=== PATIENT | female | born 1970 | race Caucasian/White ===

== ENCOUNTER 2023-06-20 13:16 | Emergency (ER) | payer BC, SELFPAY ==
[2023-06-20 13:25] VITALS: BP 139/70; PULSE 79; RESP 20; TEMP 36.6; O2SAT 98
--- NOTE | 2023-06-20 13:35 | ED.URI ---
HPI - URI/Sore Throat General Chief Complaint: Upper Respiratory Infection Stated Complaint: Cough/Chest Congestion Time Seen by Provider: 06/20/23 13:36 Source: patient, RN notes reviewed and old records reviewed Mode of arrival: ambulatory Limitations: no limitations History of Present Illness HPI Narrative: 52-year-old female presents to [facility] complaints of 2 week history of cough, chest congestion, some noted wheezing. Patient reports she was seen at [facility] and received prednisone and Tessalon Perles for her cough with no improvement in her symptoms. Patient reports history of tobacco use for 35 years.Patient reports no fevers, chills or sweats or any body aches. MD elicited complaint: cough and other (Chest congestion) Pertinent past history: pneumonia and other (bronchitis) Onset (ago): week(s) (2) Able to tolerate fluids by mouth: Yes Treatments prior to arrival: other (Prednisone and Tessalon Perles) Related Data Home Medications Medication Instructions Recorded Confirmed aripiprazole 20 mg tablet 20 mg PO DAILY 06/20/23 06/20/23 atorvastatin 20 mg tablet 20 mg PO DAILY 06/20/23 06/20/23 benzonatate 200 mg capsule See Rx Instructions .Route .COMPLEX 06/20/23 06/20/23 buspirone 10 mg tablet 10 mg PO BID 06/20/23 06/20/23 clonidine HCl 0.2 mg tablet 0.2 mg PO DAILY 06/20/23 06/20/23 dexmethylphenidate 10 mg tablet 10 mg PO DAILY 06/20/23 06/20/23 lamotrigine 200 mg tablet See Rx Instructions .Route .COMPLEX 06/20/23 06/20/23 levothyroxine 150 mcg tablet 150 mcg PO DAILY 06/20/23 06/20/23 lisinopril 20 mg tablet 20 mg PO DAILY 06/20/23 06/20/23 trazodone 50 mg tablet 50 mg PO BID 06/20/23 06/20/23 zolpidem 12.5 mg tablet,extended 12.5 mg PO HS 06/20/23 06/20/23 release,multiphase Allergies Allergy/AdvReac Type Severity Reaction Status Date / Time Penicillins Allergy Anaphylaxis Verified 06/20/23 13:45 Review of Systems Review of Systems: CONSTITUTIONAL: Denies malaise, chills, sweats, or fever. EYES: Denies visual changes, redness, or discharge. ENT: Reports rhinorrhea, congestion, sinus pain,no otalgia and no sore throat. CARDIOVASCULAR: Denies chest pain, palpitations, or edema. RESPIRATORY: Reports cough.? some dyspnea with exertion. GASTROINTESTINAL: Denies abdominal pain, nausea, vomiting, diarrhea SKIN: Denies rash or itching. MUSCULOSKELETAL: Denies myalgia. NEUROLOGIC: Denies headache. All systems reviewed & are unremarkable except as noted in HPI and below PMFSH Past Medical History Medical History (Updated 06/21/23 @ 14:58 by Snow Owens NP) Anxiety Bipolar disorder COVID-19 2020 Hyperlipidemia Pneumonia PTSD (post-traumatic stress disorder) Surgical History Surgical History (Updated 06/21/23 @ 14:52 by Snow Owens NP) H/O thyroidectomy Hx of tubal ligation Social History Social History (Updated 06/21/23 @ 14:49 by Snow Owens NP) Smoking packs per day: 0.5 Smoking cigarettes per day: 10.0 Years smoked: 35 Smoking pack-years: 17.50 Smoking status: Current every day smoker Tobacco type: cigarettes Alcohol intake: unknown Substance use type: does not use Living arrangements: with family Gender identity (if verbalized by the patient): Female Comments At time of signature, agree with nursing past medical, surgical, social and family history. There is no relevant family history pertinent to the presenting complaint Exam Narrative: GENERAL: Well-appearing, well-nourished, and in no acute distress. HEAD: Normocephalic EYES: PERRLA, conjunctivae clear ENT: Nares clear, turbinates edematous and erythematous, clear discharge. Mucous membranes moist. TM pearly hooker with dull light reflex bilaterally; no tragal tenderness. Oropharynx erythematous without lesions. Tonsils not enlarged and without exudate, no drooling, no hoarseness, no trismus, uvula midline.post nasal drainage NECK: Supple. No lymphadeno
== END 2023-06-20 14:00 | disposition home or self-care (01) ==
PROVIDERS: Emergency Provider Registered Nurse; PCP Internal Medicine
DX: J20.9 Acute bronchitis, unspecified (principal); F17.210 Nicotine dependence, cigarettes, uncomplicated; E78.5 Hyperlipidemia, unspecified; F41.9 Anxiety disorder, unspecified; F31.9 Bipolar disorder, unspecified; Z86.16 Personal history of COVID-19
CPT/HCPCS: 99213; G0463

== ENCOUNTER 2025-03-17 15:38 | Outpatient (CLI) | payer BC, SELFPAY ==
--- OUTSIDE RECORDS SUMMARY | 2025-03-17 15:41 | XMS_ITS | Encounter Summary ---
Author Organization [facility] Address [address] [place] [address] Phone Care Team Providers Care Robot Operator Name Role Phone Garrison Laboy MD Primary Care Provider [phone] Nguyen Shepard APRN, CNP Unavailable [phone] Fei Stevens MD Unavailable [phone] Kellen Mena MD Unavailable [phone] Darian Caal MD Unavailable [phone] Jose Swanson MD Unavailable Reason for Visit * Reason Comments Medication Refill Encounter Details Date Type Department Care Team (Late st Contact Info) Description 06/21/2022 Refill [facility] - Family [facility] [address] [place] [phone] Saqib Shepard, PAC [address] [place] [address] Medication Refill Social History Tobacco Use Types Packs/Day Years Used Date Smoking Tobacco: Every Day Cigarettes 1 39.1 Started: 01/23/1986 Smokeless Tobacco: Never Alcohol Use Standard Drinks/Week Comments No 0 (1 standard drink = 0.6 oz pur e alcohol) Comments No Sex and Gender Information Value Date Recorded Sex Assigned at Not on file Legal Sex Female 11:10 PM CDT Gender Identity Not on file Sexual Orientation Not on file documented as of this encounter Miscellaneous Notes * Telephone Encounter - Saqib Shepard PAC - 06/21/2022 1:02 PM CST Rx request approved. CORE DEVELOPER * Telephone Encounter - Misty Weir RN - 06/21/2022 8:32 AM CST Medication failed the protocol, provider to review and approve the medication order if appropriate. Requested Prescriptions Pending Prescriptions Disp Refills traMADol (ULTRAM) 50 MG Tablet [Pharmacy Med Name: traMADol HCl 50 MG Oral Tablet] 60 Tablet 0 Sig: TAKE 1 TABLET BY MOUTH IN THE MORNING AND 1 AT BEDTIME Not Delegated - Opioid Agonists Protocol Failed - 06/21/2022 7:50 AM Failed - This refill cannot be delegated Passed - Visit with relevant provider in past 12 months or upcoming 90 days Recent Visits Date Type Provider Dept 03/01/22 Office Visit Garrison Laboy MD [facility] 09/06/21 Office Visit Garrison Laboy MD [facility] 07/11/21 Office Visit Garrison Laboy MD [facility] Showing recent visits within past 365 days and meeting all other requirements Future Appointments Date Type Provider Dept 07/06/22 Appointment Lab[facility] Showing future appointments within next 90 days and meeting all other requirements CORE DEVELOPER * Telephone Encounter - Misty Weir RN - 06/21/2022 8:31 AM CST Per [place] PDMP last fill date 05/20/22. CORE DEVELOPER documented in this encounter Plan of Treatment Upcoming Encounters Date Type Department Care Team (Late st Contact Info) Description 04/19/2025 2:45 PM CDT Office Visit [facility] - Neurology [facility] [address] [place] [address] Darian Caal MD [address] [place] [address] documented as of this encounter Visit Diagnoses Diagnosis Fibromyalgia Mylagia and myositis, unspecified documented in this encounter Care Teams Robot Operator Relationship Specialty Start Date End Date Garrison Laboy MD [address] [place] [address] PCP - General Internal Medicine 05/30/15 Nguyen Shepard APRN, PACKAGE DESIGNER [address] [place] [address] Consulting Physician Psychiatry 03/04/19 08/22/23 Fei Stevens MD [address] [place] [address] Consulting Physician Obstetrics & Gynecology 04/12/20 Kellen Mena MD [address] [place] [address] Consulting Physician Psychiatry 08/23/23 Darian Caal MD [address] [place] [address] Consulting Physician Neurology 11/15/23 Jose Swanson MD [address] [address] Consulting Physician Colon and Rectal Surgery 04/27/24 documented as of this encounter
--- OUTSIDE RECORDS SUMMARY | 2025-03-17 15:41 | XMS_ITS | Encounter Summary ---
Author Organization [facility] Address [address] [place] [address] Phone Care Team Providers Care Act Tutor Name Role Phone Garrison Laboy MD Primary Care Provider [phone] Nguyen Shepard APRN, CNP Unavailable [phone] Fei Stevens MD Unavailable [phone] Kellen Mena MD Unavailable [phone] Darian Caal MD Unavailable [phone] Jose Swanson MD Unavailable Reason for Visit * Reason Comments Medication Refill Encounter Details Date Type Department Care Team (Late st Contact Info) Description 05/22/[address] [facility] Group - Primary Care - [place] [address] [place] [phone] Garrison Laboy MD [address] [place], [place] [phone] Medication Refill Social History Tobacco Use Types [...] on file Sexual Orientation Not on file COVID-19 Exposure Response Date Recorded In the last 10 days, have yo u been in contact with someone who was confirmed or suspected to have Coronavirus/COVID-19? No / Unsure 05/03/2022 2:22 PM CDT documented as of this encounter Miscellaneous Notes * Telephone Encounter - Amelia Gerber, RN - 05/22/2022 1:18 PM CDT Medication refills declined. Meloxicam by discontinued by PCP on 03/01/22 and Levothyroxine strengthby changed by PCP. documented in this encounter Plan of Treatment Upcoming Encounters Date Type Department Care Team (Late st Contact Info) Description 04/19/2025 2:45 PM CDT Office Visit [facility] [address] [place] [address] Darian Caal MD [address] [place] [address] documented as of this encounter Visit Diagnoses Diagnosis Thumb pain, right Hypothyroidism due to acquired atrophy of thyroid documented in this encounter Care Teams Act Tutor Relationship Specialty Start Date End Date Garrison Laboy MD [address] [place] [address] PCP - General Internal Medicine 05/30/15 Nguyen Shepard, LINING INSERTER, SUPERVISOR OFFSET PLATE PREPARATION [address] [place] [address] Consulting Physician Psychiatry 03/04/19 08/22/23 Fei Stevens MD [address] [place] [address] Consulting Physician Obstetrics & Gynecology 04/12/20 Kellen Mena MD [address] [place] [address] Consulting Physician Psychiatry 08/23/23 Darian Caal MD [address] [place] [address] Consulting Physician Neurology 11/15/23 Jose Swanson MD [address] [address] Consulting Physician Colon and Rectal Surgery 04/27/24 documented as of this encounter
--- OUTSIDE RECORDS SUMMARY | 2025-03-17 15:41 | XMS_ITS | Encounter Summary ---
Author Organization [facility] Address [address] [place] [address] Phone Care Team Providers Care Stadium Attendant Name Role Phone Garrison Laboy MD Primary Care Provider [phone] Nguyen Shepard APRN, CNP Unavailable [phone] Fei Stevens MD Unavailable [phone] Kellen Mena MD Unavailable [phone] Darian Caal MD Unavailable [phone] Jose Swanson MD Unavailable Reason for Visit * Reason Comments Medication Refill Encounter Details Date Type Department Care Team (Late st Contact Info) Description 09/25/2022 Refill [facility] Medical Group - Family [facility] [address] [place] [address] Debbie Marino MD [address] [place] [address] Medication Refill Social History Tobacco Use Types Packs/Day Years Used Date Smoking Tobacco: Every Day Cigarettes 0.5 39.1 Started: 01/23/1986 Smokeless Tobacco: Never Alcohol Use Standard Drinks/Week Comments No 0 (1 standard drink = 0.6 oz pur e alcohol) Sexually Active Control Partners Comments Not Currently Comments No Sex and Gender Information Value Date Recorded Sex Assigned at Not on file Legal Sex Female 11:10 PM CDT Gender Identity Not on file Sexual Orientation Not on file documented as of this encounter Miscellaneous Notes * Telephone Encounter - Garrison Laboy MD - 09/25/2022 9:21 AM ASSOCIATE MERCHANDISE PLANNER Refill request approved. CIATE MERCHANDISE PLANNER * Telephone Encounter - Snow Calvillo RN - 09/25/2022 9:03 AM CST Per PDMP last refill was 08/24/22 #60. Medication failed the protocol, provider to review and approve the medication order if appropriate. Requested Prescriptions Pending Prescriptions Disp Refills traMADol (ULTRAM) 50 MG Tablet [Pharmacy Med Name: traMADol HCl 50 MG Oral Tablet] 60 Tablet 0 Sig: TAKE 1 TABLET BY MOUTH TWICE DAILY NEEDED FOR MODERATE OR MORE SEVERE PAIN Not Delegated - Opioid Agonists Protocol Failed - 09/25/2022 8:43 AM Failed - This refill cannot be delegated Passed - Visit with relevant provider in past 12 months or upcoming 90 days Recent Visits Date Type Provider Dept 03/01/22 Office Visit Garrison Laboy MD [facility] Showing recent visits within past 365 days and meeting all other requirements Future Appointments No visits were found meeting these conditions. Showing future appointments within next 90 days and meeting all other requirements CIATE MERCHANDISE PLANNER documented in this encounter Plan of Treatment Upcoming Encounters Date Type Department Care Team (Late st Contact Info) Description 04/19/2025 2:45 PM CDT Office Visit [facility] - Neurology [facility] [address] [place] [address] Darian Caal MD [address] [place] [address] documented as of this encounter Visit Diagnoses Diagnosis Fibromyalgia Mylagia and myositis, unspecified documented in this encounter Care Teams Stadium Attendant Relationship Specialty Start Date End Date Garrison Laboy MD [address] [place] [address] PCP - General Internal Medicine 05/30/15 Nguyen Shepard APRN, LIME HIDE INSPECTOR [address] [place] [address] Consulting Physician Psychiatry 03/04/19 08/22/23 Fei Stevens MD [address] [place] [address] Consulting Physician Obstetrics & Gynecology 04/12/20 Kellen Mena MD [address] [place] [address] Consulting Physician Psychiatry 08/23/23 Darian Caal MD [address] [place] [address] Consulting Physician Neurology 11/15/23 Jose Swanson MD [address] [address] Consulting Physician Colon and Rectal Surgery 04/27/24 documented as of this encounter
--- OUTSIDE RECORDS SUMMARY | 2025-03-17 15:41 | XMS_ITS | Encounter Summary ---
Author Organization [facility] Address [address] [place] [address] Phone Care Team Providers Care Snow Plow Tractor Operator Name Role Phone Garrison Laboy MD Primary Care Provider [phone] Nguyen Shepard APRN, CNP Unavailable [phone] Fei Stevens MD Unavailable [phone] Kellen Mena MD Unavailable [phone] Darian Caal MD Unavailable [phone] Jose Swanson MD Unavailable Reason for Visit * Reason Comments Medication Refill Encounter Details Date Type Department Care Team (Late st Contact Info) Description 01/26/2023 Refill [facility] Group - Primary Care - [place] [address] [place] [address] Garrison Laboy MD [address] [place], [place] [phone] Medication Refill Social History Tobacco Use Types [...] Telephone Encounter - Garrison Laboy MD - 01/28/2023 9:56 AM CDT Refill request approved. * Telephone Encounter - Misty Weir RN - 01/28/2023 8:47 AM CDT Medication failed the protocol, provider to review and approve the medication order if appropriate. Requested Prescriptions Pending Prescriptions Disp Refills levothyroxine (SYNTHROID) 125 MCG Tablet [Pharmacy Med Name: Levothyroxine Sodium 125 MCG Oral Tablet] 90 Tablet 0 Sig: Take 1 tablet by mouth once daily Thyroid Hormones Protocol Failed - 01/26/2023 6:54 PM Failed - Normal TSH in past 12 months TSH Date Value Ref Range Status 07/06/2022 8.360 (H) 0.270 - 4.200 mIU/L Final Passed - No test in the past 12 months or most recent test was negative Passed - Visit with relevant provider in past 12 months or upcoming 90 days Recent Visits Date Type Provider Dept 03/01/22 Office Visit Garrison Laboy MD [facility] Showing recent visits within past 365 days and meeting all other requirements Future Appointments Date Type Provider Dept 03/08/23 Appointment Garrison Laboy MD [facility] Showing future appointments within next 90 days and meeting all other requirements Passed - No active on record documented in this encounter Plan of Treatment Upcoming Encounters Date Type Department Care Team (Late st Contact Info) Description 04/19/2025 2:45 PM CDT Office Visit [facility] - Neurology - [place] [address] [place] [address] Darian Caal MD [address] [place] [address] documented as of this encounter Visit Diagnoses Diagnosis Hypothyroidism due to acquired atrophy of thyroid documented in this encounter Care Teams Snow Plow Tractor Operator Relationship Specialty Start Date End Date Garrison Laboy MD [address] [place] [address] PCP - General Internal Medicine 05/30/15 Nguyen Shepard APRN, OIL WELL FISHING TOOL TECHNICIAN [address] [address] Consulting Physician Psychiatry 03/04/19 08/22/23 Fei Stevens MD [address] [place] [address] Consulting Physician Obstetrics & Gynecology 04/12/20 Kellen Mena MD [address] [place] [address] Consulting Physician Psychiatry 08/23/23 Darian Caal MD [address] [place] [address] Consulting Physician Neurology 11/15/23 Jose Swanson MD [address] [address] Consulting Physician Colon and Rectal Surgery 04/27/24 documented as of this encounter
--- OUTSIDE RECORDS SUMMARY | 2025-03-17 15:41 | XMS_ITS | Encounter Summary ---
Author Organization [facility] Address [address] [place] [address] Phone Care Team Providers Care Clinical Unit Educator Name Role Phone Garrison Laboy MD Primary Care Provider [phone] Fei Stevens MD Unavailable [phone] Kellen Mena MD Unavailable [phone] Darian Caal MD Unavailable [phone] Jose Swanson MD Unavailable Encounter Details Date Type Department Care Team (Late st Contact Info) Description 05/04/2024 Transcribe Orders [facility] [address] [facility] [address] [place], [place] [phone] Jose Swanson MD [address] [place] [address] Social History Tobacco Use Types Packs/Day Years Used Date Smoking Tobacco: Every Day Cigarettes 1 39.1 Started: 01/23/1986 Smokeless Tobacco: Never Alcohol Use Standard Drinks/Week Comments No 0 (1 standard drink = 0.6 oz pur e alcohol) [facility] Utilities Answer Date Recorded In the past 12 months has e electric, gas, oil, or water company threatened to shut off services in your home? No 03/12/2024 Social Connection and Isolation Panel Answer Date Recorded In a typical week, how many times do you talk on the phone with family, friends, or neighbors? Twice a week 03/12/2024 How often do you get together with friends or re latives? Once a week 03/12/2024 How often do you attend mandaeism or uatsdin serv ices? Never 03/12/2024 Do you belong to any clubs o r organizations such as mandaeism groups, unions, fraternal or athletic groups, or school groups? No 03/12/2024 How often do you attend meet ings of the clubs or organizations you belong to? Never 03/12/2024 Are you , , di vorced, , never , or living with a partner? 03/12/2024 AUDIT-C Answer Date Recorded Q1: How often do you have a drink containing alcohol? Never 03/12/2024 Q2: How many drinks containi ng alcohol do you have on a typical day when you are drinking? Patient does not drink Q3: How often do you have si x or more drinks on one occasion? Never 03/12/2024 Overall Financial Resource Strain (CARDIA) Answe r Date Recorded How hard is it for you to pa y for the very basics like food, housing, medical care, and heating? Not hard at all 03/12/2024 [facility] - Occupational Stress Questionnaire Answer Date Recorded Do you feel stress - tense, restless, nervous, or anxious, or unable to sleep at night because your mind is troubled all the time - these days? To some extent 03/12/2024 Exercise Vital Sign Answer Date Recorde d On average, how many days pe r week do you engage in moderate to strenuous exercise (like a brisk walk)? 5 days 03/12/2024 On average, how many minutes do you engage in exercise at this level? 30 min 03/12/2024 Hunger Vital Sign Answer Date Recorded Within the past 12 months, y ou worried that your food would run out before you got the money to buy more. Never true 03/12/20 24 Within the past 12 months, t he food you bought just didn't last and you didn't have money to get more. Never true 03/12/2024 PRAPARE - Transportation Answer Date Re corded In the past 12 months, has l ack of transportation kept you from medical appointments or from getting medications? No 02/20 In the past 12 months, has l ack of transportation kept you from meetings, work, or from getting things needed for daily living? No 03/12/2024 Housing Stability Vital Sign Answer Merrick e Recorded In the last 12 months, was t here a time when you were not able to pay the mortgage or rent on time? No 08/22/2023 In the last 12 months, how many places have you lived? 1 08/22/2023 In the last 12 months, was t here a time when you did not have a steady place to sleep or slept in a fdc (including now)? No 08/22/2023 Housing Stability Vital Sign Answer Merrick e Recorded In the last 12 months, was t here a time when you were not able to pay the mortgage or rent on time? No 03/12/2024 In the past 12 months, how m any times have you moved where you were living? 0 03/12/2024 At any time in the past 12 m [facility], were you homeless or living in a fdc (including now)? No 03/12/2024 Education Answer Date Recorded What is the highest level of school you have completed or the highest degree you have received? GED or equivalent 06/2023 Sexually Active Control Partners Comments Yes Male Comments No Sex and Gender Information Value Date Recorded Sex Assigned at Not on file Legal Sex Female 11:10 PM CDT Gender Identity Not on file Sexual Orientation Not on file documented as of this encounter Plan of Treatment Upcoming Encounters Date Type Department Care Team (Late st Contact Info) Description 04/19/2025 2:45 PM CDT Office Visit [facility] - Neurology [facility] [address] [place] [address] Darian Caal MD [address] [place] [address] documented as of this encounter Visit Diagnoses Not on filedocumented in this encounter Additional Health Concerns Assessment Noted Time PHQ-9 Depression Total Score: 0 08/23/19 24 1:44 PM HELP DESK SPECIALIST documented as of this encounter Care Teams Clinical Unit Educator Relationship Specialty Start Date End Date Garrison Laboy MD [address] [place] [address] PCP - General Internal Medicine 05/30/15 Fei Stevens MD [address] [place] [address] Consulting Physician Obstetrics & Gynecology 04/12/20 Kellen Mena MD [address] [place] [address] Consulting Physician Psychiatry 08/23/23 Darian Caal MD [address] [place] [address] Consulting Physician Neurology 11/15/23 Jose Swanson MD #[address] [address] Consulting Physician Colon and Rectal Surgery 04/27/24 documented as of this encounter
--- OUTSIDE RECORDS SUMMARY | 2025-03-17 15:41 | XMS_ITS | Encounter Summary ---
Author Organization [facility] Address [address] [place] [address] Phone Care Team Providers Care Wire Tinner Name Role Phone Garrison Laboy MD Primary Care Provider [phone] Nguyen Shepard APRN, CNP Unavailable [phone] Fei Stevens MD Unavailable [phone] Kellen Mena MD Unavailable [phone] Darian Caal MD Unavailable [phone] Jose Swanson MD Unavailable Reason for Visit * Reason Comments Medication Refill Encounter Details Date Type Department Care Team (Late st Contact Info) Description 05/17/2022 Refill [facility] - Family [facility] [address]2 [place] [phone] Garrison Laboy MD [address] [place] [address] Medication Refill Social History Tobacco Use Types [...] Telephone Encounter - Saqib Shepard PAC - 05/17/2022 3:52 PM CDT Refill request approved for fill date on 05/19/22, per LEARNING PROGRAM MANAGER. * Telephone Encounter - Misty Weir RN - 05/17/2022 3:43 PM CDT Per [place] PDMP last fill date 04/19/22. documented in this encounter Plan of Treatment Upcoming Encounters Date Type Department Care Team (Late st Contact Info) Description 04/19/2025 2:45 PM CDT Office Visit [facility] - Neurology - [place] [address] [place] [address] Darian Caal MD [address]2 [place] [address] documented as of this encounter Visit Diagnoses Diagnosis Fibromyalgia Mylagia and myositis, unspecified documented in this encounter Care Teams Wire Tinner Relationship Specialty Start Date End Date Garrison Laboy MD [address] [place] [address] PCP - General Internal Medicine 05/30/15 Nguyen Shepard APRN, LEAK PATCHER [address] [place] [address] Consulting Physician Psychiatry 03/04/19 08/22/23 Fei Stevens MD [address]2 [place] [address] Consulting Physician Obstetrics & Gynecology 04/12/20 Kellen Mena MD [address] [place] [address] Consulting Physician Psychiatry 08/23/23 Darian Caal MD [address]2 [place] [address] Consulting Physician Neurology 11/15/23 Jose Swanson MD #[address] [address] Consulting Physician Colon and Rectal Surgery 04/27/24 documented as of this encounter
--- OUTSIDE RECORDS SUMMARY | 2025-03-17 15:41 | XMS_ITS | Encounter Summary ---
Author Organization [facility] Address [address] [place] [address] Care Team Providers Care International Editorial Producer Name Role Phone Garrison Laboy MD Primary Care Provider [phone] Encounter Details Date Type Department Care Team (Latest Contact Info) Description 01/11/2004 Outpatient Historical HIS PATIENT IN A BED Tino Smith Jr., MD NO ADDRESS ON FILE OTHER CURR COND-ANTEPARTUM (Primary Dx) Social History Tobacco Use Types Packs/Day Years Used Date Smoking Tobacco: Never Assessed Comments Unknown Sex and Gender Information Value Date Recorded Sex Assigned at Not on file Legal Sex Female 4:14 AM EXERCISE PHYSIOLOGY PROFESSOR Gender Identity Not on file Sexual Orientation Not on file documented as of this encounter Plan of Treatment Not on file documented as of this encounter Visit Diagnoses Diagnosis Other current maternal conditions classifiable elsewhere, antepartum- Primary documented in this encounter Care Teams International Editorial Producer Relationship Specialty Start Date End Date Garrison Laboy MD [address] [place] [address] PCP - General Internal Medicine 10/12/15 documented as of this encounter
--- OUTSIDE RECORDS SUMMARY | 2025-03-17 15:41 | XMS_ITS | Encounter Summary ---
Author Organization [facility] Address [address] [place] [address] Phone Care Team Providers Care Textile Clothing And Footwear Mechanic Name Role Phone Garrison Laboy MD Primary Care Provider [phone] Nguyen Shepard APRN, CNP Unavailable [phone] Fei Stevens MD Unavailable [phone] Kellen Mena MD Unavailable [phone] Darian Caal MD Unavailable [phone] Jose Swanson MD Unavailable Reason for Visit * Reason Comments Medication Refill Encounter Details Date Type Department Care Team (Late st Contact Info) Description 04/22/2022 Refill [facility] - Primary Care - [place] [address] [place] [address] Garrison Laboy MD [address] [place], [place] [id number] Medication Refill Social History Tobacco Use Types [...] encounter Miscellaneous Notes * Telephone Encounter - Ese Ashley RN - 04/23/2022 9:48 AM CDT Medication discontinued 03/01/2022. documented in this encounter Plan of Treatment Upcoming Encounters Date Type Department Care Team (Late st Contact Info) Description 04/19/2025 2:45 PM CDT Office Visit [facility] - Neurology [facility] #2 [place] [address] Darian Caal MD [address] [place] [address] documented as of this encounter Visit Diagnoses Diagnosis Thumb pain, right documented in this encounter Care Teams Textile Clothing And Footwear Mechanic Relationship Specialty Start Date End Date Garrison Laboy MD [address] [place] [address] PCP - General Internal Medicine 05/30/15 Nguyen Shepard APRN, LICENSED FINAL EXPENSE AGENTS [address] [place] [address] Consulting Physician Psychiatry 03/04/19 08/22/23 Fei Stevens MD [address] [place] [address] Consulting Physician Obstetrics & Gynecology 04/12/20 Kellen Mena MD [address] [place] [address] Consulting Physician Psychiatry 08/23/23 Darian Caal MD [address] [place] [address] Consulting Physician Neurology 11/15/23 Jose Swanson MD #[address] [address] Consulting Physician Colon and Rectal Surgery 04/27/24 documented as of this encounter
--- OUTSIDE RECORDS SUMMARY | 2025-03-17 15:41 | XMS_ITS | Encounter Summary ---
Author Organization [facility] Address [address] [place] [address] Phone Care Team Providers Care Circuit Court Judge Name Role Phone Garrison Laboy MD Primary Care Provider [phone] Nguyen Shepard APRN, CNP Unavailable [phone] Fei Stevens MD Unavailable [phone] Kellen Mena MD Unavailable [phone] Darian Caal MD Unavailable [phone] Jose Swanson MD Unavailable Reason for Visit * Reason Comments Medication Refill Encounter Details Date Type Department Care Team (Late st Contact Info) Description 03/21/2022 Refill [facility] - Primary Care - [place] [address] [place] [address] Garrison Laboy MD [address] [place], [place] [phone] Medication Refill Social History Tobacco Use Types [...] suspected to have Coronavirus/COVID-19? No / Unsure 03/16/2022 8:55 AM CDT documented as of this encounter Miscellaneous Notes * Telephone Encounter - Misty Weir RN - 03/21/2022 9:26 AM CDT levothyroxine (SYNTHROID) 125 MCG Tablet 90 Tablet 0 03/02/2022 documented in this encounter Plan of Treatment Upcoming Encounters Date Type Department Care Team (Late st Contact Info) Description 04/19/2025 2:45 PM CDT Office Visit [facility] - Neurology [facility] #2 [place] [address] Darian Caal MD [address] [place] [address] documented as of this encounter Visit Diagnoses Not on filedocumented in this encounter Care Teams Circuit Court Judge Relationship Specialty Start Date End Date Garrison Laboy MD [address] [place] [address] PCP - General Internal Medicine 05/30/15 Nguyen Shepard, JIE, ORTHOTIST OR PROSTHETIST [address] [place] [address] Consulting Physician Psychiatry 03/04/19 08/22/23 Fei Stevens MD [address] [place] [address] Consulting Physician Obstetrics & Gynecology 04/12/20 Kellen Mena MD [address] [place] [address] Consulting Physician Psychiatry 08/23/23 Darian Caal MD [address] [place] [address] Consulting Physician Neurology 11/15/23 Jose Swanson MD #[address] [address] Consulting Physician Colon and Rectal Surgery 04/27/24 documented as of this encounter
--- OUTSIDE RECORDS SUMMARY | 2025-03-17 15:41 | XMS_ITS | Encounter Summary ---
Author Organization [facility] Address [address] [place] [address] Phone Care Team Providers Care Bedspread Seamer Name Role Phone Garrison Laboy MD Primary Care Provider [phone] Fei Stevens MD Unavailable [phone] Kellen Mena MD Unavailable [phone] Darian Caal MD Unavailable [phone] Jose Swanson MD Unavailable Reason for Visit * Reason Comments Medication Refill Encounter Details Date Type Department Care Team (Late st Contact Info) Description 01/27/2024 Refill [facility] - Primary Care - [place] [address] [place] [address] Garrison Laboy MD [address] [place] [address] Medication Refill Social History Tobacco Use Types Packs/Day Years Used Date Smoking Tobacco: Every Day Cigarettes 1 39.1 Started: 01/23/1986 Smokeless Tobacco: Never Alcohol Use Standard Drinks/Week Comments No 0 (1 standard drink = 0.6 oz pur e alcohol) [facility] Utilities Answer Date Recorded In the past 12 months has [employer] electric, gas, oil, or water company threatened to shut off services in your home? No 08/22/2023 Social Connection and Isolation Panel Answer Date Recorded In a typical week, how many times do you talk on the phone with family, friends, or neighbors? Twice a week 08/22/2023 How often do you get together with friends or re latives? Once a week 08/22/2023 How often do you attend judaism or jewish serv ices? Never 08/22/2023 Do you belong to any clubs o r organizations such as judaism groups, unions, fraternal or athletic groups, or school groups? No 08/22/2023 How often do you attend meet ings of the clubs or organizations you belong to? Never 08/22/2023 Are you , , di vorced, , never , or living with a partner? 08/22/2023 AUDIT-C Answer Date Recorded Q1: How often do you have a drink containing alcohol? Never 08/22/2023 Q2: How many drinks containi ng alcohol do you have on a typical day when you are drinking? Patient does not drink Q3: How often do you have si x or more drinks on one occasion? Never 08/22/2023 Overall Financial Resource Strain (CARDIA) Answe r Date Recorded How hard is it for you to pa y for the very basics like food, housing, medical care, and heating? Not hard at all 08/22/2023 [facility] - Occupational Stress Questionnaire Answer Date Recorded Do you feel stress - tense, restless, nervous, or anxious, or unable to sleep at night because your mind is troubled all the time - these days? To some extent 08/22/2023 Exercise Vital Sign Answer Date Recorde d On average, how many days pe r week do you engage in moderate to strenuous exercise (like a brisk walk)? Patient declined On average, how many minutes do you engage in exercise at this level? Patient declined 08/22/2023 Hunger Vital Sign Answer Date Recorded Within the past 12 months, y ou worried that your food would run out before you got the money to buy more. Never true 08/22/19 24 Within the past 12 months, t he food you bought just didn't last and you didn't have money to get more. Never true 08/22/2023 PRAPARE - Transportation Answer Date Re corded In the past 12 months, has l ack of transportation kept you from medical appointments or from getting medications? No 08/22/2023 Lack of Transportation (Non-Medical) Not on file 08/22/2023 Housing Stability Vital Sign Answer Merrick [...] place to sleep or slept in a care home (including now)? No 08/22/2023 Education Answer Date Recorded What is the highest level of school you have completed or the highest degree you have received? GED or equivalent 06/2023 Sexually Active Control Partners Comments Not Currently Comments No Sex and Gender Information Value Date Recorded Sex Assigned at Not on file Legal Sex Female 11:10 PM CDT Gender Identity Not on file Sexual Orientation Not on file documented as of this encounter Miscellaneous Notes * Telephone Encounter - Socrates Damon RN - 01/27/2024 11:43 AM CDT Refill requested too soon. documented in this encounter Plan of Treatment Upcoming Encounters Date Type Department Care Team (Late st Contact Info) Description 04/19/2025 2:45 PM CDT Office Visit [facility] - Neurology [facility] #2 [place] [address] Darian Caal MD [address] [place] [address] documented as of this encounter Visit Diagnoses Diagnosis Hypertension, essential Unspecified essential hypertension documented in this encounter Additional Health Concerns Assessment Noted Time PHQ-9 Depression Total Score: 0 08/23/19 24 1:44 PM HVAC INSTALLATION TECHNICIAN documented as of this encounter Care Teams Bedspread Seamer Relationship Specialty Start Date End Date Garrison Laboy MD [address] [place] [address] PCP - General Internal Medicine 05/30/15 Fei Stevens MD [address] [place] [address] Consulting Physician Obstetrics & Gynecology 04/12/20 Kellen Mena MD [address] [place] [address] Consulting Physician Psychiatry 08/23/23 Darian Caal MD [address] [place] [address] Consulting Physician Neurology 11/15/23 Jose Swanson MD #[address] [address] Consulting Physician Colon and Rectal Surgery 04/27/24 documented as of this encounter
--- OUTSIDE RECORDS SUMMARY | 2025-03-17 15:41 | XMS_ITS | Encounter Summary ---
Author Organization [facility] Address [address] [place] [address] Phone Care Team Providers Care Astrophysics Professor Name Role Phone Garrison Laboy MD Primary Care Provider [phone] Nguyen Shepard APRN, CNP Unavailable [phone] Fei Stevens MD Unavailable [phone] Kellen Mena MD Unavailable [phone] Darian Caal MD Unavailable [phone] Jose Swanson MD Unavailable Reason for Visit * Reason Comments Medication Refill Encounter Details Date Type Department Care Team (Late st Contact Info) Description 02/06/2023 Refill [facility] - Family [facility] #2 [place] [address] Garrison Laboy MD [address] [place] [address] Medication Refill Social History Tobacco Use Types [...] Telephone Encounter - Garrison Laboy MD - 02/07/2023 8:44 AM CDT Refill request approved. * Telephone Encounter - Misty Weir RN - 02/07/2023 8:43 AM CDT Medication failed the protocol, provider to review and approve the medication order if appropriate. Requested Prescriptions Pending Prescriptions Disp Refills traMADol (ULTRAM) 50 MG Tablet [Pharmacy Med Name: traMADol HCl 50 MG Oral Tablet] 60 Tablet 0 Sig: TAKE 1 TABLET BY MOUTH TWICE DAILY NEEDED FOR MODERATE OR SEVERE PAIN Not Delegated - Opioid Agonists Protocol Failed - 02/06/2023 6:16 PM Failed - This refill cannot be delegated Passed - Visit with relevant provider in past 12 months or upcoming 90 days Recent Visits Date Type Provider Dept 03/01/22 Office Visit Garrison Laboy MD [facility] Showing recent visits within past 365 days and meeting all other requirements Future Appointments Date Type Provider Dept 03/08/23 Appointment Garrison Laboy MD [facility] Showing future appointments within next 90 days and meeting all other requirements * Telephone Encounter - Misty Weir RN - 02/07/2023 8:42 AM CDT Per [place] last fill date 01/06/23. documented in this encounter Plan of Treatment Upcoming Encounters Date Type Department Care Team (Late st Contact Info) Description 04/19/2025 2:45 PM CDT Office Visit [facility] - Neurology - [place] [address]2 [place] [address] Darian Caal MD [address] [place] [address] documented as of this encounter Visit Diagnoses Diagnosis Fibromyalgia Mylagia and myositis, unspecified documented in this encounter Care Teams Astrophysics Professor Relationship Specialty Start Date End Date Garrison Laboy MD [address] [place] [address] PCP - General Internal Medicine 05/30/15 Nguyen Shepard APRN, ACCOUNTS COLLECTOR [address] [place] [address] Consulting Physician Psychiatry 03/04/19 08/22/23 Fei Stevens MD #[address] [place] [address] Consulting Physician Obstetrics & Gynecology 04/12/20 Kellen Mena MD [address] [place] [address] Consulting Physician Psychiatry 08/23/23 Darian Caal MD #[address] [place] [address] Consulting Physician Neurology 11/15/23 Jose Swanson MD #[address] [address] Consulting Physician Colon and Rectal Surgery 04/27/24 documented as of this encounter
--- OUTSIDE RECORDS SUMMARY | 2025-03-17 15:41 | XMS_ITS | Encounter Summary ---
Author Organization [facility] Address [address] [place] [address] Phone Care Team Providers Care Window Decorator Name Role Phone Garrison Laboy MD Primary Care Provider [phone] Nguyen Shepard APRN, CNP Unavailable [phone] Fei Stevens MD Unavailable [phone] Kellen Mena MD Unavailable [phone] Darian Caal MD Unavailable [phone] Jose Swanson MD Unavailable Reason for Visit * Reason Comments Medication Refill Encounter Details Date Type Department Care Team (Late st Contact Info) Description 04/04/2022 Refill [facility] - Primary Care - [place] [address] [place] [address] Garrison Laboy MD [address] [place], [place] [phone] Medication Refill Social History Tobacco Use Types [...] Telephone Encounter - Garrison Laboy MD - 04/04/2022 2:26 PM CDT Refill request approved. * Telephone Encounter - Misty Weir RN - 04/04/2022 1:54 PM CDT Medication failed the protocol, provider to review and approve the medication order if appropriate. Requested Prescriptions Pending Prescriptions Disp Refills zolpidem (AMBIEN) 5 MG Tablet [Pharmacy Med Name: Zolpidem Tartrate 5 MG Oral Tablet] 90 Tablet 0 Sig: TAKE 1 TABLET BY MOUTH NIGHTLY NEEDED FOR SLEEP Not Delegated - Off Protocol Failed - 04/04/2022 1:20 PM Failed - This refill cannot be delegated Passed - Visit with relevant provider in past 12 months or upcoming 90 days Recent Visits Date Type Provider Dept 03/01/22 Office Visit Garrison Laboy MD [facility] 09/06/21 Office Visit Garrison Laboy MD [facility] 07/11/21 Office Visit Garrison Laboy MD [facility] Showing recent visits within past 365 days and meeting all other requirements Future Appointments Date Type Provider Dept 05/03[facility] Showing future appointments within next 90 days and meeting all other requirements * Telephone Encounter - Misty Weir RN - 04/04/2022 1:53 PM CDT [place] last fill date 03/07/22. documented in this encounter Plan of Treatment Upcoming Encounters Date Type Department Care Team (Late st Contact Info) Description 04/19/2025 2:45 PM CDT Office Visit [facility] - Neurology [facility] #2 [place] [address] Darian Caal MD [address] [place] [address] documented as of this encounter Visit Diagnoses Diagnosis Insomnia due to medical condition Insomnia due to medical condition classified elsewhere documented in this encounter Care Teams Window Decorator Relationship Specialty Start Date End Date Garrison Laboy MD [address] [place] [address] PCP - General Internal Medicine 05/30/15 Nguyen Shepard APRN, WET WHEELER [address] [place] [address] Consulting Physician Psychiatry 03/04/19 08/22/23 Fei Stevens MD #[address] [place] [address] Consulting Physician Obstetrics & Gynecology 04/12/20 Kellen Mena MD [address] [place] [address] Consulting Physician Psychiatry 08/23/23 Darian Caal MD [address] [place] [address] Consulting Physician Neurology 11/15/23 Jose Swanson MD #[address] [address] Consulting Physician Colon and Rectal Surgery 04/27/24 documented as of this encounter
--- OUTSIDE RECORDS SUMMARY | 2025-03-17 15:41 | XMS_ITS | Encounter Summary ---
Author Organization [facility] Address [address] [place] [address] Phone Care Team Providers Care Service Desk Associate Name Role Phone Garrison Laboy MD Primary Care Provider [phone] Nguyen Shepard APRN, CNP Unavailable [phone] Fei Stevens MD Unavailable [phone] Kellen Mena MD Unavailable [phone] Darian Caal MD Unavailable [phone] Jose Swanson MD Unavailable Reason for Visit * Reason Comments Medication Refill Encounter Details Date Type Department Care Team (Late st Contact Info) Description 10/06/2021 Refill [facility] - Primary Care - [place] [address] [place] [address] Garrison Laboy MD [address] [place], [place] [phone] Medication Refill Social History Tobacco Use Types [...] Exposure Response Date Recorded In the last month, have you been in contact with someone who was confirmed or suspected to have Coronavirus / COVID-19? No / Unsure 09/06/2021 3:31 PM FROZEN MEAT CUTTER documented as of this encounter Miscellaneous Notes * Telephone Encounter - Garrison Laboy MD - 10/06/2021 10:47 AM CDT Refill request approved. * Telephone Encounter - Misty Weir RN - 10/06/2021 10:37 AM CDT Medication failed the protocol, provider to review and approve the medication order if appropriate. Requested Prescriptions Pending Prescriptions Disp Refills zolpidem (AMBIEN) 5 MG Tablet [Pharmacy Med Name: Zolpidem Tartrate 5 MG Oral Tablet] 90 Tablet 0 Sig: TAKE 1 TABLET BY MOUTH NIGHTLY NEEDED FOR SLEEP Not Delegated - Off Protocol Failed - 10/06/2021 5:30 AM Failed - This refill cannot be delegated Passed - Visit with relevant provider in past 12 months or upcoming 90 days Recent Visits Date Type Provider Dept 09/06/21 Office Visit Garrison Laboy MD [facility] 07/11/21 Office Visit Garrison Laboy MD [facility] 02/23/21 Office Visit Garrison Laboy MD [facility] Showing recent visits within past 365 days and meeting all other requirements Future Appointments No visits were found meeting these conditions. Showing future appointments within next 90 days and meeting all other requirements documented in this encounter Plan of Treatment Upcoming Encounters Date Type Department Care Team (Late st Contact Info) Description 04/19/2025 2:45 PM CDT Office Visit [facility] - Neurology [facility] #2 [place] [address] Darian Caal MD [address] [place] [address] documented as of this encounter Visit Diagnoses Diagnosis Insomnia due to medical condition Insomnia due to medical condition classified elsewhere documented in this encounter Care Teams Service Desk Associate Relationship Specialty Start Date End Date Garrison Laboy MD [address] [place] [address] PCP - General Internal Medicine 05/30/15 Nguyen Shepard APRN, EKG MONITOR TECH [address] [place] [address] Consulting Physician Psychiatry 03/04/19 08/22/23 Fei Stevens MD [address] [place] [address] Consulting Physician Obstetrics & Gynecology 04/12/20 Kellen Mena MD [address] [place] [address] Consulting Physician Psychiatry 08/23/23 Darian Caal MD [address] [place] [address] Consulting Physician Neurology 11/15/23 Jose Swanson MD #[address] [address] Consulting Physician Colon and Rectal Surgery 04/27/24 documented as of this encounter
--- OUTSIDE RECORDS SUMMARY | 2025-03-17 15:41 | XMS_ITS | Encounter Summary ---
Author Organization [facility] Address [address] [place] [address] Phone Care Team Providers Care Whipper Name Role Phone Garrison Laboy MD Primary Care Provider [phone] Nguyen Shepard APRN, CNP Unavailable [phone] Fei Stevens MD Unavailable [phone] Kellen Mena MD Unavailable [phone] Darian Caal MD Unavailable [phone] Jose Swanson MD Unavailable Reason for Visit * Reason Comments Medication Refill Encounter Details Date Type Department Care Team (Late st Contact Info) Description 08/11/2020 Refill [facility] - Primary Care - [place] [address] [place] [id number] Garrison Laboy MD [address] [place], [place] [id number] Medication Refill Social History Tobacco Use Types [...] encounter Miscellaneous Notes * Telephone Encounter - Delmy Meeks RN - 08/11/2020 2:09 PM MICROFICHE CAMERA OPERATOR Medication approved and signed per standing order protocol. OFICHE CAMERA OPERATOR * Telephone Encounter - Amelia Gerber CMA - 08/11/2020 1:04 PM CST Rerouting OFICHE CAMERA OPERATOR documented in this encounter Plan of Treatment Upcoming Encounters Date Type Department Care Team (Late st Contact Info) Description 04/19/2025 2:45 PM CDT Office Visit [facility] [address] [place] [address] Darian Caal MD [address] [place] [address] documented as of this encounter Visit Diagnoses Diagnosis Mixed hyperlipidemia documented in this encounter Additional Health Concerns Infection Onset Date Last Indicated Resolved Time COVID - 19 06/21/2021 06/21/2021 07/11/2021 12:1 6 AM MICROFICHE CAMERA OPERATOR COVID - 19 Confirmed 06/21/2021 06/21/2021 021 12:16 AM MICROFICHE CAMERA OPERATOR documented as of this encounter Care Teams Whipper Relationship Specialty Start Date End Date Garrison Laboy MD [address] [place] [address] PCP - General Internal Medicine 05/30/15 Nguyen Shepard APRN, [employer] CO[employer] [address] [place] [address] Consulting Physician Psychiatry 03/04/19 08/22/23 Fei Stevens MD [address] [place] [address] Consulting Physician Obstetrics & Gynecology 04/12/20 Kellen Mena MD [address] [place] [address] Consulting Physician Psychiatry 08/23/23 Darian Caal MD [address] [place] [address] Consulting Physician Neurology 11/15/23 Jose Swanson MD [address] [address] Consulting Physician Colon and Rectal Surgery 04/27/24 documented as of this encounter
--- OUTSIDE RECORDS SUMMARY | 2025-03-17 15:41 | XMS_ITS | Encounter Summary ---
Author Organization [facility] Address [address] [place] [address] Care Team Providers Care Apprenticeship Training Representative Name Role Phone Garrison Laboy MD Primary Care Provider [phone] Encounter Details Date Type Department Care Team (Latest Contact Info) Description 03/30/2004 Inpatient Historical HIS PATIENT IN A BED Tino Smith Jr., MD NO ADDRESS ON FILE PREV DELIVERY NOS-DELIVER (Primary Dx) Social History Tobacco Use Types Packs/Day Years Used Date Smoking Tobacco: Never Assessed Comments Unknown Sex and Gender Information Value Date Recorded Sex Assigned at Not on file Legal Sex Female 4:14 AM CHILD CARE LEADER Gender Identity Not on file Sexual Orientation Not on file documented as of this encounter Plan of Treatment Not on file documented as of this encounter Visit Diagnoses Diagnosis Previous delivery, delivered, with or without mention of antepartum condition- Primary documented in this encounter Care Teams Apprenticeship Training Representative Relationship Specialty Start Date End Date Garrison Laboy MD [address] [place] [address] PCP - General Internal Medicine 10/12/15 documented as of this encounter
--- OUTSIDE RECORDS SUMMARY | 2025-03-17 15:41 | XMS_ITS | Encounter Summary ---
Author Organization [facility] Address [address] [place] [address] Phone Care Team Providers Care Maintenance Mechanic Engine Name Role Phone Garrison Laboy MD Primary Care Provider [phone] Nguyen Shepard APRN, CNP Unavailable [phone] Fei Stevens MD Unavailable [phone] Kellen Mena MD Unavailable [phone] Darian Caal MD Unavailable [phone] Jose Swanson MD Unavailable Reason for Visit * Reason Comments Medication Refill Encounter Details Date Type Department Care Team (Late st Contact Info) Description 01/25/2022 Refill [facility] - Primary Care - [place] [address] [place] [phone] Garrison Laboy MD [address] [place], [place] [phone] Medication Refill Social History Tobacco Use Types [...] Telephone Encounter - Ese Ashley RN - 01/25/2022 11:24 AM CDT Refill request too soon. documented in this encounter Plan of Treatment Upcoming Encounters Date Type Department Care Team (Late st Contact Info) Description 04/19/2025 2:45 PM CDT Office Visit [facility] - Neurology [facility] [address] [place] [address] Darian Caal MD [address] [place] [address] documented as of this encounter Visit Diagnoses Diagnosis Essential hypertension Unspecified essential hypertension documented in this encounter Care Teams Maintenance Mechanic Engine Relationship Specialty Start Date End Date Garrison Laboy MD [address] [place] [address] PCP - General Internal Medicine 05/30/15 Nguyen Shepard APRN, SADDLE LINING STITCHER [address] [place] [address] Consulting Physician Psychiatry 03/04/19 08/22/23 Fei Stevens MD [address] [place] [address] Consulting Physician Obstetrics & Gynecology 04/12/20 Kellen Mena MD [address] [place] [address] Consulting Physician Psychiatry 08/23/23 Darian Caal MD [address] [place] [address] Consulting Physician Neurology 11/15/23 [facility] [address] [address] Consulting Physician Colon and Rectal Surgery 04/27/24 documented as of this encounter
--- OUTSIDE RECORDS SUMMARY | 2025-03-17 15:41 | XMS_ITS | Clinical Summary ---
Author Organization [facility] Address [address] [place] [address] Phone Care Team Providers Care Testing Director Name Role Phone Garrison Laboy MD Primary Care Provider [phone] Allergies Active Allergy Reactions Criticality Noted Date Comments Penicillins Anaphylaxis High 10/19/2015 Medications ARIPiprazole (ABILIFY) 10 mg tablet 06/28/2015 Active levothyroxine 175 mcg tablet Take by mouth. 10/11/2015 Active traMADol (ULTRAM) 50 mg tablet TAKE ONE TABLET BY MOUTH TWO TIMES A DAY NEEDED. 08/28/2015 Active oxyCODONE-aceta minophen (PERCOCET) 5-325 mg tablet Take 1 Tablet by mouth every 4 hours as needed for Pain, Moderate (For Pain Scale 4-6). Max Daily Amount: 6 Tablet 5 Tablet 0 11/10/2015 Active norgestrel-ethi nyl estradiol (LO-OVRAL) 0.3-30 mg-mcg Tablet Take 1 Tablet by mouth daily. 1 Package 6 05/16/2016 Active Active Problems Problem Noted Date Diagnosed Date Tobacco use 10/19/2015 Family History Medical History Relation Name Comments Cervical Cancer Maternal Aunt no hysterec toan Colon Cancer Maternal Grandfather Heart Disease Maternal Grandfather Breast Cancer Maternal Grandmother Relation Name Status Comments Maternal Aunt Maternal Grandfather Maternal Grandmother Social History Tobacco Use Types Packs/Day Years Used Date Smoking Tobacco: Every Day Cigarettes 1 30 Alcohol Use Standard Drinks/Week Comments No 0 (1 standard drink = 0.6 oz pur e alcohol) Comments Unknown Sex and Gender Information Value Date Recorded Sex Assigned at Not on file Legal 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 Gender Identity Not on file Sexual Orientation Not on file Last Filed Vital Signs Vital Sign Reading Time Taken Comments Blood Pressure 129/57 11/10/2015 1:15 PM CDT Pulse 83 11/10/2015 7:44 AM CDT Temperature 37.5 C (99.5 F) 11/10/2015 12:25 PM CDT Respiratory Rate 17 11/10/2015 1:15 PM CDT Oxygen Saturation 97% 11/10/2015 12:55 PM CDT Inhaled Oxygen Concentration - - Weight 108 kg (238 lb) 11/10/2015 7:44 AM CDT Height 175.3 cm (5' 9) 11/10/2015 7:44 AM CDT Body Mass Index 35.15 11/10/2015 7:44 AM CDT Plan of Treatment Health Maintenance Due Date Last Done Comments DTAP/TDAP/TD VACCINES (1 - Tdap) 1991 HEPATITIS B VACCINES (1 of 3 - 19+ 3-dose series) 1991 HPV/Cotest (21-29) 1993 HPV/Cotest (30-65) 2002 CERVICAL CANCER SCREENING 07/22/2006 PAP SMEAR 07/22/2006 07/22/2003 (Prev iously completed) BREAST CANCER SCREENING 2012 COLORECTAL SCREENING 2017 Colorectal Cancer Screening 2017 FIT-DNA Q 3 years 2017 FIT/FOBT Q 1 year 2017 Flex Sig/CT Colonography Q 5 years 2017 ZOSTER VACCINE (1 of 2) 2022 INFLUENZA VACCINE (#1) 2025 Advance Directives For more information, please contact: [phone] * Full Code (Latest Code Status on File) Date Activated Date Inactivated Comments 11/10/2015 7:38 AM 11/10/2015 4:48 PM Care Teams Testing Director Relationship Specialty Start Date End Date Garrison Laboy MD [address] [place] [address] PCP - General Internal Medicine 10/12/15
--- OUTSIDE RECORDS SUMMARY | 2025-03-17 15:41 | XMS_ITS | Clinical Summary ---
Author Organization [facility] Address [address] [facility], [address] [address] Phone Care Team Providers Care Property And Equipment Clerk Name Role Phone Garrison Laboy MD Primary Care Provider [phone] Fei Stevens MD Unavailable [phone] Kellen Mena MD Unavailable [phone] Darian Caal MD Unavailable [phone] Jose Swanson MD Unavailable Allergies Active Allergy Reactions Criticality Noted Date Comments Penicillins Anaphylaxis 08/05/2015 Medications cetirizine (ZyrTEC) 10 MG Tablet Take 10 mg by mouth daily as needed. Active Ascorbic Acid (VITAMIN C PO) Take by mouth daily. Active Cholecalciferol (VITAMIN D-3 PO) Take by mouth daily. Active Zinc Sulfate (ZINC 15 PO) Take by mouth daily. Active lamoTRIgine (LaMICtal) 200 MG Tablet Take 200 mg by mouth 2 times daily. 01/11/20 23 Active traZODone (DESYREL) 50 MG Tablet TAKE 1 TO 2 TABLETS BY MOUTH DIRECTED AT BEDTIME FOR SLEEP 08/21/19 24 Active zolpidem (AMBIEN CR) 12.5 MG Tablet Controlled Release TAKE 1 TABLET BY MOUTH DIRECTED AT BEDTIME NEEDED FOR SLEEP 07/27/19 24 Active OLANZapine-Samidor chowdhury (Lybalvi) 5-10 MG Tablet Take 1 Tablet by mouth nightly. Active atorvastatin (LIPITOR) 20 MG TabletIndications: Mixed hyperlipidemia Take 1 tablet by mouth once daily 90 Tablet 3 03/20/20 24 Active traMADol (ULTRAM) 50 MG TabletIndications: Fibromyalgia TAKE 1 TABLET BY MOUTH EVERY 8 HOURS NEEDED FOR MODERATE TO SEVERE PAIN OR SEVERE PAIN 60 Tablet 1 09/07/19 25 Active levothyroxine (SYNTHROID) 200 MCG TabletIndications: Hypothyroidism due to acquired atrophy of thyroid Take 1 Tablet by mouth daily. 90 Tablet 11/24/19 25 Active meloxicam (MOBIC) 7.5 MG Tablet Take 1 Tablet by mouth daily. 30 Tablet 01/12/20 25 Active Ingrezza 80 MG Capsule TAKE 1 CAPSULE BY MOUTH 1 TIME A DAY 30 Capsule 3 02/17/20 25 Active lisinopril (PRINIVIL, ZESTRIL) 40 MG TabletIndications: Hypertension, essential Take 1 tablet by mouth once daily 90 Tablet 03/11/20 25 Active lisinopril (PRINIVIL, ZESTRIL) 40 MG TabletIndications: Hypertension, essential Take 1 tablet by mouth once daily 90 Tablet 3 04/20/20 24 025 Discontinued Ingrezza 80 MG Capsule TAKE 1 CAPSULE BY MOUTH 1 TIME A DAY 30 Capsule 3 10/10/19 25 025 Discontinued Active Problems Problem Noted Date Diagnosed Date Biliary dyskinesia 06/08/2024 Gastroesophageal reflux disease without esophagi tis 03/13/2024 Prediabetes 04/05/2023 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 RTO 2 weeks for results. bx and ecc negative Last Assessment & Plan: Results reviewed. Options discussed To rto 12m for wwe and repeat pap HPV and possible spread to mouth and rectum discussed. Elevated LFTs 06/28/2021 Overview (07/11/2021): Last Assessment & Plan: AST and ALT slightly elevated. No recent baseline. Could be secondary to viral infection. Will monitor. 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 Continue Decadron and remdesivir. Procalcitonin is in process. Supportive care. Transfusion related acute lung injury (TRALI) 11/13/19 16 01/23/2018 Encounters Date Type Department Care Team Description 03/11/2025 Refill [facility] - Primary Care - [place] [address] [place] [address] Garrison Laboy MD Medication Refill 03/05/2025 8:28 AM CDT - 03/05/2025 11:59 PM CDT [facility] [address] [place] [address] Garrison Laboy MD Discharge Disposition: Discharged to home or Selfcare 03/05/2025 7:37 AM CDT - 03/05/2025 8:27 AM CDT [facility] [address] [place] [address] Garrison Laboy MD Discharge Disposition: Discharged to home or Selfcare 03/03/2025 Travel 02/15/2025 Refill [facility] - Neurology - [place] [address] [place] [address] Ofe Alvarenga, FOOTBALL PAD REPAIRER, DOPE EDGER Medication Refill 02/13/2025 Travel 02/04/2025 Telephone [facility] [place] [address] [place] [address] Garrison Laboy MD Medication Refill 02/03/2025 MyChart RX Renewal [facility] [place] [address] [place] [address] Garrison Laboy MD Medication Renewal Declined 02/03/2025 Refill [facility] [place] [address] [place] [address] Garrison Laboy MD Medication Refill 01/18/2025 Telephone [facility] [place] [address] [place] [address] Garrison Laboy MD 01/16/2025 Refill [facility] [place] [address] [address] Garrison Laboy MD Medication Refill 01/15/2025 2:01 PM CDT - 01/15/2025 11:59 PM CDT Hospital Encounter [facility] Mammography [address] [place] [id number] Garrison Laboy MD Discharge Disposition: Discharged to home or Selfcare 01/15/2025 Travel 01/11/2025 Refill [facility] [place] [address] [place] [address] Garrison Laboy MD 01/04/2025 Results Follow-Up [facility] [place] [address] [address] Garrison Laboy MD THYROID STIMULATING HORMONE (TSH) 01/01/2025 Travel from Last 3 Months Immunizations Immunization Administration Dates Next Due PUR TDAP 7+ YRS IM 01/24/2016 Pneumococcal Vaccine Adult - 23 Valent 9 Pneumococcal conjugate PCV20 , polysaccharide [id number] conjugate, adjuvant, PF 03/01/2022 Zoster Vaccine Recombinant 01/06/2024 Family History Medical History Relation Name Comments No Known Problems Father KNOW NO HI STORY OF HIS HEALTH Asthma Half-Brother Cancer Maternal Aunt Breast Heart Attack Maternal Grandfather Hypertension Maternal Grandfather Cancer Maternal Grandmother Breast Hypertension Mother Stroke Mother No Known Problems Son 1 Migraines Son 2 Relation Name Status Comments Father Alive Half-Brother Alive Maternal Aunt Maternal Grandfather Maternal Grandmother Mother Alive Son 1 Alive Son 2 Alive Social History Tobacco Use Types Packs/Day Years Used Date Smoking Tobacco: Every Day Cigarettes 1 39.1 Started: 01/23/1986 Smokeless Tobacco: Never Tobacco Cessation:Ready to Q uit: Not Asked; Counseling Given: Not Answered Alcohol Use Standard Drinks/Week Comments No 0 (1 standard drink = 0.6 oz pur e alcohol) [facility] Utilities Answer Date Recorded In the past 12 months has [employer], gas, oil, or water [employer] threatened to shut off services in your home? No 03/12/2024 Social Connection and Isolation Panel Answer Date Recorded In a typical week, how many times do you talk on the phone with family, friends, or neighbors? Twice a week 03/12/2024 How often do you get together with friends or re latives? Once a week 03/12/2024 How often do you attend taoism or church serv ices? Never 03/12/2024 Do you belong to any clubs o r organizations such as taoism groups, unions, fraternal or athletic groups, or [...] and heating? Not hard at all 03/12/2024 [facility] - Occupational Stress [...] place to sleep or slept in a retirement (including now)? No 08/22/2023 Housing Stability Vital Sign Answer Merrick e Recorded In the last 12 months, was t here a time when you were not able to pay the mortgage or rent on time? No 03/12/2024 In the past 12 months, how m any times have you moved where you were living? 0 03/12/2024 At any time in the past 12 m [place], were you homeless or living in a retirement (including now)? No 03/12/2024 Education Answer Date Recorded What is the highest level of school you have completed or the highest degree you have received? GED or equivalent 06/2023 Sexually Active Control Partners Comments Yes Surgical Male Comments No Sex and Gender Information Value Date Recorded Sex Assigned at Not on file Legal Sex Female 11:10 PM CDT Gender Identity Not on file Sexual Orientation Not on file Last Filed Vital Signs Vital Sign Reading Time Taken Comments Blood Pressure 126/70 12/08/2024 1:09 PM CDT Pulse 74 12/08/2024 1:09 PM CDT Temperature 36.4 C (97.6 F) 12/08/2024 1:09 PM CDT Respiratory Rate 20 12/08/2024 1:09 PM CDT Oxygen Saturation 96% 12/08/2024 1:09 PM CDT Inhaled Oxygen Concentration - - Weight 102.4 kg (225 lb 12.8 oz) 08/17/2024 9:24 AM BRIEF WRITER Height 175.3 cm (5' 9) 08/17/2024 9:24 AM BRIEF WRITER Body Mass Index 33.34 08/17/2024 9:24 AM BRIEF WRITER Plan of Treatment Upcoming Encounters Date Type Department Care Team (Late st Contact Info) Description 04/19/2025 2:45 PM CDT Office Visit [facility] [address] [place] [address] Darian Caal MD [address] [place] [address] Health Maintenance Due Date Last Done Comments Hepatitis B Immunization (1 of 3 - 19+ 3-dose series) 1991 Pap Smear 1993 Cervical Cancer Screening (CCS) 2002 HPV/Cotest 2002 Cologuard 2017 Immunochemical Fecal Occult Blood 2017 Lung Cancer Screening 2022 06/27/2021 , 11/11/2015 SARS-COV-2 Immunization ( season) 2024 Influenza Immunization (#1) 2025 Colonoscopy 06/04/2025 06/04/2024, 06/04/2024 Colorectal Cancer Screening 06/04/2025 Td Immunization Every 10 Yea rs (Adults With 1 Tdap) 01/23/2026 01/24/2016 Mammogram 03/05/2026 03/05/2025, 01/15/2025 Respiratory Syncytial Virus (RSV) Immunization (Adult) (1 - 1-dose 75+ series) 2047 Hepatitis C Virus (HCV) Screening Completed 03/06/2024 Zoster Immunization Completed 04/20/2024, 01/06/2024 Pneumococcal Immunization (5 0+ years) Completed 10/24/2024, 03/01/2022, 03/04/2019 Pneumococcal Immunization Combined Discontinued 10/24/2024, 03/01/2022, 03/04/2019 Discussion re Starting/Frequency of Mammograms Discontinued 03/05/2025, 01/15/2025 Human Papillomavirus (HPV) Immunization Aged Out No longer eligible based on patient's age to complete this topic Meningococcal Immunization (ACWY) Aged Out No longer eligible based on patient's age to complete this topic Rotavirus Immunization Aged Out No lo nger eligible based on patient's age to complete this topic Procedures Procedure Name Priority Date/Time Associated Diagnosis Comments [facility] US BREAST LIMITED KATIE Routine 03/05/2025 9:15 AM CDT Abnormal mammogram SONIA DIAG BILATERAL DIGITAL W CAD W CEE Routine 03/05/2025 8:38 AM CDT Abnormal mammogram MAGNESIUM (MG) Routine 02/13/2025 10:26 AM CDT Routine general medical examination at a health care facility Vitamin D deficiency, unspecified VITAMIN D, 25 HYDROXY TOTAL Routine 02/13/2025 10:26 AM CDT Routine general medical examination at a health care facility Vitamin D deficiency, unspecified THYROID STIMULATING HORMONE (TSH) Routine 02/13/2025 10:26 AM CDT Routine general medical examination at a health care facility Vitamin D deficiency, unspecified COMPLETE BLOOD COUNT (CBC) WITHOUT DIFF Routine 02/13/2025 10:26 AM CDT Routine general medical examination at a health care facility Vitamin D deficiency, unspecified CMP (COMPREHENSIVE METABOLIC PANEL) Routine 02/13/2025 10:26 AM CDT Routine general medical examination at a health care facility Vitamin D deficiency, unspecified VITAMIN B12 Routine 02/13/2025 10:26 AM CDT Routine general medical examination at a health care facility Vitamin D deficiency, unspecified LIPID PANEL Routine 02/13/2025 10:26 AM CDT Routine general medical examination at a health care facility Vitamin D deficiency, unspecified SONIA SCREENING BILATERAL DIGITAL W CAD W CEE Routine 01/15/2025 2:33 PM CDT Encounter for screening mammogram for breast cancer THYROID STIMULATING HORMONE (TSH) Today 01/01/2025 8:32 AM CDT Hypothyroidism due to acquired atrophy of thyroid HEPATITIS C ANTIBODY Routine 03/06/2024 7:59 AM CDT Encounter for hepatitis C screening test for low risk patient CT CHEST W CONTRAST STAT 11/11/2015 9 :34 AM CDT from Last 3 Months or Most Recently Relevant to Health Maintenance Results * SONIA US BREAST LIMITED KATIE (03/05/2025 9:15 AM CDT) Anatomical Region Laterality Modality breast Bilateral Ultrasound 03/05/2025 7:40 AM CDT Narrative 03/05/2025 9:41 AM CDT - SONIA DIAG BILATERAL DIGITAL W CAD W CEE - [facility] US BREAST LIMITED KATIE BILATERAL DIGITAL DIAGNOSTIC MAMMOGRAM 3D/2D WITH CAD WITH MEDIOLATERAL MEDIOLATERAL OBLIQUE CRANIOCAUDAL SPOT COMPRESSION AND BILATERAL ULTRASOUND: 03/05/2025 The study was acquired using digital technology and interpreted from soft copy. Current study was also evaluated with ICAD version 7.2. 2D digital mammographic views, as well as 3D digital tomosynthesis were performed in the CC and MLO projections. CLINICAL: Diagnostic study. Patient returns to evaluate focal asymmetries in both breasts. No personal history of cancer. Maternal grandmother had breast cancer. COMPARISONS: Comparison is made to exam dated: 01/15/2025 [facility]. BREAST TISSUE:There are scattered areas of fibroglandular density. FINDINGS: BILATERAL DIAGNOSTIC MAMMOGRAM: Additional views of both breasts were obtained. The focal asymmetry at the 10-11 o'clock position of the right breast anteriorly, the focal asymmetry in the subareolar right breast and the focal asymmetry at the 7 to 8 o'clock position of the left breast anteriorly all persist on the additional views. Further evaluation was obtained with sonography. TARGETED BILATERAL BREAST ULTRASOUND: At the 10 o'clock position of the right breast, 3 cm from the nipple, there is a 1.3 cm cyst corresponding to the mammographic finding. An adjacent smaller cyst measures 5 mm. In the subareolar right breast, a 1.4 cm fluid-filled structure may be a cyst or dilated duct. The findings in the right breast are considered benign. Within the left breast, at the 8 o'clock position, 3 cm from the nipple, there is an elongated hypoechoic lesion measuring 1.1 x 0.7 x 0.3 cm. This may be a complex cyst or dilated duct. It is unclear if this corresponds to the mammographic finding. The findings in the left breast are probably benign. IMPRESSION: OVERALL STUDY BIRADS: CATEGORY 3: PROBABLY BENIGN Cysts in the right breast are benign. Mammographic and sonographic lesions in the left are probably benign. A follow-up left diagnostic mammogram and an ultrasound in 6 months are recommended to demonstrate stability. The results and recommendations were discussed with the patient. Electronically signed by: Lynette Hodgson M.D. ll/:03/05/2025 09:29:21 Telephone Instrument Supervisor(s): RT Kristopher(R)(M), [facility]; SILVIANO Zelaya, [facility] letter sent: Birad 3 Followup Reading location: [facility] OVERALL STUDY BIRADS: Category 3: Probably Benign Procedure Note Lynette Hodgson MD - 03/05/2025 - SONIA DIAG BILATERAL DIGITAL W CAD W CEE - [facility] US BREAST LIMITED KATIE BILATERAL DIGITAL DIAGNOSTIC MAMMOGRAM 3D/2D WITH CAD WITH MEDIOLATERAL MEDIOLATERAL OBLIQUE CRANIOCAUDAL SPOT COMPRESSION AND BILATERAL ULTRASOUND: 03/05/2025 The study was acquired using digital technology and interpreted from soft copy. Current study was also evaluated with ICAD version 7.2. 2D digital mammographic views, as well as 3D digital tomosynthesis were performed in the CC and MLO projections. CLINICAL: Diagnostic study. Patient returns to evaluate focal asymmetries in both breasts. No personal history of cancer. Maternal grandmother had breast cancer. COMPARISONS: Comparison is made to exam dated: 01/15/2025 [facility]. BREAST TISSUE:There are scattered areas of fibroglandular density. FINDINGS: BILATERAL DIAGNOSTIC MAMMOGRAM: Additional views of both breasts were obtained. The focal asymmetry at the 10-11 o'clock position of the right breast anteriorly, the focal asymmetry in the subareolar right breast and the focal asymmetry at the 7 to 8 o'clock position of the left breast anteriorly all persist on the additional views. Further evaluation was obtained with sonography. TARGETED BILATERAL BREAST ULTRASOUND: At the 10 o'clock position of the right breast, 3 cm from the nipple, there is a 1.3 cm cyst corresponding to the mammographic finding. An adjacent smaller cyst measures 5 mm. In the subareolar right breast, a 1.4 cm fluid-filled structure may be a cyst or dilated duct. The findings in the right breast are considered benign. Within the left breast, at the 8 o'clock position, 3 cm from the nipple, there is an elongated hypoechoic lesion measuring 1.1 x 0.7 x 0.3 cm. This may be a complex cyst or dilated duct. It is unclear if this corresponds to the mammographic finding. The findings in the left breast are probably benign. IMPRESSION: OVERALL STUDY BIRADS: CATEGORY 3: PROBABLY BENIGN Cysts in the right breast are benign. Mammographic and sonographic lesions in the left are probably benign. A follow-up left diagnostic mammogram and an ultrasound in 6 months are recommended to demonstrate stability. The results and recommendations were discussed with the patient. Electronically signed by: Lynette Hodgson M.D. ll/:03/05/2025 09:29:21 Telephone Instrument Supervisor(s): Brooke Presley, RT(R)(M), [facility]; SILVIANO Zelaya, [facility] letter sent: Birad 3 Followup Reading location: [facility] OVERALL STUDY BIRADS: Category 3: Probably Benign us Garrison Laboy MD IMG MAMMO ORDERABLES Evon l Result * SONIA DIAG BILATERAL DIGITAL W CAD W CEE (03/05/2025 8:38 AM CDT) Anatomical Region Laterality Modality breast Bilateral Mammography 03/05/2025 7:40 AM CDT Narrative 03/05/2025 9:41 AM CDT - SONIA DIAG BILATERAL DIGITAL W CAD W CEE - [facility] US BREAST LIMITED KATIE BILATERAL DIGITAL DIAGNOSTIC MAMMOGRAM 3D/2D WITH CAD WITH MEDIOLATERAL MEDIOLATERAL OBLIQUE CRANIOCAUDAL SPOT COMPRESSION AND BILATERAL ULTRASOUND: 03/05/2025 The study was acquired using digital technology and interpreted from soft copy. Current study was also evaluated with ICAD version 7.2. 2D digital mammographic views, as well as 3D digital tomosynthesis were performed in the CC and MLO projections. CLINICAL: Diagnostic study. Patient returns to evaluate focal asymmetries in both breasts. No personal history of cancer. Maternal grandmother had breast cancer. COMPARISONS: Comparison is made to exam dated: 01/15/2025 [facility]. BREAST TISSUE:There are scattered areas of fibroglandular density. FINDINGS: BILATERAL DIAGNOSTIC MAMMOGRAM: Additional views of both breasts were obtained. The focal asymmetry at the 10-11 o'clock position of the right breast anteriorly, the focal asymmetry in the subareolar right breast and the focal asymmetry at the 7 to 8 o'clock position of the left breast anteriorly all persist on the additional views. Further evaluation was obtained with sonography. TARGETED BILATERAL BREAST ULTRASOUND: At the 10 o'clock position of the right breast, 3 cm from the nipple, there is a 1.3 cm cyst corresponding to the mammographic finding. An adjacent smaller cyst measures 5 mm. In the subareolar right breast, a 1.4 cm fluid-filled structure may be a cyst or dilated duct. The findings in the right breast are considered benign. Within the left breast, at the 8 o'clock position, 3 cm from the nipple, there is an elongated hypoechoic lesion measuring 1.1 x 0.7 x 0.3 cm. This may be a complex cyst or dilated duct. It is unclear if this corresponds to the mammographic finding. The findings in the left breast are probably benign. IMPRESSION: OVERALL STUDY BIRADS: CATEGORY 3: PROBABLY BENIGN Cysts in the right breast are benign. Mammographic and sonographic lesions in the left are probably benign. A follow-up left diagnostic mammogram and an ultrasound in 6 months are recommended to demonstrate stability. The results and recommendations were discussed with the patient. Electronically signed by: Lynette Hodgson M.D. ll/:03/05/2025 09:29:21 Telephone Instrument Supervisor(s): RT Kristopher(R)(M), [facility]; SILVIANO Zelaya, [facility] letter sent: Birad 3 Followup Reading location: [facility] OVERALL STUDY BIRADS: Category 3: Probably Benign Procedure Note Lynette Hodgson MD - 03/05/2025 - SONIA DIAG BILATERAL DIGITAL W CAD W CEE - [facility] US BREAST LIMITED KATIE BILATERAL DIGITAL DIAGNOSTIC MAMMOGRAM 3D/2D WITH CAD WITH MEDIOLATERAL MEDIOLATERAL OBLIQUE CRANIOCAUDAL SPOT COMPRESSION AND BILATERAL ULTRASOUND: 03/05/2025 The study was acquired using digital technology and interpreted from soft copy. Current study was also evaluated with ICAD version 7.2. 2D digital mammographic views, as well as 3D digital tomosynthesis were performed in the CC and MLO projections. CLINICAL: Diagnostic study. Patient returns to evaluate focal asymmetries in both breasts. No personal history of cancer. Maternal grandmother had breast cancer. COMPARISONS: Comparison is made to exam dated: 01/15/2025 [facility]. BREAST TISSUE:There are scattered areas of fibroglandular density. FINDINGS: BILATERAL DIAGNOSTIC MAMMOGRAM: Additional views of both breasts were obtained. The focal asymmetry at the 10-11 o'clock position of the right breast anteriorly, the focal asymmetry in the subareolar right breast and the focal asymmetry at the 7 to 8 o'clock position of the left breast anteriorly all persist on the additional views. Further evaluation was obtained with sonography. TARGETED BILATERAL BREAST ULTRASOUND: At the 10 o'clock position of the right breast, 3 cm from the nipple, there is a 1.3 cm cyst corresponding to the mammographic finding. An adjacent smaller cyst measures 5 mm. In the subareolar right breast, a 1.4 cm fluid-filled structure may be a cyst or dilated duct. The findings in the right breast are considered benign. Within the left breast, at the 8 o'clock position, 3 cm from the nipple, there is an elongated hypoechoic lesion measuring 1.1 x 0.7 x 0.3 cm. This may be a complex cyst or dilated duct. It is unclear if this corresponds to the mammographic finding. The findings in the left breast are probably benign. IMPRESSION: OVERALL STUDY BIRADS: CATEGORY 3: PROBABLY BENIGN Cysts in the right breast are benign. Mammographic and sonographic lesions in the left are probably benign. A follow-up left diagnostic mammogram and an ultrasound in 6 months are recommended to demonstrate stability. The results and recommendations were discussed with the patient. Electronically signed by: Lynette Hodgson M.D. ll/:03/05/2025 09:29:21 Telephone Instrument Supervisor(s): Brooke Presley RT(R)(M), [facility]; SILVIANO Zelaya, [facility] letter sent: Birad 3 Followup Reading location: [facility] OVERALL STUDY BIRADS: Category 3: Probably Benign us Garrison Laboy MD IMG MAMMO ORDERABLES Evon l Result * VITAMIN D, 25 HYDROXY TOTAL (02/13/2025 10:26 AM CDT) VITAMIN D, 25 HYDROX 49.7 ng/mL 02/13/2025 12:05 PM CDT [facility] Blood Venipuncture / Unknown 02/13/2025 10:26 AM CDT 02/13/2025 11:25 AM CDT Narrative [facility] - 02/13/2025 12:05 PM CDT Published reference ranges for Vitamin D vary depending on time and place and method of testing, and on patient's age, sex, ethnicity and levels of other measured analytes such as parathormone, calcium and phosphorus. The result should be evaluated in conjunction with clinical findings and suspicions. [facility] Clinical Practice Guidelines: Status Vitamin D levels (ng/mL) Deficient <=20 At risk of inadequacy 21-29 Sufficient 30-100 Centers of Disease Control and Prevention Guidelines: Status Vitamin D levels (ng/mL) Deficient <13 At risk of inadequacy 13-19 Sufficient 20-50 Possibly harmful >50 References: [employer], 2010 Dietary reference intakes for calcium and vitamin D. [place]: The National Academies Press. Chandrika M, Sohail N, Sujatha GALLO, et al., Evaluation, treatment, and prevention of Vitamin D deficiency: an Endocrinology Clinical Practice Guideline. JCEM 2011 96: 7 1260-5286. Juan A, Sheng C, Sumanth D, et al., Vitamin D Status: [place], 6957-5590, [facility] data brief, no. 59, MD [place]: National Center for Health Statistics. 2011. Crystalviolet Rodgers FOOTBALL PAD REPAIRER CHEMISTRY ORDERABLES Final Result [facility] [address] [place] [address] * VITAMIN B12 (02/13/2025 10:26 AM CDT) VITAMIN B12 669 213 - 816 pg/mL 02/13/2025 12:05 PM CDT [facility] Blood Venipuncture / Unknown 02/13/2025 10:26 AM CDT 02/13/2025 11:25 AM CDT Crystalviolet Rodgers FOOTBALL PAD REPAIRER CHEMISTRY ORDERABLES Final Result [facility] [address] [place] [address] * THYROID STIMULATING HORMONE (TSH) (02/13/2025 10:26 AM CDT) Only the most recent of2 resultswithin the time period is included. TSH 2.262 0.300 - 5.000 mIU/L 02/13/2025 12:44 PM CDT [facility] Blood Venipuncture / Unknown 02/13/2025 10:26 AM CDT 02/13/2025 11:26 AM CDT Crystal L Vincent FOOTBALL PAD REPAIRER CHEMISTRY ORDERABLES Final Result [facility] [address] [place] [address] * MAGNESIUM (MG) (02/13/2025 10:26 AM CDT) Pathologist [facility] MAGNESIUM 1.9 1.6 - 2.6 mg/dL 02/13/2025 11:43 AM CDT [facility] Blood Venipuncture / Unknown 02/13/2025 10:26 AM CDT 02/13/2025 11:26 AM CDT Crystalviolet Rodgers FOOTBALL PAD REPAIRER CHEMISTRY ORDERABLES Final Result Performing Organization Address City/[facility]/ZIP Co de Phone Number [facility] [address] [place] [address] * (ABNORMAL) LIPID PANEL (02/13/2025 10:26 AM CDT) Pathologist [facility] CHOLESTEROL 151 <200 mg/dL 02/13/2025 11:43 AM CDT [facility] TRIGLYCERIDES 149 <150 mg/dL 02/13/2025 11:43 AM CDT [facility] HDL CHOLESTEROL 27(L) >40 mg/dL 11:43 AM CDT [facility] LDL 94 <130 mg/dL 02/13/2025 11:43 AM CDT [facility] VLDL 30 10 - 50 mg/dL 02/13/2025 11:43 AM CDT [facility] CHOL/HDL RATIO 5.6(H) 0.0 - 4.4 02/13/2025 11:43 AM CDT [facility] NON-HDL CHOLESTEROL 124 <130 mg/dL 02/13/2025 11:43 AM CDT [facility] IS THE PATIENT REQUIRED TO BE FASTING? Yes 02/13/2025 11:43 AM CDT [facility] HAS THE PATIENT BEEN FASTING? Yes 02/13/2025 11:43 AM CDT [facility] Blood Venipuncture / Unknown 02/13/2025 10:26 AM CDT 02/13/2025 11:26 AM CDT us Crystal Rodgers APRN CHEMISTRY ORDERABLES Final Result [facility] [address] [place] [address] * (ABNORMAL) COMPLETE BLOOD COUNT (CBC) WITHOUT DIFF (02/13/2025 10:26 AM CDT) WBC 5.49 4.00 - 12.00 10(3)/mcL 02/13/2025 11:29 AM CDT [facility] RBC 4.99 3.80 - 5.30 10(6)/[facility] 02/13/2025 11:29 AM CDT [facility] HEMOGLOBIN (HGB) 14.5 12.0 - 15.8 g/dL 02/13/2025 11:29 AM CDT [facility] HEMATOCRIT (HCT) 42.4 36.0 - 47.0 % 02/13/2025 11:29 AM CDT [facility] MCV 85.0 82.0 - 96.0 fL 02/13/2025 11:29 AM CDT [facility] MCH 29.1 26.0 - 34.0 pg 02/13/2025 11:29 AM CDT [facility] MCHC 34.2 31.0 - 36.0 g/dL 02/13/2025 11:29 AM CDT [facility] PLATELET COUNT 109(L) 140 - 440 10(3)/mcL 02/13/2025 11:29 AM CDT [facility] RDW 13.3 11.8 - 15.5 % 02/13/2025 11:29 AM CDT [facility] MPV 12.5(H) 9.7 - 12.4 fL 02/13/2025 11:29 AM CDT [facility] Blood Venipuncture / Unknown 02/13/2025 10:26 AM CDT 02/13/2025 11:25 AM CDT us Crystal Rodgers FOOTBALL PAD REPAIRER HEMATOLOGY ORDERABLES Evon pritchard Result [facility] [address] [place] [address] * (ABNORMAL) CMP (COMPREHENSIVE METABOLIC PANEL) (02/13/2025 10:26 AM CDT) SODIUM 140 136 - 145 mmol/L 02/13/2025 11:43 AM CDT [facility] POTASSIUM 4.2 3.5 - 5.1 mmol/L 02/13/2025 11:43 AM CDT [facility] CHLORIDE 106 98 - 107 mmol/L 02/13/2025 11:43 AM CDT [facility] CO2, VENOUS 27 22 - 30 mmol/L 02/13/2025 11:43 AM CDT [facility] ANION GAP 11.2 <18.0 mmol/L 02/13/2025 11:43 AM CDT [facility] GLUCOSE 105(H) 70 - 99 mg/dL 02/13/2025 11:43 AM CDT [facility] BUN 5(L) 10 - 20 mg/dL 02/13/2025 11:43 AM CDT [facility] CREATININE, BLOOD 0.60 0.60 - 1.00 mg/dL 02/13/2025 11:43 AM [facility] BUN/CREATININE RATIO 8(L) 12 - 20 ratio 02/13/2025 11:43 AM [facility] TOTAL PROTEIN 7.7 6.0 - 8.0 g/dL 02/13/2025 11:43 AM [facility] ALBUMIN 4.5 3.5 - 5.0 g/dL 02/13/2025 11:43 AM [facility] A/G RATIO 1.4 1.0 - 2.2 02/13/2025 11:43 AM [facility] CALCIUM 9.3 8.7 - 10.5 mg/dL 02/13/2025 11:43 AM [facility] T BILI 2.7(H) 0.2 - 1.2 mg/dL 02/13/2025 11:43 AM [facility] SGOT (AST) 60(H) <43 U/L 02/13/2025 11:43 AM [facility] SGPT (ALT) 54 <56 U/L 02/13/2025 11:43 AM [facility] ALKALINE PHOSPHATASE 180(H) 40 - 150 U/L 02/13/2025 11:43 AM [facility] IS THE PATIENT REQUIRED TO BE FASTING? No 02/13/2025 11:43 AM [facility] GFR, ESTIMATED >60 >=60 02/13/2025 11:43 AM [facility] Comment: Creatinine Clearance is the preferred criteria for selecting drug dose adjustments in renally impaired patients. The GFR is provided as additional pertinent clinical information. GFR is reported in mL/min/1.73 sq m. Calculation based on the Chronic Kidney Disease Epidemiology Collaboration (CKD- EPI) equation refit without adjustment for race. GFR, EST. >60 >=60 025 11:43 AM [facility] GFR, EST. NONAFRICAN >60 >=60 02/13/2025 11:43 AM CDT [facility] Blood Venipuncture / Unknown 02/13/2025 10:26 AM CDT 02/13/2025 11:26 AM CDT us Crystal Rodgers APRN CHEMISTRY ORDERABLES Final Result [facility] [address] [place] [address] * SONIA SCREENING BILATERAL DIGITAL W CAD W CEE (01/15/2025 2:33 PM CDT) Anatomical Region Laterality Modality breast Bilateral Mammography 01/15/2025 2:47 PM CDT Narrative 01/18/2025 10:13 AM CDT - SONIA SCREENING BILATERAL DIGITAL W CAD W CEE BILATERAL DIGITAL SCREENING MAMMOGRAM 3D/2D WITH CAD WITH MEDIOLATERAL OBLIQUE CRANIOCAUDAL: 01/15/2025 The study was acquired using digital technology and interpreted from soft copy. Current study was also evaluated with ICAD version 7.2. 2D digital mammographic views, as well as 3D digital tomosynthesis were performed in the CC and MLO projections. CLINICAL: Baseline screening. Patient has no complaints. No personal history of breast cancer. Maternal grandmother had breast cancer. COMPARISONS: No prior exams were available for comparison. BREAST TISSUE:There are scattered areas of fibroglandular density. FINDINGS: There is a focal asymmetry with a circumscribed margin in the right breast at 11 o'clock anterior depth. There also is a focal asymmetry with a circumscribed margin in the right breast central to the nipple in the retroareolar region. There is a focal asymmetry with a circumscribed margin in the left breast at 7 o'clock anterior depth. No other significant masses or calcifications are seen in either breast. IMPRESSION: INCOMPLETE: NEED ADDITIONAL IMAGING EVALUATION The focal asymmetry in the right breast at 11 o'clock anterior depth is indeterminate. Additional views with possible ultrasound are recommended. The focal asymmetry in the right breast central to the nipple in the retroareolar region is indeterminate. Additional views with possible ultrasound are recommended. The focal asymmetry in the left breast at 7 o'clock anterior depth is indeterminate. Additional views with possible ultrasound are recommended. An immediate follow-up is recommended. A letter will be sent to the patient with these results. Electronically signed by: Savi marsh/vicki:01/15/2025 19:09:57 Telephone Instrument Supervisor(s): RT Kristopher(R)(M), [facility] letter sent: Additional Imaging Reading location: [facility] Mammogram BI-RADS: Category 0: Incomplete: Need Additional Imaging Evaluation Procedure Note Savi Nguyen MD - 01/18/2025 - SONIA SCREENING BILATERAL DIGITAL W CAD W CEE BILATERAL DIGITAL SCREENING MAMMOGRAM 3D/2D WITH CAD WITH MEDIOLATERAL OBLIQUE CRANIOCAUDAL: 01/15/2025 The study was acquired using digital technology and interpreted from soft copy. Current study was also evaluated with PinchdD version 7.2. 2D digital mammographic views, as well as 3D digital tomosynthesis were performed in the CC and MLO projections. CLINICAL: Baseline screening. Patient has no complaints. No personal history of breast cancer. Maternal grandmother had breast cancer. COMPARISONS: No prior exams were available for comparison. BREAST TISSUE:There are scattered areas of fibroglandular density. FINDINGS: There is a focal asymmetry with a circumscribed margin in the right breast at 11 o'clock anterior depth. There also is a focal asymmetry with a circumscribed margin in the right breast central to the nipple in the retroareolar region. There is a focal asymmetry with a circumscribed margin in the left breast at 7 o'clock anterior depth. No other significant masses or calcifications are seen in either breast. IMPRESSION: INCOMPLETE: NEED ADDITIONAL IMAGING EVALUATION The focal asymmetry in the right breast at 11 o'clock anterior depth is indeterminate. Additional views with possible ultrasound are recommended. The focal asymmetry in the right breast central to the nipple in the retroareolar region is indeterminate. Additional views with possible ultrasound are recommended. The focal asymmetry in the left breast at 7 o'clock anterior depth is indeterminate. Additional views with possible ultrasound are recommended. An immediate follow-up is recommended. A letter will be sent to the patient with these results. Electronically signed by: Savi marsh/vicki:01/15/2025 19:09:57 Telephone Instrument Supervisor(s): Brooke Presley RT(R)(M), [facility] sent: Additional Imaging Reading location: [place] Mammogram BI-RADS: Category 0: Incomplete: Need Additional Imaging Evaluation Garrison Laboy MD IMG MAMMO ORDERABLES Evon l Result * HEPATITIS C ANTIBODY (03/06/2024 7:59 AM CDT) hepatitis C antibody 0.19 <1 S/CO 03/06/2024 10:31 PM CDT [facility] Comment: Signal/Cutoff ratio < 0.79 is Nondetected Signal/Cutoff ratio 0.80-0.99 is Grayzone Signal/Cutoff ratio > 0.99 is Detected Supplemental assays are recommended if signal/cutoff ratio is >/=1.00. Signal/cutoff ratio result >/= 5.00 is 97% predictive of positivity for recombinant immunoblot assay (RIBA) and will be reported to the [place] Department of Public Health as required. Blood Venipuncture / Unknown 03/06/2024 7:59 AM CDT 03/06/2024 7:59 AM CDT Garrison Laboy MD CHEMISTRY ORDERABLES Evon l Result Performing Organization Address City/State/[facility] Co de Phone Number [facility] [address] [place] [address], [place] * CT CHEST W CONTRAST (11/11/2015 9:34 AM CDT) Anatomical Region Laterality Modality Chest N/A Computed Tomogra phy 11/11/2015 9:53 AM CDT Impressions 11/11/2015 9:56 AM CDT IMPRESSION: 1. No pulmonary embolism. 2. Patchy airspace opacities in both lower lobes, which may represent atelectasis versus developing pneumonia. Recommend correlation with white blood cell count and physical examination for further evaluation. 3. Small bilateral pleural effusions. 4. Mild to moderate pulmonary edema. 5. Mild hepatic steatosis. Automated exposure control was used as a dose optimization technique for this examination. Narrative 11/11/2015 9:56 AM CDT EXAMINATION: CT chest with intravenous contrast HISTORY: Dilatation and curettage procedure yesterday, presenting with shortness of breath and mid anterior chest pain, onset 3:30 a.m. this morning, now with elevated D-dimer level. COMPARISON: None available TECHNIQUE: Computed tomographic images of the chest were obtained after the administration of 100 mL of Isovue 370 intravenous contrast via left antecubital fossa IV FINDINGS: There is no pulmonary embolism. There are small bilateral pleural effusions. There is patchy airspace opacity in both lower lobes, which may represent atelectasis versus developing pneumonia. There is mild to moderate pulmonary edema. There is no pneumothorax. The heart is normal in size and no pericardial effusion. There is no significant atherosclerotic calcification coronaries or thoracic aorta. The thoracic aorta is normal in caliber. There are calcified left hilar lymph nodes, consistent with prior granulomatous disease. There are no pathologically enlarged mediastinal, hilar, axillary, or supraclavicular lymph nodes. There is mild hepatic steatosis. The remainder of the visualized upper abdomen does not demonstrate any significant abnormality. Bone windows do not demonstrate any abnormal osseous lytic or blastic lesions. 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 THIS IS AN ELECTRONICALLY VERIFIED REPORT 11/11/2015 9:53 AM: Cris Cazares M.D. Radiologist CN:alla [facility] Procedure Note Evaristo Cleveland MD - 11/11/2015 EXAMINATION: CT chest with intravenous contrast HISTORY: Dilatation and curettage procedure yesterday, presenting with shortness of breath and mid anterior chest pain, onset 3:30 a.m. this morning, now with elevated D-dimer level. COMPARISON: None available TECHNIQUE: Computed tomographic images of the chest were obtained after the administration of 100 mL of Isovue 370 intravenous contrast via left antecubital fossa IV FINDINGS: There is no pulmonary embolism. There are small bilateral pleural effusions. There is patchy airspace opacity in both lower lobes, which may represent atelectasis versus developing pneumonia. There is mild to moderate pulmonary edema. There is no pneumothorax. The heart is normal in size and no pericardial effusion. There is no significant atherosclerotic calcification coronaries or thoracic aorta. The thoracic aorta is normal in caliber. There are calcified left hilar lymph nodes, consistent with prior granulomatous disease. There are no pathologically enlarged mediastinal, hilar, axillary, or supraclavicular lymph nodes. There is mild hepatic steatosis. The remainder of the visualized upper abdomen does not demonstrate any significant abnormality. Bone windows do not demonstrate any abnormal osseous lytic or blastic lesions. 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 THIS IS AN ELECTRONICALLY VERIFIED REPORT 11/11/2015 9:53 AM: Evaristo Cleveland M.D. Evaristo Cleveland M.D. Radiologist CN:alla [facility] IMPRESSION: 1. No pulmonary embolism. 2. Patchy airspace opacities in both lower lobes, which may represent atelectasis versus developing pneumonia. Recommend correlation with white blood cell count and physical examination for further evaluation. 3. Small bilateral pleural effusions. 4. Mild to moderate pulmonary edema. 5. Mild hepatic steatosis. Automated exposure control was used as a dose optimization technique for this examination. Kenny Reyes MD IMG CT ORDERABLES Final Result from Last 3 Months or Most Recently Relevant to Health Maintenance Insurance [facility] Advance Directives * Full Code (Latest Code Status on File) Date Activated Date Inactivated Comments 11/11/2015 1:36 PM 11/13/2015 2:10 PM CPR-Full [place] atment: FULL ARREST: Attempt Resuscitation/CPR wit intubation and mechanical ventilation. PRE-ARREST: Use entire range of life support measures to stabilize the patient. Care Teams Property And Equipment Clerk Relationship Specialty Start Date End Date Garrison Laboy MD [address] [place] [address] PCP - General Internal Medicine 05/30/15 Fei Stevens MD [address] [place] [address] Consulting Physician Obstetrics & Gynecology 04/12/20 Kellen Mena MD [address] [place] [address] Consulting Physician Psychiatry 08/23/23 Darian Caal MD [address] [place] [address] Consulting Physician Neurology 11/15/23 Jose Swanson MD [address] [address] Consulting Physician Colon and Rectal Surgery 04/27/24
[2025-03-17 19:21] LABS: Hematocrit 44.6 % (37.0-47.0); Hemoglobin 14.5 g/dL (12.0-15.0); Immature Granulocyte Percent A 0.1 % (0-0.5); Lymphocytes Absolute Auto 2.14 K/mm3 (0.9-3.2); Mean Corpuscular HGB Conc 32.5 g/dl (32-36); Mean Corpuscular Hemoglobin 28.3 pg (26-34); Mean Corpuscular Volume 87.1 fl (80-100); Nucleated Red Blood Cells Absolute Auto 0.000 K/mm3 (0.0-0.012); Nucleated Red Blood Cells Perc 0.0 % (0.0-0.2); Platelet Count Result 119 k/mm3 (150-375); Red Blood Count 5.12 M/mm3 (4.2-5.4); White Blood Count 6.8 K/mm3 (4.5-10.0)
== END 2025-03-17 15:39 | disposition home or self-care (01) ==
PROVIDERS: PCP Nurse Practitioner Adult Health; Visit Provider Nurse Practitioner Adult Health
DX: D69.6 Thrombocytopenia, unspecified (principal)
CPT/HCPCS: 36415; 85025

== ENCOUNTER 2025-04-29 14:55 | Outpatient (CLI) | payer BC, SELFPAY ==
[2025-04-29 19:44] LABS: Add Urine Microscopic? YES; Appearance Urine Cloudy (Clear); Glucose Urine UA Negative (Negative); Leukocyte Esterase Ur 2+ LEU/UL (Negative); Need Manual Microscopic Reviewed; Nitrate Urine Positive (Negative); Non Pathogenic Casts 0-2; Specific Grav Ur 1.023 (1.001-1.035)
== END 2025-04-29 14:56 | disposition home or self-care (01) ==
LOC: ANHBWCLAB 14:56
PROVIDERS: PCP Nurse Practitioner Adult Health; Visit Provider Nurse Practitioner Adult Health
DX: R39.9 Unspecified symptoms and signs involving the genitourinary system (principal)
CPT/HCPCS: 81001; 87086

== ENCOUNTER 2025-05-04 08:44 | Emergency (ER) | payer BC, SELFPAY ==
[2025-05-04 08:48] VITALS: BP 133/67; PULSE 72; RESP 20; TEMP 36.4; O2SAT 94
--- OUTSIDE RECORDS SUMMARY | 2025-05-04 09:18 | XMS_ITS | Encounter Summary ---
Author Organization [facility] Address [address] [place] [address] Phone Care Team Providers Care Tuck Pointer Helper Name Role Phone Garrison Laboy MD Primary Care Provider [phone] Nguyen Shepard APRN, INDUSTRIAL CONTROLLER Unavailable [phone] Fei Stevens MD Unavailable [phone] Kellen Mena MD Unavailable [phone] Darian Caal MD Unavailable [phone] Jose Swanson MD Unavailable Crystal Rodgers APRN Primary Care Provider + [phone] Reason for Visit * Reason Comments Medication Refill Encounter Details Date Type Department Care Team (Late st Contact Info) Description 05/22/2022 Refill [facility] - Primary Care - [place] [address] [place] [address] Garrison Laboy MD [address] [place] [address] Medication Refill Social History Tobacco Use Types Packs/Day Years Used Date Smoking Tobacco: Every Day Cigarettes 1 39.3 Started: 01/23/1986 Smokeless Tobacco: Never Alcohol Use [...] Care Team (Late st Contact Info) Description 10/11/2025 2:20 PM CDT [facility] [address] [place] [phone] Lissa Zazueta December, PAC [address] [place] [address] Discharge Disposition: Discharged to home or Selfcare 10/12/2025 2:30 PM CDT [facility] [address] [place] [address] Darian Caal MD [address] [place] [address] 10/18/2025 2:20 PM CDT Office Visit [facility] [facility] [address] [place] [id number] Lissa Zazueta December, PAC [address] [place] [address] Discharge Disposition: Discharged to home or Selfcare documented as of this encounter Visit Diagnoses Diagnosis Thumb pain, right Hypothyroidism due to acquired atrophy of thyroid documented in this encounter Care Teams Tuck Pointer Helper Relationship Specialty Start Date End Date Garrison Laboy MD [address] [place] [address] PCP - General Internal Medicine 05/30/15 03/24/25 Crystal Rodgers APRN [address] [place] [address] PCP - General Advanced Practice Nurse 03/25/25 Nguyen Shepard APRN, INDUSTRIAL CONTROLLER [address] [place] [address] Consulting Physician Psychiatry 03/04/19 08/22/23 Fei Stevens MD [address] [place] [address] Consulting Physician Obstetrics & Gynecology 04/12/20 Kellen Mena MD [address] [place] [address] Consulting Physician Psychiatry 08/23/23 Darian Caal MD [address] [place] [address] Consulting Physician Neurology 11/15/23 Jose Swanson MD [address] [address] Consulting Physician Colon and Rectal Surgery 04/27/24 documented as of this encounter
--- OUTSIDE RECORDS SUMMARY | 2025-05-04 09:18 | XMS_ITS | Clinical Summary ---
Author Organization [address] Address [address] [place] [phone] Care Team Providers Care Mechanical Design Engineer Facilities Name Role Phone Garrison Laboy MD Primary Care Provider + Allergies Active Allergy Reactions Criticality Noted Date Comments Penicillins Anaphylaxis High Reaction: Anaphylaxis, Medications atorvastatin (LIPITOR) 20 mg tablet Take 1 tablet (20 mg total) by mouth daily 7 Active lamoTRIgine (LaMICtal) 25 mg tablet Take 1 tablet (25 mg total) by mouth daily Active lisinopril (PRINIVIL,ZEST RIL) 20 mg tablet 1 tablet (20 mg total) daily 7 Active traZODone (DESYREL) 100 mg tablet Take 1 tablet (100 mg total) by mouth nightly Active levothyroxine (SYNTHROID) 137 mcg tablet Take 1 tablet (137 mcg total) by mouth lens edger before breakfast 0 Active traMADoL (ULTRAM) 50 mg tablet Take 1 tablet (50 mg total) by mouth 2 (two) times a day as needed 0 Active meloxicam (MOBIC) 15 mg tablet Take 1 tablet (15 mg total) by mouth daily P.r.n. pain and swelling. Take with food. Collaborating physician Casa Green MD 20 tablet 2 Active ibuprofen (ADVIL,MOTRIN) 600 mg tabletIndicati ons:Pain Take 1 tablet (600 mg total) by mouth every 6 (six) hours as needed for pain 20 tablet 3 Active olanzapine-mauri idorphan (Lybalvi) 5-10 mg tablet tablet Take by mouth daily Active valbenazine (Ingrezza) capsule capsule 1 capsule (80 mg total) daily Active ascorbic acid (VITAMIN C ORAL) Take by mouth Active ZINC ORAL Take by mouth Active cholecalcifero l, vitamin D3, (VITAMIN D3 ORAL) Take by mouth Active Active Problems Problem Noted Date Diagnosed Date Cirrhosis of liver with ascites 12/20/2024 Metabolic dysfunction-associated steatohepatitis (MASH) 12/20/2024 Hand sprain, right, initial encounter 07/17/2022 Right wrist sprain, initial encounter 07/17/2022 Dysuria 01/09/2022 Overview (01/09/2022): ua with blood, le and nitrates To C&S Will tx with macrobid for now HPV in female 07/26/2021 Overview (08/09/2021): 08/06/2020- normal pap with HR HPV 07/26/21- colpo with bx and ECC done. RTO 2 weeks for results. bx and ecc negative Assessment & Plan (11/14/2022 3:06 PM CDT): Pap repeated today Assessment & Plan (08/09/2021 11:21 AM PANEL MACHINE SETTER): Results reviewed. Options discussed To rto 12m for wwe and repeat pap HPV and possible spread to mouth and rectum discussed. Assessment & Plan (07/26/2021 11:12 AM PANEL MACHINE SETTER): colpo with bx and ECC done. RTO 2 weeks for results. Elevated LFTs 06/28/2021 Assessment & Plan (06/28/2021 2:29 AM PANEL MACHINE SETTER): AST and ALT slightly elevated. No recent baseline. Could be secondary to viral infection. Will monitor. Bicytopenia 06/28/2021 Assessment & Plan (06/28/2021 2:34 AM PANEL MACHINE SETTER): Leukopenia and thrombocytopenia. Suspect it is secondary to infection. Will monitor. Hold anticoagulation due to platelets less than 100 K Hypokalemia 06/28/2021 Mild malnutrition 06/28/2021 Acute hypoxemic respiratory failure 06/28/2021 Pneumonia due to COVID-19 virus 06/27/2021 Assessment & Plan (06/28/2021 2:27 AM PANEL MACHINE SETTER): Currently on 4 L of oxygen. Continue Decadron and remdesivir. Procalcitonin is in process. Supportive care. Well woman exam with routine gynecological exam 06/06/2021 Overview (12/10/2022): Lab: Pap:all normal, pap done today 06/06/21- wnl. HR HPV not Labs with psych and pcp Praveen: due Colonoscopy: cologuard positive 12/10/22 Assessment & Plan (11/14/2022 3:18 PM CDT): Pap done. RTO 12m. I will send the results to the portal. If she has not heard in a week, to call the office. Assessment & Plan (06/06/2021 10:32 AM PANEL MACHINE SETTER): Lab: Pap:all normal, pap done today Labs with psych and pcp Praveen: due Pap done. RTO 12m. I will send the results to the portal. If she has not heard in a week, to call the office. Menopausal symptoms 06/06/2021 Assessment & Plan (11/14/2022 3:05 PM CDT): She will see if she can have the thyroid tested earlier with Dr. Laboy In the mean time, will increase catapress to .2 Assessment & Plan (06/06/2021 10:34 AM PANEL MACHINE SETTER): She will try taking the catapress nightly to see if that helps with the NS. Can increase to bid. rto 6 weeks We discussed that oral estrogen can increase the triglycerides. If her sx are not controlled with catapress, will discuss transdermal estrogen. Hypertension, essential 05/15/2020 Assessment & Plan (06/28/2021 2:28 AM PANEL MACHINE SETTER): Continue lisinopril with hold parameters Hyperlipidemia 01/24/2016 Assessment & Plan (06/28/2021 2:28 AM PANEL MACHINE SETTER): Continue statin Assessment & Plan (06/06/2021 10:34 AM PANEL MACHINE SETTER): Diet and exercise encouraged. Tobacco use 10/19/2015 Assessment & Plan (11/14/2022 3:17 PM CDT): The patient was encouraged to stop smoking. Techniques for smoking cessation were discussed to the patient's level of interest. Assessment & Plan (06/28/2021 2:27 AM PANEL MACHINE SETTER): Patient states she quit 1 week ago. She is not interested in a nicotine patch. Patient advised to let us know if she would like 1. Assessment & Plan (06/06/2021 10:32 AM PANEL MACHINE SETTER): The patient was encouraged to stop smoking. Techniques for smoking cessation were discussed to the patient's level of interest. Osteoarthritis of knee 05/18/2011 Fibromyalgia 05/18/2011 Arthralgia 01/26/2011 Asthma 01/26/2011 Arthritis 01/26/2011 Bipolar disorder with depression ([facility]) 01/26 Assessment & Plan (06/28/2021 2:28 AM PANEL MACHINE SETTER): Continue home medications Hypothyroidism 01/26/2011 Assessment & Plan (11/14/2022 3:17 PM CDT): She will d/w Dr. Laboy Assessment & Plan (06/28/2021 2:28 AM PANEL MACHINE SETTER): Continue levothyroxine and Cytomel Resolved Problems Problem Noted Date Diagnosed Date Resolved Date Pelvic and perineal pain 12/12/2021 Overview (01/09/2022): 12/20/21- usg normal ovaries, 2cm fibroid, endo 7mm Assessment & Plan (11/14/2022 3:05 PM CDT): Resolved. Assessment & Plan (01/09/2022 2:24 PM CDT): Options discussed She declines antibiotics today Will follow She is due for screening colonoscopy, will arrange Assessment & Plan (12/12/2021 2:33 PM CDT): To usg To corporate vp advertising & online/gc/ct This may have been diverticulitis that has resolved. If she gets the pain again, will treat with antibiotics. 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 rto 4 weeks or sooner if the pain returns. Upper respiratory infection 05/15/2020 06/06/2021 Iron deficiency anemia due t o sideropenic dysphagia 11/13/2015 06/06/2021 Current smoker 05/18/2011 12/12/2021 Immunizations Immunization Administration Dates Next Due Pfizer SARS-CoV-2 Monovalent Vaccination (12+ Yrs) PURPLE 06/28/2021(Deferred: Contraindication) Surgical History Surgery Date Site/Laterality Comments SECTION 07/22/1995 - 07/21/1996 section THYROIDECTOMY 07/22/2007 - 07/21/2008 Thyroidectomy ABLATION 07/22/2009 - 07/21/2010 Medical History Medical History Date Comments Hx Other Medical 1997 Laproscopic [place] on Uterus Hx Other Medical Bipolar Asthma Asthma Hyperlipidemia Hypertension Sleep difficulties Thyroid disease Hypothyroidism Iron deficiency anemia due t o sideropenic dysphagia 11/13/2015 Family History Medical History Relation Name Comments Heart disease Maternal Grandfather Hypertension Maternal Grandfather Breast cancer Maternal Grandmother Asthma Mother Hypertension Mother Breast cancer Other 1 Family history of Cancer, breast; Heart disease Other 2 Family history of Heart disease; Other Other 3 Family history of Lupus erythematosus; Other Other 4 Family history of Myastenia Gravis; Cervical cancer Other 5 maternal aun t Osteoarthritis Other 5 Family histor y of Osteoarthritis; Colon cancer Neg Hx no change cmt Relation Name Status Comments Maternal Grandfather Maternal Grandmother Mother Other 1 Other 2 Other 3 Other 4 Other 5 Social History Tobacco Use Types Packs/Day Years Used Date Smoking Tobacco: Every Day Cigarettes Smokeless Tobacco: Never Tobacco Cessation:Ready to Q uit: Not Asked; Counseling Given: Not Answered Alcohol Use Standard Drinks/Week Comments Not Currently 0 (1 standard drink = 0.6 oz pur e alcohol) Humiliation, Afraid, Rape, and Kick questionnair e Answer Date Recorded Within the last year, have y ou been afraid of your partner or ex-partner? No 11/14/2022 Within the last year, have y ou been humiliated or emotionally abused in other ways by your partner or ex-partner? No Within the last year, have y ou been kicked, hit, slapped, or otherwise physically hurt by your partner or ex-partner? No 11/14/2022 Within the last year, have y ou been raped or forced to have any kind of sexual activity by your partner or ex-partner? No 11/14/2022 AUDIT-C Answer Date Recorded Q1: How often do you have a drink containing alc ohol? Never 06/06/2021 Average Number of Drinks Not on file 021 Frequency of Binge Drinking Not on file 05/22 PHQ-2 Answer Date Recorded PHQ-2 Total Score (If total score is 3 or more points, staff should administer the PHQ-9) 1 11/14/2022 Personal Safety Answer Date Recorded Have you ever been in or are you currently in a harmful physical or emotional relationship or is someone making you feel afraid or unsafe? Denies 03/31/2023 Comments No Sex and Gender Information Value Date Recorded Sex Assigned at Not on file Legal Sex Female 1:41 AM PANEL MACHINE SETTER Gender Identity Not on file Sexual Orientation Not on file Obstetrics History Para Term AB IAB SAB Ectopic Multiple Livin g Live Births 5 3 3 2 Date Outcome GA Total Labor Labor/2nd/3rd Weight Sex Type Anes PTL Yamile A1 A5 Name Clin SAB SAB SAB Last Filed Vital Signs Vital Sign Reading Time Taken Comments Blood Pressure 118/75 12/15/2024 9:51 AM CDT Pulse 76 12/15/2024 9:51 AM CDT Temperature 36.9 C (98.4 F) 12/15/2024 9:51 AM CDT Respiratory Rate 18 03/31/2023 3:46 PM CDT Oxygen Saturation 97% 03/31/2023 3:46 PM CDT Inhaled Oxygen Concentration - - Weight 104.1 kg (229 lb 9.6 oz) 12/15/2024 9:51 AM CDT Height 175.3 cm (5' 9) 12/15/2024 9:51 AM CDT Body Mass Index 33.91 12/15/2024 9:51 AM CDT Plan of Treatment Health Maintenance Due Date Last Done Comments Breast Cancer Screening-Mammogram 1972 Colon Cancer Screening-Colonoscopy 1972 Hepatitis B Screening 1990 Pneumococcal vaccine <65 (2 of 2 - PCV) 03/04/2020 03/04/2019 Cervical Cancer Screening 11/15/2023 11/14/2022, Depression Screening 11/15/2023 11/14/2022, 06/27/2021, 06/06/2021 Regular Well Visit/Exam 18-64 11/15/2023 11/14/2022, 06/06/2021 Zoster Vaccine (2 of 2) 03/02/2024 01/06/2024 Influenza Vaccine (#1) 2025 DTaP/Tdap/Td Vaccine (2 - Td or Tdap) 01/23/202611/2015 Hepatitis C Screening Completed 12/15/2024 Procedures Procedure Name Priority Date/Time Associated Diagnosis Comments HEPATITIS PANEL, ACUTE Routine 12/15/2024 11:17 AM CDT Cirrhosis of liver with ascites, unspecified hepatic cirrhosis type (HCC) Metabolic dysfunction-associated steatohepatitis (MASH) PAP AND HIGH RISK HPV, REFLEX TO GENOTYPING Routine 11/14/2022 3:36 PM CDT Well woman exam with routine gynecological exam from Last 3 Months or Most Recently Relevant to Health Maintenance Results * Hepatitis panel, acute Blood (12/15/2024 11:17 AM CDT) Hep A IgM Nonreactive Nonreactive Hep B core IgM Nonreactive Nonreactive [facility] Hep C Ab Nonreactive Nonreactive [facility] Comment:Antibodies to HCV no t detected. Does NOT exclude the possibility of recent exposure to HCV. Current interpretive data was last revised on 22 HepBsAg Nonreactive Nonreactive [facility] Blood 12/15/2024 11:1 7 AM CDT 12/15/2024 12:10 PM CDT Danial Perales MD LAB MICROBIOLOGY - GENERAL ORD ERABLES Final Result [facility] Department [place] [address] * Pap and High Risk HPV, reflex to Genotyping (11/14/2022 3:36 PM CDT) CLINICAL INFORMATION: [facility] [employer] [facility] Comment:Routine exam LMP [facility] Comment:POST MANISHA Previous Pap [facility] Comment:NONE GIVEN Prev. Bx [facility] Comment:NONE GIVEN SOURCE: [facility] Comment:Cervix, Endocervix Pap, specimen adequacy [facility] Comment: Satisfactory for evaluation. Endocervical/transformation zone component present. HPV interp [facility] Comment:Negative for intraep ithelial lesion or malignancy. Infection: [facility] Comment: Fungal organisms morphologically consistent with Dali spp. [employer]ular [facility] [employer] [facility] Comment: YQ, CT(ASCP) CT screening location: [place] [address] [place] [address] Review boiler technician [facility] Comment: MVB, CT(ASCP) CT Screening Location: [place] [address] [place] [address] Comment [facility] Comment: EXPLANATORY NOTE: The Pap is a screening test for cervical cancer. It is not a diagnostic test and is subject to false negative and false positive results. It is most reliable when a satisfactory sample, regularly obtained, is submitted with relevant clinical findings and history, and when the Pap result is evaluated along with historic and current clinical information. Human papillomavirus DNA, High Risk E6/E7 Not Detected NOT DETECTED [employer] [facility]ann[facility] Comment: Not Detected High Risk HPV types (16,18,31,33,35,39,45,51,52, 56,58,59,66,68) were not detected. Other HPV types which cause anogenital lesions may be present. The significance of the other types of HPV in malignant processes has not been established. Methodology: Real Time PCR Thin prep 11/14/2022 3:36 PM CDT 11/15/2022 2:27 AM CDT Marj Banuelos MD LAB CYTOLOGY ORDERA BLES Final Result [facility] [address] [place] [address] [employer] [address] [facility] [place] [address] from Last 3 Months or Most Recently Relevant to Health Maintenance Insurance [id number] [employer] CHOICE [facility] ACCESS CHOICE Advance Directives For more information, please contact: [phone] * Full Code (Latest Code Status on File) Date Activated Date Inactivated Comments 06/27/2021 9:48 PM 07/01/2021 6:27 PM Care Teams Mechanical Design Engineer Facilities Relationship Specialty Start Date End Date Garrison Laboy MD PCP - General 05/27/17
--- OUTSIDE RECORDS SUMMARY | 2025-05-04 09:18 | XMS_ITS | Encounter Summary ---
Author Organization [facility] Address [address] [place] [address] Phone Care Team Providers Care Physical Therapy Professor Name Role Phone Garrison Laboy MD Primary Care Provider [phone] Nguyen Shepard APRN, CNP Unavailable [phone] Fei Stevens MD Unavailable [phone] Kellen Mena MD Unavailable [phone] Darian Caal MD Unavailable [phone] Jose Swanosn MD Unavailable Crystal Rodgers APRN Primary Care Provider + [phone] Reason for Visit * Reason Comments Medication Refill Encounter Details Date Type Department Care Team (Late st Contact Info) Description 05/17/2022 Refill [facility] Medical Group - Family [facility] [address] [place] [address] Garrison Laboy MD [address] [place] [address] Medication Refill Social History Tobacco Use Types [...] approved for fill date on 05/19/22, per LIBRARIAN SPECIALIST. * Telephone Encounter - Misty Weir RN - 05/17/2022 3:43 PM CDT Per [place] PDMP last fill date 04/19/22. documented in this encounter Plan of Treatment Upcoming Encounters Date Type Department Care Team (Late st Contact Info) Description 10/11/2025 2:20 PM CDT [address] [facility] [address] [place] [phone] Lissa Zazueta, PAC [address] [place] [address] Discharge Disposition: Discharged to home or Selfcare 10/12/2025 2:30 PM CDT Office Visit [facility] - Neurology [facility] [place] [address] [place] [phone] Darian Caal MD [address] [place] [phone] 10/18/2025 2:20 PM CDT Office Visit [facility] Oncology Services [address] [place] [phone] Lissa Zazueta Yue, PAC [address] [place] [address] Discharge Disposition: Discharged to home or Selfcare documented as of this encounter Visit Diagnoses Diagnosis Fibromyalgia Mylagia and myositis, unspecified documented in this encounter Care Teams Physical Therapy Professor Relationship Specialty Start Date End Date Garrison Laboy MD [address] [place] [address] PCP - General Internal Medicine 05/30/15 03/24/25 Crystal Rodgers APRN [address] [place] [address] PCP - General Advanced Practice Nurse 03/25/25 Nguyen hSepard APRN, CUSTOMER OPERATIONS REPRESENTATIVE [address] [place] [address] Consulting Physician Psychiatry 03/04/19 08/22/23 Fei Stevens MD [address] [place] [phone] Consulting Physician Obstetrics & Gynecology 04/12/20 Kellen Mena MD [address] [place] [address] Consulting Physician Psychiatry 08/23/23 Darian Caal MD [address] [place] [phone] Consulting Physician Neurology 11/15/23 Jose Swanson MD [address] [address] Consulting Physician Colon and Rectal Surgery 04/27/24 documented as of this encounter
--- OUTSIDE RECORDS SUMMARY | 2025-05-04 09:18 | XMS_ITS | Encounter Summary ---
Author Organization [facility] Address [address] [place] [address] Phone Care Team Providers Care Tensioning Machine Operator Name Role Phone Garrison Laboy MD Primary Care Provider [phone] Nguyen Shepard APRN, PRISON TEACHER Unavailable [phone] Fei Stevens MD Unavailable [phone] Kellen Mena MD Unavailable [phone] Darian Caal MD Unavailable [phone] Jose Swanson MD Unavailable Crystal Rodgers APRN Primary Care Provider [phone] Reason for Visit * Reason Comments Medication Refill Encounter Details Date Type Department Care Team (Late st Contact Info) Description 06/21/2022 Refill [facility] Medical Group - Family [facility] [address] [place] [phone] Saqib Shepard, PAC [address] [place] [address] Medication Refill Social History Tobacco [...] 06/21/2022 1:02 PM CST Rx request approved. N CHAIN PULLER * Telephone Encounter - Misty Weir RN [...] Dept 03/01/22 Office Visit Garrison Laboy MD [facility] 09/06/21 Office Visit Garrison Laboy MD [facility] 07/11/21 Office Visit Garrison Laboy MD [facility] Showing recent visits within past 365 days and meeting all other requirements Future Appointments Date Type Provider Dept 07/06/22 Appointment Lab, [facility] Showing future appointments within next 90 days and meeting all other requirements N CHAIN PULLER * Telephone Encounter - Misty Weir RN - 06/21/2022 8:31 AM CST Per [place] PD[place] last fill date 05/20/22. N CHAIN PULLER documented in this encounter Plan of Treatment Upcoming Encounters Date Type Department Care Team (Late st Contact Info) Description 10/11/2025 2:20 PM CDT [facility] [address] [place] [phone] ZazuetaAvniLissa December, PAC [address] [place] [address] Discharge Disposition: Discharged to home or Selfcare 10/12/2025 2:30 PM CDT Office Visit [facility] Medical [facility] - Neurology [facility] [address] [place] [address] Darian Caal MD [address] [place] [address] 10/18/2025 2:20 PM CDT Office Visit [facility] Oncology Services [address] [place] [phone] ZazuetaLissa holloway December, PAC [address] [place] [address] Discharge Disposition: Discharged to home or Selfcare documented as of this encounter Visit Diagnoses Diagnosis Fibromyalgia Mylagia and myositis, unspecified documented in this encounter Care Teams Tensioning Machine Operator Relationship Specialty Start Date End Date Garrison Laboy MD [address] [place] [address] PCP - General Internal Medicine 05/30/15 03/24/25 Crystal Rodgers APRN [address] [place] [address] PCP - General Advanced Practice Nurse 03/25/25 Nguyen Shepard APRN, PRISON TEACHER [address] [place] [address] Consulting Physician Psychiatry 03/04/19 08/22/23 Fei Stevens MD [address] [place] [address] Consulting Physician Obstetrics & Gynecology 04/12/20 Kellen Mena MD [address] [place] [address] Consulting Physician Psychiatry 08/23/23 Darian Caal MD [address] [place] [address] Consulting Physician Neurology 11/15/23 Jose Swanson MD [address] [address] Consulting Physician Colon and Rectal Surgery 04/27/24 documented as of this encounter
--- OUTSIDE RECORDS SUMMARY | 2025-05-04 09:18 | XMS_ITS | Encounter Summary ---
Author Organization [email or web address] Address [address] [place] [address] Care Team Providers Care Optometric Technologist Name Role Phone Garrison Laboy MD Primary Care Provider [phone] Encounter Details Date Type Department Care Team [...] on file Legal Sex Female 4:14 AM ENT SURGEON Gender Identity Not on file Sexual Orientation Not on file documented as of this encounter Plan of Treatment Not on file documented as of this encounter Visit Diagnoses Diagnosis Previous delivery, delivered, with or without mention of antepartum condition- Primary documented in this encounter Care Teams Optometric Technologist Relationship Specialty Start Date End Date Garrison Laboy MD [address] [place] [address] PCP - General Internal Medicine 10/12/15 documented as of this encounter
--- OUTSIDE RECORDS SUMMARY | 2025-05-04 09:18 | XMS_ITS | Data Portability ---
[facility] Address [address] [place] [address] Assessment No assessment recorded. Plan of Treatment Reminders Order Date Submit Date Provider Last Modified By Organization Details Last Modified Time Details Appointments None recorded. Lab None recorded. Referral None recorded. Procedures None recorded. Surgeries None recorded. Imaging None recorded. Medication Orders prednisone 10 mg tablet 2013 014 [email or web address] Not available 4 11:46:18 Patient TargetsNo targets recorded. Patient Instructions Encounter Date Encounter Id Patient Instructions Last Modified By Organization Details Last Modified Time 06/30/2014 [id number] Muccinex OTC, Nasacort OTC, take medications prescribed, If fever or worsening return, increase fluid intake and use humidifier , need to continue to work on quitting smoking, set well exam when possible for lab work etc. Not available 06/30/2014 11:46:18 discussed URI an d differentials, treatment discussed and Prednisone discussed, smoking cessation discussed Not available 06/30/2014 11:46:18 Reason for Referral None Reported. Results Created Date Observation Date Name Description Value Unit Range Abnormal Flag Note LastModifiedBy Organization Detail LastModifiedTime 01/21/20 15 01/21/2015 thyro id panel , serum TSH 3.230 uIU/m L 0.450- 4.500 Not Available [facility] ([facility]) [address], [place], [address], 01/21/2015 08:35:09 Result Notes None recorded. Problems Name Problem SNOMED Code Status Onset Date Resolution Date Notes Provider Name and Address Organization Details Recorded Time Hypothyroidism 44566449 Active CONCHITA Gallo Attn: Yvette g,[address] [facility], [place], [address], [facility] 09:47:49 Upper respiratory infection 58893878 Active CONCHITA Gallo Attn: Yvette solano,[address] [facility], [place], [address], [facility] 4 11:46:18 Problem Notes None recorded. Medical Equipment None Reported. Allergies Allergen ID Allergen Name Allergen Category Reaction Reaction Severity Criticality Documentation Date Start Date Code Code System Note Provider Name and Address Organization Details Recorded Time 73 Product containin g penicilli n (product) medicatio n Not available Not available Not available 06/30/2014 09521 8001 SNOMED BECKA Chandra, [facility] 4 10:22:27 Medications Name Sig Start Date Stop Date Status Note LastModified by Organization Details LastModified Time levothyroxin e 175 mcg tablet TAKE ONE TABLET BY MOUTH EVERY DAY active Not Available Not Available No t Available prednisone 10 mg tablet Take 2 tablets every day by oral route in the morning for 5 days. 07/05 completed Not Available Not Available Not Available tramadol 50 mg tablet TAKE ONE TABLET BY MOUTH TWO TIMES A DAY active Not Available Not Available No t Available aripiprazole 10 mg tablet active Not Available Not Available Not Available Abilify 5 mg tablet Take 1 tablet twice a day by oral route. active Not Available Not Available No t Available Vitals Date Recorded Respiratory rate Body weight Heart rate Body mass index (BMI) Body height Body temperature Systolic And Diastolic Provider Name and Address Organization Details Last Updated DateTime 4 16 /min 267975. 38771 g 92 /min 32.6 kg/m2 175.26 cm 97.5 [degF] 122/88 mm[Hg] Yvette Carrizales MA [facility] 4 10:22:27 Social History Question Answer Notes LastModified by Organizat ion Details LastModified Time Tobacco Smoking Status Current Every Day Smoker BECKA Chandra [facility] 06/30/2014 10:22:27 Do You Have An Advance Directive? No Information not available 06/30/2014 What Is Your Level Of Caffeine Consumption? Heavy Information not available 06/30/2014 Hard Of Hearing Or Deaf In One Or Both Ears? No Information not available 06/30/2014 Legally Blind In One Or Both Eyes? No Information not available 06/30/2014 Marital Status Informatio n not available 06/30/2014 Performs Monthly Self-breast Exam? No Information not available 06/30/2014 Seat Belts Used Routinely Yes Information not available 06/30/2014 Smoke Alarm In Home Yes Information not available 06/30/2014 How Much Tobacco Do You Smoke? 0.5 PPD Information not available 06/30/2014 Do You Use Sunscreen Routinely? No Information not available 06/30/2014 Sex: Unknown Functional Status Question Answer Note LastModified by Organization D etails LastModified Time What is your level of alcohol consumption? None Information not available 06/30/2014 Mental Status None recorded. Family History Nothing Reported. Medical History No medical history recorded. Gynecological HistoryNo gynecological history recorded. Obstetrics History GPAL:G 0 P 0 0 0 0 Past Encounters Encounter ID Performer Location Encounter Start Date Encounter Closed Date Diagnosis/Indication Diagnosis SNOMED-CT Code Diagnosis ICD10 Code Diagnosis IMO Codes Diagnosis Note [id number] MD Felipe Espana [facility] ([facility] 205) 2 [facility] [address] [address] 06/30/2014 10:01:28 07/01/2014 17:38:58 Upper respiratory infection [id number] Health Concerns Section Related Observation LastModified by Organization Detai ls LastModified Time None Recorded Concern Status LastModified by Organization Details LastModified Time None Recorded Advance Directives Directive N: Payers Insurance Date Sequence Insurance Name Policy Number Policy Marie Covered Member ID Marie Member ID Guarantor Name 06/30/2014 SLIDING FEE SCHEDULE - DISCOUNT Ofe Edmund Notes Date Note Type Note Provider Name and Address Organization Details Recorded Time 06/30/2014 text/html Upper Respirator y SymptomsReported by PatientUpper Respiratory SymptomsFor quality, patient reportscongested,bark- like cough, andwheezy cough. For context, patient reportssick contact,smoker, andallergiesbut reportsno foreign travel. For associated symptoms, patient reportsshortness of breath,wheezing,change in number of pillows needed to sleep at night (orthopnea),sweats,fev er,morning cough, andnauseabut reportsno sputum production,no significant weight gain,no significant weight loss,no sore throat,no vomiting,no diarrhea, andno rash. For location, patient reportsheadandchest. For severity, patient reportsmoderate. For onset/timing, patient reportscannot identify (1 week). For modifying factors, patient reportsotc medication (dylsum).ROS as noted in the HPI CONCHITA Gallo Attn: Accounting,[address] [place], [address], [facility] 06/30/2014 11:46:39 OBGyn Episode No OBEpisode recorded.
--- OUTSIDE RECORDS SUMMARY | 2025-05-04 09:18 | XMS_ITS | Encounter Summary ---
Author Organization [facility] Address [address] [place] [address] Phone Care Team Providers Care Subway Train Operator Name Role Phone Garrison Laboy MD Primary Care Provider [phone] Nguyen Shepard APRN, PATHOLOGY ASSISTANT Unavailable [phone] Fei Stevens MD Unavailable [phone] Kellen Mena MD Unavailable [phone] Darian Caal MD Unavailable [phone] Jose Swanson MD Unavailable Crystal Rodgers APRN Primary Care Provider + [phone] Reason for Visit * Reason Comments Medication Refill Encounter Details Date Type Department Care Team (Late st Contact Info) Description 04/22/2022 Refill [facility] - Primary Care - [place] [address] [place] [address] Garrison Laboy MD [address] [place] [address] Medication Refill Social History Tobacco [...] Info) Description 10/11/2025 2:20 PM CDT Lab [facility] Services [address] [place] [address] [place]issa December, PAC [address] [place] [address] Discharge Disposition: Discharged to home or Selfcare 10/12/2025 2:30 PM CDT Office Visit [facility] - Neurology [facility] [address] [place] [address] Darian Caal MD [address] [place] [address] 10/18/2025 2:20 PM CDT Office Visit [facility] Services [address] [place] [address] [facility] December, PAC [address] [place] [address] Discharge Disposition: Discharged to home or Selfcare documented as of this encounter Visit Diagnoses Diagnosis Thumb pain, right documented in this encounter Care Teams Subway Train Operator Relationship Specialty Start Date End Date Garrison Laboy MD [address] [place] [address] PCP - General Internal Medicine 05/30/15 03/24/25 Crystal Rodgers APRN [address] [place] [address] PCP - General Advanced Practice Nurse 03/25/25 Nguyen Shepard APRN, PATHOLOGY ASSISTANT [address] [place] [address] Consulting Physician Psychiatry 03/04/19 08/22/23 Fei Stevens MD [address] [place] [address] Consulting Physician Obstetrics & Gynecology 04/12/20 Kellen Mena MD [address] [place] [address] Consulting Physician Psychiatry 08/23/23 Darian Caal MD [address] [place] [address] Consulting Physician Neurology 11/15/23 Jose Swanson MD [address] [address] Consulting Physician Colon and Rectal Surgery 04/27/24 documented as of this encounter
--- OUTSIDE RECORDS SUMMARY | 2025-05-04 09:18 | XMS_ITS | Clinical Summary ---
Author Organization [facility] Address [address] [place] [address] Phone Care Team Providers Care Mail Sorter Name Role Phone Garrison Laboy MD Primary Care Provider Allergies Active Allergy Reactions Criticality Noted Date [...] on file Legal Sex Female 4:14 AM NEGATIVE TURNER APPRENTICE Gender Identity Not on file Sexual Orientation [...] Advance Directives For more information, please contact: [phone] * Full Code (Latest Code Status on File) Date Activated Date Inactivated Comments 11/10/2015 7:38 AM 11/10/2015 4:48 PM Care Teams Mail Sorter Relationship Specialty Start Date End Date Garrison Laboy MD [address] [place] [address] PCP - General Internal Medicine 10/12/15
--- OUTSIDE RECORDS SUMMARY | 2025-05-04 09:18 | XMS_ITS | Encounter Summary ---
Author Organization [facility] Address [address] [place] [address] Phone Care Team Providers Care Seismic Interpreter Name Role Phone Garrison Laboy MD Primary Care Provider [phone] Nguyen Shepard APRN, EXECUTIVE SALES ASSISTANT Unavailable [phone] Fei Stevens MD Unavailable [phone] Kellen Mena MD Unavailable [phone] Darian Caal MD Unavailable [phone] Jose Swanson MD Unavailable Crystal Rodgers APRN Primary Care Provider + [phone] Reason for Visit * Reason Comments Medication Refill Encounter Details Date Type Department Care Team (Late st Contact Info) Description 03/21/2022 Refill [facility] - Primary Care - [place] [address] [place] [address] Garrison Laboy MD [address] [place] [address] Medication Refill Social History Tobacco [...] Info) Description 10/11/2025 2:20 PM CD[facility] [address] [place] [address] Lissa Zazueta December, [facility] [address] [place] [address] Discharge Disposition: Discharged to home or Selfcare 10/12/2025 2:30 PM CDT Office Visit [facility] - Neurology [facility] [address] [place] [address] Darian Caal MD [address] [place] [address] 10/18/2025 2:20 PM CDT Office Visit [facility] Oncology Services [address] [place] [address] Lissa Zazueta Yue, [facility] [address] [place] [address] Discharge Disposition: Discharged to home or Selfcare documented as of this encounter Visit Diagnoses Not on filedocumented in this encounter Care Teams Seismic Interpreter Relationship Specialty Start Date End Date Garrison Laboy MD [address] [place] [address] PCP - General Internal Medicine 05/30/15 03/24/25 Crystal Rodgers APRN [address] [place] [address] PCP - General Advanced Practice Nurse 03/25/25 Nguyen Shepard APRN, EXECUTIVE SALES ASSISTANT [address] [place] [address] Consulting Physician Psychiatry 03/04/19 08/22/23 Fei Stevens MD [address] [place] [address] Consulting Physician Obstetrics & Gynecology 04/12/20 Kellen Mena MD [address] [place] [address] Consulting Physician Psychiatry 08/23/23 Darian Caal MD [address] [place] [address] Consulting Physician Neurology 11/15/23 Jose Swanson MD #[address] [address] Consulting Physician Colon and Rectal Surgery 04/27/24 documented as of this encounter
--- OUTSIDE RECORDS SUMMARY | 2025-05-04 09:18 | XMS_ITS | Encounter Summary ---
Author Organization [facility] Address [address] [place] [address] Phone Care Team Providers Care Slate Roofer Name Role Phone Garrison Laboy MD Primary Care Provider [phone] Nguyen Shepard APRN, BIOFUELS PLANT SUPERINTENDENT Unavailable [phone] Fei Stevens MD Unavailable [phone] Kellen Mena MD Unavailable [phone] Darian Caal MD Unavailable [phone] Jose Swanson MD Unavailable Crystal Rodgers APRN Primary Care Provider + [phone] Reason for Visit * Reason Comments Medication Refill Encounter Details Date Type Department Care Team (Late st Contact Info) Description 01/25/2022 Refill [facility] - Primary Care - [place] [address] [place] [address] Garrison Laboy MD [address] [place] [address] Medication Refill Social History Tobacco [...] Info) Description 10/11/2025 2:20 PM CDT Lab [facility] Oncology Services [address] [place] [address] LeonAvniLissa December, PAC [address] [place] [address] Discharge Disposition: Discharged to home or Selfcare 10/12/2025 2:30 PM CDT Office Visit [facility] - Neurology [facility] [address] [place] [address] Darian Caal MD [address] [place] [address] 10/18/2025 2:20 PM CDT Office Visit [facility] Services [address] [place] [address] [facility] [address] [place] [address] Discharge Disposition: Discharged to home or Selfcare documented as of this encounter Visit Diagnoses Diagnosis Essential hypertension Unspecified essential hypertension documented in this encounter Care Teams Slate Roofer Relationship Specialty Start Date End Date Garrison Laboy MD [address] [place] [address] PCP - General Internal Medicine 05/30/15 03/24/25 Crystal Rodgers APRN [address] [place] [address] PCP - General Advanced Practice Nurse 03/25/25 Nguyen Shepard APRN, BIOFUELS PLANT SUPERINTENDENT [address] [place] [address] Consulting Physician Psychiatry 03/04/19 08/22/23 Fei Stevens MD [address] [place] [address] Consulting Physician Obstetrics & Gynecology 04/12/20 Kellen Mena MD [address] [place] [address] Consulting Physician Psychiatry 08/23/23 Darian Caal MD [address] [place] [address] Consulting Physician Neurology 11/15/23 Jose Swanson MD #[address] [address] Consulting Physician Colon and Rectal Surgery 04/27/24 documented as of this encounter
--- OUTSIDE RECORDS SUMMARY | 2025-05-04 09:18 | XMS_ITS | Encounter Summary ---
Author Organization [facility] Address [address] [place] [address] Phone Care Team Providers Care Senior Bi Architect Name Role Phone Garrison Laboy MD Primary Care Provider [phone] Nguyen Shepard APRN, OUTSIDE SALES INSPECTOR Unavailable [phone] Fei Stevens MD Unavailable [phone] Kellen Mena MD Unavailable [phone] Darian Caal MD Unavailable [phone] Jose Swanson MD Unavailable Crystal Rodgers APRN Primary Care Provider + [phone] Reason for Visit * Reason Comments Medication Refill Encounter Details Date Type Department Care Team (Late st Contact Info) Description 08/11/2020 Refill [facility] - Primary Care - [place] [address] [place] [address] Garrison Laboy MD [address] [place] [address] Medication Refill Social History Tobacco [...] Delmy Meeks RN - 08/11/2020 2:09 PM COMMERCIAL STRIPPER Medication approved and signed per standing order protocol. ERCIAL STRIPPER * Telephone Encounter - Amelia Gerber CMA - 08/11/2020 1:04 PM CST Rerouting ERCIAL STRIPPER documented in this encounter Plan of Treatment Upcoming Encounters Date Type Department Care Team (Late st Contact Info) Description 10/11/2025 2:20 PM [facility] [address] [place] [address] Lissa Zazueta Yue, [facility] [address] [place] [address] Discharge Disposition: Discharged to home or Selfcare 10/12/2025 2:30 PM CDT Office Visit [facility] [address] [place] [address] Darian Caal MD [address] [place] [address] 10/18/2025 2:20 PM CDT Office Visit [facility] Oncology Services [address] [place] [address] Lissa Zazueta Yue, [facility] [address] [place] [address] Discharge Disposition: Discharged to home or Selfcare documented as of this encounter Visit Diagnoses Diagnosis Mixed hyperlipidemia documented in this encounter Additional Health Concerns Infection Onset Date Last Indicated Resolved Time COVID - 19 06/21/2021 06/21/2021 07/11/2021 12:1 6 AM COMMERCIAL STRIPPER COVID - 19 Confirmed 06/21/2021 06/21/2021 021 12:16 AM COMMERCIAL STRIPPER documented as of this encounter Care Teams Senior Bi Architect Relationship Specialty Start Date End Date Garrison Laboy MD [address] [place] [address] PCP - General Internal Medicine 05/30/15 03/24/25 Crystal Rodgers APRN [address] [place] [address] PCP - General Advanced Practice Nurse 03/25/25 Nguyen Shepard APRN, OUTSIDE SALES INSPECTOR [address] [place] [address] Consulting Physician Psychiatry 03/04/19 08/22/23 Fei Stevens MD [address] [place] [address] Consulting Physician Obstetrics & Gynecology 04/12/20 Kellen Mena MD [address] [place] [address] Consulting Physician Psychiatry 08/23/23 Darian Caal MD [address] [place] [address] Consulting Physician Neurology 11/15/23 Jose Swanson MD #[address] [address] Consulting Physician Colon and Rectal Surgery 04/27/24 documented as of this encounter
--- OUTSIDE RECORDS SUMMARY | 2025-05-04 09:18 | XMS_ITS | Clinical Summary ---
Author Organization [facility] Address [address] [facility], [address] [address] Phone Care Team Providers Care Iron Launder Operator Name Role Phone Fei Stevens MD Unavailable [phone] Kellen Mena MD Unavailable [phone] Darian Caal MD Unavailable [phone] Jose Swanson MD Unavailable Crystal Rodgers APRN Primary Care Provider [phone] Allergies Active Allergy Reactions Criticality Noted Date Comments Penicillins Anaphylaxis 08/05/2015 Medications cetirizine (ZyrTEC) 10 MG Tablet Take 10 mg by mouth daily as needed. Active lamoTRIgine (LaMICtal) 200 MG Tablet Take 200 mg by mouth 2 times daily. 3 Active traZODone (DESYREL) 50 MG Tablet TAKE 1 TO 2 TABLETS BY MOUTH DIRECTED AT BEDTIME FOR SLEEP 4 Active zolpidem (AMBIEN CR) 12.5 MG Tablet Controlled Release TAKE 1 TABLET BY MOUTH DIRECTED AT BEDTIME NEEDED FOR SLEEP 4 Active OLANZapine-Samidor chowdhury (Lybalvi) 5-10 MG Tablet Take 1 Tablet by mouth nightly. Active atorvastatin (LIPITOR) 20 MG TabletIndications: Mixed hyperlipidemia Take 1 tablet by mouth once daily 90 Tablet 3 4 Active levothyroxine (SYNTHROID) 200 MCG TabletIndications: Hypothyroidism due to acquired atrophy of thyroid Take 1 Tablet by mouth daily. 90 Tablet 5 Active Ingrezza 80 MG Capsule TAKE 1 CAPSULE BY MOUTH 1 TIME A DAY 30 Capsule 3 5 Active lisinopril (PRINIVIL, ZESTRIL) 40 MG TabletIndications: Hypertension, essential Take 1 tablet by mouth once daily 90 Tablet 5 Active Multiple Vitamins-Minerals (CENTRUM SILVER PO) Take by mouth. Active omeprazole (PriLOSEC) 10 MG CAPSULE DELAYED RELEASE Take 10 mg by mouth daily. Active Ascorbic Acid (VITAMIN C PO) Take by mouth daily. 025 Discontin ued(Thera py completed ) Cholecalciferol (VITAMIN D-3 PO) Take by mouth daily. 025 Discontin ued(Thera py completed ) Zinc Sulfate (ZINC 15 PO) Take by mouth daily. 025 Discontin ued(Thera py completed ) traMADol (ULTRAM) 50 MG TabletIndications: Fibromyalgia TAKE 1 TABLET BY MOUTH EVERY 8 HOURS NEEDED FOR MODERATE TO SEVERE PAIN OR SEVERE PAIN 60 Tablet 1 5 025 Discontin ued(Med List Clean Up) meloxicam (MOBIC) 7.5 MG Tablet Take 1 Tablet by mouth daily. 30 Tablet 5 025 Discontin ued(Med List Clean Up) Active Problems Problem Noted Date Diagnosed Date Thrombocytopenia 04/06/2025 Cirrhosis of liver without ascites 04/06/2025 Metabolic dysfunction-associated steatohepatitis (MASH) 04/06/2025 Hepatosplenomegaly 04/06/2025 Biliary dyskinesia 06/08/2024 Gastroesophageal reflux disease without [...] Encounters Date Type Department Care Team Description 04/20/2025 2:20 PM CDT Office Visit [facility] On[facility] Services [address] [place] [address] Lissa Zazueta December, PAC Thrombocytopenia (HCC) (Primary Dx); Hepatosplenomegaly; Metabolic dysfunction-associated steatohepatitis (MASH); Cirrhosis of liver without ascites, unspecified hepatic cirrhosis type (HCC) Discharge Disposition: Discharged to home or Selfcare 04/20/2025 Travel 04/19/2025 2:45 PM CDT Office Visit [facility] [address] [place] [address] Darian Caal MD Tardive dyskinesia (Primary Dx); Dizziness Discharge Disposition: Discharged to home or Selfcare 04/19/2025 Travel 04/06/2025 3:00 PM CDT [facility] [address] [place] [address] Lissa Zazueta December, PAC Thrombocytopenia (HCC); Cirrhosis of liver without ascites, unspecified hepatic cirrhosis type (HCC); Hepatosplenomegaly Discharge Disposition: Discharged to home or Selfcare 04/06/2025 2:20 PM CDT Initial Consult [facility] Oncology Services [address] [place] [address] Zazueta, Lissa June, PAC Thrombocytopenia (HCC) (Primary Dx); Cirrhosis of liver without ascites, unspecified hepatic cirrhosis type (HCC); Metabolic dysfunction-associated steatohepatitis (MASH); Hepatosplenomegaly Discharge Disposition: Discharged to home or Selfcare 04/06/2025 Travel 04/04/2025 Travel 03/11/2025 Refill [facility] Medical [facility] - Primary Care - [place] [address] [place] [address] Garrison Laboy MD Medication Refill 03/05/2025 8:28 AM CDT - 03/05/2025 11:59 PM CDT Hospital Encounter [facility] Ultrasound [address] [place] [address] Garrison Laboy MD Discharge Disposition: Discharged to home or Selfcare 03/05/2025 7:37 AM CDT - 03/05/2025 8:27 AM CDT Hospital Encounter [facility] Mammography [address] [place] [address] Garrison Laboy MD Discharge Disposition: Discharged to home or Selfcare 03/03/2025 Travel 02/15/[address] [facility] - Neurology - [place] [address] [place] [address] Ofe Alvarenga, TABLE FILLER, HOME INSURANCE AGENT Medication Refill 02/13/2025 Travel 02/04/2025 Telephone [facility] [place] [address] [place] [address] Garrison Laboy MD Medication Refill 02/03/2025 MyChart RX Renewal [facility] [place] [address] [place] [place] [address] Garrison Laboy MD Medication Renewal Declined 02/03/2025 Refill [facility] [place] [id number] [place] [address] Garrison Laboy MD Medication Refill from Last 3 Months Immunizations Immunization Administration Dates Next Due PUR TDAP 7+ YRS IM 01/24/2016 Pneumococcal Vaccine Adult - 23 Valent 9 Pneumococcal conjugate PCV20 , polysaccharide [id number] conjugate, adjuvant, PF 03/01/2022 Zoster Vaccine Recombinant [...] 1 39.3 Started: 01/23/1986 Smokeless Tobacco: Never Tobacco Cessation:Ready to Q uit: Not Asked; Counseling Given: Not Answered Alcohol Use Standard Drinks/Week Comments No 0 (1 standard drink = 0.6 oz pur e alcohol) [facility] Utilities Answer Date Recorded In the past 12 months has AIM, gas, oil, or water company threatened to [...] week 03/12/2024 How often do you attend nondenominational or restorationist serv ices? Never 03/12/2024 Do you belong to any clubs o r organizations such as nondenominational groups, unions, fraternal or athletic groups, or [...] and heating? Not hard at all 03/12/2024 [facility] - Occupational [...] place to sleep or slept in a custodial (including now)? No 08/22/2023 Housing Stability Vital Sign Answer Merrick e Recorded In the last 12 months, was t here a time when you were not able to pay the mortgage or rent on time? No 03/12/2024 In the past 12 months, how m any times have you moved where you were living? 0 03/12/2024 At any time in the past 12 m [facility], were you homeless or living in a custodial (including now)? No 03/12/2024 Education Answer Date [...] Sign Reading Time Taken Comments Blood Pressure 129/78 04/20/2025 2:00 PM CDT Pulse 81 04/20/2025 2:00 PM CDT Temperature 37.1 C (98.8 F) 04/20/2025 2:00 PM CDT Respiratory Rate 18 04/20/2025 2:00 PM CDT Oxygen Saturation 97% 04/20/2025 2:00 PM CDT Inhaled Oxygen Concentration - - Weight 105.3 kg (232 lb 1.6 oz) 04/20/2025 2:00 PM CDT Height 175.3 cm (5' 9) 04/20/2025 2:00 PM CDT Body Mass Index 34.28 04/20/2025 2:00 PM CDT Plan of Treatment Upcoming Encounters Date Type Department Care Team (Late st Contact Info) Description 10/11/2025 2:20 PM CDT Lab [facility] Oncology Services [address] [place] [address] Lissa Zazueta December, PAC [address] [place] [address] Discharge Disposition: Discharged to home or Selfcare 10/12/2025 2:30 PM CDT Office Visit [facility] [address] [place] [address] Darian Caal MD [address] [place] [address] 10/18/2025 2:20 PM CDT Office Visit [facility] Oncology Services [address] [place] [address] Lissa Zazueta December, PAC [address] [place] [address] Discharge Disposition: Discharged to home or Selfcare Health Maintenance Due Date Last Done Comments Hepatitis B Immunization (1 of 3 - 19+ 3-dose series) 1991 Pap Smear 1993 Cologuard 2017 Immunochemical Fecal Occult Blood 2017 Lung Cancer Screening 2022 06/27/2021 , 11/11/2015 Influenza Immunization (#1) 2025 SARS-COV-2 Immunization (2023- season) 2025 Colonoscopy 06/04/2025 06/04/2024, 06/04/2024 Colorectal Cancer Screening 06/04/2025 Td Immunization Every 10 Yea rs (Adults With 1 Tdap) 01/23/2026 01/24/2016 Mammogram 03/05/2026 03/05/2025, 01/15/2025 Cervical Cancer Screening (CCS) 11/15/2027 HPV/Cotest 11/15/2027 11/14/2022 Respiratory Syncytial Virus (RSV) Immunization (Adult) (1 [...] Procedure Name Priority Date/Time Associated Diagnosis Comments CBC WITH AUTO DIFFERENTIAL Routine 04/06/2025 3:09 PM CDT Thrombocytopenia (HCC) Cirrhosis of liver without ascites, unspecified hepatic cirrhosis type (HCC) Hepatosplenomegaly PERIPHERAL BLOOD, FLOW CYTOMETRY Routine 04/06/2025 3:09 PM CDT Thrombocytopenia (HCC) Cirrhosis of liver without ascites, unspecified hepatic cirrhosis type (HCC) Hepatosplenomegaly IRON,TRANSFERN,CALC.TIB C,%SAT Routine 04/06/2025 3:09 PM CDT Thrombocytopenia (HCC) Cirrhosis of liver without ascites, unspecified hepatic cirrhosis type (HCC) Hepatosplenomegaly IMMUNOFIXATION W/ ELECTROPHORESIS SERUM Routine 04/06/2025 3:09 PM CDT Thrombocytopenia (HCC) Cirrhosis of liver without ascites, unspecified hepatic cirrhosis type (HCC) Hepatosplenomegaly FREE KAPPA & LAMBDA LIGHT CHAINS SERUM Routine 04/06/2025 3:09 PM CDT Thrombocytopenia (HCC) Cirrhosis of liver without ascites, unspecified hepatic cirrhosis type (HCC) Hepatosplenomegaly LACTATE DEHYDROGENASE (LD) Routine 04/06/2025 3:09 PM CDT Thrombocytopenia (HCC) Cirrhosis of liver without ascites, unspecified hepatic cirrhosis type (HCC) Hepatosplenomegaly RETICULOCYTE COUNT (RETIC) Routine 04/06/2025 3:09 PM CDT Thrombocytopenia (HCC) Cirrhosis of liver without ascites, unspecified hepatic cirrhosis type (HCC) Hepatosplenomegaly VITAMIN B12 Routine 04/06/2025 3:09 PM CDT Thrombocytopenia (HCC) Cirrhosis of liver without ascites, unspecified hepatic cirrhosis type (HCC) Hepatosplenomegaly COMPLETE BLOOD COUNT (CBC) WITH DIFF Routine 04/06/2025 3:09 PM CDT Thrombocytopenia (HCC) Cirrhosis of liver without ascites, unspecified hepatic cirrhosis type (HCC) Hepatosplenomegaly CMP (COMPREHENSIVE METABOLIC PANEL) Routine 04/06/2025 3:09 PM CDT Thrombocytopenia (HCC) Cirrhosis of liver without ascites, unspecified hepatic cirrhosis type (HCC) Hepatosplenomegaly FERRITIN Routine 04/06/2025 3:09 PM CDT Thrombocytopenia (HCC) Cirrhosis of liver without ascites, unspecified hepatic cirrhosis type (HCC) Hepatosplenomegaly FOLIC ACID (FOLATE) Routine 04/06/2025 3 :09 PM CDT Thrombocytopenia (HCC) Cirrhosis of liver without ascites, unspecified hepatic cirrhosis type (HCC) Hepatosplenomegaly ERYTHROCYTE SEDIMENTATION RATE (ESR) Routine 04/06/2025 3:09 PM CDT Thrombocytopenia (HCC) Cirrhosis of liver without ascites, unspecified hepatic cirrhosis type (HCC) Hepatosplenomegaly [facility] US BREAST LIMITED KATIE Routine 03/05/2025 9:15 AM CDT Abnormal mammogram [facility] DIAG BILATERAL DIGITAL W CAD W CEE Routine 03/05/2025 8:38 AM CDT Abnormal mammogram MAGNESIUM (MG) Routine 02/13/2025 10:26 AM CDT Routine general medical examination at a [facility] care facility Vitamin D deficiency, unspecified VITAMIN [...] CDT Routine general medical examination at a [facility] care facility Vitamin D deficiency, unspecified LIPID PANEL Routine 02/13/2025 10:26 AM CDT Routine general medical examination at a health care facility Vitamin D deficiency, unspecified HEPATITIS C ANTIBODY Routine 03/06/2024 7:59 AM CDT Encounter for hepatitis C screening test for low risk patient CT CHEST W CONTRAST STAT 11/11/2015 9 :34 AM CDT from Last 3 Months or Most Recently Relevant to Health Maintenance Results * IRON,TRANSFERN,CALC.TIBC,%SAT (04/06/2025 3:09 PM CDT) IRON 87 25 - 156 mcg/dL 04/06/2025 4:07 PM CDT [facility] TRANSFERRIN 314 180 - 382 mg/dL 04/06/2025 4:07 PM CDT [facility] TIBC, CALCULATED 393 265 - 497 mcg/dL 04/06/2025 4:07 PM CDT [facility] % SATURATION * 22 15 - 62 % 04/06/2025 4:07 PM CDT [facility] Blood Venipuncture / Unknown 04/06/2025 3:09 PM CDT 04/06/2025 3:09 PM CDT Lissa Zazueta PAC CHEMISTRY ORDERABLES Evon macho Result [facility] [address] [place] [address] * (ABNORMAL) CBC WITH AUTO DIFFERENTIAL (04/06/2025 3:09 PM CDT) WBC 6.46 4.00 - 12.00 10(3)/[facility] 04/06/2025 3:49 PM CDT [facility] RBC 5.10 3.80 - 5.30 10(6)/[facility] 04/06/2025 3:49 PM CDT [facility] HEMOGLOBIN (HGB) 14.8 12.0 - 15.8 g/dL 04/06/2025 3:49 PM CDT [facility] HEMATOCRIT (HCT) 43.2 36.0 - 47.0 % 04/06/2025 3:49 PM CDT [facility] MCV 84.7 82.0 - 96.0 fL 04/06/2025 3:49 PM CDT [facility] MCH 29.0 26.0 - 34.0 pg 04/06/2025 3:49 PM CDT [facility] MCHC 34.3 31.0 - 36.0 g/dL 04/06/2025 3:49 PM CDT [facility] PLATELET COUNT 125(L) 140 - 440 10(3)/mcL 04/06/2025 3:49 PM CDT [facility] RDW 13.3 11.8 - 15.5 % 04/06/2025 3:49 PM CDT [facility] MPV 12.7(H) 9.7 - 12.4 fL 04/06/2025 3:49 PM CDT [facility] NEUTROPHILS 59.8 47.0 - 73.0 % 04/06/2025 3:49 PM CDT [facility] LYMPHOCYTES 30.8 18.0 - 42.0 % 04/06/2025 3:49 PM CDT [facility] MONOCYTES 6.5 4.0 - 12.0 % 04/06/2025 3:49 PM CDT [facility] EOSINOPHILS 1.5 0.0 - 5.0 % 04/06/2025 3:49 PM CDT [facility] BASOPHILS 1.1(H) 0.0 - 1.0 % 04/06/2025 3:49 PM CDT [facility] ABSOLUTE NEUTROPHILS 3.86 1.60 - 7.70 10(3)/[facility] 04/06/2025 3:49 PM CDT [facility] ABSOLUTE LYMPHOCYTES 1.99 1.30 - 3.20 10(3)/[facility] 04/06/2025 3:49 PM CDT [facility] ABSOLUTE MONOCYTES 0.42 0.20 - 1.00 10(3)/[facility] 04/06/2025 3:49 PM CDT [facility] ABSOLUTE EOSINOPHIL 0.10 0.00 - 0.40 10(3)/[facility] 04/06/2025 3:49 PM CDT [facility] ABSOLUTE BASOPHILS 0.07 0.00 - 0.10 10(3)/[facility] 04/06/2025 3:49 PM CDT [facility] NRBC PER 100 WBC 0 04/06/20 25 3:49 PM CDT [facility] Blood Venipuncture / Unknown 04/06/2025 3:09 PM CDT 04/06/2025 3:09 PM CDT us Lissa Zazueta PAC HEMATOLOGY ORDERABLES Fin al Result [facility] [address] [place] [address] * PERIPHERAL BLOOD, FLOW CYTOMETRY (04/06/2025 3:09 PM CDT) FINAL DIAGNOSIS Peripheral blood, flow cytometric analysis: - No abnormal lymphoid or progenitor cell population is detected. 5 5:30 PM CDT [facility] at 1729 CDT Clinical Information Thrombocytopenia 5 5:30 PM CDT [facility] Specimen Source Received in an EDTA anticoagulated tube is 3 mL peripheral blood. 5 5:30 PM CDT [facility] Microscopic Description Peripheral blood smear review shows a heterogeneous WBC population. Specimen processed and evaluated at [facility], [place], [place]. This document was completed utilizing speech recognition software. Grammatical errors, random word insertions, pronoun errors, and incomplete sentences are an occasional consequence of this system due to software limitations, ambient noise, and hardware issues. Any formal questions or concerns about the content, text or information contained within the body of this dictation should be directly addressed to the provider for clarification. 5 5:30 PM CDT [facility] Immunophenotypic Findings Flow cytometric analysis shows a heterogeneous cellular population. Blasts are not increased. Immunophenotypically unremarkable T-cells (CD4:CD8 = 1.2) and polyclonal B-cells are present. CELL POPULATIONS: 44% granulocytes, 6% monocytes, 17% T-cells, 9% B-cells, <1% blasts. 5 5:30 PM CDT [facility] Phenotyping Markers Utilized Flow markers performed (23): CD2, CD3, CD4, CD5, CD7, CD8, CD10, CD13, CD15, CD19, CD20, CD33, CD34, CD38, CD45, CD56, CD117, CD123, CD200, kappa, lambda, HLA-DR, TCR gamma/delta This test was developed and its performance characteristics determined by [facility]. It has not been cleared or approved by the U.S. Food and Drug Administration. 5 5:30 PM CDT [facility] Case Report Flow Cytometry Repor t Case: [id number] Authorizing Provider: Lissa Zazueta PAC Collected: 04/06/2025 03:09 PM Ordering Location: [facility] Received: 04/06/2025 03:[address] [facility] Pathologist: Donovan Balbuena MD Specimen: Blood, blood 5:30 PM CDT [facility] Blood BLOOD SPECIMEN / Unknown Venipuncture / Unknown 04/06/2025 3:09 PM CDT 04/06/2025 3:09 PM CDT [facility] PATHOLOGY/CYTOLOGY ORDERA BLES Final Result [facility] [address] [place] [address], [place] * (ABNORMAL) FREE KAPPA & LAMBDA LIGHT CHAINS SERUM (04/06/2025 3:09 PM CDT) Free [place] Lt Chn 24.31(H) 3.30 - 19.40 mg/L 04/07/2025 8:38 AM CDT [facility] Free Lambda Lt Chn 20.05 5.71 - 26.30 mg/L 04/07/2025 8:38 AM CDT [facility] free librado bernard ratio 1.21 0.26 - 1.65 04/07/2025 8:38 AM CDT [facility] Blood Venipuncture / Unknown 04/06/2025 3:09 PM CDT 04/06/2025 3:09 PM CDT [facility] CHEMISTRY ORDERABLES Evon l Result [facility] [address] [place] [address], [place] * (ABNORMAL) VITAMIN B12 (04/06/2025 3:09 PM CDT) Only the most recent of2 resultswithin the time period is included. VITAMIN B12 1,172(H) 213 - 816 pg/mL 04/06/2025 4:39 PM CDT [facility] Blood Venipuncture / Unknown 04/06/2025 3:09 PM CDT 04/06/2025 3:09 PM CDT [facility] CHEMISTRY ORDERABLES Evon l Result Performing Organization Address City/[facility]/ZIP Co de Phone Number [facility] [address] [place] [address] * (ABNORMAL) ERYTHROCYTE SEDIMENTATION RATE (ESR) (04/06/2025 3:09 PM CDT) ESR (SED RATE, ERYTHROCYTE SEDIMENTATION RATE) 30(H) <30 mm/h 04/06/2025 4:14 PM CDT [facility] Comment: Patients presenting with increased level of fibrinogen, gamma globulins, or abnormally shaped RBCs could affect the results for the erythrocyte sedimentation rate (ESR). Results should be clinically correlated. Blood Venipuncture / Unknown 04/06/2025 3:09 PM CDT 04/06/2025 3:09 PM CDT [facility] HEMATOLOGY ORDERABLES Fin al Result Performing Organization Address [facility]/ZIP Co de Phone Number [facility] [address] [place] [address] * RETICULOCYTE COUNT (RETIC) (04/06/2025 3:09 PM CDT) RETICULOCYTES 1.8 0.5 - 2.0 % 04/06/2025 3:49 PM CDT [facility] Blood Venipuncture / Unknown 04/06/2025 3:09 PM CDT 04/06/2025 3:09 PM CDT [facility] HEMATOLOGY ORDERABLES Fin al Result [facility] [address] [place] [address] * LACTATE DEHYDROGENASE (LD) (04/06/2025 3:09 PM CDT) LDH 184 125 - 220 U/L 04/06/2025 4:07 PM CDT [facility] Blood Venipuncture / Unknown 04/06/2025 3:09 PM CDT 04/06/2025 3:09 PM CDT Lissamary Casasris PAC CHEMISTRY ORDERABLES Evon l Result [facility] [address] [place] [address] * (ABNORMAL) IMMUNOFIXATION W/ ELECTROPHORESIS SERUM (04/06/2025 3:09 PM CDT) Pathologist [facility] TOTAL PROTEIN 7.1 6.0 - 8.0 g/dL 04/09/2025 2:33 PM CDT [facility] % ALBUMIN 53.7(L) 55.8 - 66.7 % 04/09/2025 2:33 PM CDT [facility] ALBUMIN SERUM 3.8 2.5 - 5.4 g/dL 04/09/2025 2:33 PM CDT [facility] % ALPHA 1 GLOBULIN 4.1 2.9 - 4.9 % 04/09/2025 2:33 PM CDT [facility] ALPHA 1 0.3 0.2 - 0.4 g/dL 04/09/2025 2:33 PM CDT [facility] % ALPHA 2 GLOBULIN 9.9 7.1 - 11.8 % 04/09/2025 2:33 PM CDT [facility] ALPHA 2 0.7 0.5 - 1.0 g/dL 04/09/2025 2:33 PM CDT [facility] % BETA 15.6(H) 8.4 - 13.1 % 04/09/2025 2:33 PM CDT [facility] BETA-GLOBULIN 1.1 0.5 - 1.1 g/dL 04/09/2025 2:33 PM CDT [facility] % GAMMA GLOBULIN 16.7 11.1 - 18.8 % 04/09/2025 2:33 PM CDT [facility] GAMMA 1.2 0.7 - 1.5 g/dL 04/09/2025 2:33 PM CDT [facility] IMMUNOGLOBULIN G 981 552 - 1,631 mg/dL 04/09/2025 2:33 PM CDT [facility] IMMUNOGLOBULIN A 257 65 - 421 mg/dL 04/09/2025 2:33 PM CDT [facility] IMMUNOGLOBULIN M 236 33 - 293 mg/dL 04/09/2025 2:33 PM CDT [facility] INTERPRETATION SERUM No abnormal protein band is detected by serum protein electrophoresis. Serum immunofixation electrophoresis is negative for monoclonal immunoglobulins. Reviewed by Soco Norman M.D. 04/09/2025 2:33 PM CDT [facility] A/G RATIO, SERUM 1.2 04/09/20 2:33 PM CDT [facility] Blood Venipuncture / Unknown 04/06/2025 3:09 PM CDT 04/06/2025 3:09 PM CDT [facility] PAC CHEMISTRY ORDERABLES Evon l Result [facility] [address] [place] [address], * FOLIC ACID (FOLATE) (04/06/2025 3:09 PM CDT) FOLATE 12.2 7.0 - 31.4 ng/mL 04/06/2025 4:39 PM CDT [facility] IS THE PATIENT REQUIRED TO BE FASTING? No 04/06/2025 4:39 PM CDT [facility] Blood Venipuncture / Unknown 04/06/2025 3:09 PM CDT 04/06/2025 3:09 PM CDT [facility] PAC CHEMISTRY ORDERABLES Evon l Result [facility] [address] [place] [address] * FERRITIN (04/06/2025 3:09 PM CDT) [facility] FERRITIN 116 5 - 204 ng/mL 04/06/2025 4:25 PM CDT [facility] Blood Venipuncture / Unknown 04/06/2025 3:09 PM CDT 04/06/2025 3:09 PM CDT Lissa Zazueta PAC CHEMISTRY ORDERABLES Evon l Result [facility] [address] [place] [address] * (ABNORMAL) CMP (COMPREHENSIVE METABOLIC PANEL) (04/06/2025 3:09 PM CDT) Only the most recent of2 resultswithin the time period is included. [facility] SODIUM 137 136 - 145 mmol/L 04/06/2025 4:07 PM CDT [facility] POTASSIUM 3.4(L) 3.5 - 5.1 mmol/L 04/06/2025 4:07 PM CDT [facility] CHLORIDE 101 98 - 107 mmol/L 04/06/2025 4:07 PM CDT [facility] CO2, VENOUS 26 22 - 30 mmol/L 04/06/2025 4:07 PM CDT [facility] ANION GAP 13.4 <18.0 mmol/L 04/06/2025 4:07 PM CDT [facility] GLUCOSE 165(H) 70 - 99 mg/dL 04/06/2025 4:07 PM CDT [facility] BUN 6(L) 10 - 20 mg/dL 04/06/2025 4:07 PM CDT [facility] CREATININE, BLOOD 0.58(L) 0.60 - 1.00 mg/dL 04/06/2025 4:07 PM [facility] BUN/CREATININE RATIO 10(L) 12 - 20 ratio 04/06/2025 4:07 PM [facility] TOTAL PROTEIN 7.4 6.0 - 8.0 g/dL 04/06/2025 4:07 PM [facility] ALBUMIN 4.5 3.5 - 5.0 g/dL 04/06/2025 4:07 PM [facility] A/G RATIO 1.6 1.0 - 2.2 04/06/2025 4:07 PM [facility] CALCIUM 9.3 8.7 - 10.5 mg/dL 04/06/2025 4:07 PM [facility] T BILI 2.8(H) 0.2 - 1.2 mg/dL 04/06/2025 4:07 PM [facility] SGOT (AST) 68(H) <43 U/L 04/06/2025 4:07 PM [facility] SGPT (ALT) 65(H) <56 U/L 04/06/2025 4:07 PM [facility] ALKALINE PHOSPHATASE 185(H) 40 - 150 U/L 04/06/2025 4:07 PM [facility] IS THE PATIENT REQUIRED TO BE FASTING? No 04/06/2025 4:07 PM [facility] GFR, ESTIMATED >60 >=60 04/06/2025 4:07 PM [facility] Comment: Creatinine Clearance is the preferred criteria for selecting drug dose adjustments in renally impaired patients. The GFR is provided as additional pertinent clinical information. GFR is reported in mL/min/1.73 sq m. Calculation based on the 2020 Chronic Kidney Disease Epidemiology Collaboration (CKD-EPI) equation refit without adjustment for race. GFR, EST. >60 >=60 025 4:07 PM [facility] Comment: Creatinine Clearance is the preferred criteria for selecting drug dose adjustments in renally impaired patients. The GFR is provided as additional pertinent clinical information. GFR is reported in mL/min/1.73 sq m. Calculation based on the 2009 Chronic Kidney Disease Epidemiology Collaboration (CKD-EPI). GFR, EST. NONAFRICAN >60 >=60 04/06/2025 4:07 PM CDT [facility] Comment: Creatinine Clearance is the preferred criteria for selecting drug dose adjustments in renally impaired patients. The GFR is provided as additional pertinent clinical information. GFR is reported in mL/min/1.73 sq m. Calculation based on the 2009 Chronic Kidney Disease Epidemiology Collaboration (CKD-EPI). Blood Venipuncture / Unknown 04/06/2025 3:09 PM CDT 04/06/2025 3:09 PM CDT Lissa Zazueta PAC CHEMISTRY ORDERABLES Evon l Result [facility] [address] [place] [address] * SONIA US BREAST LIMITED KATIE (03/05/2025 [...] Comparison is made to exam dated: 01/15/2025 [facility]. BREAST TISSUE:There are scattered areas of fibroglandular [...] signed by: Lynette Hodgson M.D. ll/:03/05/2025 09:29:21 Wall Crane Operator(s): RT Kristopher(R)(M), [facility]; SILVIANO Zelaya, [facility] letter sent: Birad 3 Followup Reading location: [facility] OVERALL STUDY BIRADS: Category 3: Probably Benign [...] Comparison is made to exam dated: 01/15/2025 [facility]. BREAST TISSUE:There are scattered areas of fibroglandular [...] signed by: Lynette Hodgson M.D. ll/:03/05/2025 09:29:21 Wall Crane Operator(s): RT Kristopher(R)(M), [facility]; SILVIANO Zelaya, [facility] letter sent: Birad 3 Followup Reading location: [facility] OVERALL STUDY BIRADS: Category 3: Probably Benign us Garrison Laboy MD IMG MAMMO ORDERABLES Evon l Result * SONIA DIAG BILATERAL DIGITAL W CAD W CEE (03/05/2025 8:38 AM CDT) Anatomical Region Laterality Modality breast Bilateral Mammography 03/05/2025 7:40 AM CDT Narrative 03/05/2025 9:41 AM CDT - SONIA DIAG BILATERAL DIGITAL W CAD W CEE - [facility] US BREAST LIMITED KATIE BILATERAL DIGITAL DIAGNOSTIC MAMMOGRAM 3D/2D WITH CAD WITH MEDIOLATERAL MEDIOLATERAL OBLIQUE CRANIOCAUDAL SPOT COMPRESSION AND BILATERAL ULTRASOUND: 03/05/2025 The study was acquired using digital technology and interpreted from soft copy. Current study was also evaluated with Fidbacks version 7.2. 2D digital mammographic views, as well as 3D digital tomosynthesis were performed in the CC and MLO projections. CLINICAL: Diagnostic study. Patient returns to evaluate focal asymmetries in both breasts. No personal history of cancer. Maternal grandmother had breast cancer. COMPARISONS: Comparison is made to exam dated: 01/15/2025 [facility]. BREAST TISSUE:There are scattered areas of fibroglandular [...] signed by: Lynette Hodgson M.D. ll/:03/05/2025 09:29:21 Wall Crane Operator(s): Brooke Presley, RT(R)(M), [facility]; Emily Vega RDMS OBDORIE, [facility] letter sent: Birad 3 Followup Reading location: [facility] OVERALL STUDY BIRADS: Category 3: Probably Benign [...] Comparison is made to exam dated: 01/15/2025 [facility]. BREAST TISSUE:There are scattered areas of fibroglandular [...] signed by: Lynette Hodgson M.D. ll/:03/05/2025 09:29:21 Wall Crane Operator(s): RT Kristopher(R)(M), [facility]; SILVIANO Zelaya, [facility] letter sent: Birad 3 Followup Reading location: [facility] OVERALL STUDY BIRADS: Category 3: Probably Benign us Garrison Laboy MD IMG MAMMO ORDERABLES Evon l Result * VITAMIN D, 25 HYDROXY TOTAL (02/13/2025 10:26 AM CDT) VITAMIN D, 25 HYDROX 49.7 ng/mL 02/13/2025 12:05 PM CDT [facility] Blood Venipuncture / Unknown 02/13/2025 10:26 AM CDT 02/13/2025 11:25 AM CDT Narrative [facility] - 02/13/2025 12:05 PM CDT Published reference ranges for Vitamin D vary depending on time and place and method of testing, and on patient's age, sex, ethnicity and levels of other measured analytes such as parathormone, calcium and phosphorus. The result should be evaluated in conjunction with clinical findings and suspicions. [place] [employer] and [employer]ocrine Clinical Practice Guidelines: Status Vitamin D levels (ng/mL) Deficient <=20 At risk of inadequacy 21-29 Sufficient 30-100 Centers of Disease Control and Prevention Guidelines: Status Vitamin D levels (ng/mL) Deficient <13 At risk of inadequacy 13-19 Sufficient 20-50 Possibly harmful >50 References: [place] [employer], 2010 Dietary reference intakes for calcium and vitamin D. [place]: The National Academies Press. Chandrika M, Sohail N, Sujatha GALLO, et al., Evaluation, treatment, and prevention of Vitamin D deficiency: an Endocrinology Clinical Practice Guideline. JCEM 2011 96: 7 2005-1223. Juan A, Sheng C, Sumanth D, et al., Vitamin D Status: [place], , [facility] data brief, no. 59, MD Maile: [facility] for [facility] Statistics. 2011. Crystal L Vincent TABLE FILLER CHEMISTRY ORDERABLES Final Result Performing Organization Address City/[facility]/ZIP Co de Phone Number [facility] [place] [address] * THYROID STIMULATING HORMONE (TSH) (02/13/2025 10:26 AM CDT) TSH 2.262 0.300 - 5.000 mIU/L 02/13/2025 12:44 PM CDT [facility] Blood Venipuncture / Unknown 02/13/2025 10:26 AM CDT 02/13/2025 11:26 AM CDT Crystal L Vidableent TABLE FILLER CHEMISTRY ORDERABLES Final Result Performing Organization Address City/[facility]/ZIP Co de Phone Number [facility] [address] [place] [address] * MAGNESIUM (MG) (02/13/2025 10:26 AM CDT) MAGNESIUM 1.9 1.6 - 2.6 mg/dL 02/13/2025 11:43 AM CDT [facility] Blood Venipuncture / Unknown 02/13/2025 10:26 AM CDT 02/13/2025 11:26 AM CDT Crystal L Vincent TABLE FILLER CHEMISTRY ORDERABLES Final Result [facility] [address] [place] [address] * (ABNORMAL) LIPID PANEL (02/13/2025 10:26 AM CDT) CHOLESTEROL 151 <200 mg/dL 02/13/2025 11:43 AM CDT [facility] TRIGLYCERIDES 149 <150 mg/dL 02/13/2025 11:43 AM CDT [facility] HDL CHOLESTEROL 27(L) >40 mg/dL 11:43 AM CDT [facility] LDL 94 <130 mg/dL 02/13/2025 11:43 AM CDT [facility] VLDL 30 10 - 50 mg/dL 02/13/2025 11:43 AM CDT [facility] CHOL/HDL RATIO 5.6(H) 0.0 - 4.4 02/13/2025 11:43 AM CDT [facility] NON-HDL CHOLESTEROL 124 <130 mg/dL 02/13/2025 11:43 AM CDT [facility] IS THE PATIENT REQUIRED TO BE FASTING? Yes 02/13/2025 11:43 AM CDT [facility] HAS THE PATIENT BEEN FASTING? Yes 02/13/2025 11:43 AM CDT [facility] Blood Venipuncture / Unknown 02/13/2025 10:26 AM CDT 02/13/2025 11:26 AM CDT Crystal Rodgers APRN CHEMISTRY ORDERABLES Final Result [facility] [address] [place] [address] * (ABNORMAL) COMPLETE BLOOD COUNT (CBC) WITHOUT DIFF (02/13/2025 10:26 AM CDT) WBC 5.49 4.00 - 12.00 10(3)/[facility] 02/13/2025 11:29 AM CDT [facility] RBC 4.99 3.80 - 5.30 10(6)/[facility] 02/13/2025 11:29 AM CDT [facility] HEMOGLOBIN (HGB) 14.5 12.0 - 15.8 g/dL 02/13/2025 11:29 AM CDT [facility] HEMATOCRIT (HCT) 42.4 36.0 - 47.0 % 02/13/2025 11:29 AM CDT [facility] MCV 85.0 82.0 - 96.0 fL 02/13/2025 11:29 AM CDT [facility] MCH 29.1 26.0 - 34.0 pg 02/13/2025 11:29 AM CDT [facility] MCHC 34.2 31.0 - 36.0 g/dL 02/13/2025 11:29 AM CDT [facility] PLATELET COUNT 109(L) 140 - 440 10(3)/[facility] 02/13/2025 11:29 AM CDT [facility] RDW 13.3 11.8 - 15.5 % 02/13/2025 11:29 AM CDT [facility] MPV 12.5(H) 9.7 - 12.4 fL 02/13/2025 11:29 AM CDT [facility] Blood Venipuncture / Unknown 02/13/2025 10:26 AM CDT 02/13/2025 11:25 AM CDT us Cyrstal Rodgers APRN HEMATOLOGY ORDERABLES Evon l Result [facility] [address] [place] [address] * HEPATITIS C ANTIBODY (03/06/2024 7:59 AM CDT) hepatitis C antibody 0.19 <1 S/CO 03/06/2024 10:31 PM CDT [facility] Comment: Signal/Cutoff ratio < 0.79 is Nondetected Signal/Cutoff ratio 0.80-0.99 is Grayzone Signal/Cutoff ratio > 0.99 is Detected Supplemental assays are recommended if signal/cutoff ratio is >/=1.00. Signal/cutoff ratio result >/= 5.00 is 97% predictive of positivity for recombinant immunoblot assay (RIBA) and will be reported to the [place] Department of Public Health as required. Blood Venipuncture / Unknown 03/06/2024 7:59 AM CDT 03/06/2024 7:59 AM CDT us Garrison Laboy MD CHEMISTRY ORDERABLES Evon pritchard Result Performing Organization Address City/State/[facility] Co de Phone Number [facility] [address] [place] [address], [place] * CT CHEST W CONTRAST (11/11/2015 [...] 9:53 AM: Cris Cazares M.D. Radiologist CN:[facility] Procedure Note Evaristo Cleveland MD - 11/11/2015 [...] ELECTRONICALLY VERIFIED REPORT 11/11/2015 9:53 AM: Cris Cazaresbet, M.D. Radiologist CN:[facility] IMPRESSION: 1. No pulmonary embolism. 2. Patchy [...] Most Recently Relevant to Health Maintenance Insurance [facility] Advance Directives * Full Code (Latest Code Status on File) Date Activated Date Inactivated Comments 11/11/2015 1:36 PM 11/13/2015 2:10 PM CPR-Full Chicho atment: FULL ARREST: Attempt Resuscitation/CPR wit intubation and mechanical ventilation. PRE-ARREST: Use entire range of life support measures to stabilize the patient. Care Teams Iron Launder Operator Relationship Specialty Start Date End Date Crystal Rodgers APRN [address] [place] [address] PCP - General Advanced Practice Nurse 03/25/25 Fei Stevens MD [address] [place] [address] Consulting Physician Obstetrics & Gynecology 04/12/20 Kellen Mena MD [address] [place] [address] Consulting Physician Psychiatry 08/23/23 Darian Caal MD [address] [place] [address] Consulting Physician Neurology 11/15/23 Joes Swanson MD #[address] [address] Consulting Physician Colon and Rectal Surgery 04/27/24
--- OUTSIDE RECORDS SUMMARY | 2025-05-04 09:18 | XMS_ITS | Encounter Summary ---
Author Organization [facility] Address 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
--- OUTSIDE RECORDS SUMMARY | 2025-05-04 09:18 | XMS_ITS | Encounter Summary ---
Author Organization [facility] Address [address] [place] [address] Phone Care Team Providers Care Pattern Molder Name Role Phone Garrison Laboy MD Primary Care Provider [phone] Nguyen Shepard APRN, GEAR KEEPER Unavailable [phone] Fei Stevens MD Unavailable [phone] Kellen Mena MD Unavailable [phone] Darian Caal MD Unavailable [phone] Jose Swanson MD Unavailable Crystal Rodgers APRN Primary Care Provider + [phone] Reason for Visit * Reason Comments Medication Refill Encounter Details Date Type Department Care Team (Late st Contact Info) Description 04/04/2022 Refill [facility] - Primary Care - [place] [address] [place] [address] Garrison Laboy MD [address] [place] [address] Medication Refill Social History Tobacco [...] Dept 03/01/22 Office Visit Garrison Laboy MD [facility] [employer] [facility] 09/06/21 Office Visit Garrison Lbaoy MD [facility] [employer] [facility] 07/11/21 Office Visit Garrison Laboy MD [facility] [employer] [facility] Showing recent visits within past 365 days and meeting all other requirements Future Appointments Date Type Provider Dept 05/03/22 Appointment Lab, [place] [facility] [employer] [facility] Showing future appointments within next 90 days and meeting all other requirements * Telephone Encounter - Misty Weir RN - 04/04/2022 1:53 PM CDT Per [place] PDMP last fill date 03/07/22. documented in this encounter Plan of Treatment Upcoming Encounters Date Type Department Care Team (Late st Contact Info) Description 10/11/2025 2:20 PM CDT [facility] [address] [place] [address] [facility] Lissa December, PAC [address] [place] [address] Discharge Disposition: Discharged to home or Selfcare 10/12/2025 2:30 PM CDT [facility] - [facility] [address] [place] [address] Darian Caal MD [address] [place] [address] 10/18/2025 2:20 PM CDT [facility] [address] [place] [address] [facility] December, [facility] [address] [place] [address] Discharge Disposition: Discharged to home or Selfcare documented as of this encounter Visit Diagnoses Diagnosis Insomnia due to medical condition Insomnia due to medical condition classified elsewhere documented in this encounter Care Teams Pattern Molder Relationship Specialty Start Date End Date Garrison Laboy MD [address] [place] [address] PCP - General Internal Medicine 05/30/15 03/24/25 Crystal Rodgers APRN [address] [place] [address] PCP - General Advanced Practice Nurse 03/25/25 Nguyen Shepard APRN, GEAR KEEPER [address] [place] [address] Consulting Physician Psychiatry 03/04/19 08/22/23 Fei Stevens MD [address] [place] [address] Consulting Physician Obstetrics & Gynecology 04/12/20 Kellen Mena MD [address] [place] [address] Consulting Physician Psychiatry 08/23/23 Darian Caal MD [address] [place] [address] Consulting Physician Neurology 11/15/23 Jose Swanson MD #[address] [address] Consulting Physician Colon and Rectal Surgery 04/27/24 documented as of this encounter
--- OUTSIDE RECORDS SUMMARY | 2025-05-04 09:18 | XMS_ITS | Encounter Summary ---
Author Organization [facility] Address [address] [place] [address] Phone Care Team Providers Care Superintendent Nonselling Name Role Phone Garrison Laboy MD Primary Care Provider [phone] Nguyen Shepard APRN, ELECTRONIC TEST TECHNICIAN Unavailable [phone] Fei Stevens MD Unavailable [phone] Kellen Mena MD Unavailable [phone] Darian Caal MD Unavailable [phone] Jose Swanson MD Unavailable Crystal Rodgers APRN Primary Care Provider + [phone] Reason for Visit * Reason Comments Medication Refill Encounter Details Date Type Department Care Team (Late st Contact Info) Description 09/25/2022 [facility]ill [facility] [address] [place] [address] Debbie Marino MD [address] [place] [address] Medication Refill Social History Tobacco Use Types Packs/Day Years Used Date Smoking Tobacco: Every Day Cigarettes 0.5 39.3 Started: 01/23/1986 Smokeless Tobacco: Never Alcohol [...] Garrison Laboy MD - 09/25/2022 9:21 AM MAINSPRING WINDER Refill request approved. SPRING WINDER * Telephone Encounter - Snow Calvillo RN [...] Dept 03/01/22 Office Visit Garrison Laboy MD [facility] Showing recent visits within past 365 days and meeting all other requirements Future Appointments No visits were found meeting these conditions. Showing future appointments within next 90 days and meeting all other requirements SPR[place] WINDER documented in this encounter Plan of Treatment Upcoming Encounters Date Type Department Care Team (Late st Contact Info) Description 10/11/2025 2:20 PM CDT Lab [facility] On[facility] Services [address] [place] [address] Lissa Zazueta Yue, PAC [address] [place] [address] Discharge Disposition: Discharged to home or Selfcare 10/12/2025 2:30 PM CDT Office Visit [facility] Neurology [facility] [address] [place] [address] Darian Caal MD [address] [place] [address] 10/18/2025 2:20 PM CDT [facility] [address] [place] [address] Zazueta, Lissa Yue, PAC [address] [place] [address] Discharge Disposition: Discharged to home or Selfcare documented as of this encounter Visit Diagnoses Diagnosis Fibromyalgia Mylagia and myositis, unspecified documented in this encounter Care Teams Superintendent Nonselling Relationship Specialty Start Date End Date Garrison Laboy MD [address] [place] [address] PCP - General Internal Medicine 05/30/15 03/24/25 Crystal Rodgers APRN [address] [place] [address] PCP - General Advanced Practice Nurse 03/25/25 Nguyen Shepard APRN, ELECTRONIC TEST TECHNICIAN [address] [place] [address] Consulting Physician Psychiatry 03/04/19 08/22/23 Fei Stevens MD [address] [place] [address] Consulting Physician Obstetrics & Gynecology 04/12/20 Kellen Mena MD [address] [place] [address] Consulting Physician Psychiatry 08/23/23 Darian Caal MD [address] [place] [address] Consulting Physician Neurology 11/15/23 Jose Swanson MD #[address] [address] Consulting Physician Colon and Rectal Surgery 04/27/24 documented as of this encounter
--- OUTSIDE RECORDS SUMMARY | 2025-05-04 09:18 | XMS_ITS | Encounter Summary ---
Author Organization [facility] Address [address] [place] [address] Phone Care Team Providers Care Floor Runner Name Role Phone Garrison Laboy MD Primary Care Provider [phone] Fei Stevens MD Unavailable [phone] Kellen Mena MD Unavailable [phone] Darian Caal MD Unavailable [phone] Jose Swanson MD Unavailable Crystal Rodgers APRN Primary Care Provider [phone] Encounter Details Date Type Department Care Team (Late st Contact Info) Description 05/04/2024 Transcribe Orders [facility] Call Center [facility] [facility] [address] [place] [id number] Jose Swanson MD [address] [place] [address] Social History Tobacco Use Types Packs/Day Years Used Date Smoking Tobacco: Every Day Cigarettes 1 39.3 Started: 01/23/1986 Smokeless Tobacco: Never Alcohol Use Standard Drinks/Week Comments No 0 (1 standard drink = 0.6 oz pur e alcohol) [facility] Utilities Answer Date Recorded In the past 12 months has [employer] electric, gas, oil, or water company threatened [...] week 03/12/2024 How often do you attend jehovah's witness or sabianism serv ices? Never 03/12/2024 Do you belong to any clubs o r organizations such as jehovah's witness groups, unions, fraternal or athletic groups, or [...] and heating? Not hard at all 03/12/2024 [facility] [place] of Occupat ional Health - Occupational Stress [...] place to sleep or slept in a long term (including now)? No 08/22/2023 Housing Stability Vital Sign Answer Merrick e Recorded In the last 12 months, was t here a time when you were not able to pay the mortgage or rent on time? No 03/12/2024 In the past 12 months, how m any times have you moved where you were living? 0 03/12/2024 At any time in the past 12 m [facility], were you homeless or living in a long term (including now)? No 03/12/2024 Education Answer Date [...] Info) Description 10/11/2025 2:20 PM CDT [facility] [address] [place] [address] Lissa Zazueta, PAC [address] [place] [address] Discharge Disposition: Discharged to home or Selfcare 10/12/2025 2:30 PM CDT Office Visit [facility] - Neurology [facility] [address] [place] [address] Darian Caal MD [address] [place] [address] 10/18/2025 2:20 PM CDT [facility] [address] [place] [address] Lissa Zazeuta Yue, [facility] [address] [place] [address] Discharge Disposition: Discharged to home or Selfcare documented as of this encounter Visit Diagnoses Not on filedocumented in this encounter Additional Health Concerns Assessment Noted Time PHQ-9 Depression Total Score: 0 08/23/19 24 1:44 PM LACQUER SHADER documented as of this encounter Care Teams Floor Runner Relationship Specialty Start Date End Date Garrison Laboy MD [address] [place] [address] PCP - General Internal Medicine 05/30/15 03/24/25 Crystal Rodgers, JIE [address] [place] [address] PCP - General Advanced Practice Nurse 03/25/25 Fei Stevens MD [address] [place] [address] Consulting Physician Obstetrics & Gynecology 04/12/20 Kellen Mena MD [address] [place] [address] Consulting Physician Psychiatry 08/23/23 Darian Caal MD [address] [place] [address] Consulting Physician Neurology 11/15/23 Jose Swanson MD [address] [place] [address] Consulting Physician Colon and Rectal Surgery 04/27/24 documented as of this encounter
--- OUTSIDE RECORDS SUMMARY | 2025-05-04 09:18 | XMS_ITS | Encounter Summary ---
Author Organization [facility] Address [address] [place] [address] Phone Care Team Providers Care Steeler Name Role Phone Garrison Laboy MD Primary Care Provider [phone] Nguyen Shepard APRN, COAL PULVERIZER OPERATOR Unavailable [phone] Fei Stevens MD Unavailable [phone] Kellen Mena MD Unavailable [phone] Darian Caal MD Unavailable [phone] Jose Swanson MD Unavailable Crystal Rodgers APRN Primary Care Provider + [phone] Reason for Visit * Reason Comments Medication Refill Encounter Details Date Type Department Care Team (Late st Contact Info) Description 10/06/2021 Refill [facility] - Primary Care - [place] [address] [place] [address] Garrison Laboy MD [address] [place] [address] Medication Refill Social History Tobacco [...] COVID-19? No / Unsure 09/06/2021 3:31 PM SHOE PACKER documented as of this encounter Miscellaneous Notes [...] Office Visit Garrison Laboy MD [facility] 07/11/21 Office Visit Garrison Laboy MD [facility] 02/23/21 Office Visit Garrison Laboy MD [facility] Showing recent visits within past 365 days and meeting all other requirements Future Appointments No visits were found meeting these conditions. Showing future appointments within next 90 days and meeting all other requirements documented in this encounter Plan of Treatment Upcoming Encounters Date Type Department Care Team (Late st Contact Info) Description 10/11/2025 2:[address] [facility] On[facility] Services [address] [place] [phone] Lissa Zazueta December, PAC [address] [place] [address] Discharge Disposition: Discharged to home or Selfcare 10/12/2025 2:30 PM CDT [facility] [address] [place] [address] Darian Caal MD [address] [place] [address] 10/18/2025 2:20 PM CDT Office Visit [facility] Oncology Services [address] [place] [address] Lissa Zazueta December, PAC [address] [place] [address] Discharge Disposition: Discharged to home or Selfcare documented as of this encounter Visit Diagnoses Diagnosis Insomnia due to medical condition Insomnia due to medical condition classified elsewhere documented in this encounter Care Teams Steeler Relationship Specialty Start Date End Date Garrison Laboy MD [address] [place] [address] PCP - General Internal Medicine 05/30/15 03/24/25 Crystal Rodgers APRN [address] [place] [address] PCP - General Advanced Practice Nurse 03/25/25 Nguyen Shepard APRN, COAL PULVERIZER OPERATOR [address] [place] [address] Consulting Physician Psychiatry 03/04/19 08/22/23 Fei Stevens MD [address] [place] [address] Consulting Physician Obstetrics & Gynecology 04/12/20 Kellen Mena MD [address] [place] [address] Consulting Physician Psychiatry 08/23/23 Darian Caal MD [address] [place] [address] Consulting Physician Neurology 11/15/23 Jose Swanson MD #[address] [address] Consulting Physician Colon and Rectal Surgery 04/27/24 documented as of this encounter
--- OUTSIDE RECORDS SUMMARY | 2025-05-04 09:18 | XMS_ITS | Encounter Summary ---
Author Organization [facility] Address [address] [place] [address] Phone Care Team Providers Care Pct Name Role Phone Garrison Laboy MD Primary Care Provider + [phone] Fei Stevens MD Unavailable [phone] Kellen Mena MD Unavailable [phone] Darian Caal MD Unavailable [phone] Jose Swanson MD Unavailable Crystal Rodgers APRN Primary Care Provider [phone] Reason for Visit * Reason Comments Medication Refill Encounter Details Date Type Department Care Team (Late st Contact Info) Description 01/27/2024 Refill [facility] - Primary Care - [place] [address] [place] [address] Garrison Laboy MD [address] [place] [address] Medication Refill Social History Tobacco Use Types Packs/Day Years Used Date Smoking Tobacco: Every Day Cigarettes 1 39.3 Started: 01/23/1986 Smokeless Tobacco: Never Alcohol Use Standard Drinks/Week Comments No 0 (1 standard drink = 0.6 oz pur e alcohol) [facility] Utilities Answer Date Recorded In the past 12 months has [employer], gas, oil, or water [employer] threatened to shut off services in your home? No 08/22/2023 Social Connection and Isolation Panel Answer Date Recorded In a typical week, how many times do you talk on the phone with family, friends, or neighbors? Twice a week 08/22/2023 How often do you get together with friends or re latives? Once a week 08/22/2023 How often do you attend anabaptism or evangelical serv ices? Never 08/22/2023 Do you belong to any clubs o r organizations such as anabaptism groups, unions, fraternal or athletic groups, or [...] and heating? Not hard at all 08/22/2023 [facility] - Occupational [...] in a retirement (including now)? No 08/22/2023 Education Answer Date [...] PM CDT [facility] [address] [place] [address] Lissa Zazueta Yue, PAC [address] [place] [address] Discharge Disposition: Discharged to home or Selfcare 10/12/2025 2:30 PM CDT Office Visit [facility] [address] [place] [address] Darian Caal MD [address] [place] [address] 10/18/2025 2:20 PM CDT Office Visit [facility] On[facility] Services [address] [place] [address] Marbin Lissa Yue, PAC [address] [place] [address] Discharge Disposition: Discharged to home or Selfcare documented as of this encounter Visit Diagnoses Diagnosis Hypertension, essential Unspecified essential hypertension documented in this encounter Additional Health Concerns Assessment Noted Time PHQ-9 Depression Total Score: 0 08/23/19 1:44 PM TRIM STENCIL MAKER documented as of this encounter Care Teams Pct Relationship Specialty Start Date End Date Garrison Laboy MD [address] [place] [address] PCP - General Internal Medicine 05/30/15 03/24/25 Crystal Rodgers APRN [address] [place] [address] PCP - General Advanced Practice Nurse 03/25/25 Fei Stevens MD [address] [place] [address] Consulting Physician Obstetrics & Gynecology 04/12/20 Kellen Mena MD [address] [place] [address] Consulting Physician Psychiatry 08/23/23 Darian Caal MD [address] [place] [address] Consulting Physician Neurology 11/15/23 Jose Swanson MD [address] [place] [address] Consulting Physician Colon and Rectal Surgery 04/27/24 documented as of this encounter
--- OUTSIDE RECORDS SUMMARY | 2025-05-04 09:18 | XMS_ITS | Encounter Summary ---
Author Organization [facility] Address [address] [place] [address] Phone Care Team Providers Care Bee Producer Name Role Phone Garrison Laboy MD Primary Care Provider [phone] Nguyen Shepard APRN, CNP Unavailable [phone] Fei Stevens MD Unavailable [phone] Kellen Mena MD Unavailable [phone] Darian Caal MD Unavailable [phone] Jose Swanson MD Unavailable Crystal Rodgers APRN Primary Care Provider + [phone] Reason for Visit * Reason Comments Medication Refill Encounter Details Date Type Department Care Team (Late st Contact Info) Description 02/06/2023 Refill [facility] [address] [place] [address] Garrison Laboy MD [address] [place] [address] Medication Refill Social History Tobacco Use Types [...] Dept 03/01/22 Office Visit Garrison Laboy MD [facility] Showing recent visits within past 365 days and meeting all other requirements Future Appointments Date Type Provider Dept 03/08/23 Appointment Garrison Laboy MD [facility] Showing future appointments within next 90 days and meeting all other requirements * Telephone Encounter - Misty Weir RN - 02/07/2023 8:42 AM CDT Per [place] last fill date 01/06/23. documented in this encounter Plan of Treatment Upcoming Encounters Date Type Department Care Team (Late st Contact Info) Description 10/11/2025 2:20 PM CDT [facility] On[facility] Services [address] [place] [address] Lissa Zazueta December, PAC [address] [place] [address] Discharge Disposition: Discharged to home or Selfcare 10/12/2025 2:30 PM CDT Office Visit [facility] [address] [place] [address] Darian Caal MD [address] [place] [address] 10/18/2025 2:20 PM CDT Office Visit [facility] Oncology Services [address] [place] [address] Lissa Zazueta December, PAC [address] [place] [address] Discharge Disposition: Discharged to home or Selfcare documented as of this encounter Visit Diagnoses Diagnosis Fibromyalgia Mylagia and myositis, unspecified documented in this encounter Care Teams Bee Producer Relationship Specialty Start Date End Date Garrison Laboy MD [address] [place] [address] PCP - General Internal Medicine 05/30/15 03/24/25 Crystal Rodgers APRN [address] [place] [address] PCP - General Advanced Practice Nurse 03/25/25 Nguyen Shepard APRN, LENS EDGER [address] [place] [address] Consulting Physician Psychiatry 03/04/19 08/22/23 Fei Stevens MD [address] [place] [address] Consulting Physician Obstetrics & Gynecology 04/12/20 Kellen Mena MD [address] [place] [address] Consulting Physician Psychiatry 08/23/23 Darian Caal MD [address] [place] [address] Consulting Physician Neurology 11/15/23 Jose Swanson MD [address] [address] Consulting Physician Colon and Rectal Surgery 04/27/24 documented as of this encounter
--- OUTSIDE RECORDS SUMMARY | 2025-05-04 09:18 | XMS_ITS | Encounter Summary ---
Author Organization [facility] Address [address] [place] [address] Phone Care Team Providers Care Practice Professional Name Role Phone Garrison Laboy MD Primary Care Provider [phone] Nguyen Shepard APRN, CREDIT DIRECTOR Unavailable [phone] Fei Stevens MD Unavailable [phone] Kellen Mena MD Unavailable [phone] Darian Caal MD Unavailable [phone] Jose Swanson MD Unavailable Crystal Rodgers APRN Primary Care Provider + [phone] Reason for Visit * Reason Comments Medication Refill Encounter Details Date Type Department Care Team (Late st Contact Info) Description 01/26/2023 Refill [facility] - Primary Care - [place] [address] [place] [address] Garrison Laboy MD [address] [place] [address] Medication Refill Social History Tobacco [...] Dept 03/01/22 Office Visit Garrison Laboy MD [facility] Showing recent visits within past 365 days and meeting all other requirements Future Appointments Date Type Provider Dept 03/08/23 Appointment Garrison Laboy MD [facility] Showing future appointments within next 90 days and meeting all other requirements Passed - No active on record documented in this encounter Plan of Treatment Upcoming Encounters Date Type Department Care Team (Late st Contact Info) Description 10/11/2025 2:20 PM CDT [facility] Oncology Services [address] [place] [phone] Lissa Zazueta Yue, PAC [address] [place] [address] Discharge Disposition: Discharged to home or Selfcare 10/12/2025 2:30 PM CDT [facility] #[address] [place] [address] Darian Caal MD [address] [place] [address] 10/18/2025 2:20 PM CDT Office Visit [facility] Oncology Services [address] [place] [phone] Lissa Zazueta Yue, PAC [address] [place] [address] Discharge Disposition: Discharged to home or Selfcare documented as of this encounter Visit Diagnoses Diagnosis Hypothyroidism due to acquired atrophy of thyroid documented in this encounter Care Teams Practice Professional Relationship Specialty Start Date End Date Garrison Laboy MD [address] [place] [address] PCP - General Internal Medicine 05/30/15 03/24/25 Crystal Rodgers APRN [address] [place] [address] PCP - General Advanced Practice Nurse 03/25/25 Nguyen Shepard APRN, CREDIT DIRECTOR [address] [place] [address] Consulting Physician Psychiatry 03/04/19 08/22/23 Fei Stevens MD [address] [place] [address] Consulting Physician Obstetrics & Gynecology 04/12/20 Kellen Mena MD [address] [place] [address] Consulting Physician Psychiatry 08/23/23 Darian Caal MD [address] [place] [address] Consulting Physician Neurology 11/15/23 Jose Swanson MD [address] [address] Consulting Physician Colon and Rectal Surgery 04/27/24 documented as of this encounter
--- NOTE | 2025-05-04 09:34 | ED_ITS ---
HPI - Extremity Injury (Upper) General Chief Complaint: Extremity Injury, Upper Stated Complaint: right arm injury Time Seen by Provider: 05/04/25 09:15 Source: patient and RN notes reviewed Mode of arrival: ambulatory Limitations: no limitations History of Present Illness HPI narrative: 54-year-old female presents Express Care complaining right forearm injury. Patient said yesterday she was lifting something heavy with her hand as she was lifting upward with her right elbow she felt a pull in her proximal forearm causing pain. Patient denies any falls or any other injuries. Patient denies any numbness or tingling. Patient reports pain with pronation and supination along with squeezing her right hand. Patient has not tried anything to help with symptoms. Related Data Home Medications ?Medication ?Instructions ?Recorded ?Confirmed ?Last Taken ?Type trazodone 50 mg tablet 50 mg PO BID 06/20/23 Unknown History buspirone 15 mg tablet 15 mg PO TID 02/11/25 Unknown History lamotrigine 200 mg tablet 200 mg PO BID 02/11/2503/17 Unknown History valbenazine 80 mg capsule 80 mg PO DAILY 02/11/2502/20 Unknown History (Ingrezza) Allergies Allergy/AdvReac Type Severity Reaction Status Date / Time Penicillins Allergy Anaphylaxis Verified 05/04/25 08:59 Review of Systems Review of Systems: CONSTITUTIONAL: Denies fever, chills, or sweats. EYES: Denies visual changes, redness, or discharge. ENT: Denies rhinorrhea, congestion, sore throat, or otalgia. CARDIOVASCULAR: Denies chest pain, palpitations, or edema. RESPIRATORY: Denies cough or dyspnea. GASTROINTESTINAL: Denies abdominal pain, nausea, vomiting, or diarrhea. GENITOURINARY: Denies dysuria or hematuria. SKIN: Denies rash, wound, or itching. MUSCULOSKELETAL: Denies back pain, joint pain, or myalgia. Positive for right forearm injury. NEUROLOGIC: Denies headache, numbness, or weakness. PSYCHIATRIC: Denies anxiety or depression. All other systems reviewed are negative, except as documented in HPI. [facility] Past Medical History Medical History History of stomach ulcers Disorder of thyroid Allergies PTSD (post-traumatic stress disorder) COVID-19 2020 Pneumonia Anxiety Hyperlipidemia Bipolar disorder Surgical History Surgical History Hx of tubal ligation H/O thyroidectomy Family History Family History Mother Heart disease Hypertension Cerebrovascular accident Grandparent Breast cancer in female Heart disease Grandparent Depression Anxiety Hypertension Social History Social History Smoking packs per day: 0.5 Smoking cigarettes per day: 10.0 Years smoked: 35 Smoking pack-years: 17.50 Smoking status: Current every day smoker Tobacco type: cigarettes Alcohol use details: does not drink Substance use type: does not use Do You Feel Safe in your Home?: Yes Lack of Transportation: No Lack of Food: Never True Current Housing: I Have Housing Concerned About Future Housing: No Difficulty Paying Gas/Electric Bills: No Difficulty Paying for Meds: No Currently Unemployed: No Education: High School Diploma/GED Difficulty w/ Childcare or Family Care: No Living arrangements: with family Additional occupation/education comments: 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 Gender identity (if verbalized by the patient): Female Agree to blood products: Yes Comments At the time of my signature, I reviewed and agree with the nursing past medical, surgical, social, and family history. There is no relevant family history pertinent to the patient complaint. Exam Narrative: GENERAL: This is a well-nourished, well-developed adult, in no apparent distress. They are non ill-appearing, nontoxic appearing. HEAD: normocephalic, atraumatic. EYES: Sclera clear/white. Vision is grossly intact. Conjunctiva normal. Extraocular movement intact. EARS: External ears normal Hearing grossly intact. NOSE: External nose normal THROAT: Mucous membranes moist NECK: Neck supple CARDIOVASCULAR: Regular rate and rhythm RESPIRATORY: Respiratory rate normal, respiratory effort nonlabored, no respiratory distress NEURO: awake, alert, and oriented to person, place and time. There were no obvious focal neurologic abnormalities. EXTREMITIES: Right forearm: No obvious deformity, injury, swelling, bruising, redness. There is pain through full range of motion. Music Writer strength 3/5, limited due to pain. No bony tenderness. Capillary refill less than 3 seconds. Right radial Pulse 2 +palpable. Normal sensation. Neurovascular status intact distal injury. Patient able to wiggle her fingers. Patient make a fist, stop sign, thumbs-up sign, and okay sign. Radial, ulnar, median nerve distribution intact. BACK: Nontender without deformity. Course Course Emergency Course: Portions of this record may have been created with voice recognition software Level of Care: Express Care Visit Vital Signs Vital signs: Vital Signs Temperature 97.6 F 05/04/25 08:48 Pulse Rate 72 05/04/25 08:48 Respiratory Rate 20 05/04/25 08:48 Blood Pressure 133/67 05/04/25 08:48 Pulse Oximetry 94 05/04/25 08:48 Oxygen Delivery Room Air 05/04/25 08:48 Temperature 97.6 F 05/04/25 08:48 Pulse Rate 72 05/04/25 08:48 Respiratory Rate 20 05/04/25 08:48 Blood Pressure 133/67 05/04/25 08:48 Pulse Oximetry 94 05/04/25 08:48 Oxygen Delivery Room Air 05/04/25 08:48 Reviewed MDM - Extremity Injury (Upper) MDM Narrative Medical decision making narrative: No bony tenderness, no fall or injury. No x-ray indicated. Patient likely has a muscle strain. Neurovascular status intact. Patient is still able to use right hand however there is pain in her forearm with movement. Patient given Brennan wrap for compression along with sling for comfort. Advised patient to follow-up with ortho pain persists after 2 days. Discussed rice therapy. Discussed physical exam findings. Advised supportive measures and signs/symptoms to go to the ER. Pt is appropriate for outpt treatment and f/u. Differential Diagnosis Differential diagnosis: Likely other (Forearm fracture, forearm sprain, muscle strain, ligament injury, tendon injury) Critical Care Time Critical Care Time Critical Care Time: No Discharge Plan Discharge Clinical Impression: Injury of forearm, right Qualifiers: Encounter type: initial encounter Qualified Code(s): S59.911A - Unspecified injury of right forearm, initial encounter Patient Disposition: Home Condition: Stable Instructions: Musculoskeletal Pain (ED) Additional Instructions: Rest and elevate the right arm; uses as tolerated Wear sling as needed for comfort. Apply ice 15-20 minute intervals several times a day Keep it wrapped with BRENNNA were notable sleeve. You may take ibuprofen 600 mg to 800 mg every 6-8 hours. Do not exceed more than 800 mg of ibuprofen per dose. Do not exceed more than 3200 mg ibuprofen in a day. You may take up to 1000 mg Tylenol every 6-8 hours. Do not exceed 1000 mg per dose, do exceed more than 4000 mg of Tylenol in a day. Follow up with your primary care provider orthopedist as needed in 1-2 weeks especially if pain persist after 10 days. Patient Language: Bhutanese Prescriptions: No Action trazodone 50 mg tablet 50 mg PO BID buspirone 15 mg tablet 15 mg PO TID lamotrigine 200 mg tablet 200 mg PO BID Ingrezza 80 mg capsule 80 mg PO DAILY omeprazole 40 mg capsule,delayed release(DR/EC) 40 mg PO DAILY Qty: 90 3RF levothyroxine [Levo-T] 200 mcg tablet 200 mcg PO DAILY Qty: 90 0RF Lybalvi 5-10 mg tablet 1 tablet PO DAILY Qty: 90 0RF zolpidem 12.5 mg tablet,ext release multiphase 12.5 mg PO HS Qty: 30 1RF lisinopril 40 mg tablet 40 mg PO DAILY Qty: 90 3RF atorvastatin 20 mg tablet See Rx Instructions .ROUTE .COMPLEX Qty: 90 3RF Dose Instruction: Take 1 tablet by mouth once daily Rx Instructions: Take 1 tablet by mouth once daily nitrofurantoin monohyd/m-cryst [Macrobid] 100 mg capsule 100 mg PO Q12H 7 Days Qty: 14 0RF Rx Instructions: must administer with a meal/food Follow-up/Referrals: Corey Fuentes MD [Physician, Orthopedics] Crystal Rodgers APRN [Primary Care Provider, [facility]] Time of Disposition: 09:33
== END 2025-05-04 09:45 | disposition home or self-care (01) ==
PROVIDERS: PCP Nurse Practitioner Adult Health
DX: S59.911A Unspecified injury of right forearm, initial encounter (principal); X50.0XXA Overexertion from strenuous movement or load, initial encounter; E78.5 Hyperlipidemia, unspecified; E07.9 Disorder of thyroid, unspecified; F41.9 Anxiety disorder, unspecified; F31.9 Bipolar disorder, unspecified; Z86.16 Personal history of COVID-19; F17.210 Nicotine dependence, cigarettes, uncomplicated
CPT/HCPCS: 99212; A4565; G0463

== ENCOUNTER 2025-06-21 14:24 | Outpatient (CLI) | payer BC, SELFPAY ==
--- OUTSIDE RECORDS SUMMARY | 2025-06-21 15:24 | XMS_ITS | Encounter Summary ---
Author Organization [facility] Address 

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
--- OUTSIDE RECORDS SUMMARY | 2025-06-21 15:24 | XMS_ITS | Clinical Summary ---
Author Organization [facility] Address [address] [place] [address] Phone Care Team Providers Care Mimeographer Name Role Phone PRICILA MACHADO, SAEID STOKES Unavailable [phone] Reason for Visit and Chief Complaint The Chief Complaint is: follow up for depression, anxiety, insomnia, bipolar Problems Includes: Problems addressed during this encounter and other active Problems Current Visit Onset Date Resolved Date Provider Conditio n Status Attention-deficit Hyperactivity Disorder 06/17/2023 SAEID ARELLANO MD Active Last Documented On 3 6:56PM ; [facility] Bipolar I Disorder, Most Rec ent Episode, Depressed 06/17/2023 SAEID MENA MD Active Last Documented On 3 6:48PM ; [facility] Generalized Anxiety Disorder 06/17/2023 SAEID MENA MD Active Last Documented On 3 5:06PM ; [facility] Psychophysiological Insomnia 06/17/2023 SAEID MENA MD Active Last Documented On 3 5:06PM ; [facility] Panic Disorder 06/17/2023 SAEID Torres Active Last Documented On 3 6:47PM ; [facility] Past Visits Onset Date Resolved Date Provider Condition Status Tardive Dyskinesia Drug-induced 10/21/2023 SAEID MENA MD Active Last Documented On 4 2:57AM ; [facility] Bipolar I Disorder 06/17/2023 SAEID ARELLANO MD Active Last Documented On 3 5:06PM ; [facility] Plan of Treatment Bipolar disorder - Lybalvi 5 - 10 mg 1 tab at bedtime (samples given) -- since Caplyta was discontinued due to jaw stiffness/jitteriness just like with Abilifjhoan when she also had muscle twitching Bipolar eran -- Seroquel 25 mg 1 tab 3 x a day Bipolar depression - Lamictal 200 mg 1 tab 2 a day - pt denied having any SJS rash so far Generalized Anxiety Disorder - Buspar 15 mg 1 tab 3 x a day (increased 07/25/23) Attention Deficit Hyperactivity Disorder - Focalin 10 mg 1 tab in am, 1 tab at noon (increased 07/25/23) - will hold off for now Psychophysiological Insomnia - Ambien CR 12.5 mg at hs, Trazodone 50 mg 1 - 2 tabs at hs, continue good sleep hygiene habits Panic Disorder - Klonopin 0.5 mg 1 tab a day as needed for severe panic # 10 (07/25/23), continue breathing exercises, guided meditation and other relaxation techniques - Last Documented On 09/16/2023 4:37PM ; [facility] Pending Tests Order Diagnosis Results Due Ordering P roarletder Lab Comp Metabolic Panel 11/11/23 DILAN MENA MD Last Documented On 4 3:25AM ; [facility] Lab Lipid Panel 11/11/23 SAEID BAXTER MD Last Documented On 4 3:25AM ; [facility] Lab Vitamin B12/Folic Acid 11/11/23 ME HAKEEM MENA MD Last Documented On 4 3:25AM ; [facility] Lab Vitamin D 11/11/23 SAEID AMAYA MD Last Documented On 4 3:25AM ; [facility] Lab T S H 11/11/23 SAEID AMAYA MD Last Documented On 4 3:25AM ; [facility] Education and Decision Aids were provided during visit for: Patient counseling I discuss ed risk, benefits, and side effects of sleep aid - Zolpidem ER - including the possibility of sleep related behaviors i.e. sleepwalking, sleeptalking, sleepdriving, etc... Pt verbalized understanding Last Documented On 4 10:21AM ; [facility] Calming techniques such as b reathing exercises/meditation and other relaxation techniques Last Documented On 4:35PM ; [facility] Assessments Includes: Assessments from this encounter Findings - Attention-deficit hyperactivity disorder - Last Documented On 09/16/2023 4:37PM ; [facility] - Bipolar I disorder, most recent episode, depressed - Last Documented On 09/16/2023 4:37PM ; [facility] - Psychophysiological insomnia - Last Documented On 09/16/2023 4:37PM ; [facility] - Generalized anxiety disorder - Last Documented On 09/16/2023 4:37PM ; [facility] - Panic disorder - Last Documented On 09/16/2023 4:37PM ; [facility] Instructions Includes: Instructions from this encounter Education and Decision Aids were provided during visit for: Patient counseling I discuss ed risk, benefits, and side effects of sleep aid - Zolpidem ER - including the possibility of sleep related behaviors i.e. sleepwalking, sleeptalking, sleepdriving, etc... Pt verbalized understanding Last Documented On 10:21AM ; [facility] Calming techniques such as b reathing exercises/meditation and other relaxation techniques Last Documented On 4:35PM ; [facility] Medical Equipment - Implanted Devices Includes: Current Devices No Medical Equipment Recorded Medications Includes: Medications discussed during this encounter and other current Medications Discontinued / Stopped on this date on 03/05/2017 Lisinopril 20MG Oral Tablet Provider: Diagnosis: Last Documented On 09/13/2023 10:14AM By EDY SIDDIQUI ; [facility] New / Renewed during this visit SAEID MENA MD on 09/13/2023 traZODone HCl 50 MG Oral Tablet Provider: SAEID MENA MD 30 day supply: 60 tablet, 3 refills Diagnosis: Psychophysiologic insomnia TAKE 1 TO 2 TABLETS BY MOUTH DIRECTED AT BEDTIME FOR SLEEP Pharmacy: [facility] - [address] , [place], [id number] - Last Documented On 12/23/2023 3:48PM By Juana Mena MD ; [facility] Current Medications (continue as prescribed) traZODone HCl 50 MG Oral Tablet 12/24/2023 Provider: SAEID EMNA MD Diagnosis: Psychophysiologi c insomnia as directed - 2 tabs at bedt dia as needed for sleep Last Documented On 12/24/2023 3:35PM By Juana Mena MD ; [facility] Ingrezza 40 MG Oral Capsule 12/10/2023 Provider: ROMAN SHELBY MD Diagnosis: 1 daily Last Documented On 12/24/2023 3:03PM By EDY SIDDIQUI ; [facility] lamoTRIgine 200 MG Oral Tablet 10/31/2023 Provider: SAEID MENA MD Diagnosis: Bipolar disorder , current episode depressed, moderate Take 1 tablet by mouth twice daily Last Documented On 10/31/2023 10:09AM By Juana Mena MD ; [facility] Varenicline Tartrate (Starter) 0.5 MG X 11 & 1 MG X 42 Oral Tablet Therapy Pack 10/17/2023 Provider: SAEID MENA MD Diagnosis: Nicotine depende nce, cigarettes, uncomplicated One tablet daily Last Documented On 10/17/2023 4:06PM By Juana Mena MD ; [facility] Lybalvi 5-10 MG Oral Tablet 10/17/2023 Provider: SAEID MENA MD Diagnosis: Bipolar disorder , current episode depressed, moderate One tablet at bed time Last Documented On 10/17/2023 4:22PM By Juana Mena MD ; [facility] busPIRone HCl 15 MG Oral Tablet 10/17/2023 Provider: SAEID MENA MD Diagnosis: Generalized anxi ety disorder One tablet three times a day Last Documented On 10/17/2023 4:06PM By Juana Mena MD ; [facility] Lisinopril 40 MG Oral Tablet 08/23/2023 Provider: JANNETTE CATALAN MD Diagnosis: 1 tab daily Last Documented On 09/13/2023 10:14AM By EDY SIDDIQUI ; [facility] Lybalvi 5-10 MG Oral Tablet 07/25/2023 Provider: SAEID MENA MD Diagnosis: Bipolar disorder , current episode depressed, moderate One tablet at bed time Last Documented On 07/25/2023 6:17PM By Juana Mena MD ; [facility] KlonoPIN 0.5 MG Oral Tablet 07/25/2023 Provider: SAEID MENA MD Diagnosis: Panic disorder [ episodic paroxysmal anxiety] as directed - 1 tab a day as needed for panic attacks Last Documented On 07/25/2023 5:23PM By Juana Mena MD ; [facility] Focalin 10 MG Oral Tablet 07/25/2023 Provider: SAEID MENA MD Diagnosis: Attn-defct hyper activity disorder, predom inattentive type as directed - 1 tab in am an d 1 tab at noon Last Documented On 07/25/2023 6:25PM By Juana Mena MD ; [facility] Buffered Vitamin C 1000 MG Oral Capsule 06/17/2023 P roarletder: Diagnosis: 1 daily Last Documented On 06/17/2023 5:10PM By EDY SIDDIQUI ; [facility] Chelated Zinc 50 MG Oral Tablet 06/17/2023 Provider: Diagnosis: 1 tab daily Last Documented On 06/17/2023 5:11PM By DEY SIDDIQUI ; [facility] ZyrTEC Allergy 10 MG Oral Tablet 06/17/2023 Provider : Diagnosis: 1 tab daily Last Documented On 06/17/2023 5:13PM By EDY SIDDIQUI ; [facility] Vitamin D3 25 MCG (1000 UT) Oral Tablet Chewable 1 08/17/2022 Provider: Diagnosis: 2 tabs daily Last Documented On 06/17/2023 5:12PM By EDY SIDDIQUI ; [facility] B Complex (Folic Acid) Oral Tablet 06/17/2023 Provid er: Diagnosis: 1 tab daily Last Documented On 06/17/2023 5:12PM By EDY SIDDIQUI ; [facility] Levothyroxine Sodium 150 MCG Oral Tablet 06/11/2023 Provider: JANNETTE CATALAN MD Diagnosis: 1 tab daily Last Documented On 06/17/2023 5:07PM By EDY SIDDIQUI ; [facility] Lipitor 20MG Oral Tablet 03/05/2017 Provider: Diagnosis: Last Documented On 7 2:05PM By MODESTA SIDDIQUI ; [facility] TraMADol HCl 50MG Oral Tablet 03/05/2017 Provider: Diagnosis: Last Documented On 7 2:05PM By MODESTA SIDDIQUI ; [facility] Suspended Medications Zolpidem Tartrate ER 12.5 MG Oral Tablet Extended Release 09/20/2023 Provider: SAEID MENA MD Diagnosis: Psychophysiologi c insomnia TAKE 1 TABLET BY MOUTH DI RECTED AT BEDTIME NEEDED FOR SLEEP Last Documented On 09/20/2023 8:09AM By Juana Mena MD ; [facility] Medications Administered Includes: Administered Medications from this encounter No Administered Medications Recorded Vital Signs Includes: Vital Signs from this encounter Vital Name 09/13/2023 10:18A Blood Pressure Sitting L 132/75 BP Cuff Size Regular Pulse Rate-Sitting (bpm) 83 Pulse Rhythm Regular Height (in) 69 Weight (lb) 229 Body Mass Index 33.8 Body Surface Area 2.2 Note: self reported vitals Last Documented: On 09/13/2023 10:17A M ; [facility] Results Includes: Results discussed during this encounter No Results Recorded For Specified Dates History of Present Illness Includes: History of Present Illness from this encounter MICHELL BALBUENA is a 53 year old female. - Allergy list reviewed - Past medical history reviewed - Medication list reviewed Pt reported feeling better as far as her mood. The Lybalvi along with Lamictal seemed to help with her mood. She only takes a low dose of Quetiapine and also is on Buspar to help calm her down and both seemed to help with her anxiety. So far she has not had any panic attacks and has not even used the Klonopin given last 07/26/23. She denied martha from Lamictal. has not been feeling depressed. Pt has not been as anxious. Pt denied having any mood swings. Pt has not been as irritable. Pt has been motivated in general in doing daily tasks. Sleep has been good with Trazodone and Zolpidem ER, she denied having any sleep related behaviors. Pt has not been napping/sleeping too much during the daytime. Pt has not been feeling as tired. Appetite is somewhat down. Pt has not been feeling as bad about self. Pt is able to focus and concentrate for the most part with Focalin. Pt occ gets fidgety/restless. Pt denied suicidal thoughts. Pt denied having any delusions/hallucinations. She denied motor side effects from from Lybalvi but pt reported having jaw tightness and felt that her tongue is raw and she thought she had this since she started the Focalin so she was asked to hold off on the Focalin to see if these sx mendoza. MENTAL STATUS EXAM: Sensorium - alert, oriented to name, place, and time Attitude - cooperative Gait - ambulatory Sleep - good - no sleep related behaviors with Zolpidem ER Interest/Energy/Motivation - good Guilt/Worthlessness - absent Concentration/Attention Span - able to focus and concentrate Memory Recall - fairly good Appetite - somewhat down- on 07/25/23 pt weighed 228 lbs and on 09/13/23 she weighed 229 lbs so she gained 1 lb Suicidal Thoughts - absent Homicidal Thoughts - absent Delusions - absent Hallucinations - absent Appearance - casually groomed Motor Behavior - occ fidgety Eye Contact - intermittent Speech - fluent Mood - not depressed Affect - not as anxious Thought Process - coherent Insight and Judgment - intact Social History Description Last Updated Caffeine use: 64 oz of soda a day, an occasional glass of tea daily and does not drink coffeeAlcohol use: noneIllicit drug use: noneWork history: currently works at [employer] in [employer] since 2018; she works from 7:30 am to 1:30 pm but just works part-time, 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 Both parents are living. She has [...] no past or pending legal history. Her alevism background is [employer]. 09/13/2023 Last Documented On 4 10:02AM ; [facility] Current smoker - 1/2 - 1 pack of cigaret pj a day 09/13/2023 Last Documented On 4 4:37PM ; [facility] Smoking Status Unknown Procedures and Surgical History Includes: Procedures from this encounter Procedures Code Diagnosis Performing Provider Service L ocation Service Date patient counseling I discussed risk, benefits, and side effects of sleep aid - Zolpidem ER - including the possibility of sleep related behaviors i.e. sleepwalking, sleeptalking, sleepdriving, etc... Pt verbalized understanding Last Documented On 4 10:21AM ; [facility] education and instructions Last Documented On 4 10:02AM ; [facility] supportive care and encourag ement--given positive reinforcement to keep patient motivated and active Last Documented On 4 10:21AM ; [facility] I discussed the risks, benef its and side effects of Lybalvi and Quetiapine to the patient including the possibility of metabolic and motor side effects such as tardive dyskinesia Last Documented On 4 10:16AM ; [facility] ~* Call [phone] and /or go t o the nearest emergency room or call me if suicidal/homicidal ideation or other serious concerns arise. ~ ~* I gave instructions to call me should there be any questions or concerns. ~ ~* Patient voiced understanding and agreed to treatment plan Last Documented On 4 10:16AM ; [facility] dangerousness assessment: no suicide risk 3085F Last Documented On 4 10:02AM ; [facility] use of tobacco assessment performed 1000F Last Documented On 4 10:16AM ; [facility] patient screened for future fall risk: documentation of any fall with injury in past year - no recent falls 1100F Last Documented On 4 10:16AM ; [facility] review of medications documented 1160F Last Documented On 4 10:16AM ; [facility] assessment of suicide risk performed - n ot suicidal Last Documented On 4 10:16AM ; [facility] screening for adult depressi on: impression and score - please see above for treatment and PHQ score Last Documented On 4 10:16AM ; [facility] standardized depression screening: posit pedro pablo for symptoms Last Documented On 4 10:16AM ; [facility] encouragement to exercise - balanced carin l plan, low fat low carb diet Last Documented On 4 10:16AM ; [facility] Counseling for smoking cessation provided [id number] Last Documented On 4 10:21AM ; [facility] Clinical summary provided to patient Last Documented On 4 10:02AM ; [facility] PHQ-9: total score 2 Last Documented On 4 4:35PM ; [facility] Medical History Includes: Medical History addressed during this encounter Description Last Updated Primary Care Physician: Dr. CatalanDiagnosis:Bronchitis -- given Albuterol inhaler 90 mcg, Azithromycin 250 mg and Prednisone 10 mg 06/20/23Hypothyroidism -- 2008PTSD -- 1999Fibromyalgia -- 2008Osteoarthritis -- left knee -- 2008Hot FlashesHyperlipidemiaHypertensionNicotine dependencePatient refused to get vaccinated against Covid 19 despite educating patient on the adverse consequences of Covid 19 if she ever gets it. 09/13/2023 Last Documented On 4 10:02AM ; [facility] Family History Includes: Family History addressed during this encounter Description Last Updated Maternal grandfather -- bipo lar and alcohol abuseMaternal aunt -- alcohol abuse 09/13/2023 Last Documented On 4 10:02AM ; [facility] Review of Systems Includes: Review of Systems from this encounter Systemic: Not feeling poorly (malaise). No fever and no chills. Night sweats. Head: No headache. Facial pain. No sinus pain. Neck: No neck pain and no neck stiffness. Eyes: No vision problems, no itching of the eyes, and no eye pain. Otolaryngeal: No hearing loss, no earache, no nasal discharge, no hoarseness, and no sore throat. Cardiovascular: No chest pain or discomfort, no palpitations, and the heart rate was not fast. Pulmonary: No dyspnea, no cough, and no wheezing. Gastrointestinal: Appetite. No heartburn. No nausea, no vomiting, no diarrhea, and no constipation. Genitourinary: No increase in urinary frequency. No dysuria. Endocrine: Polydipsia. No excessive sweating. Musculoskeletal: No muscle aches. Pain localized to one or more joints. No localized joint stiffness. Neurological: Dizziness. No vertigo, no fainting, and no motor disturbances. [...] Active Last Documented On 4 2:46PM ; [facility] Encounters Encounter Provider Location Date Check-In Time Check-Out Time Diagnosis TELEHEALTH ADULT PSYCH ESTABLISHED SAEID MENA MD [facility]PSY 024 10:02AM 11:59PM Attention-defici t Hyperactivity Disorder,Bipolar I Disorder, Most Recent Episode, Depressed,Genera lized Anxiety Disorder,Psychop hysiological Insomnia,Panic Disorder Insurance Includes: Active Insurance Policies Plan Name Member ID Group # Subscriber Relationship Effect pedro pablo Dates 1 - [facility] [id number] VERONIQUE BALBUENA Clinical Notes Includes: Clinical Notes from this encounter * Progress note Date Encounter Last Documented by 09/13/2023 TELEHEALTH ADULT PSYCH ESTABLISH ED Last documented on 09/16/2023; 4:37 PM, SAEID MENA MD; [facility] Top of Document Medication psychotherapy 30 minutes Patient gave verbal consent for Telehealth 09/13/23. Location of patient: patient's home Location of provider: provider's office Patient was alone for the session. This visit was conducted with use of interactive audio and video telecommunication system with real time communication between the patient and the provider. Patient consent for virtual visit obtained today. Total time spent with patient via audio and video telecommunication 30 minutes. Active Problems & Conditions - Attention-deficit Hyperactivity Disorder - Bipolar I Disorder - Bipolar I Disorder, Most Recent Episode, Depressed - Generalized Anxiety Disorder - Panic Disorder - Psychophysiological Insomnia Chief Complaint The Chief Complaint is: Follow up for depression, anxiety, insomnia, bipolar. History of Present Illness CORBY BALBUENA is a 53 year old female. - Allergy list reviewed - Past medical history reviewed - Medication list reviewed Pt reported feeling better as far as her mood. The Lybalvi along with Lamictal seemed to help with her mood. She only takes a low dose of Quetiapine and also is on Buspar to help calm her down and both seemed to help with her anxiety. So far she has not had any panic attacks and has not even used the Klonopin given last 07/26/23. She denied martha from Lamictal. has not been feeling depressed. Pt has not been as anxious. Pt denied having any mood swings. Pt has not been as irritable. Pt has been motivated in general in doing daily tasks. Sleep has been good with Trazodone and Zolpidem ER, she denied having any sleep related behaviors. Pt has not been napping/sleeping too much during the daytime. Pt has not been feeling as tired. Appetite is somewhat down. Pt has not been feeling as bad about self. Pt is able to focus and concentrate for the most part with Focalin. Pt occ gets fidgety/restless. Pt denied suicidal thoughts. Pt denied having any delusions/hallucinations. She denied motor side effects from from Lybalvi but pt reported having jaw tightness and felt that her tongue is raw and she thought she had this since she started the Focalin so she was asked to hold off on the Focalin to see if these sx mendoza. MENTAL STATUS EXAM: Sensorium - alert, oriented to name, place, and time Attitude - cooperative Gait - ambulatory Sleep - good - no sleep related behaviors with Zolpidem ER Interest/Energy/Motivation - good Guilt/Worthlessness - absent Concentration/Attention Span - able to focus and concentrate Memory Recall - fairly good Appetite - somewhat down- on 07/25/23 pt weighed 228 lbs and on 09/13/23 she weighed 229 lbs so she gained 1 lb Suicidal Thoughts - absent Homicidal Thoughts - absent Delusions - absent Hallucinations - absent Appearance - casually groomed Motor Behavior - occ fidgety Eye Contact - intermittent Speech - fluent [...] tablet three times a day, 30 days, 1 refills - Chelated Zinc 50 MG Oral Tablet as directed 1 tab daily, 0 days, 0 refills - cloNIDine HCl 0.2 MG Oral Tablet as directed 1 tab bid, 28 days, 0 refills - [facility] Vitamin D3 25 MCG (1000 UT) Oral Tablet Chewable as directed 2 tabs daily, 0 days, 0 refills - Focalin 10 MG Oral Tablet as directed - 1 tab in am and 1 tab at noon, 30 days, 0 refills - KlonoPIN 0.5 MG Oral Tablet as directed - 1 tab a day as needed for panic attacks, 30 days, 0 refills - lamoTRIgine 200 MG Oral Tablet One tablet twice a day, 30 days, 1 refills - Levothyroxine Sodium 150 MCG Oral Tablet 1 tab daily, 30 days, 0 refills - Lipitor 20MG Oral Tablet 20 MG 0 days, 0 refills - Lisinopril 40 MG Oral Tablet as directed 1 tab daily, 30 days, 0 refills - Lybalvi 5-10 MG Oral Tablet One tablet at bed time, 30 days, 1 refills - QUEtiapine Fumarate 25 MG Oral Tablet One tablet three times a day, 30 days, 1 refills - TraMADol HCl 50MG Oral Tablet 50 MG 0 days, 0 refills - traZODone HCl 50 MG Oral Tablet TAKE 1 TO 2 TABLETS BY MOUTH DIRECTED AT BEDTIME FOR SLEEP, 30 days, 0 refills - Zolpidem Tartrate ER 12.5 MG Oral Tablet Extended Release TAKE 1 TABLET BY MOUTH DIRECTED AT BEDTIME NEEDED FOR SLEEP, 30 days, 0 refills - ZyrTEC Allergy 10 MG Oral Tablet as directed 1 tab daily, 0 days, 0 refills - - No side effects reported- No motor side effects reported i.e., no extrapyramidal side effects and no tardive dyskinesia. AIMS - 0 Past Medical/Surgical History Primary Care Physician: Dr. Catalan Diagnosis: Bronchitis -- given Albuterol inhaler 90 [...] 10/2022 Seroquel 400 mg at hs - 2019 - given by previous provider - stopped [...] caused some jaw stiffness, twitching, jitteriness, shakiness Social History Tobacco use: Current smoker - 1/2 - 1 pack of cigarettes a day. 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 Both parents are living. She has [...] no past or pending legal history. Her alevism background is [employer]. Allergies - Penicillins Family History Maternal grandfather -- bipolar and alcohol abuse Maternal aunt -- alcohol abuse Review Of Systems Systemic: Not feeling poorly (malaise). No fever and no chills. Night sweats. Head: No headache. Facial pain. No sinus pain. Neck: No neck pain and no neck stiffness. Eyes: No vision problems, no itching of the eyes, and no eye pain. Otolaryngeal: No hearing loss, no earache, no nasal discharge, no hoarseness, and no sore throat. Cardiovascular: No chest pain or discomfort, no palpitations, and the heart rate was not fast. Pulmonary: No dyspnea, no cough, and no wheezing. Gastrointestinal: Appetite. No heartburn. No nausea, no vomiting, no diarrhea, and no constipation. Genitourinary: No increase in urinary frequency. No dysuria. Endocrine: Polydipsia. No excessive sweating. Musculoskeletal: No muscle aches. Pain localized to one or more joints. No localized joint stiffness. Neurological: Dizziness. No vertigo, no fainting, and no motor disturbances. Skin: No pruritus. No skin lesions and no rash. Physical Findings - Vitals taken 09/13/2023 10:18 am self reported vitals BP-Sitting L 132/75 mmHg BP Cuff Size Regular Pulse Rate-Sitting 83 bpm Pulse Rhythm Regular Height 69 in Weight 229 lbs Body Mass Index 33.8 kg/m2 Body Surface Area 2.2 m2 Tests Educational Testing: Questionnaires PHQ-9: Value PHQ-9: total score 2 Assessment - Attention-deficit hyperactivity disorder - Bipolar I disorder, most recent episode, depressed - Psychophysiological insomnia - Generalized anxiety disorder - Panic disorder Therapy - Dangerousness assessment: no suicide risk. - Counseling for smoking cessation provided. - Supportive care and encouragement--given positive reinforcement to keep patient motivated and active. - Encouragement to exercise - balanced meal plan, low fat low carb diet. - Education and instructions. - Patient counseling I discussed risk, benefits, and side effects of sleep aid - Zolpidem ER - including the possibility of sleep related behaviors i.e. sleepwalking, sleeptalking, sleepdriving, etc... Pt verbalized understanding. - Assessment of suicide risk performed - not suicidal - Clinical summary provided to patient. I discussed the risks, benefits and side effects of Lybalvi and Quetiapine to the patient including the possibility of metabolic and motor side effects such as tardive dyskinesia. * Call [phone] and /or go to the nearest emergency room or call me if suicidal/homicidal ideation or other serious concerns arise. * I gave instructions to call me should there be any questions or concerns. * Patient voiced understanding and agreed to treatment plan. Counseling/Education - Counseling for smoking cessation provided - Calming techniques such as breathing exercises/meditation and other relaxation techniques Plan StartCited - Other Follow-up 10/17/23 EndCited StartCited - Psychophysiologic insomnia traZODone HCl 50 MG tablet TAKE 1 TO 2 TABLETS BY MOUTH DIRECTED AT BEDTIME FOR SLEEP, 30 days, 3 refills EndCited Bipolar disorder - Lybalvi 5 - 10 mg 1 tab at bedtime (samples given) -- since Caplyta was discontinued due to jaw stiffness/jitteriness just like with Abilitina when she also had muscle twitching Bipolar eran -- Seroquel 25 mg 1 tab 3 x a day Bipolar depression - Lamictal 200 mg 1 tab 2 a day - pt denied having any SJS rash so far Generalized Anxiety Disorder - Buspar 15 mg 1 tab 3 x a day (increased 07/25/23) Attention Deficit Hyperactivity Disorder - Focalin 10 mg 1 tab in am, 1 tab at noon (increased 07/25/23) - will hold off for now Psychophysiological Insomnia - Ambien CR 12.5 mg [...]
--- OUTSIDE RECORDS SUMMARY | 2025-06-21 15:24 | XMS_ITS ---
Author Organization [facility] Address [address] [place] [address] Phone Care Team Providers Care Education Rep Name Role Phone PRICILA MACHADO, SAEID STOKES Unavailable [phone] Problems Includes: Active, inactive, and resolved Problems All Visits Onset Date Resolved Date Provider Condition S tatus Tardive Dyskinesia Drug-induced 10/21/2023 SAEID MENA MD Active Last Documented On 4 2:57AM ; [facility] Attention-deficit Hyperactivity Disorder 06/17/2023 SAEID MENA MD Active Last Documented On 3 6:56PM ; [facility] Bipolar I Disorder 06/17/2023 SAEID ARELLANO MD Active Last Documented On 3 5:06PM ; [facility] Bipolar I Disorder, Most Rec ent Episode, Depressed 06/17/2023 SAEID MENA MD Active Last Documented On 3 6:48PM ; [facility] Generalized Anxiety Disorder 06/17/2023 SAEID MENA MD Active Last Documented On 3 5:06PM ; [facility] Psychophysiological Insomnia 06/17/2023 SAEID MENA MD Active Last Documented On 3 5:06PM ; [facility] Panic Disorder 06/17/2023 SAEID Torres Active Last Documented On 3 6:47PM ; [facility] [place] Plan of Treatment Pending Tests Order Diagnosis Results Due Ordering P rovider Lab Comp Metabolic Panel 11/11/23 DILAN MENA MD Last Documented On 4 3:25AM ; [facility] Lab Lipid Panel 11/11/23 SAEID BAXTER MD Last Documented On 4 3:25AM ; [facility] Lab Vitamin B12/Folic Acid 11/11/23 ME HAKEEM MENA MD Last Documented On 4 3:25AM ; [facility] Lab Vitamin D 11/11/23 SAEID AMAYA MD Last Documented On 4 3:25AM ; [facility] Lab T S H 11/11/23 SAEID AMAYA MD Last Documented On 4 3:25AM ; [facility] Instructions to patient Instructions for patient : B reast Self Exam discussed Last Documented On 7 2:38PM ; [facility] [place] Education and Decision Aids were provided during visit for: Patient counseling I discuss ed risk, benefits, and side effects of sleep aid - Zolpidem ER - including the possibility of sleep related behaviors i.e. sleepwalking, sleeptalking, sleepdriving, etc... Pt verbalized understanding Last Documented On 4 3:03PM ; [facility] Calming techniques such as b reathing exercises/meditation and other relaxation techniques Last Documented On 4 2:57AM ; [facility] Patient counseling I discuss ed risk, benefits, and side effects of sleep aid - Zolpidem ER - including the possibility of sleep related behaviors i.e. sleepwalking, sleeptalking, sleepdriving, etc... Pt verbalized understanding Last Documented On 4 3:42PM ; [facility] Discussed good sleep hygiene habits Last Documented On 4 2:50AM ; [facility] Calming techniques such as b reathing exercises/meditation and other relaxation techniques Last Documented On 4 2:50AM ; [facility] Patient counseling I discuss ed risk, benefits, and side effects of sleep aid - Zolpidem ER - including the possibility of sleep related behaviors i.e. sleepwalking, sleeptalking, sleepdriving, etc... Pt verbalized understanding Last Documented On 4 10:21AM ; [facility] Calming techniques such as b reathing exercises/meditation and other relaxation techniques Last Documented On 4 4:35PM ; [facility] Patient counseling I discuss ed risk, benefits, and side effects of sleep aid Zolpidem ER - including the possibility of sleep related behaviors i.e. sleepwalking, sleeptalking, sleepdriving, etc... Pt verbalized understanding. Pt and her said that she has baseline sleeptalking even before the Zolpidem Last Documented On 4 1:01PM ; [facility] Calming techniques such as b reathing exercises/meditation and other relaxation techniques Last Documented On 4 10:32AM ; [facility] Patient counseling I discuss ed risk, benefits, and side effects of sleep aid Ambien CR - including the possibility of sleep related behaviors i.e. sleepwalking, sleeptalking, sleepdriving, etc... Pt verbalized understanding Last Documented On 3 2:52PM ; [facility] Discussed good sleep hygiene habits Last Documented On 3 2:52PM ; [facility] Patient education : Last Documented On 7 2:38PM ; [facility] STD screening offered and de clined Last Documented On 7 2:38PM ; [facility] Assessments Includes: Assessments for all patient encounters Findings Encounter Date Attention-deficit hyperactiv ity disorder PSYCH ADULT FOLLOW UP with SAEID MENA MD 12/24/2023 Last Documented On 4 3:00AM ; [facility] Bipolar I disorder, most rec ent episode, depressed PSYCH ADULT FOLLOW UP with SAEID MENA MD 12/24/2023 Last Documented On 4 3:00AM ; [facility] Drug-induced tardive dyskinesia PSYCH AD ULT FOLLOW UP with SAEID MENA MD 12/24/2023 Last Documented On 4 3:00AM ; [facility] Generalized anxiety disorder PSYCH ADULT FOLLOW UP with SAEID MENA MD 12/24/2023 Last Documented On 4 3:00AM ; [facility] Panic disorder PSYCH ADULT FOLLOW UP with EMMANUEL MENA MD 12/24/2023 Last Documented On 4 3:00AM ; [facility] Psychophysiological insomnia PSYCH ADULT FOLLOW UP with SAEDI MENA MD 12/24/2023 Last Documented On 4 3:00AM ; [facility] Attention-deficit hyperactivity disorder PSYCH ADULT FOLLOW UP with SAEID MENA MD 10/17/2023 Last Documented On 4 3:26AM ; [facility] Bipolar I disorder, most rec ent episode, depressed PSYCH ADULT FOLLOW UP with SAEID MENA MD 10/17/2023 Last Documented On 4 3:26AM ; [facility] Generalized anxiety disorder PSYCH ADULT FOLLOW UP with SAEID MENA MD 10/17/2023 Last Documented On 4 3:26AM ; [facility] Panic disorder PSYCH ADULT FOLLOW UP with EMMANUEL MENA MD 10/17/2023 Last Documented On 4 3:26AM ; [facility] Psychophysiological insomnia PSYCH ADULT FOLLOW UP with SAEID MENA MD 10/17/2023 Last Documented On 4 3:26AM ; [facility] Attention-deficit hyperactivity disorder TELEHEALTH ADULT PSYCH ESTABLISHED with SAEID MENA MD 09/13/2023 Last Documented On 4 4:37PM ; [facility] Bipolar I disorder, most rec ent episode, depressed TELEHEALTH ADULT PSYCH ESTABLISHED with SAEID MENA MD 09/13/2023 Last Documented On 4 4:37PM ; [facility] Generalized anxiety disorder TELEHEALTH ADULT PSYCH ESTABLISHED with SAEID MENA MD 09/13/2023 Last Documented On 4 4:37PM ; [facility] Panic disorder TELEHEALTH ADULT PSY CH ESTABLISHED with SAEID MENA MD 09/13/2023 Last Documented On 4 4:37PM ; [facility] Psychophysiological insomnia TELEHEALTH ADULT PSYCH ESTABLISHED with SAEID EMNA MD 09/13/2023 Last Documented On 4 4:37PM ; [facility] Attention-deficit hyperactivity disorder PSYCH ADULT FOLLOW UP with SAEID MENA MD 07/25/2023 Last Documented On 4 1:02PM ; [facility] Bipolar I disorder, most rec ent episode, depressed PSYCH ADULT FOLLOW UP with SAEID MENA MD 07/25/2023 Last Documented On 4 1:02PM ; [facility] Generalized anxiety disorder PSYCH ADULT FOLLOW UP with SAEID MENA MD 07/25/2023 Last Documented On 4 1:02PM ; [facility] Panic disorder PSYCH ADULT FOLLOW UP with EMMANUEL MENA MD 07/25/2023 Last Documented On 4 1:02PM ; [facility] Psychophysiological insomnia PSYCH ADULT FOLLOW UP with SAEID MENA MD 07/25/2023 Last Documented On 4 1:02PM ; [facility] Bipolar I disorder, most rec ent episode, depressed * PHONE CALL with SAEID MENA MD 07/23/2023 Last Documented On 4 6:17PM ; [facility] Attention-deficit hyperactivity disorder PSYCH NEW PATIENT EXAM- ADULT with SAEID MENA MD 06/17/2023 Last Documented On 3 11:53PM ; [facility] Bipolar I disorder, most rec ent episode, depressed PSYCH NEW PATIENT EXAM- ADULT with SAEID MENA MD 06/17/2023 Last Documented On 3 11:53PM ; [facility] Generalized anxiety disorder PSYCH NEW P ATIENT EXAM- ADULT with SAEID MENA MD 06/17/2023 Last Documented On 3 11:53PM ; [facility] Panic disorder PSYCH NEW PATIENT EXAM- ADULT wi th SAEID MENA MD 06/17/2023 Last Documented On 3 11:53PM ; [facility] Psychophysiological insomnia PSYCH NEW P ATIENT EXAM- ADULT with SAEID MENA MD 06/17/2023 Last Documented On 3 11:53PM ; [facility] POST OP VISIT POST OP VISIT with DREW CLOUD MD 06/10/2017 Last Documented On 7 1:44PM ; [facility] Contraceptive management CONSULTATION with DREW CLOUD MD 05/07/2017 Last Documented On 7 2:06PM ; [facility] Routine pelvic exam [employer] FORMER EXAM with DREW STEPHEN MD 03/05/2017 Last Documented On 7 2:51PM ; [facility] [place] Instructions Includes: Instructions for all patient encounters Instructions to patient Instructions for patient : B reast Self Exam discussed Last Documented On 7 2:38PM ; [facility] [place] Education and Decision Aids were provided during visit for: Patient counseling I discuss ed risk, benefits, and side effects of sleep aid - Zolpidem ER - including the possibility of sleep related behaviors i.e. sleepwalking, sleeptalking, sleepdriving, etc... Pt verbalized understanding Last Documented On 4 3:03PM ; [facility] Calming techniques such as b reathing exercises/meditation and other relaxation techniques Last Documented On 4 2:57AM ; [facility] Patient counseling I discuss ed risk, benefits, and side effects of sleep aid - Zolpidem ER - including the possibility of sleep related behaviors i.e. sleepwalking, sleeptalking, sleepdriving, etc... Pt verbalized understanding Last Documented On 4 3:42PM ; [facility] Discussed good sleep hygiene habits Last Documented On 4 2:50AM ; [facility] Calming techniques such as b reathing exercises/meditation and other relaxation techniques Last Documented On 4 2:50AM ; [facility] Patient counseling I discuss ed risk, benefits, and side effects of sleep aid - Zolpidem ER - including the possibility of sleep related behaviors i.e. sleepwalking, sleeptalking, sleepdriving, etc... Pt verbalized understanding Last Documented On 4 10:21AM ; [facility] Calming techniques such as b reathing exercises/meditation and other relaxation techniques Last Documented On 4 4:35PM ; [facility] [place] Patient counseling I discuss ed risk, benefits, and side effects of sleep aid Zolpidem ER - including the possibility of sleep related behaviors i.e. sleepwalking, sleeptalking, sleepdriving, etc... Pt verbalized understanding. Pt and her said that she has baseline sleeptalking even before the Zolpidem Last Documented On 4 1:01PM ; [facility] Calming techniques such as b reathing exercises/meditation and other relaxation techniques Last Documented On 4 10:32AM ; [facility] Patient counseling I discuss ed risk, benefits, and side effects of sleep aid Ambien CR - including the possibility of sleep related behaviors i.e. sleepwalking, sleeptalking, sleepdriving, etc... Pt verbalized understanding Last Documented On 3 2:52PM ; [facility] Discussed good sleep hygiene habits Last Documented On 3 2:52PM ; [facility] Patient education : Last Documented On 7 2:38PM ; [facility] STD screening offered and de clined Last Documented On 7 2:38PM ; [facility] Medical Equipment - Implanted Devices Includes: Current and historical Devices No Medical Equipment Recorded Medications Includes: Current and historical Medications Current Medications (continue as prescribed) traZODone HCl 50 MG Oral Tablet 12/24/2023 Provider: SAEID MENA MD Diagnosis: Psychophysiologi c insomnia as directed - 2 tabs at bedt dia as needed for sleep Last Documented On 12/24/2023 3:35PM By Juana Mena MD ; [facility] Ingrezza 40 MG Oral Capsule 12/10/2023 Provider: ROMAN SHELBY MD Diagnosis: 1 daily Last Documented On 12/24/2023 3:03PM By EDY SIDDIQUI ; [facility] lamoTRIgine 200 MG Oral Tablet 10/31/2023 Provider: SAEID MENA MD Diagnosis: Bipolar disorder , current episode depressed, moderate Take 1 tablet by mouth twice daily Last Documented On 10/31/2023 10:09AM By Juana Mena MD ; [facility] Varenicline Tartrate (Starter) 0.5 MG X 11 & 1 MG X 42 Oral Tablet Therapy Pack 10/17/2023 Provider: SAEID MENA MD Diagnosis: Nicotine depende nce, cigarettes, uncomplicated One tablet daily Last Documented On 10/17/2023 4:06PM By Juana Mena MD ; [facility] Lybalvi 5-10 MG Oral Tablet 10/17/2023 Provider: SAEID MENA MD Diagnosis: Bipolar disorder , current episode depressed, moderate One tablet at bed time Last Documented On 10/17/2023 4:22PM By Juana Mena MD ; [facility] busPIRone HCl 15 MG Oral Tablet 10/17/2023 Provider: SAEID MENA MD Diagnosis: Generalized anxi ety disorder One tablet three times a day Last Documented On 10/17/2023 4:06PM By Juana Mena MD ; [facility] Lisinopril 40 MG Oral Tablet 08/23/2023 Provider: JANNETTE CATALAN MD Diagnosis: 1 tab daily Last Documented On 09/13/2023 10:14AM By EDY SIDDIQUI ; [facility] Lybalvi 5-10 MG Oral Tablet 07/25/2023 Provider: SAEID MENA MD Diagnosis: Bipolar disorder , current episode depressed, moderate One tablet at bed time Last Documented On 07/25/2023 6:17PM By Juana Mena MD ; [facility] KlonoPIN 0.5 MG Oral Tablet 07/25/2023 Provider: SAEID MENA MD Diagnosis: Panic disorder [ episodic paroxysmal anxiety] as directed - 1 tab a day as needed for panic attacks Last Documented On 07/25/2023 5:23PM By Juana Mena MD ; [facility] Focalin 10 MG Oral Tablet 07/25/2023 Provider: SAEID MENA MD Diagnosis: Attn-defct hyper activity disorder, predom inattentive type as directed - 1 tab in am an d 1 tab at noon Last Documented On 07/25/2023 6:25PM By Juana Mena MD ; [facility] Buffered Vitamin C 1000 MG Oral Capsule 06/17/2023 Anisha yeboahder: Diagnosis: 1 daily Last Documented On 06/17/2023 5:10PM By EDY SIDDIQUI ; [facility] Chelated Zinc 50 MG Oral Tablet 06/17/2023 Provider: Diagnosis: 1 tab daily Last Documented On 06/17/2023 5:11PM By EDY SIDDIQUI ; [facility] ZyrTEC Allergy 10 MG Oral Tablet 06/17/2023 Provider : Diagnosis: 1 tab daily Last Documented On 06/17/2023 5:13PM By EDY SIDDIQUI ; [facility] Vitamin D3 25 MCG (1000 UT) Oral Tablet Chewable 1 08/17/2022 Provider: Diagnosis: 2 tabs daily Last Documented On 06/17/2023 5:12PM By EDY SIDDIQUI ; [facility] B Complex (Folic Acid) Oral Tablet 06/17/2023 Provid er: Diagnosis: 1 tab daily Last Documented On 06/17/2023 5:12PM By EDY SIDDIQUI ; [facility] Levothyroxine Sodium 150 MCG Oral Tablet 06/11/2023 Provider: JANNETTE CATALAN MD Diagnosis: 1 tab daily Last Documented On 06/17/2023 5:07PM By EDY SIDDIQUI ; [facility] Lipitor 20MG Oral Tablet 03/05/2017 Provider: Diagnosis: Last Documented On 7 2:05PM By MODESTA SIDDIQUI ; [facility] TraMADol HCl 50MG Oral Tablet 03/05/2017 Provider: Diagnosis: Last Documented On 7 2:05PM By MODESTA SIDDIQUI ; [facility] Suspended Medications Zolpidem Tartrate ER 12.5 MG Oral Tablet Extended Release 09/20/2023 Provider: SAEID MENA MD Diagnosis: Psychophysiologi c insomnia TAKE 1 TABLET BY MOUTH DI RECTED AT BEDTIME NEEDED FOR SLEEP Last Documented On 09/20/2023 8:09AM By Juana Mena MD ; [facility] Past Medications on file traZODone HCl 50 MG Oral Tablet 12/23/2023 - 12/24/2023 Provider: SAEID MENA MD Diagnosis: Psychophysiologi c insomnia TAKE 1 TO 2 TABLETS BY MOUTH DIRECTED AT BEDTIME FOR SLEEP Last Documented On 12/24/2023 3:21PM By Juana Mena MD ; [facility] traZODone HCl 50 MG Oral Tablet 09/13/2023 - 12/23/2023 Provider: SAEID MENA MD Diagnosis: Psychophysiologi c insomnia TAKE 1 TO 2 TABLETS BY MOUTH DIRECTED AT BEDTIME FOR SLEEP Last Documented On 12/23/2023 3:48PM By Juana Mena MD ; [facility] Zolpidem Tartrate ER 12.5 MG Oral Tablet Extended Release 08/26/2023 - 09/20/2023 Provider: SAEID MENA MD Diagnosis: Psychophysiologi c insomnia TAKE 1 TABLET BY MOUTH DI RECTED AT BEDTIME NEEDED FOR SLEEP Last Documented On 09/20/2023 8:04AM By Juana Mena MD ; [facility] traZODone HCl 50 MG Oral Tablet 08/21/2023 - 09/13/2023 Provider: SAEID MENA MD Diagnosis: Psychophysiologi c insomnia TAKE 1 TO 2 TABLETS BY MOUTH DIRECTED AT BEDTIME FOR SLEEP Last Documented On 09/13/2023 10:21AM By Juana Mean MD ; [facility] QUEtiapine Fumarate 25 MG Oral Tablet 07/25/2023 - 12/24/2023 Provider: SAEID MENA MD Diagnosis: Bipolar disord, crnt episode manic w/o psych features, mod One tablet three times a day Last Documented On 12/24/2023 3:12PM By Juana Mena MD ; [facility] busPIRone HCl 15 MG Oral Tablet 07/25/2023 - 10/17/2023 Provider: SAEID MENA MD Diagnosis: Generalized anxi ety disorder One tablet three times a day Last Documented On 10/17/2023 4:00PM By Juana Mena MD ; [facility] QUEtiapine Fumarate 25 MG Oral Tablet 07/24/2023 - 07/25/2023 Provider: SAEID MENA MD Diagnosis: Bipolar disorder , current episode depressed, moderate One tablet at bed time Last Documented On 07/25/2023 6:19PM By Juana Mena MD ; [facility] Focalin 10 MG Oral Tablet 06/17/2023 - 07/25/2023 Provider: SAEID MENA MD Diagnosis: Attn-defct hyper activity disorder, predom inattentive type 1 tablet every morning Last Documented On 07/25/2023 6:22PM By Juana Mena MD ; [facility] Zolpidem Tartrate ER 12.5 MG Oral Tablet Extended Release 06/17/2023 - 08/26/2023 Provider: SAEID MENA MD Diagnosis: Psychophysiologi c insomnia as directed - 1 tab at bedti me as needed for sleep Last Documented On 08/26/2023 1:01AM By Juana Mena MD ; [facility] Caplyta 42 MG Oral Capsule 06/17/2023 - 07/26/2023 Provider: SAEID MERAZ MD Diagnosis: Bipolar disorder , current episode depressed, moderate 1 capsule daily Last Documented On 07/26/2023 12:51PM By Juana Mena MD ; [facility] busPIRone HCl 10 MG Oral Tablet 06/17/2023 - 07/25/2023 Provider: SAEID MENA MD Diagnosis: Generalized anxi ety disorder One tablet twice a day for anxiety Last Documented On 07/25/2023 6:19PM By Juana Mena MD ; [facility] lamoTRIgine 200 MG Oral Tablet 06/17/2023 - 10/31/2023 Provider: SAEID MENA MD Diagnosis: Bipolar disorder , current episode depressed, moderate One tablet twice a day Last Documented On 10/31/2023 10:01AM By Juana Mena MD ; [facility] traZODone HCl 50 MG Oral Tablet 06/17/2023 - 08/21/2023 Provider: SAEID MENA MD Diagnosis: Psychophysiologi c insomnia as directed - 1 or 2 tabs at bedtime for sleep Last Documented On 08/21/2023 10:25AM By Juana Mena MD ; [facility] ARIPiprazole 20 MG Oral Tablet 05/30/2023 - 07/25/2023 Provider: Diagnosis: 1 tab daily Last Documented On 07/25/2023 4:24PM By EDY SIDDIQUI ; [facility] cloNIDine HCl 0.2 MG Oral Tablet 04/04/2023 - 10/17/19 24 Provider: Diagnosis: 1 tab bid Last Documented On 10/17/2023 3:23PM By EDY SIDDIQUI ; [facility] Levothyroxine Sodium 200MCG Oral Tablet 03/05/2017 - 1 08/17/2022 Provider: Diagnosis: Last Documented On 06/17/2023 5:08PM By EDY SIDDIQUI ; [facility] LaMICtal 25MG Oral Tablet 03/05/2017 - 06/17/2023 Prov ider: Diagnosis: Last Documented On 06/17/2023 5:08PM By EDY SIDDIQUI ; [facility] Lisinopril 20MG Oral Tablet 03/05/2017 - 09/13/2023 Pr ovider: Diagnosis: Last Documented On 09/13/2023 10:14AM By EDY SIDDIQUI ; [facility] TraZODone HCl 100MG Oral Tablet 03/05/2017 - Provider: Diagnosis: Last Documented On 06/17/2023 5:08PM By EDY SIDDIQUI ; [facility] Abilify 10MG Oral Tablet 03/05/2017 - 06/17/2023 Provi selvin: Diagnosis: Last Documented On 06/17/2023 5:06PM By EDY SIDDIQUI ; [facility] Ambien 5MG Oral Tablet 03/05/2017 - 07/25/2023 Provide r: Diagnosis: Last Documented On 07/25/2023 4:24PM By EDY SIDDIQUI ; [facility] Medications Administered Includes: Administered Medications in patient's chart No Administered Medications Recorded Results Includes: Results from 06/21/2024 through 06/21/2025 No Results Recorded For Specified Dates History of Present Illness History of Present Illness not supported for this document type No History of Present Illness Recorded Social History Description Last Updated Current smoker - 1/2 - 1 pac k of cigarettes a day for 36 years and as of 12/24/23 smokes 1/2 ppd 12/24/2023 Last Documented On 4 3:00AM ; [facility] Cigarette smoking pack a day 06/10/2017 Last Documented On 7 1:44PM ; [facility] Sexually active 06/10/2017 Last Documented On 7 1:44PM ; [facility] In monogamous relationship 03/05/2017 Last Documented On 7 2:51PM ; [facility] Not using alcohol 03/05/2017 Last Documented On 7 2:51PM ; [facility] Not using drugs 03/05/2017 Last Documented On 7 2:51PM ; [facility] Sexually active with 1 partners in the l ast year 03/05/2017 Last Documented On 7 2:51PM ; [facility] Smoking status : Current everyday smoker 03/05/2017 Last Documented On 7 2:51PM ; [facility] Procedures and Surgical History Surgical History Last Updated Surgical / procedural history BTL on 01/0506/10/2017 Last Documented On 7 1:44PM ; [facility] Medical History Includes: Medical History in patient's chart Description Last Updated LMP: 05/28/2017 06/10/2017 Last Documented On 7 1:44PM ; [facility] Not using contraception none 06/10/2017 Last Documented On 7 1:44PM ; [facility] Result: normal 06/10/2017 Last Documented On 7 1:44PM ; [facility] 3 06/10/2017 Last Documented On 7 1:44PM ; [facility] Last pap smear date 03/05/2017 06/10/2017 Last Documented On 7 1:44PM ; [facility] Para 3 06/10/2017 Last Documented On 7 1:44PM ; [facility] section 05/07/2017 Last Documented On 7 2:06PM ; [facility] History of benign essential hypertension 05/07/2017 Last Documented On 7 2:06PM ; [facility] History of hyperlipidemia 05/07/2017 Last Documented On 7 2:06PM ; [facility] History of Pap smear done 2003 7 Last Documented On 7 2:06PM ; [facility] History of screening mammogram was perfo rmed pt has never had a mammogram 05/07/2017 Last Documented On 7 2:06PM ; [facility] History of thyroid disorder thyroid has been removed 05/07/2017 Last Documented On 7 2:06PM ; [facility] Recent change in medical his tory pt had been bleeding really bad for [address] Casa Graves and her took her to surg and sampled a polyp. He gave her an ocp and has since stopped bleeding. She had also had 3 cysts on her left ovary. During the 6 mos of bleeding she had to get a blood transfusion 05/07/2017 Last Documented On 7 2:06PM ; [facility] Sexually active 05/07/2017 Last Documented On 7 2:06PM ; [facility] Vaginal delivery 05/07/2017 Last Documented On 7 2:06PM ; [facility] Family History Includes: Family History in patient's chart Description Last Updated Spouse name: Toy 03/05/2017 Last Documented On 7 2:51PM ; [facility] maternal aunt had cervical ca 03/05/2017 Last Documented On 7 2:51PM ; [facility] Maternal grandmother's history of malign ant female breast neoplasm mgm 03/05/2017 Last Documented On 7 2:51PM ; [facility] Maternal history of family history of he art disease maternal grandfather 03/05/2017 Last Documented On 7 2:51PM ; [facility] Maternal history of hypertension mother, grandfather 03/05/2017 Last Documented On 7 2:51PM ; [facility] Review of Systems Review of Systems not supported for this document type No Review of Systems Recorded Mental Status No Mental Status Recorded Functional Status No Functional Status Recorded Physical Exam Physical Exam not supported for this document type No Physical Exam Recorded Allergies Includes: Active, inactive, and resolved Allergies Substance Type Reaction Onset Date Resolved Date Statu s Penicillins Allergy 03/05/2017 Active Last Documented On 4 2:46PM ; [facility] Insurance Includes: Active Insurance Policies Plan Name Member ID Group # Subscriber Relationship Effect pedro pablo Dates 1 - [facility] [id number] TOY BALBUENA Clinical Notes Includes: Signed Clinical Notes starting from 08/10/2022 No Clinical Notes Recorded
--- OUTSIDE RECORDS SUMMARY | 2025-06-21 15:24 | XMS_ITS | Clinical Summary ---
Author Organization [facility] Address [address] [place] [address] Phone Care Team Providers Care Forestry Fire Aide Name Role Phone PRICILA MACHADO, SAEID STOKES Unavailable [phone] Reason for Visit and Chief Complaint * PHONE CALL Problems Includes: Problems addressed during this encounter and other active Problems All Visits Onset Date Resolved Date Provider Condition S tatus Tardive Dyskinesia Drug-induced 10/21/2023 SAEID MENA MD Active Last Documented On 4 2:57AM ; [facility] Attention-deficit Hyperactivity Disorder 06/17/2023 SAEID MENA MD Active Last Documented On 3 6:56PM ; [facility] Bipolar I Disorder 06/17/2023 SAEID ARELLANO MD Active Last Documented On 3 5:06PM ; [facility] Bipolar I Disorder, Most Rec ent Episode, Depressed 06/17/2023 SAEID MENA MD Active Last Documented On 3 6:48PM ; [facility] Generalized Anxiety Disorder 06/17/2023 SAEID MENA MD Active Last Documented On 3 5:06PM ; [facility] Psychophysiological Insomnia 06/17/2023 SAEID MENA MD Active Last Documented On 3 5:06PM ; [facility] Panic Disorder 06/17/2023 SAEID Torres Active Last Documented On 3 6:47PM ; [facility] Plan of Treatment Pending Tests Order Diagnosis Results Due Ordering P viry Lab Comp Metabolic Panel 11/11/23 DILAN MENA MD Last Documented On 4 3:25AM ; [facility] Lab Lipid Panel 11/11/23 SAEID BAXTER MD Last Documented On 4 3:25AM ; [facility] Lab Vitamin B12/Folic Acid 11/11/23 ME HAKEEM MENA MD Last Documented On 4 3:25AM ; [facility] Lab Vitamin D 11/11/23 SEAID AMAYA MD Last Documented On 4 3:25AM ; [facility] Lab T S H 11/11/23 SAEID AMAAY MD Last Documented On 4 3:25AM ; [facility] Assessments Includes: Assessments from this encounter No Assessments Recorded Medical Equipment - Implanted Devices Includes: Current Devices No Medical Equipment Recorded Medications Includes: Medications discussed during this encounter and other current Medications Current Medications (continue as prescribed) traZODone HCl 50 MG Oral Tablet 12/24/2023 Provider: SAEID MENA MD Diagnosis: Psychophysiologi c insomnia as directed - 2 tabs at bedt dia as needed for sleep Last Documented On 12/24/2023 3:35PM By Juana Mena MD ; [facility] Ingrezza 40 MG Oral Capsule 12/10/2023 Provider: ROMAN SHELBY MD Diagnosis: 1 daily Last Documented On 12/24/2023 3:03PM By EDY SIDDIQUI ; [facility] lamoTRIgine 200 MG Oral Tablet 10/31/2023 [...] 10/17/2023 4:06PM By Juana Mena MD ; [facility] Lybalvi 5-10 MG Oral Tablet 10/17/2023 Provider: SAEID MENA MD Diagnosis: Bipolar disorder , current episode depressed, moderate One tablet at bed time Last Documented On 10/17/2023 4:22PM By Juana Mena MD ; [facility] busPIRone HCl 15 MG Oral Tablet 10/17/2023 Provider: SAEID MENA MD Diagnosis: Generalized anxi ety disorder One tablet three times a day Last Documented On 10/17/2023 4:06PM By Juana Mena MD ; [facility] Lisinopril 40 MG Oral Tablet 08/23/2023 Provider: JANNETTE CATALAN MD Diagnosis: 1 tab daily Last Documented On 09/13/2023 10:14AM By EDY SIDDIQUI ; [facility] Lybalvi 5-10 MG Oral Tablet 07/25/2023 [...] 07/25/2023 5:23PM By Juana Mena MD ; [facility] Focalin 10 MG Oral Tablet 07/25/2023 Provider: SAEID MENA MD Diagnosis: Attn-defct hyper activity disorder, predom inattentive type as directed - 1 tab in am an d 1 tab at noon Last Documented On 07/25/2023 6:25PM By Juana Mena MD ; [facility] Buffered Vitamin C 1000 MG Oral Capsule 06/17/2023 P obinnader: Diagnosis: 1 daily Last Documented On 06/17/2023 5:10PM By EDY SIDDIQUI ; [facility] Chelated Zinc 50 MG Oral Tablet 06/17/2023 Provider: Diagnosis: 1 tab daily Last Documented On 06/17/2023 5:11PM By EDY SIDDIQUI ; [facility] ZyrTEC Allergy 10 MG Oral Tablet 06/17/2023 Provider : Diagnosis: 1 tab daily Last Documented On 06/17/2023 5:13PM By EDY SIDDIQUI ; [facility] Vitamin D3 25 MCG (1000 UT) Oral Tablet Chewable 1 08/17/2022 Provider: Diagnosis: 2 tabs daily Last Documented On 06/17/2023 5:12PM By EDY SIDDIQUI ; [facility] B Complex (Folic Acid) Oral Tablet 06/17/2023 Provid er: Diagnosis: 1 tab daily Last Documented On 06/17/2023 5:12PM By EDY SIDDIQUI ; [facility] Levothyroxine Sodium 150 MCG Oral Tablet 06/11/2023 Provider: JANNETTE CATALAN MD Diagnosis: 1 tab daily Last Documented On 06/17/2023 5:07PM By EDY SIDDIQUI ; [facility] Lipitor 20MG Oral Tablet 03/05/2017 Provider: Diagnosis: Last Documented On 7 2:05PM By MODESTA SIDDIQUI ; [facility] TraMADol HCl 50MG Oral Tablet 03/05/2017 Provider: Diagnosis: Last Documented On 7 2:05PM By MODESTA SIDDIQUI ; [facility] Suspended Medications Zolpidem Tartrate ER 12.5 MG Oral Tablet Extended Release 09/20/2023 Provider: SAEID MENA MD Diagnosis: Psychophysiologi c insomnia TAKE 1 TABLET BY MOUTH DI RECTED AT BEDTIME NEEDED FOR SLEEP Last Documented On 09/20/2023 8:09AM By Juana Mena MD ; [facility] Medications Administered Includes: Administered Medications from this encounter No Administered Medications Recorded Results Includes: Results discussed during this encounter No Results Recorded For Specified Dates History of Present Illness Includes: History of Present Illness from this encounter No History of Present Illness Recorded Social History No Social History Recorded - Smoking Status Unknown Medical History Includes: Medical History addressed during this encounter No Medical History Recorded Family History Includes: Family History addressed during this encounter No Family History Recorded Review of Systems Includes: Review of Systems from this encounter No Review of Systems Recorded Mental Status Includes: Mental Status from this encounter No Mental Status Recorded Functional Status Includes: Functional Status from this encounter No Functional Status Recorded Physical Exam Includes: Physical Exam from this encounter No Physical Exam Recorded Allergies Includes: Active Allergies Substance Type Reaction Onset Date Resolved Date Statu s Penicillins Allergy 03/05/2017 Active Last Documented On 4 2:46PM ; [facility] Encounters Encounter Provider Location Date Check-In Time Check-Out Time Diagnosis * PHONE CALL SAEID MENA MD [facility] 4 1:39PM 11:59PM Insurance Includes: Active Insurance Policies Plan Name Member ID Group # Subscriber Relationship Effect pedro pablo Dates 1 - [facility] [id number] VERONIQUE BALBUENA Clinical Notes Includes: Clinical Notes from this encounter * Progress note Date Encounter Last Documented by 10/18/2023 * PHONE CALL Last documented on 10/18/2023; 2:30 PM, SAEID MENA MD; [facility] Active Problems & Conditions - Attention-deficit Hyperactivity Disorder - Bipolar I Disorder - Bipolar I Disorder, Most Recent Episode, Depressed - Generalized Anxiety Disorder - Panic Disorder - Psychophysiological Insomnia Chief Complaint Phone Call - Chief Concern: Reason for call: Darío from [facility] calling; the Lybalvi will make the Tramadol less effective. Is it still okay to dispense the Lybalvi? pt phone # for return call: [phone] Date/Initials: 10/18/23 db. Current Medication - B Complex (Folic Acid) [...] bed time, 30 days, 3 refills - QUEtiapine Fumarate 25 MG Oral Tablet One tablet three times a day, 30 days, 1 refills - TraMADol HCl 50MG Oral Tablet 50 MG 0 days, 0 refills - traZODone HCl 50 MG Oral Tablet TAKE 1 TO 2 TABLETS BY MOUTH DIRECTED AT BEDTIME FOR SLEEP, 30 days, 3 refills - Varenicline Tartrate (Starter) 0.5 MG X 11 & 1 MG X 42 Oral Tablet Therapy Pack One tablet daily, 30 days, 1 refills - ZyrTEC Allergy 10 MG Oral Tablet as directed 1 tab daily, 0 days, 0 refills Allergies - Penicillins Plan StartCited - Other PHY ORDER/COMMENT Please tell pharmacist to still dispense Lybalvi since Tramadol is only being taken prn NEEDED ONLY. Can you also ask if the $0 savings coupon went through so she does not have to pay any copay since it is $0 for 3 fills? Please let me know. Thanks. PHY ORDER/COMMENT I spoke with Domenica at the pharmacy letting her know that it is okay to dispense the Lybalvi even though she takes Tramadol. Domenica voiced understanding and appreciated the call. christiano EndCited
--- OUTSIDE RECORDS SUMMARY | 2025-06-21 15:24 | XMS_ITS | Clinical Summary ---
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
--- OUTSIDE RECORDS SUMMARY | 2025-06-21 15:24 | XMS_ITS | Clinical Summary ---
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 pain and swelling. Take with food. Collaborating physician Casa Geren MD 20 tablet 2 Active Additional Information Patient not taking.Reported on 05/27/2025 ibuprofen (ADVIL,MOTRIN) 600 mg tabletIndicati ons:Pain Take 1 tablet (600 mg total) by mouth every 6 (six) hours as needed for pain 20 tablet 3 Active Additional Information Patient not taking.Reported on 05/27/2025 olanzapine-mauri idorphan (Lybalvi) 5-10 mg tablet tablet Take by mouth daily Active valbenazine (Ingrezza) capsule capsule 1 capsule (80 mg total) daily Active ascorbic acid (VITAMIN C ORAL) Take by mouth Active ZINC ORAL Take by mouth Active cholecalcifero l, vitamin D3, (VITAMIN D3 ORAL) Take by mouth Active multivitamin tabletIndicati ons:Vitamin Deficiency Prevention Take 1 tablet by mouth Active omeprazole (PriLOSEC) 40 mg capsule Take 1 capsule (40 mg total) by mouth daily Active Active Problems Problem Noted Date Diagnosed [...] today Assessment & Plan (08/09/2021 11:21 AM DENTAL NURSE): Results reviewed. Options discussed To rto 12m for wwe and repeat pap HPV and possible spread to mouth and rectum discussed. Assessment & Plan (07/26/2021 11:12 AM DENTAL NURSE): colpo with bx and ECC done. RTO 2 weeks for results. Elevated LFTs 06/28/2021 Assessment & Plan (06/28/2021 2:29 AM DENTAL NURSE): AST and ALT slightly elevated. No recent baseline. Could be secondary to viral infection. Will monitor. Bicytopenia 06/28/2021 Assessment & Plan (06/28/2021 2:34 AM DENTAL NURSE): Leukopenia and thrombocytopenia. Suspect it is secondary to infection. Will monitor. Hold anticoagulation due to platelets less than 100 K Hypokalemia 06/28/2021 Mild malnutrition 06/28/2021 Acute hypoxemic respiratory failure 06/28/2021 Pneumonia due to COVID-19 virus 06/27/2021 Assessment & Plan (06/28/2021 2:27 AM DENTAL NURSE): Currently on 4 L of oxygen. Continue Decadron and remdesivir. Procalcitonin is in process. Supportive care. Well woman exam with routine gynecological exam 06/06/2021 Overview (12/10/2022): Lab: Pap:all normal, pap done today 06/06/21- wnl. HR HPV not 16/18 Labs with psych and pcp Praveen: due Colonoscopy: cologuard positive 12/10/22 Assessment & Plan (11/14/2022 3:18 PM CDT): Pap done. RTO 12m. I will send the results to the portal. If she has not heard in a week, to call the office. Assessment & Plan (06/06/2021 10:32 AM DENTAL NURSE): Lab: Pap:all normal, pap done today Labs [...] .2 Assessment & Plan (06/06/2021 10:34 AM DENTAL NURSE): She will try taking the catapress nightly to see if that helps with the NS. Can increase to bid. rto 6 weeks We discussed that oral estrogen can increase the triglycerides. If her sx are not controlled with catapress, will discuss transdermal estrogen. Hypertension, essential 05/15/2020 Assessment & Plan (06/28/2021 2:28 AM DENTAL NURSE): Continue lisinopril with hold parameters Hyperlipidemia 01/24/2016 Assessment & Plan (06/28/2021 2:28 AM DENTAL NURSE): Continue statin Assessment & Plan (06/06/2021 10:34 AM DENTAL NURSE): Diet and exercise encouraged. Tobacco use 10/19/2015 Assessment & Plan (11/14/2022 3:17 PM CDT): The patient was encouraged to stop smoking. Techniques for smoking cessation were discussed to the patient's level of interest. Assessment & Plan (06/28/2021 2:27 AM DENTAL NURSE): Patient states she quit 1 week ago. She is not interested in a nicotine patch. Patient advised to let us know if she would like 1. Assessment & Plan (06/06/2021 10:32 AM DENTAL NURSE): The patient was encouraged to stop smoking. Techniques for smoking cessation were discussed to the patient's level of interest. Osteoarthritis of knee 05/18/2011 Fibromyalgia 05/18/2011 Arthralgia 01/26/2011 Asthma 01/26/2011 Arthritis 01/26/2011 Bipolar disorder with depression ([facility]) 01/26 Assessment & Plan (06/28/2021 2:28 AM DENTAL NURSE): Continue home medications Hypothyroidism 01/26/2011 Assessment & Plan (11/14/2022 3:17 PM CDT): She will d/w Dr. Laboy Assessment & Plan (06/28/2021 2:28 AM DENTAL NURSE): Continue levothyroxine and Cytomel Resolved Problems Problem [...] (12/12/2021 2:33 PM CDT): To usg To vp securities/gc/ct This may have been diverticulitis that has resolved. If she gets the pain again, will treat with antibiotics. 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 rto 4 weeks or sooner if the pain returns. Upper respiratory infection 05/15/2020 06/06/2021 Iron deficiency anemia due t o sideropenic dysphagia 11/13/2015 06/06/2021 Current smoker 05/18/2011 12/12/2021 Encounters Date Type Department Care Team Description 06/02/2025 Orders Only [facility] GA[facility]OLOG[facility] Scanning, Provider 06/01/2025 Orders Only [facility] Gastroenterology [address] [facility] [address] [place] [address] [place] [address] Paresh Olson Cirrhosis of liver with ascites, unspecified hepatic cirrhosis type (HCC) (Primary Dx) 05/30/2025 Results Follow-Up [facility] Gastroenterology [address] [facility] [address]th [place] [address] [place] [address] Felix Marino MD [id number], Tumor Marker, Protime-INR, Comprehensive metabolic panel, Additional followed-up results: 2 05/27/2025 9:20 AM DENTAL NURSE Lab [facility] [address] [place] [address] Cirrhosis of liver with ascites, unspecified hepatic cirrhosis type (HCC) 05/27/2025 8:00 AM DENTAL NURSE Office Visit [facility] Gastroenterology [address] [facility] [address]th [place] [address] [place] [address] Felix Marino MD Cirrhosis of liver with ascites, unspecified hepatic cirrhosis type (HCC) (Primary Dx) 05/27/2025 7:00 AM DENTAL NURSE - 05/27/2025 11:59 PM DENTAL NURSE Hospital Encounter [facility] [address] [place] [address] Cirrhosis of liver with ascites, unspecified hepatic cirrhosis type (HCC); Metabolic dysfunction-associate d steatohepatitis (MASH) Discharge Disposition: Discharge to home or self care from Last 3 Months Immunizations Immunization Administration Dates Next Due Pfizer [...] on file Legal Sex Female 1:41 AM DENTAL NURSE Gender Identity Not on file Sexual Orientation Not on file Obstetrics History Para Term AB IAB SAB Ectopic Multiple Livin g Live Births 5 3 3 2 Date Outcome GA Total Labor Labor/2nd/3rd Weight Sex Type Anes PTL Yamile A1 A5 Name Clin SAB SAB SAB Last Filed Vital Signs Vital Sign Reading Time Taken Comments Blood Pressure 109/72 05/27/2025 8:01 AM DENTAL NURSE Pulse 71 05/27/2025 8:01 AM DENTAL NURSE Temperature 36.8 C (98.3 F) 05/27/2025 8:01 AM DENTAL NURSE Respiratory Rate 18 03/31/2023 3:46 PM CDT Oxygen Saturation 97% 03/31/2023 3:46 PM CDT Inhaled Oxygen Concentration - - Weight 104.5 kg (230 lb 6.4 oz) 05/27/2025 8:01 AM DENTAL NURSE Height 175.3 cm (5' 9) 05/27/2025 8:01 AM DENTAL NURSE Body Mass Index 34.02 05/27/2025 8:01 AM DENTAL NURSE Plan of Treatment Health Maintenance Due Date Last Done Comments Colon Cancer Screening-Colonoscopy 1972 Hepatitis B Screening 1990 Pneumococcal vaccine <65 (2 of 2 - PCV) 03/04/2020 03/04/2019 Cervical Cancer Screening 11/15/2023 11/14/2022, Depression Screening 11/15/2023 11/14/2022, 06/27/2021, 06/06/2021 Regular Well Visit/Exam 18-64 11/15/2023 11/14/2022, 06/06/2021 Influenza Vaccine (#1) 2025 DTaP/Tdap/Td Vaccine (2 - Td or Tdap) 01/23/202611/2015 Breast Cancer Screening-Mammogram 03/05/2026 03/05/2025, 03/05/2025, 01/15/2025 Zoster Vaccine Completed 04/20/2024, 01/06/2024 Hepatitis C Screening Completed 12/15/2024 Procedures Procedure Name Priority Date/Time Associated Diagnosis Comments SCAN - PATHOLOGY 06/02/2025 11:15 AM DENTAL NURSE EGFR Routine 05/27/2025 9:10 AM DENTAL NURSE Cirrhosis of liver with ascites, unspecified hepatic cirrhosis type (HCC) COMPREHENSIVE METABOLIC PANEL Routine 05/27/2025 9:10 AM DENTAL NURSE Cirrhosis of liver with ascites, unspecified hepatic cirrhosis type (HCC) PROTIME-INR Routine 05/27/2025 9:10 AM DENTAL NURSE Cirrhosis of liver with ascites, unspecified hepatic cirrhosis type (HCC) [id number] , TUMOR MARKER Routine 05/27/2025 9:10 AM DENTAL NURSE Cirrhosis of liver with ascites, unspecified hepatic cirrhosis type (HCC) [id number] PHENOTYPE Routine 05/27/2025 9:10 AM DENTAL NURSE Cirrhosis of liver with ascites, unspecified hepatic cirrhosis type (HCC) US LIVER Schedule Routine, Read Routine (OP Routine) 05/27/2025 7:28 AM DENTAL NURSE Cirrhosis of liver with ascites, unspecified hepatic cirrhosis type (HCC) Metabolic dysfunction-associate d steatohepatitis (MASH) HEPATITIS PANEL, ACUTE Routine 12/15/2024 11:17 AM CDT Cirrhosis of liver with ascites, unspecified hepatic cirrhosis type (HCC) Metabolic dysfunction-associate d steatohepatitis (MASH) PAP AND HIGH RISK HPV, REFLEX TO GENOTYPING Routine 11/14/2022 3:36 PM CDT Well woman exam with routine gynecological exam from Last 3 Months or Most Recently Relevant to Health Maintenance Results * SCAN - PATHOLOGY (06/02/2025 11:15 AM DENTAL NURSE) us Provider Scanning Edited Result - Final * eGFR (05/27/2025 9:10 AM DENTAL NURSE) eGFR 87 >=60 mL/min/1. 73 m2 Comment: Interpretive Data Reference Interval Normal >/= 90 mL/min/1.73m2 Mildly decreased* 60 - 89 mL/min/1.73m2 Mildly to moderately decreased 45 - 59 mL/min/1.73m2 Moderately to severely decreased 30 - 44 mL/min/1.73m2 Severely decreased 15 - 29 mL/min/1.73m2 Kidney Failure < 15 mL/min/1.73m2 *Relative to young adult level Estimated glomerular filtration rate is determined by the 2020 CKD-EPI equation recommended by the National Kidney Foundation (A Unifying Approach to GFR Estimation: Recommendations of the NKF-ASK Task Force on Reassessing the Inclusion of Race in Diagnosing Kidney Disease, JASN 2020). The CKD-EPI equation should not be used for patients with unstable renal function and has not been validated in children and those over 70. Current interpretive data was last reviewed 2021. Blood 05/27/2025 9:10 AM DENTAL NURSE 05/27/2025 9:41 AM DENTAL NURSE Felix Marino MD LAB BLOOD ORDERABLES Final Result [facility] Department [place] [address] * Isowj-8-ipthhlplodl phenotype (05/27/2025 9:10 AM DENTAL NURSE) Pathologist [facility] alpha-1 antitrypsin 180 100 - 190 mg/dL [facility] Comment: ADDITIONAL INFORMATION Method: Nephelometry Test Performed by: [place] [address] Music Industry Internship: Dayday Last Ph.D.; IA# [id number] alpha-1 antitrypsin phenotype MS bands [facility] Comment: Heterozygous for M and S isoforms. This phenotype is usually associated with normal qigpo-5-eplqdzfxgji concentrations. ADDITIONAL INFORMATION Method: Isoelectric Focusing, This assay identifies the phenotype of the circulating emlgt-3-llniisapbbw (A1A) protein. If the patient is on replacement therapy or has been recently transfused, the phenotype will detect patient and replacement or transfused plasma A1A protein. This test also cannot detect a null allele which could be responsible for an A1A deficiency. Blood 05/27/2025 9:10 AM DENTAL NURSE 05/27/2025 10:21 AM DENTAL NURSE Felix Marino MD LAB BLOOD ORDERABLES Final Result Performing Organization Address City/[facility]/ZIP Co de Phone Number [facility] Department [place] [address] [facility] * [id number]-5-[id number], Tumor Marker (05/27/2025 9:10 AM DENTAL NURSE) alpha Fetoprotein 4.1 <=8.3 ng/mL Comment: Interpretive Data The Khushboo AFP assay procedure was used. Results from different manufacturers or methods may not be comparable. Serial testing should be performed using the same method. 0-1 month. AFP concentrations may reach or exceed 100,000 ng/mL after depending on gestational age and weight. 1-3 months 50 1000 ng/ml 3-6 months 10 500 ng/ml 6-12 months 3.0 100 ng/ml >1 year 0.0 8.3 ng/ml References Elias Charles. et al. J. Ped Surg 1978;13:155-156 Yves Ruiz. et al. Clin Chem Lab Med 2018;57:783-797 Carlos Victor et al. Clin Chem 2014;7095-7883. Current interpretive data was last revised 2022. Blood 05/27/2025 9:10 AM DENTAL NURSE 05/27/2025 9:41 AM DENTAL NURSE us Felix Marino MD LAB BLOOD ORDERABLES Final Result [facility] Department [place] [address] * (ABNORMAL) Protime-INR (05/27/2025 9:10 AM DENTAL NURSE) PT 14.1(H) 10.2 - 13.5 sec INR 1.25(H) 0.90 - 1.20 [facility] Comment: Interpretive data Oral anticoagulant therapeutic ranges: Venous thromboembolism prophylaxis or treatment: 2.0-3.0 CARDIOLOGY Standard range: 2.0-3.0 High-intensity range: 2.5-3.5 Refer to indication-specific guidelines for appropriate target ranges for prosthetic heart valve replacement. Current interpretive data was last revised on 2019. Blood 05/27/2025 9:10 AM DENTAL NURSE 05/27/2025 9:31 AM DENTAL NURSE us Felix Marino MD LAB BLOOD ORDERABLES Final Result Performing Organization Address City/State/[facility] Co de Phone Number [facility] Department [place] [address] * (ABNORMAL) Comprehensive metabolic panel (05/27/2025 9:10 AM DENTAL NURSE) Sodium 141 135 - 145 mmol/L Potassium, pl 4.1 3.3 - 4.9 mmol/L [facility] Chloride 102 97 - 110 mmol/L [facility] CO2 31 22 - 32 mmol/L [facility] Anion gap 8 2 - 15 mmol/L [facility] BUN 9 6 - 25 mg/dL [facility] Creatinine 0.81 0.60 - 1.10 mg/dL [facility] Glucose 111 70 - 199 mg/dL [facility] Comment: Interpretive Data Fasting glucose >/= 126 mg/dl is diagnostic for diabetes. Fasting is defined as no caloric intake for at least 8 hours. Fasting glucose between 100 mg/dl to 125 mg/dl is diagnostic of prediabetes. In a patient with classic symptoms of hyperglycemia or hyperglycemic crisis, a random glucose >/= 200 mg/dl is diagnostic for diabetes. In the absence of unequivocal hyperglycemia, results should be confirmed by repeat testing. The classification and Diagnosis of Diabetes Diabetes Care 202; 46: S19-S40. Current interpretive data was last revised 2022. Calcium 9.9 8.5 - 10.3 mg/dL [facility] Bilirubin, total 2.6(H) 0.1 - 1.2 mg/dL [facility] Protein, pl 8.2 6.5 - 8.5 g/dL [facility] Albumin 4.6 3.5 - 5.0 g/dL [facility] Alk phos 160(H) 40 - 130 Units/L [facility] ALT 44 7 - 45 Units/L [facility] AST 56(H) 10 - 45 Units/L [facility] Blood 05/27/2025 9:10 AM DENTAL NURSE 05/27/2025 9:41 AM DENTAL NURSE Felix Marino MD LAB BLOOD ORDERABLES Final Result [facility] Department [place] [address] * US Liver (05/27/2025 7:28 AM DENTAL NURSE) Anatomical Region Laterality Modality Abdomen N/A Ultrasound 05/27/2025 8:11 AM DENTAL NURSE Impressions 05/27/2025 9:59 AM DENTAL NURSE 1. Cirrhotic liver morphology with steatosis. Trace perihepatic ascites and splenomegaly. 2. US LI-RADS Screening/Surveillance Category: US 1 - Negative. 3. Visualization Score: A: No or minimal limitations in liver visualization. US LI-RADS 2023 REFERENCE: US Category: US-1 Negative: No ultrasound evidence of hepatocellular carcinoma (HCC). US-2 Subthreshold: Observation<10 mm in diameter, not definitely benign. US-3 Positive: Observation detected that may warrant multi-phase contrast-enhanced imaging. Observation >/= 10 mm in diameter, not definitely benign, including areas of parenchymal distortion OR new thrombus in vein. Visualization Score: A. No or minimal limitations: Limitations, if any, are unlikely to meaningfully affect sensitivity. The liver is homogenous or minimally heterogenous with minimal beam attenuation or shadowing, and is visualized in near entirety. B. Moderate limitations: Limitations may obscure small masses. The liver is moderately heterogenous with moderate beam attenuation or shadowing, and some portions of the liver or diaphragm are not visualized. C. Severe limitations: Limitations significantly lower sensitivity for focal liver lesions. The liver is severely heterogeneous with severe beam attenuation or shadowing, and the majority (>50%) of the liver or diaphragm is not visualized. Consider alternative surveillance imaging modality depending on risk factors. Dictated by: Naomy Lobato M.D. The radiology attending physician has personally reviewed this study, and had reviewed and/or edited this written report and agrees with it. Electronically signed by: Karthik Carreon M.D. Narrative 05/27/2025 9:59 AM DENTAL NURSE EXAMINATION: LIVER SONOGRAM HISTORY: Cirrhosis. Surveillance ultrasound in patient at high risk for hepatocellular carcinoma. COMPARISON: CT 06/27/2021; ultrasound 12/15/2024 FINDINGS: Liver: Visualization Score: A: No or minimal limitations in liver visualization. Morphology/Parenchyma/contour: The echotexture is coarse. The echogenicity is increased. There is surface nodularity. Liver observations: No focal liver observations. Ascites: Trace perihepatic ascites. Other: Splenomegaly with the spleen measuring 17.5 cm in maximum diameter. Procedure Note Karthik Carreon MD - 05/27/2025 EXAMINATION: LIVER SONOGRAM HISTORY: Cirrhosis. Surveillance ultrasound in patient at high risk for hepatocellular carcinoma. COMPARISON: CT 06/27/2021; ultrasound 12/15/2024 FINDINGS: Liver: Visualization Score: A: No or minimal limitations in liver visualization. Morphology/Parenchyma/contour: The echotexture is coarse. The echogenicity is increased. There is surface nodularity. Liver observations: No focal liver observations. Ascites: Trace perihepatic ascites. Other: Splenomegaly with the spleen measuring 17.5 cm in maximum diameter. IMPRESSION: 1. Cirrhotic liver morphology with steatosis. Trace perihepatic ascites and splenomegaly. 2. US LI-RADS Screening/Surveillance Category: US 1 - Negative. 3. Visualization Score: A: No or minimal limitations in liver visualization. US LI-RADS 2023 REFERENCE: US Category: US-1 Negative: No ultrasound evidence of hepatocellular carcinoma (HCC). US-2 Subthreshold: Observation<10 mm in diameter, not definitely benign. US-3 Positive: Observation detected that may warrant multi-phase contrast-enhanced imaging. Observation >/= 10 mm in diameter, not definitely benign, including areas of parenchymal distortion OR new thrombus in vein. Visualization Score: A. No or minimal limitations: Limitations, if any, are unlikely to meaningfully affect sensitivity. The liver is homogenous or minimally heterogenous with minimal beam attenuation or shadowing, and is visualized in near entirety. B. Moderate limitations: Limitations may obscure small masses. The liver is moderately heterogenous with moderate beam attenuation or shadowing, and some portions of the liver or diaphragm are not visualized. C. Severe limitations: Limitations significantly lower sensitivity for focal liver lesions. The liver is severely heterogeneous with severe beam attenuation or shadowing, and the majority (>50%) of the liver or diaphragm is not visualized. Consider alternative surveillance imaging modality depending on risk factors. Dictated by: Naomy Lobato M.D. The radiology attending physician has personally reviewed this study, and had reviewed and/or edited this written report and agrees with it. Electronically signed by: Karthik Carreon M.D. Danial Perales MD IMG US PROCEDURES Final Result * Hepatitis panel, acute Blood (12/15/2024 11:17 AM CDT) Pathologist [facility] Hep A IgM Nonreactive Nonreactive Hep B core IgM Nonreactive Nonreactive [facility] Hep C Ab Nonreactive Nonreactive [facility] Comment:Antibodies to HCV no t detected. Does NOT exclude the possibility of recent exposure to HCV. Current interpretive data was last revised on 22 HepBsAg Nonreactive Nonreactive [facility] Blood 12/15/2024 11:1 7 AM CDT 12/15/2024 12:10 PM CDT Danial Perales MD LAB MICROBIOLOGY - GENERAL ORD ERABLES Final Result [facility] Department [place] [address] * Pap and High Risk HPV, reflex to Genotyping (11/14/2022 3:36 PM CDT) Pathologist [facility] CLINICAL INFORMATION: [facility] Comment:Routine exam LMP [facility] Comment:POST MANISHA Previous Pap [facility] Comment:NONE GIVEN Prev. Bx [facility] Comment:NONE GIVEN SOURCE: [facility] Comment:Cervix, Endocervix Pap, specimen adequacy [facility] Comment: Satisfactory for evaluation. Endocervical/transformation zone component present. HPV interp [facility] Comment:Negative for intraep ithelial lesion or malignancy. Infection: [facility] [employer] [facility] Comment: Fungal organisms morphologically consistent with Dali spp. Maintainability Engineer [facility] Comment: YQ, CT(ASCP) CT screening location: [place] [address] [place] [address] Review brattice builder [facility] Comment: MVB, CT(ASCP) CT Screening Location: [place] [address] [address] [place] [address] Comment [facility] [employer] [facility] Comment: EXPLANATORY NOTE: The Pap is a [...] High Risk E6/E7 Not Detected NOT DETECTED [facility] [employer] [facility] Comment: Not Detected High Risk HPV types (16,18,31,33,35,39,45,51,52, 56,58,59,66,68) were not detected. Other HPV types which cause anogenital lesions may be present. The significance of the other types of HPV in malignant processes has not been established. Methodology: Real Time PCR Thin prep 11/14/2022 3:36 PM CDT 11/15/2022 2:27 AM CDT Marj Banuelos MD LAB CYTOLOGY ORDERA BLES Final Result [facility] [address] [place] [address] [facility] [employer] [address] [place] [address] from Last 3 Months or Most Recently Relevant to Health Maintenance Insurance [facility] ACCESS CHOICE ANTHEM ACCESS CHOICE ANTHEM ACCESS CHOICE Advance Directives For more information, please contact: [phone] * Full Code (Latest Code Status on File) Date Activated Date Inactivated Comments 06/27/2021 9:48 PM 07/01/2021 6:27 PM Care Teams Customer Associate Relationship Specialty Start Date End Date Crystal Rodgers NP [address] [place] [address] [place] [address] PCP - General 05/27/25
--- OUTSIDE RECORDS SUMMARY | 2025-06-21 15:24 | XMS_ITS | Encounter Summary ---
Author Organization [facility] Address 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
--- OUTSIDE RECORDS SUMMARY | 2025-06-21 15:25 | XMS_ITS | Encounter Summary ---
Author Organization [facility] Address [address] [place] [address] Phone Care Team Providers Care Manager Of Merchandising Name Role Phone Garrison Laboy MD Primary Care Provider [phone] Fei Stevens MD Unavailable [phone] Kellen Mena MD Unavailable [phone] Darian Caal MD Unavailable [phone] Jose Swanson MD Unavailable Crystal Rodgers APRN Primary Care Provider [phone] Encounter Details Date Type Department Care Team (Late st Contact Info) Description 05/04/2024 Transcribe Orders [facility] [address] [place] [address] Jose Swanson MD [address] [place] [address] Social History Tobacco Use Types Packs/Day Years Used Date Smoking Tobacco: Every Day Cigarettes 1 39.4 Started: 01/23/1986 Smokeless Tobacco: Never Alcohol Use Standard Drinks/Week Comments No 0 (1 standard drink = 0.6 oz pur e alcohol) [facility] Utilities Answer Date Recorded In the past 12 months has [employer] electric, gas, oil, or water company threatened [...] week 03/12/2024 How often do you attend buddhist or protestant serv ices? Never 03/12/2024 Do you belong to any clubs o r organizations such as buddhist groups, unions, fraternal or athletic groups, or [...] and heating? Not hard at all 03/12/2024 [facility] of Occupat ional Health - Occupational Stress [...] a care home (including now)? No 08/22/2023 Housing Stability Vital Sign Answer Merrick e Recorded In the last 12 months, was t here a time when you were not able to pay the mortgage or rent on time? No 03/12/2024 In the past 12 months, how m any times have you moved where you were living? 0 03/12/2024 At any time in the past 12 m [facility], were you homeless or living in a care home (including now)? No 03/12/2024 Education Answer Date [...] Encounters Date Type Department Care Team (Late Contact Info) Description 10/11/2025 2:20 PM CDT [facility] [address] [place] [address] Lissa Zazueta, PAC [address] [place] [address] Discharge Disposition: Discharged to home or Selfcare 10/12/2025 2:30 PM CDT Office Visit [facility] Neurology [facility] [address] [place] [address] Darian Caal MD [address] [place] [address] 10/18/2025 2:20 PM CDT Office Visit [facility] On[facility] [address] [place] [address] Lissa Zazueta Yue, [facility] [address] [place] [address] Discharge Disposition: Discharged to home or Selfcare documented as of this encounter Visit Diagnoses Not on filedocumented in this encounter Additional Health Concerns Assessment Noted Time PHQ-9 Depression Total Score: 0 08/23/19 24 1:44 PM 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 documented as of this encounter Care Teams Manager Of Merchandising Relationship Specialty Start Date End Date Garrison Laboy MD [address] [place] [address] PCP - General Internal Medicine 05/30/15 03/24/25 Crystal Rodgers, JIE [address] [place] [address] PCP - General Advanced Practice Nurse 03/25/25 Fei Stevens MD [address] [place] [address] Consulting Physician Obstetrics & Gynecology 04/12/20 Kellen Mena MD [address] [place] [address] Consulting Physician Psychiatry 08/23/23 Darian Caal MD [address] [place] [address] Consulting Physician Neurology 11/15/23 Jose Swanson MD [address] [place] [address] Consulting Physician Colon and Rectal Surgery 04/27/24 documented as of this encounter
--- OUTSIDE RECORDS SUMMARY | 2025-06-21 15:25 | XMS_ITS | Encounter Summary ---
Author Organization [facility] Address [address] [place] [address] Phone Care Team Providers Care Extractor Operator Name Role Phone Garrison Laboy MD Primary Care Provider [phone] Nguyen Shepard APRN, CNP Unavailable [phone] Fei Stevens MD Unavailable [phone] Kellen Mena MD Unavailable [phone] Darian Caal MD Unavailable [phone] Jose Swanson MD Unavailable Crystal Rodgers APRN Primary Care Provider [phone] Reason for Visit * Reason Comments Medication Refill Encounter Details Date Type Department Care Team (Late st Contact Info) Description 10/06/2021 Refill [facility] - Primary Care - [place] [address] [place] [address] Garrison Laboy MD [address] [place] [address] Medication Refill Social History Tobacco [...] COVID-19? No / Unsure 09/06/2021 3:31 PM PREDICTIVE MAINTENANCE TECHNICIAN documented as of this encounter Miscellaneous Notes [...] Dept 09/06/21 Office Visit Garrison Laboy MD [facility] 07/11/21 Office Visit Garrison Laboy MD [facility] 02/23/21 Office Visit Garrison Laboy MD [facility] Showing recent visits within past 365 days and meeting all other requirements Future Appointments No visits were found meeting these conditions. Showing future appointments within next 90 days and meeting all other requirements documented in this encounter Plan of Treatment Upcoming Encounters Date Type Department Care Team (Late st Contact Info) Description 10/11/2025 2:[address] [facility] Oncology Services [address] [place] [address] Lissa Zazueta December, PAC [address] [place] [address] Discharge Disposition: Discharged to home or Selfcare 10/12/2025 2:30 PM CDT 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 due to medical condition classified elsewhere documented in this encounter Care Teams Extractor Operator Relationship Specialty Start Date End Date Garrison Laboy MD [address] [place] [address] PCP - General Internal Medicine 05/30/15 03/24/25 Crystal Rodgers APRN [address] [place] [address] PCP - General Advanced Practice Nurse 03/25/25 Nguyen Shepard APRN, CUT OFF SAW TENDER METAL [address] [place] [address] Consulting Physician Psychiatry 03/04/19 08/22/23 Fei Stevens MD [address] [place] [address] Consulting Physician Obstetrics & Gynecology 04/12/20 Kellen Mena MD [address] [place] [address] Consulting Physician Psychiatry 08/23/23 Darian Caal MD [address] [place] [address] Consulting Physician Neurology 11/15/23 Jose Swanson MD [address] [address] Consulting Physician Colon and Rectal Surgery 04/27/24 documented as of this encounter
--- OUTSIDE RECORDS SUMMARY | 2025-06-21 15:25 | XMS_ITS | Encounter Summary ---
Author Organization [facility] Address [address] [place] [address] Phone Care Team Providers Care Firearms Assembly Supervisor Name Role Phone Garrison Laboy MD Primary Care Provider [phone] Nguyen Shepard APRN, CNP Unavailable [phone] Fei Stevens MD Unavailable [phone] Kellen Mena MD Unavailable [phone] Darian Caal MD Unavailable [phone] Jose Swanson MD Unavailable Crystal Rodgers APRN Primary Care Provider [phone] Reason for Visit * Reason Comments Medication Refill Encounter Details Date Type Department Care Team (Late st Contact Info) Description 04/22/2022 Refill [facility] - Primary Care - [place] [address] [place] [address] Garrison Laboy MD [address] [place] [address] Medication Refill Social History Tobacco [...] Info) Description 10/11/2025 2:20 PM CDT Lab [facility] Oncology Services [address] [place] [address] ZazuetaLissa holloway December, PAC [address] [place] [address] Discharge Disposition: Discharged to home or Selfcare 10/12/2025 2:30 PM CDT Office Visit [facility] - Neurology [facility] [address] [place] [address] Darian Caal MD [address] [place] [address] 10/18/2025 2:20 PM CDT Office Visit [facility] Oncology Services [address] [place] [address] [place]issa [place], PAC [address] [place] [address] Discharge Disposition: Discharged to home or Selfcare documented as of this encounter Visit Diagnoses Diagnosis Thumb pain, right documented in this encounter Care Teams Firearms Assembly Supervisor Relationship Specialty Start Date End Date Garrison Laboy MD [address] [place] [address] PCP - General Internal Medicine 05/30/15 03/24/25 Crystal Rodgers APRN [address] [place] [address] PCP - General Advanced Practice Nurse 03/25/25 Nguyen Shepard APRN, THRASHER FEEDER [address] [place] [address] Consulting Physician Psychiatry 03/04/19 08/22/23 Fei Stevens MD [address] [place] [address] Consulting Physician Obstetrics & Gynecology 04/12/20 Kellen Mena MD [address] [place] [address] Consulting Physician Psychiatry 08/23/23 Darian Caal MD [address] [place] [address] Consulting Physician Neurology 11/15/23 Jose Swanson MD [address] [address] Consulting Physician Colon and Rectal Surgery 04/27/24 documented as of this encounter
--- OUTSIDE RECORDS SUMMARY | 2025-06-21 15:25 | XMS_ITS | Encounter Summary ---
Author Organization [facility] Address [address] [place] [address] Phone Care Team Providers Care Ball Fringe Machine Operator Name Role Phone Garrison Laboy MD Primary Care Provider [phone] Nguyen Shepard APRN, CNP Unavailable [phone] Fei Stevens MD Unavailable [phone] Kellen Mena MD Unavailable [phone] Darian Caal MD Unavailable [phone] Jose Swanson MD Unavailable Crystal Rodgers APRN Primary Care Provider [phone]- [phone] Reason for Visit * Reason Comments Medication Refill Encounter Details Date Type Department Care Team (Late st Contact Info) Description 02/06/2023 [facility]ill [facility] [address] [place] [address] Garrison Laboy MD [address] [place] [address] Medication Refill Social History Tobacco Use Types Packs/Day Years Used Date Smoking Tobacco: Every Day Cigarettes 0.5 39.4 Started: 01/23/1986 Smokeless Tobacco: Never Alcohol [...] Dept 03/01/22 Office Visit Garrison Laboy MD [facility] Showing recent visits within past 365 days and meeting all other requirements Future Appointments Date Type Provider Dept 03/08/23 Appointment Garrison Laboy MD [facility] Showing future appointments within next 90 days and meeting all other requirements * Telephone Encounter - Misty Weir RN - 02/07/2023 8:42 AM CDT Per [place] last fill date 01/06/23. documented in this encounter Plan of Treatment Upcoming Encounters Date Type Department Care Team (Late st Contact Info) Description 10/11/2025 2:20 PM CDT [facility] Oncology Services [address] [place] [phone] Lissa Zazueta December, PAC [address] [place] [address] Discharge Disposition: Discharged to home or Selfcare 10/12/2025 2:30 PM CDT [facility] [address] [place] [address] Darian Caal MD [address] [place] [address] 10/18/2025 2:20 PM CDT [facility] [address] [place] [address] Lisas Zazueta December, PAC [address] [place] [address] Discharge Disposition: Discharged to home or Selfcare documented as of this encounter Visit Diagnoses Diagnosis Fibromyalgia Mylagia and myositis, unspecified documented in this encounter Care Teams Ball Fringe Machine Operator Relationship Specialty Start Date End Date Garrison Laboy MD [address] [place] [address] PCP - General Internal Medicine 05/30/15 03/24/25 Crystal Rodgers APRN [address] [place] [address] PCP - General Advanced Practice Nurse 03/25/25 Nguyen Shepard APRN, STOCKROOM SUPERVISOR [address] [place] [address] Consulting Physician Psychiatry 03/04/19 08/22/23 Fei Stevens MD [address] [place] [address] Consulting Physician Obstetrics & Gynecology 04/12/20 Kellen Mena MD [address] [place] [address] Consulting Physician Psychiatry 08/23/23 Darian Caal MD [address] [place] [address] Consulting Physician Neurology 11/15/23 Jose Swanson MD #[address] [address] Consulting Physician Colon and Rectal Surgery 04/27/24 documented as of this encounter
--- OUTSIDE RECORDS SUMMARY | 2025-06-21 15:25 | XMS_ITS | Encounter Summary ---
Author Organization [facility] Address [address] [place] [address] Phone Care Team Providers Care Traveling Electrician Name Role Phone Garrison Laboy MD Primary Care Provider [phone] Fei Stevens MD Unavailable [phone] Kellen Mena MD Unavailable [phone] Darian Caal MD Unavailable [phone] Jose Swanson MD Unavailable Crystal Rodgers APRN Primary Care Provider [phone] Reason for Visit * Reason Comments Medication Refill Encounter Details Date Type Department Care Team (Late st Contact Info) Description 01/27/2024 Refill [facility] - Primary Care - [place] [address] [place] [address] Garrison Laboy MD [address] [place], [place] [phone] Medication Refill Social History Tobacco Use Types Packs/Day Years Used Date Smoking Tobacco: Every Day Cigarettes 1 39.4 Started: 01/23/1986 Smokeless Tobacco: Never Alcohol Use Standard Drinks/Week Comments No 0 (1 standard drink = 0.6 oz pur e alcohol) [facility] Utilities Answer Date Recorded In the past 12 months has [employer], gas, oil, or water company threatened to [...] week 08/22/2023 How often do you attend anglican or latter-day serv ices? Never 08/22/2023 Do you belong to any clubs o r organizations such as anglican groups, unions, fraternal or athletic groups, or [...] and heating? Not hard at all 08/22/2023 [facility] - Occupational Stress Questionnaire Answer [...] place to sleep or slept in a senior care (including now)? No 08/22/2023 Education Answer Date [...] Info) Description 10/11/2025 2:20 PM CD[facility] [address] [place] [address] Lissa Zazueta Yue, PAC [address] [place] [address] Discharge Disposition: Discharged to home or Selfcare 10/12/2025 2:30 PM CDT [facility] #[address] [place] [address] Darian Caal MD [address] [place] [address] 10/18/2025 2:20 PM CDT Office Visit [facility] On[facility] [address] [place] [address] Zazueta Lissa Yue, PAC [address] [place] [address] Discharge Disposition: Discharged to home or Selfcare documented as of this encounter Visit Diagnoses Diagnosis Hypertension, essential Unspecified essential hypertension documented in this encounter Additional Health Concerns Assessment Noted Time PHQ-9 Depression Total Score: 0 08/23/19 1:44 PM DIESEL 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 documented as of this encounter Care Teams Traveling Electrician Relationship Specialty Start Date End Date Garrison Laboy MD [address] [place] [address] PCP - General Internal Medicine 05/30/15 03/24/25 Crystal Rodgers, VACUUM TANK TENDER [address] [place] [address] PCP - General Advanced Practice Nurse 03/25/25 Fei Stevens MD [address] [place] [address] Consulting Physician Obstetrics & Gynecology 04/12/20 Kellen Mena MD [address] [place] [address] Consulting Physician Psychiatry 08/23/23 Darian Caal MD [address] [place] [address] Consulting Physician Neurology 11/15/23 Jose Swanson MD [address] [place] [address] Consulting Physician Colon and Rectal Surgery 04/27/24 documented as of this encounter
--- OUTSIDE RECORDS SUMMARY | 2025-06-21 15:25 | XMS_ITS | Encounter Summary ---
Author Organization [facility] Address [address] [place] [address] Phone Care Team Providers Care Injection Molding Machine Operator Name Role Phone [employer] Crystal JAIN Primary Care Provider [phone] Encounter Details Date Type Department Care Team (Late st Contact Info) Description 05/30/2025 Results Follow-Up [facility] Medicine Gastroenterology [address] 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
--- OUTSIDE RECORDS SUMMARY | 2025-06-21 15:25 | XMS_ITS | Clinical Summary ---
Author Organization [facility] Address [address] [place] [address] Phone Care Team Providers Care Forestry Biology Specialist Name Role Phone PRICILA MACHADO, SAEID STOKES Unavailable [phone] Reason for Visit and Chief Complaint The Chief Complaint is: follow up for depression, anxiety, insomnia, bipolar Problems Includes: Problems addressed during this encounter and other active Problems Current Visit Onset Date Resolved Date Provider Conditio n Status Attention-deficit Hyperactivity Disorder 06/17/2023 SAEID ARELLANO MD Active Last Documented On 3 6:56PM ; [facility] Bipolar I Disorder, Most Rec ent Episode, Depressed 06/17/2023 SAEID MENA MD Active Last Documented On 3 6:48PM ; [facility] Generalized Anxiety Disorder 06/17/2023 SAEID MENA MD Active Last Documented On 3 5:06PM ; [facility] Psychophysiological Insomnia 06/17/2023 SAEID MENA MD Active Last Documented On 3 5:06PM ; [facility] Panic Disorder 06/17/2023 SAEID Torres Active Last Documented On 3 6:47PM ; [facility] Past Visits Onset Date Resolved Date Provider Condition Status Tardive Dyskinesia Drug-induced 10/21/2023 SAEID MENA MD Active Last Documented On 4 2:57AM ; [facility] Bipolar I Disorder 06/17/2023 SAEID ARELLANO MD Active Last Documented On 3 5:06PM ; [facility] Plan of Treatment Bipolar disorder - Lybalvi 5 - 10 mg 1 tab at bedtime - no motor side effects reported Bipolar eran -- Seroquel 25 mg 1 tab 3 x a day - no TB noted/reported Bipolar depression - Lamictal 200 mg 1 [...] other relaxation techniques - Last Documented On 11/04/2023 3:26AM ; [facility] Pending Tests Order Diagnosis Results Due Ordering P obinnader Lab Comp Metabolic Panel 11/11/23 DILAN MENA MD Last Documented On 4 3:25AM ; [facility] Lab Lipid Panel 11/11/23 SAEID BAXTER MD Last Documented On 4 3:25AM ; [facility] Lab Vitamin B12/Folic Acid 11/11/23 ME HAKEEM MENA MD Last Documented On 4 3:25AM ; [facility] Lab Vitamin D 11/11/23 SAEID AMAYA MD Last Documented On 4 3:25AM ; [facility] Lab T S H 11/11/23 SAEID AMAYA MD Last Documented On 4 3:25AM ; [facility] Education and Decision Aids were provided during visit for: Patient counseling I discuss ed risk, benefits, and side effects of sleep aid - Zolpidem ER - including the possibility of sleep related behaviors i.e. sleepwalking, sleeptalking, sleepdriving, etc... Pt verbalized understanding Last Documented On 4 3:42PM ; [facility] Discussed good sleep hygiene habits Last Documented On 4 2:50AM ; [facility] Calming techniques such as b reathing exercises/meditation and other relaxation techniques Last Documented On 4 2:50AM ; [facility] Assessments Includes: Assessments from this encounter Findings - Attention-deficit hyperactivity disorder - Last Documented On 11/04/2023 3:26AM ; [facility] - Bipolar I disorder, most recent episode, depressed - Last Documented On 11/04/2023 3:26AM ; [facility] - Psychophysiological insomnia - Last Documented On 11/04/2023 3:26AM ; [facility] - Generalized anxiety disorder - Last Documented On 11/04/2023 3:26AM ; [facility] - Panic disorder - Last Documented On 11/04/2023 3:26AM ; [facility] Instructions Includes: Instructions from this encounter Education and Decision Aids were provided during visit for: Patient counseling I discuss ed risk, benefits, and side effects of sleep aid - Zolpidem ER - including the possibility of sleep related behaviors i.e. sleepwalking, sleeptalking, sleepdriving, etc... Pt verbalized understanding Last Documented On 4 3:42PM ; [facility] Discussed good sleep hygiene habits Last Documented On 4 2:50AM ; [facility] Calming techniques such as b reathing exercises/meditation and other relaxation techniques Last Documented On 4 2:50AM ; [facility] Medical Equipment - Implanted Devices Includes: Current Devices No Medical Equipment Recorded Medications Includes: Medications discussed during this encounter and other current Medications Discontinued / Stopped on this date on 04/04/2023 cloNIDine HCl 0.2 MG Oral Tablet Provider : Diagnosis: Last Documented On 10/17/2023 3:23PM By EDY SIDDIQUI ; [facility] New / Renewed during this visit SAEID MENA MD on 10/17/2023 Varenicline Tartrate (Starter) 0.5 MG X 11 & 1 MG X 42 Oral Tablet Therapy Pack Provider: SAEID MENA MD 30 day supply: 30 tablet, 1 refills Diagnosis: Nicotine dependence, cigarettes, uncomplicated One tablet daily Pharmacy: [facility] [place] - [address] , [place], [address] - Last Documented On 10/17/2023 4:06PM By Juana Mena MD ; [facility] Lybalvi 5-10 MG Oral Tablet Provider: SAEID MENA MD 30 day supply: 30 tablet, 3 refills Diagnosis: Bipolar disorder, current episode depressed, moderate One tablet at bed time Pharmacy: [facility] pharmacy [facility] [address] , [facility] [place], [address] - Last Documented On 10/17/2023 4:22PM By Juana Mena MD ; [facility] busPIRone HCl 15 MG Oral Tablet Provider: SAEID MENA MD 30 day supply: 90 tablet, 5 refills Diagnosis: Generalized anxiety disorder One tablet three times a day Pharmacy: [facility] pharmacy [facility] [address] , [facility], [id number] - Last Documented On 10/17/2023 4:06PM By Juana Mena MD ; [facility] Current Medications (continue as prescribed) traZODone HCl 50 MG Oral Tablet 12/24/2023 Provider: SAEID MENA MD Diagnosis: Psychophysiologi c insomnia as directed - 2 tabs at bedt dia as needed for sleep Last Documented On 12/24/2023 3:35PM By Juana Mena MD ; [facility] Ingrezza 40 MG Oral Capsule 12/10/2023 Provider: ROMAN SHELBY MD Diagnosis: 1 daily Last Documented On 12/24/2023 3:03PM By EDY SIDDIQUI ; [facility] lamoTRIgine 200 MG Oral Tablet 10/31/2023 Provider: SAEID MENA MD Diagnosis: Bipolar disorder , current episode depressed, moderate Take 1 tablet by mouth twice daily Last Documented On 10/31/2023 10:09AM By Juana Mena MD ; [facility] Lisinopril 40 MG Oral Tablet 08/23/2023 Provider: JANNETTE CATALAN MD Diagnosis: 1 tab daily Last Documented On 09/13/2023 10:14AM By EDY SIDDIQUI ; [facility] Lybalvi 5-10 MG Oral Tablet 07/25/2023 Provider: SAEID MENA MD Diagnosis: Bipolar disorder , current episode depressed, moderate One tablet at bed time Last Documented On 07/25/2023 6:17PM By Juana Mena MD ; [facility] KlonoPIN 0.5 MG Oral Tablet 07/25/2023 Provider: SAEID MENA MD Diagnosis: Panic disorder [ episodic paroxysmal anxiety] as directed - 1 tab a day as needed for panic attacks Last Documented On 07/25/2023 5:23PM By Juana Mena MD ; [facility] Focalin 10 MG Oral Tablet 07/25/2023 Provider: SAEID MENA MD Diagnosis: Attn-defct hyper activity disorder, predom inattentive type as directed - 1 tab in am an d 1 tab at noon Last Documented On 07/25/2023 6:25PM By Juana Mena MD ; [facility] Buffered Vitamin C 1000 MG Oral Capsule 06/17/2023 P obinnader: Diagnosis: 1 daily Last Documented On 06/17/2023 5:10PM By EDY SIDDIQUI ; [facility] Chelated Zinc 50 MG Oral Tablet 06/17/2023 Provider: Diagnosis: 1 tab daily Last Documented On 06/17/2023 5:11PM By EDY SIDDIQUI ; [facility] ZyrTEC Allergy 10 MG Oral Tablet 06/17/2023 Provider : Diagnosis: 1 tab daily Last Documented On 06/17/2023 5:13PM By EDY SIDDIQUI ; [facility] Vitamin D3 25 MCG (1000 UT) Oral Tablet Chewable 1 08/17/2022 Provider: Diagnosis: 2 tabs daily Last Documented On 06/17/2023 5:12PM By EDY SIDDIQUI ; [facility] B Complex (Folic Acid) Oral Tablet 06/17/2023 Provid er: Diagnosis: 1 tab daily Last Documented On 06/17/2023 5:12PM By EDY SIDDIQUI ; [facility] Levothyroxine Sodium 150 MCG Oral Tablet 06/11/2023 Provider: JANNETTE CATALAN MD Diagnosis: 1 tab daily Last Documented On 06/17/2023 5:07PM By EDY SIDDIQUI ; [facility] Lipitor 20MG Oral Tablet 03/05/2017 Provider: Diagnosis: Last Documented On 2:05PM By MODESTA SIDDIQUI ; [facility] TraMADol HCl 50MG Oral Tablet 03/05/2017 Provider: Diagnosis: Last Documented On 2:05PM By MODESTA SIDDIQUI ; [facility] Suspended Medications Zolpidem Tartrate ER 12.5 MG Oral Tablet Extended Release 09/20/2023 Provider: SAEID MENA MD Diagnosis: Psychophysiologi c insomnia TAKE 1 TABLET BY MOUTH DI RECTED AT BEDTIME NEEDED FOR SLEEP Last Documented On 09/20/2023 8:09AM By Juana Mena MD ; [facility] Medications Administered Includes: Administered Medications from this encounter No Administered Medications Recorded Vital Signs Includes: Vital Signs from this encounter Vital Name 10/17/2023 03:33P Blood Pressure Sitting L 150/92 BP Cuff Size Regular Pulse Rate-Sitting (bpm) 80 Pulse Rhythm Regular Height (in) 69 Weight (lb) 230 Body Mass Index 34 Body Surface Area 2.2 Last Documented: On 10/17/2023 3:34PM ; [facility] Results Includes: Results discussed during this encounter No Results Recorded For Specified Dates History of Present Illness Includes: History of Present Illness from this encounter MICHELL BALBUENA is a 53 year old female. - Allergy list reviewed - Past medical history reviewed - Medication list reviewed Pt reported that she is doing much better. Pt has not been feeling depressed. Pt has not been as anxious. Pt denied having any mood swings. Pt has been less irritable. Pt has been motivated in general in doing daily tasks. Sleep has been good. Pt has not been napping/sleeping too much during the daytime. Pt occ gets tired. Appetite is good. Pt has not been feeling as bad about self. Pt is able to focus and concentrate for the most part. Pt denied having any psychomotor restlessness. Pt denied suicidal thoughts. Pt denied having any delusions/hallucinations. The combination of Lamictal, Quetiapine and Lybalvi seemed to be helping with her mood. Buspar is helping with her anxiety. Sleep is better with Zolpidem and Trazodone. She occ has aches and pains and was given Tramadol prn. So far no panic attacks reported. The low dose Quetiapine helps calm her down. I discussed use of Varenicline to help her quit smoking. MENTAL STATUS EXAM: Sensorium - alert, oriented to name, place, and time Attitude - cooperative Gait - ambulatory Sleep - good - no sleep related behaviors with Zolpidem ER Interest/Energy/Motivation - good, occ tired Guilt/Worthlessness - absent Concentration/Attention Span - able to focus and concentrate Memory Recall - fairly good Appetite - good - on 09/13/23 pt weighed 229 lbs and on 10/17/23 she weighed 230 lbs so she gained 1 lb Suicidal Thoughts - absent Homicidal Thoughts - absent Delusions - absent Hallucinations - absent Appearance - casually groomed Motor Behavior - calm Eye Contact - intermittent Speech - fluent Mood - not depressed, less irritable Affect - not as anxious Thought Process - coherent Insight and Judgment - intact Social History Description Last Updated Current smoker - 1/2 - 1 pack of cigaret pj a day for 36 years 10/17/2023 Last Documented On 4 3:26AM ; [facility] Caffeine use: 64 oz of soda a day, an occasional glass of tea daily and does not drink coffeeAlcohol use: noneIllicit drug use: noneWork history: currently works at [employer] in [place] since 2018; she works from 7:30 am to 1:30 pm but just works part-time, 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 Both parents are living. She has [...] no past or pending legal history. Her christian background is Religion. 10/17/2023 Last Documented On 4 3:16PM ; [facility] Smoking Status Unknown Procedures and Surgical History Includes: Procedures from this encounter Procedures Code Diagnosis Performing Provider Service L ocation Service Date patient counseling I discussed risk, benefits, and side effects of sleep aid - Zolpidem ER - including the possibility of sleep related behaviors i.e. sleepwalking, sleeptalking, sleepdriving, etc... Pt verbalized understanding Last Documented On 4 3:42PM ; [facility] education and instructions Last Documented On 4 3:16PM ; [facility] supportive care and encourag ement--given positive reinforcement to keep patient motivated and active Last Documented On 4 3:42PM ; [facility] I discussed the risks, benef its and side effects of Lybalvi and Quetiapine to the patient including the possibility of metabolic and motor side effects such as tardive dyskinesia Last Documented On 4 3:33PM ; [facility] ~* Call [phone] and /or go t o the nearest emergency room or call me if suicidal/homicidal ideation or other serious concerns arise. ~ ~* I gave instructions to call me should there be any questions or concerns. ~ ~* Patient voiced understanding and agreed to treatment plan Last Documented On 4 3:33PM ; [facility] dangerousness assessment: no suicide risk 3085F Last Documented On 4 3:16PM ; [facility] use of tobacco assessment performed 1000F Last Documented On 4 3:16PM ; [facility] patient screened for future fall risk: documentation of any fall with injury in past year - no recent falls 1100F Last Documented On 4 3:16PM ; [facility] review of medications documented 1160F Last Documented On 4 3:16PM ; [facility] assessment of suicide risk performed - n ot suicidal Last Documented On 4 3:35PM ; [facility] screening for adult depressi on: impression and score - please see above for treatment and PHQ score Last Documented On 4 3:16PM ; [facility] standardized depression screening: posit pedro pablo for symptoms Last Documented On 4 3:16PM ; [facility] encouragement to exercise - balanced carin l plan, low fat low carb diet Last Documented On 4 3:33PM ; [facility] Counseling for smoking cessation provided G0436 Last Documented On 4 3:42PM ; [facility] Clinical summary provided to patient Last Documented On 4 3:16PM ; [facility] PHQ-9: total score 1 Last Documented On 4 2:50AM ; [facility] Medical History Includes: Medical History addressed during [...] Covid 19 if she ever gets it. 10/17/2023 Last Documented On 4 3:16PM ; [facility] Family History Includes: Family History addressed during this encounter Description Last Updated Maternal grandfather -- bipo lar and alcohol abuseMaternal aunt -- alcohol abuse 10/17/2023 Last Documented On 4 3:16PM ; [facility] Review of Systems Includes: Review of Systems from this encounter Systemic: Not feeling poorly (malaise). No fever, no chills, and no night sweats. Head: No headache and no sinus [...] No polydipsia and no excessive sweating. Musculoskeletal: Muscle aches, pain localized to one or more joints, and joint stiffness localized to one or more joints. Neurological: No dizziness, no vertigo, no fainting, [...] Active Last Documented On 4 2:46PM ; [facility] Encounters Encounter Provider Location Date Check-In Time Check-Out Time Diagnosis PSYCH ADULT FOLLOW UP SAEID MENA MD [facility] 10/17/19 24 2:58PM 4:30PM Attention-defici t Hyperactivity Disorder,Bipolar I Disorder, Most Recent Episode, Depressed,Genera lized Anxiety Disorder,Psychop hysiological Insomnia,Panic Disorder Insurance Includes: Active Insurance Policies Plan Name Member ID Group # Subscriber Relationship Effect pedro pablo Dates 1 - [facility] [id number] VERONIQUE BALBUENA Clinical Notes Includes: Clinical Notes from this encounter * Progress note Date Encounter Last Documented by 10/17/2023 PSYCH ADULT FOLLOW UP Last docum ented on 11/04/2023; 3:26 AM, SAEID MENA MD; [facility] Top of Document Medication psychotherapy 45 minutes Active Problems & Conditions - Attention-deficit [...] reviewed - Medication list reviewed Pt reported that she is doing much better. Pt has not been feeling depressed. Pt has not been as anxious. Pt denied having any mood swings. Pt has been less irritable. Pt has been motivated in general in doing daily tasks. Sleep has been good. Pt has not been napping/sleeping too much during the daytime. Pt occ gets tired. Appetite is good. Pt has not been feeling as bad about self. Pt is able to focus and concentrate for the most part. Pt denied having any psychomotor restlessness. Pt denied suicidal thoughts. Pt denied having any delusions/hallucinations. The combination of Lamictal, Quetiapine and Lybalvi seemed to be helping with her mood. Buspar is helping with her anxiety. Sleep is better with Zolpidem and Trazodone. She occ has aches and pains and was given Tramadol prn. So far no panic attacks reported. The low dose Quetiapine helps calm her down. I discussed use of Varenicline to help her quit smoking. MENTAL STATUS EXAM: Sensorium - alert, oriented to name, place, and time Attitude - cooperative Gait - ambulatory Sleep - good - no sleep related behaviors with Zolpidem ER Interest/Energy/Motivation - good, occ tired Guilt/Worthlessness - absent Concentration/Attention Span - able to focus and concentrate Memory Recall - fairly good Appetite - good - on 09/13/23 pt weighed 229 lbs and on 10/17/23 she weighed 230 lbs so she gained 1 lb Suicidal Thoughts - absent Homicidal Thoughts - absent Delusions - absent Hallucinations - absent Appearance - casually groomed Motor Behavior - calm Eye Contact - intermittent Speech - fluent Mood - not depressed, less irritable Affect - not as anxious Thought Process [...] FOR SLEEP, 30 days, 3 refills - ZyrTEC Allergy 10 MG Oral [...] pack of cigarettes a day for 36 years. 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 Both parents are living. She has [...] no past or pending legal history. Her christian background is Religion. Allergies - Penicillins Family History Maternal grandfather -- bipolar and alcohol abuse Maternal aunt -- alcohol abuse Review Of Systems Systemic: Not feeling poorly (malaise). No fever, no chills, and no night sweats. Head: No headache and no sinus [...] No polydipsia and no excessive sweating. Musculoskeletal: Muscle aches, pain localized to one or more joints, and joint stiffness localized to one or more joints. Neurological: No dizziness, no vertigo, no fainting, and no motor disturbances. Skin: No pruritus. No skin lesions and no rash. Physical Findings - Vitals taken 10/17/2023 03:33 pm BP-Sitting L 150/92 mmHg BP Cuff Size Regular Pulse Rate-Sitting 80 bpm Pulse Rhythm Regular Height 69 in Weight 230 lbs Body Mass Index 34 kg/m2 Body Surface Area 2.2 m2 Tests Educational Testing: Questionnaires PHQ-9: Value PHQ-9: total score 1 Assessment - Attention-deficit hyperactivity disorder - Bipolar [...] effects such as tardive dyskinesia. * Call [phone] and /or go to the nearest emergency room or call me if suicidal/homicidal ideation or other serious concerns arise. * I gave instructions to call me should there be any questions or concerns. * Patient voiced understanding and agreed to treatment plan. Counseling/Education - Discussed good sleep hygiene habits - Calming techniques such as breathing exercises/meditation and other relaxation techniques Plan StartCited - Bipolar disorder, current episode depressed, moderate Lab: Comp Metabolic Panel Lab: Lipid Panel Lab: Vitamin B12/Folic Acid Lab: Vitamin D Lab: T S H - FTI T3 TOTAL AND FREE T4 TOATL AND FREE TBG TSH Lybalvi 5-10 MG tablet One tablet at bed time, 30 days, 3 refills EndCited StartCited - Generalized anxiety disorder busPIRone HCl 15 MG tablet One tablet three times a day, 30 days, 5 refills EndCited StartCited - Nicotine dependence, cigarettes, uncomplicated Varenicline Tartrate (Starter) 0.5 MG X 11 & 1 MG X 42 tablet One tablet daily, 30 days, 1 refills EndCited StartCited - Other Follow-up 12/24/23 EndCited Bipolar disorder - Lybalvi 5 - 10 mg 1 tab at bedtime - no motor side effects reported Bipolar eran -- Seroquel 25 mg 1 tab 3 x a day - no TB noted/reported Bipolar depression - Lamictal 200 mg 1 [...]
--- OUTSIDE RECORDS SUMMARY | 2025-06-21 15:25 | XMS_ITS | Encounter Summary ---
Author Organization [facility] Address [address] [place] [address] Phone Care Team Providers Care Basket Turner Name Role Phone Garrison Laboy MD Primary Care Provider [phone] Nguyen Shepard APRN, CNP Unavailable [phone] Fei Stevens MD Unavailable [phone] Kellen Mena MD Unavailable [phone] Darian Caal MD Unavailable [phone] Jose Swanson MD Unavailable Crystal Rodgers APRN Primary Care Provider [phone] Reason for Visit * Reason Comments Medication Refill Encounter Details Date Type Department Care Team (Late st Contact Info) Description 01/26/2023 Refill [facility] - Primary Care - [place] [address] [place] [phone] Garrison Laboy MD [address] [place] [address] Medication Refill Social History Tobacco [...] Dept 03/01/22 Office Visit Garrison Laboy MD [facility] Showing recent visits within past 365 days and meeting all other requirements Future Appointments Date Type Provider Dept 03/08/23 Appointment Garrison Laboy MD [facility] Showing future appointments within next 90 days and meeting all other requirements Passed - No active on record documented in this encounter Plan of Treatment Upcoming Encounters Date Type Department Care Team (Late st Contact Info) Description 10/11/2025 2:20 PM CDT [facility] [place] - Cancer Center Oncology Services [address] [place] [address] Lissa Zazueta Yue, PAC [address] [place] [address] Discharge Disposition: Discharged to home or Selfcare 10/12/2025 2:30 PM CDT [facility] [address] [place] [phone] Darian Caal MD [address] [place] [phone] 10/18/2025 2:20 PM CDT Office Visit [facility] - Cancer Center Oncology Services [address] [place] [phone] Lissa Zazueta [facility] [address] [place] [address] Discharge Disposition: Discharged to home or Selfcare documented as of this encounter Visit Diagnoses Diagnosis Hypothyroidism due to acquired atrophy of thyroid documented in this encounter Care Teams Basket Turner Relationship Specialty Start Date End Date Garrison Laboy MD [address] [place] [address] PCP - General Internal Medicine 05/30/15 03/24/25 Crystal Rodgers APRN [address] [place] [id number] PCP - General Advanced Practice Nurse 03/25/25 Nguyen Shepard APRN, ROOFING APPRENTICE [address] [place] [address] Consulting Physician Psychiatry 03/04/19 08/22/23 Fei Stevens MD [address] [place] [phone] Consulting Physician Obstetrics & Gynecology 04/12/20 Kellen Mena MD [address] [place] [address] Consulting Physician Psychiatry 08/23/23 Darian Caal MD [address] [place] [phone] Consulting Physician Neurology 11/15/23 Jose Swanson MD [address] [address] Consulting Physician Colon and Rectal Surgery 04/27/24 documented as of this encounter
--- OUTSIDE RECORDS SUMMARY | 2025-06-21 15:25 | XMS_ITS ---
Care Plan - [facility] Created on: June 21, 2025 BALBUENACORBY : 1970 Sex: Female Author Organization [facility] Address [address] [place] [address] Phone Care Team Providers Care Chief Executive Name Role Phone PRICILA MACHADO, SAEID STOKES Unavailable [phone]
--- OUTSIDE RECORDS SUMMARY | 2025-06-21 15:25 | XMS_ITS | Clinical Summary ---
Author Organization [facility] Address [address] [facility], [address] [address] Phone Care Team Providers Care Portuguese Tutor Name Role Phone Fei Stevens MD Unavailable [phone] Kellen Mena MD Unavailable [phone] Darian Caal MD Unavailable [phone] Jose Swanson MD Unavailable Crystal Rodgers APRN Primary Care Provider [phone] Allergies Active Allergy Reactions Criticality Noted Date [...] daily 90 Tablet 3 03/20/20 24 Active levothyroxine (SYNTHROID) 200 MCG TabletIndications: Hypothyroidism due to acquired atrophy of thyroid Take 1 Tablet by mouth daily. 90 Tablet 11/24/19 25 Active lisinopril (PRINIVIL, ZESTRIL) 40 MG TabletIndications: Hypertension, essential Take 1 tablet by mouth once daily 90 Tablet 03/11/20 25 Active Multiple Vitamins-Minerals (CENTRUM SILVER PO) Take by mouth. Active omeprazole (PriLOSEC) 10 MG CAPSULE DELAYED RELEASE Take 10 mg by mouth daily. Active Ingrezza 80 MG Capsule TAKE 1 CAPSULE BY MOUTH 1 TIME A DAY 30 Capsule 3 06/14/20 25 Active Ingrezza 80 MG Capsule TAKE 1 CAPSULE BY MOUTH 1 TIME A DAY 30 Capsule 3 02/17/20 25 025 Discontinued Active Problems Problem Noted [...] Encounters Date Type Department Care Team Description 06/14/2025 Refill [facility] [address] [place] [address] Darian Caal MD Medication Refill 04/20/2025 2:20 PM CDT Office Visit [facility] [address] [place] [phone] Lissa Zazueta December, PAC Thrombocytopenia (HCC) (Primary Dx); Hepatosplenomegaly; Metabolic dysfunction-associated steatohepatitis (MASH); Cirrhosis of liver without ascites, unspecified hepatic cirrhosis type (HCC) Discharge Disposition: Discharged to home or Selfcare 04/20/2025 Travel 04/19/2025 2:45 PM CDT Office Visit [facility] [address] [place] [address] Darian Caal MD Tardive dyskinesia (Primary Dx); Dizziness Discharge Disposition: Discharged to home or Selfcare 04/19/2025 Travel 04/06/2025 3:00 PM CDT Lab [facility] [address] [place] [phone] Lissa Zazueta December, PAC Thrombocytopenia (HCC); Cirrhosis of liver without ascites, unspecified hepatic cirrhosis type (HCC); Hepatosplenomegaly Discharge Disposition: Discharged to home or Selfcare 04/06/2025 2:20 PM CDT Initial Consult [facility] [address] [place] [address] Lissa Zazueta December, Thrombocytopenia (HCC) (Primary Dx); Cirrhosis of liver without ascites, unspecified hepatic cirrhosis type (HCC); Metabolic dysfunction-associated steatohepatitis (MASH); Hepatosplenomegaly Discharge Disposition: Discharged to home or Selfcare 04/06/2025 Travel 04/04/2025 Travel from Last 3 Months Immunizations Immunization Administration Dates Next Due PUR TDAP 7+ YRS IM 01/24/2016 Pneumococcal Vaccine Adult - 23 Valent 9 Pneumococcal conjugate PCV20 , polysaccharide TGY236 conjugate, adjuvant, PF 03/01/2022 Zoster Vaccine Recombinant [...] 1 39.4 Started: 01/23/1986 Smokeless Tobacco: Never Tobacco Cessation:Ready to Q uit: Not Asked; Counseling Given: Not Answered Alcohol Use Standard Drinks/Week Comments No 0 (1 standard drink = 0.6 oz pur e alcohol) [facility] Utilities Answer Date Recorded In the past 12 months has [employer] (formerly known [employer]), oil, or water [employer] threatened to shut off services in your home? No 03/12/2024 Social Connection and Isolation Panel Answer Date Recorded In a typical week, how many times do you talk on the phone with family, friends, or neighbors? Twice a week 03/12/2024 How often do you get together with friends or re latives? Once a week 03/12/2024 How often do you attend restorationist or religion serv ices? Never 03/12/2024 Do you belong to any clubs o r organizations such as restorationist groups, unions, fraternal or athletic groups, or [...] and heating? Not hard at all 03/12/2024 [facility] - Occupational [...] place to sleep or slept in a mcc (including now)? No 08/22/2023 Housing Stability Vital Sign Answer Merrick e Recorded In the last 12 months, was t here a time when you were not able to pay the mortgage or rent on time? No 03/12/2024 In the past 12 months, how m any times have you moved where you were living? 0 03/12/2024 At any time in the past 12 m [facility], were you homeless or living in a mcc (including now)? No 03/12/2024 Education Answer Date [...] Info) Description 10/11/2025 2:20 PM CDT [facility] [address] [place] [address] Lissa Zazueta Yue, PAC [address] [place] [address] Discharge Disposition: Discharged to home or Selfcare 10/12/2025 2:30 PM CDT [facility] [address] [place] [address] Darian Caal MD [address] [place] [address] 10/18/2025 2:20 PM CDT Office Visit [facility] [address] [place] [phone] Lissa Zazueta Yue, [facility] [address] [place] [address] Discharge Disposition: Discharged to home or Selfcare Health Maintenance Due Date Last Done Comments Hepatitis B Immunization (1 of 3 - 19+ 3-dose series) 1991 Pap Smear 1993 Cologuard 2017 Immunochemical Fecal Occult Blood 2017 Lung Cancer Screening 2022 06/27/2021 , 11/11/2015 Respiratory Syncytial Virus (RSV) Immunization (Adult) (1 - Risk 50-74 years 1-dose series) 2022 Influenza Immunization (#1) 2025 SARS-COV-2 Immunization ( - season) 2025 Colonoscopy 06/04/2025 06/04/2024, 06/04/2024, 06/04/2024 Colorectal Cancer Screening 06/04/2025 Td Immunization Every 10 Yea rs (Adults With 1 Tdap) 01/23/2026 01/24/2016 Mammogram 03/05/2026 03/05/2025, 01/15/2025 Cervical Cancer Screening (CCS) 11/15/2027 HPV/Cotest 11/15/2027 11/14/2022 Hepatitis C Virus (HCV) Screening Completed 03/06/2024 [...] ascites, unspecified hepatic cirrhosis type (HCC) Hepatosplenomegaly SONIA DIAG BILATERAL DIGITAL W CAD W CEE Routine 03/05/2025 8:38 AM CDT Abnormal mammogram GI IMAGING - COLONOSCOPY Routine 06/04/2024 10:01 AM INSURANCE SALES REPRESENTATIVE HEPATITIS C ANTIBODY Routine 03/06/2024 7:59 AM CDT Encounter for hepatitis C screening test for low risk patient CT CHEST W CONTRAST STAT 11/11/2015 9 :34 AM CDT from Last 3 Months or Most Recently Relevant to Health Maintenance Results * IRON,TRANSFERN,CALC.TIBC,%SAT (04/06/2025 3:09 PM CDT) IRON 87 25 - 156 mcg/dL 04/06/2025 4:07 PM CDT [facility] TRANSFERRIN 314 180 - 382 mg/dL 04/06/2025 4:07 PM CDT [facility] TIBC, CALCULATED 393 265 - 497 mcg/dL 04/06/2025 4:07 PM CDT [facility] % SATURATION * 22 15 - 62 % 04/06/2025 4:07 PM CDT [facility] Blood Venipuncture / Unknown 04/06/2025 3:09 PM CDT 04/06/2025 3:09 PM CDT Lissa Zazueta PAC CHEMISTRY ORDERABLES Evon l Result [facility] [address] [place] [address] * (ABNORMAL) CBC WITH AUTO DIFFERENTIAL (04/06/2025 3:09 PM CDT) Pathologist [facility] WBC 6.46 4.00 - 12.00 10(3)/mcL 04/06/2025 3:49 PM CDT [facility] RBC 5.10 3.80 - 5.30 10(6)/mcL 04/06/2025 3:49 PM CDT [facility] HEMOGLOBIN (HGB) 14.8 12.0 - 15.8 g/dL 04/06/2025 3:49 PM CDT [facility] HEMATOCRIT (HCT) 43.2 36.0 - 47.0 % 04/06/2025 3:49 PM CDT [facility] MCV 84.7 82.0 - 96.0 fL 04/06/2025 3:49 PM CDT [facility] MCH 29.0 26.0 - 34.0 pg 04/06/2025 3:49 PM CDT [facility] MCHC 34.3 31.0 - 36.0 g/dL 04/06/2025 3:49 PM CDT [facility] PLATELET COUNT 125(L) 140 - 440 10(3)/[facility] 04/06/2025 3:49 PM CDT [facility] RDW 13.3 11.8 - 15.5 % 04/06/2025 3:49 PM CDT [facility] MPV 12.7(H) 9.7 - 12.4 fL 04/06/2025 3:49 PM CDT [facility] NEUTROPHILS 59.8 47.0 - 73.0 % 04/06/2025 3:49 PM CDT [facility] LYMPHOCYTES 30.8 18.0 - 42.0 % 04/06/2025 3:49 PM CDT [facility] MONOCYTES 6.5 4.0 - 12.0 % 04/06/2025 3:49 PM CDT [facility] EOSINOPHILS 1.5 0.0 - 5.0 % 04/06/2025 3:49 PM CDT [facility] BASOPHILS 1.1(H) 0.0 - 1.0 % 04/06/2025 3:49 PM CDT [facility] ABSOLUTE NEUTROPHILS 3.86 1.60 - 7.70 10(3)/[facility] 04/06/2025 3:49 PM CDT [facility] ABSOLUTE LYMPHOCYTES 1.99 1.30 - 3.20 10(3)/[facility] 04/06/2025 3:49 PM CDT [facility] ABSOLUTE MONOCYTES 0.42 0.20 - 1.00 10(3)/[facility] 04/06/2025 3:49 PM CDT [facility] ABSOLUTE EOSINOPHIL 0.10 0.00 - 0.40 10(3)/[facility] 04/06/2025 3:49 PM CDT [facility] ABSOLUTE BASOPHILS 0.07 0.00 - 0.10 10(3)/[facility] 04/06/2025 3:49 PM CDT [facility] NRBC PER 100 WBC 0 04/06/20 3:49 PM CDT [facility] Blood Venipuncture / Unknown 04/06/2025 3:09 PM CDT 04/06/2025 3:09 PM CDT us Lissa Zazueta PAC HEMATOLOGY ORDERABLES Fin al Result [facility] [address] [place] [address] * PERIPHERAL BLOOD, FLOW CYTOMETRY (04/06/2025 3:09 PM CDT) FINAL DIAGNOSIS Peripheral blood, flow cytometric analysis: - No abnormal lymphoid or progenitor cell population is detected. 5 5:30 PM CDT [facility] at 1729 CDT Clinical Information Thrombocytopenia 5 5:30 PM CDT [facility] Specimen Source Received in an EDTA anticoagulated tube is 3 mL peripheral blood. 5 5:30 PM CDT [facility] Microscopic Description Peripheral blood smear review shows a heterogeneous WBC population. Specimen processed and evaluated at [facility], [place], [place]. This document was completed utilizing speech [...] provider for clarification. 5 5:30 PM CDT [facility] Immunophenotypic Findings Flow cytometric analysis shows a heterogeneous cellular population. Blasts are not increased. Immunophenotypically unremarkable T-cells (CD4:CD8 = 1.2) and polyclonal B-cells are present. CELL POPULATIONS: 44% granulocytes, 6% monocytes, 17% T-cells, 9% B-cells, <1% blasts. 5 5:30 PM CDT [facility] Phenotyping Markers Utilized Flow markers performed (23): CD2, CD3, CD4, CD5, CD7, CD8, CD10, CD13, CD15, CD19, CD20, CD33, CD34, CD38, CD45, CD56, CD117, CD123, CD200, kappa, lambda, HLA-DR, TCR gamma/delta This test was developed and its performance characteristics determined by [facility]. It has not been cleared or approved by the U.S. Food and Drug Administration. 5:30 PM CDT [facility] Case Report Flow Cytometry Repor t Case: [id number] Authorizing Provider: Lissa Zazueta PAC Collected: 04/06/2025 03:09 PM Ordering Location: [facility] Received: 04/06/2025 03:09 PM [facility] Pathologist: Donovan Balbuena MD Specimen: Blood, blood 5:30 PM CDT [facility] Blood BLOOD SPECIMEN / Unknown Venipuncture / Unknown 04/06/2025 3:09 PM CDT 04/06/2025 3:[address] [facility] PATHOLOGY/CYTOLOGY ORDERA BLES Final Result Performing Organization Address City/[facility] Co de Phone Number [facility] [address] [place] [address], * (ABNORMAL) FREE KAPPA & LAMBDA LIGHT CHAINS SERUM (04/06/2025 3:09 PM CDT) Free [place] Lt Chn 24.31(H) 3.30 - 19.40 mg/L 04/07/2025 8:38 AM CDT [facility] Free Lambda Lt Chn 20.05 5.71 - 26.30 mg/L 04/07/2025 8:38 AM CDT [facility] free librado bernard ratio 1.21 0.26 - 1.65 04/07/2025 8:38 AM CDT [facility] Blood Venipuncture / Unknown 04/06/2025 3:09 PM CDT 04/06/2025 3:[address] [facility] CHEMISTRY ORDERABLES Evon l Result [facility] [address] [place] [address], [place] * (ABNORMAL) VITAMIN B12 (04/06/2025 3:09 PM CDT) VITAMIN B12 1,172(H) 213 - 816 pg/mL 04/06/2025 4:39 PM CDT [facility] Blood Venipuncture / Unknown 04/06/2025 3:09 PM CDT 04/06/2025 3:09 PM CDT [facility] CHEMISTRY ORDERABLES Evon l Result Performing Organization Address [facility] Co de Phone Number [facility] [address] [place] [address] * (ABNORMAL) ERYTHROCYTE SEDIMENTATION RATE (ESR) (04/06/2025 3:09 PM CDT) Pathologist [facility] ESR (SED RATE, ERYTHROCYTE SEDIMENTATION RATE) 30(H) <30 mm/h 04/06/2025 4:14 PM CDT [facility] Comment: Patients presenting with increased level of fibrinogen, gamma globulins, or abnormally shaped RBCs could affect the results for the erythrocyte sedimentation rate (ESR). Results should be clinically correlated. Blood Venipuncture / Unknown 04/06/2025 3:09 PM CDT 04/06/2025 3:09 PM CDT [facility] PAC HEMATOLOGY ORDERABLES Fin al Result Performing Organization Address City/[facility] Co de Phone Number [facility] [address] [place] [address] * RETICULOCYTE COUNT (RETIC) (04/06/2025 3:09 PM CDT) RETICULOCYTES 1.8 0.5 - 2.0 % 04/06/2025 3:49 PM CDT [facility] Blood Venipuncture / Unknown 04/06/2025 3:09 PM CDT 04/06/2025 3:09 PM CDT [facility] HEMATOLOGY ORDERABLES Fin al Result Performing Organization Address City/[facility]/ZIP Co de Phone Number [facility] [address] [place] [address] * LACTATE DEHYDROGENASE (LD) (04/06/2025 3:09 PM CDT) Pathologist [facility] LDH 184 125 - 220 U/L 04/06/2025 4:07 PM CDT [facility] Blood Venipuncture / Unknown 04/06/2025 3:09 PM CDT 04/06/2025 3:09 PM CDT [facility] CHEMISTRY ORDERABLES Evon l Result Performing Organization Address City/[facility]/ZIP Co de Phone Number [facility] [address] [place] [address] * (ABNORMAL) IMMUNOFIXATION W/ ELECTROPHORESIS SERUM (04/06/2025 3:09 PM CDT) Pathologist [facility] TOTAL PROTEIN 7.1 6.0 - 8.0 g/dL 04/09/2025 2:33 PM CDT [facility] % ALBUMIN 53.7(L) 55.8 - 66.7 % 04/09/2025 2:33 PM CDT [facility] ALBUMIN SERUM 3.8 2.5 - 5.4 g/dL 04/09/2025 2:33 PM CDT [facility] % ALPHA 1 GLOBULIN 4.1 2.9 - 4.9 % 04/09/2025 2:33 PM CDT [facility] ALPHA 1 0.3 0.2 - 0.4 g/dL 04/09/2025 2:33 PM CDT [facility] % ALPHA 2 GLOBULIN 9.9 7.1 - 11.8 % 04/09/2025 2:33 PM CDT [facility] ALPHA 2 0.7 0.5 - 1.0 g/dL 04/09/2025 2:33 PM CDT [facility] % BETA 15.6(H) 8.4 - 13.1 % 04/09/2025 2:33 PM CDT [facility] BETA-GLOBULIN 1.1 0.5 - 1.1 g/dL 04/09/2025 2:33 PM CDT [facility] % GAMMA GLOBULIN 16.7 11.1 - 18.8 % 04/09/2025 2:33 PM CDT [facility] GAMMA 1.2 0.7 - 1.5 g/dL 04/09/2025 2:33 PM CDT [facility] IMMUNOGLOBULIN G 981 552 - 1,631 mg/dL 04/09/2025 2:33 PM CDT [facility] IMMUNOGLOBULIN A 257 65 - 421 mg/dL 04/09/2025 2:33 PM CDT [facility] IMMUNOGLOBULIN M 236 33 - 293 mg/dL 04/09/2025 2:33 PM CDT [facility] INTERPRETATION SERUM No abnormal protein band is detected by serum protein electrophoresis. Serum immunofixation electrophoresis is negative for monoclonal immunoglobulins. Reviewed by Soco Norman M.D. 04/09/2025 2:33 PM CDT [facility] A/G RATIO, SERUM 1.2 04/09/20 2:33 PM CDT [facility] Blood Venipuncture / Unknown 04/06/2025 3:09 PM CDT 04/06/2025 3:09 PM CDT us Lissa Zazueta PAC CHEMISTRY ORDERABLES Evon l Result [facility] [address] [place] [address], * FOLIC ACID (FOLATE) (04/06/2025 3:09 PM CDT) FOLATE 12.2 7.0 - 31.4 ng/mL 04/06/2025 4:39 PM CDT [facility] IS THE PATIENT REQUIRED TO BE FASTING? No 04/06/2025 4:39 PM CDT [facility] Blood Venipuncture / Unknown 04/06/2025 3:09 PM CDT 04/06/2025 3:09 PM CDT [facility] PAC CHEMISTRY ORDERABLES Evon l Result Performing Organization Address City/[facility]/ZIP Co de Phone Number [facility] [address] [place] [address] * FERRITIN (04/06/2025 3:09 PM CDT) [facility] FERRITIN 116 5 - 204 ng/mL 04/06/2025 4:25 PM CDT [facility] Blood Venipuncture / Unknown 04/06/2025 3:09 PM CDT 04/06/2025 3:09 PM CDT [facility] PAC CHEMISTRY ORDERABLES Evon l Result Performing Organization Address [facility] Co de Phone Number [facility] [address] [place] [address] * (ABNORMAL) CMP (COMPREHENSIVE METABOLIC PANEL) (04/06/2025 3:09 PM CDT) Pathologist [facility] SODIUM 137 136 - 145 mmol/L 04/06/2025 4:07 PM CDT [facility] POTASSIUM 3.4(L) 3.5 - 5.1 mmol/L 04/06/2025 4:07 PM CDT [facility] CHLORIDE 101 98 - 107 mmol/L 04/06/2025 4:07 PM CDT [facility] CO2, VENOUS 26 22 - 30 mmol/L 04/06/2025 4:07 PM CDT [facility] ANION GAP 13.4 <18.0 mmol/L 04/06/2025 4:07 PM [facility] GLUCOSE 165(H) 70 - 99 mg/dL 04/06/2025 4:07 PM [facility] BUN 6(L) 10 - 20 mg/dL 04/06/2025 4:07 PM [facility] CREATININE, BLOOD 0.58(L) 0.60 - 1.00 mg/dL 04/06/2025 4:07 PM [facility] BUN/CREATININE RATIO 10(L) 12 - 20 ratio 04/06/2025 4:07 PM [facility] TOTAL PROTEIN 7.4 6.0 - 8.0 g/dL 04/06/2025 4:07 PM [facility] ALBUMIN 4.5 3.5 - 5.0 g/dL 04/06/2025 4:07 PM [facility] A/G RATIO 1.6 1.0 - 2.2 04/06/2025 4:07 PM [facility] CALCIUM 9.3 8.7 - 10.5 mg/dL 04/06/2025 4:07 PM [facility] T BILI 2.8(H) 0.2 - 1.2 mg/dL 04/06/2025 4:07 PM [facility] SGOT (AST) 68(H) <43 U/L 04/06/2025 4:07 PM [facility] SGPT (ALT) 65(H) <56 U/L 04/06/2025 4:07 PM [facility] ALKALINE PHOSPHATASE 185(H) 40 - 150 U/L 04/06/2025 4:07 PM [facility] IS THE PATIENT REQUIRED TO BE FASTING? No 04/06/2025 4:07 PM [facility] GFR, ESTIMATED >60 >=60 04/06/2025 4:07 PM [facility] Comment: Creatinine Clearance is the preferred criteria for selecting drug dose adjustments in renally impaired patients. The GFR is provided as additional pertinent clinical information. GFR is reported in mL/min/1.73 sq m. Calculation based on the 2020 Chronic Kidney Disease Epidemiology Collaboration (CKD-EPI) equation refit without adjustment for race. GFR, EST. >60 >=60 025 4:07 PM CDT [facility] Comment: Creatinine Clearance is the preferred criteria for selecting drug dose adjustments in renally impaired patients. The GFR is provided as additional pertinent clinical information. GFR is reported in mL/min/1.73 sq m. Calculation based on the 2009 Chronic Kidney Disease Epidemiology Collaboration (CKD-EPI). GFR, EST. NONAFRICAN >60 >=60 04/06/2025 4:07 PM CDT [facility] Comment: Creatinine Clearance is [...] Zazueta PAC CHEMISTRY ORDERABLES Evon l Result [facility] [address] [place] [address] * SONIA DIAG BILATERAL DIGITAL W CAD [...] Comparison is made to exam dated: 01/15/2025 [facility]. BREAST TISSUE:There are scattered areas of [...] signed by: Lynette Hodgson M.D. ll/:03/05/2025 09:29:21 Auto Mechanics Instructor(s): RT Kristopher(R)(M), [facility]; SILVIANO Zelaya, [facility] letter sent: Birad 3 Followup Reading location: [facility] OVERALL STUDY BIRADS: Category 3: Probably Benign [...] is made to exam dated: 01/15/2025 [facility]. BREAST TISSUE:There are scattered areas of [...] signed by: Lynette Hodgson M.D. ll/:03/05/2025 09:29:21 Auto Mechanics Instructor(s): Brooke Presley, RT(R)(M), [facility]; SILVIANO Zelaya, [facility] letter sent: Birad 3 Followup Reading location: [facility] OVERALL STUDY BIRADS: Category 3: Probably Benign Garrison Laboy MD IMG MAMMO ORDERABLES Evon l Result * GI IMAGING - COLONOSCOPY (06/04/2024 10:01 AM INSURANCE SALES REPRESENTATIVE) Jose Swanson MD IMG DIAGNOSTIC ORDERABLES Final Result * HEPATITIS C ANTIBODY (03/06/2024 7:59 AM CDT) hepatitis C antibody 0.19 <1 S/CO 03/06/2024 10:31 PM CDT [facility] Comment: Signal/Cutoff ratio < 0.79 is Nondetected Signal/Cutoff ratio 0.80-0.99 is Grayzone Signal/Cutoff ratio > 0.99 is Detected Supplemental assays are recommended if signal/cutoff ratio is >/=1.00. Signal/cutoff ratio result >/= 5.00 is 97% predictive of positivity for recombinant immunoblot assay (RIBA) and will be reported to the [place] Department of Public Health as required. Blood Venipuncture / Unknown 03/06/2024 7:59 AM CDT 03/06/2024 7:59 AM CDT Garrison Laboy MD CHEMISTRY ORDERABLES Evon l Result [facility] [address] [place] [address], [place] * CT CHEST W CONTRAST (11/11/2015 [...] 9:53 AM: Cris Cazares M.D. Radiologist CN:alla [facility] Procedure Note Evaristo Cleveland MD - 11/11/2015 [...] 9:53 AM: Cris Cazares M.D. Radiologist CN:alla BM IMPRESSION: 1. No pulmonary embolism. 2. Patchy [...] technique for this examination. Kenny Reyes MD [facility] CT ORDERABLES Final Result from Last 3 Months or Most Recently Relevant to Health Maintenance Insurance [facility] Advance Directives * Full Code (Latest Code Status on File) Date Activated Date Inactivated Comments 11/11/2015 1:36 PM 11/13/2015 2:10 PM CPR-Full [place] atment: FULL ARREST: Attempt Resuscitation/CPR wit intubation and mechanical ventilation. PRE-ARREST: Use entire range of life support measures to stabilize the patient. Care Teams Portuguese Tutor Relationship Specialty Start Date End Date Crystal Rodgers APRN [address] [place] [address] PCP - General Advanced Practice Nurse 03/25/25 Fei Stevens MD [address] [place] [address] Consulting Physician Obstetrics & Gynecology 04/12/20 Kellen Mena MD [address] [place] [address] Consulting Physician Psychiatry 08/23/23 Darian Caal MD [address] [place] [address] Consulting Physician Neurology 11/15/23 Jose Swanson MD #[address] [address] Consulting Physician Colon and Rectal Surgery 04/27/24
--- OUTSIDE RECORDS SUMMARY | 2025-06-21 15:25 | XMS_ITS | Encounter Summary ---
Author Organization [facility] Address [address] [place] [address] Phone Care Team Providers Care Metal Spray Operator Name Role Phone Garrison Laboy MD Primary Care Provider [phone] Nguyen Shepard APRN, CNP Unavailable [phone] Fei Stevens MD Unavailable [phone] Kellen Mena MD Unavailable [phone] Darian Caal MD Unavailable [phone] Jose Swanson MD Unavailable Crystal Rodgers APRN Primary Care Provider +- [phone] Reason for Visit * Reason Comments Medication Refill Encounter Details Date Type Department Care Team (Late st Contact Info) Description 03/21/2022 Refill [facility] - Primary Care - [place] [address] [place] [address] Garrison Laboy MD [address] [place] [address] Medication Refill Social History Tobacco [...] Info) Description 10/11/2025 2:20 PM CD[facility] [address] [place] [address] Lissa Zazueta December, PAC [address] [place] [address] Discharge Disposition: Discharged to home or Selfcare 10/12/2025 2:30 PM CDT Office Visit [facility] - Neurology [facility] #2 [place] [address] Darian Caal MD [address] [place] [address] 10/18/2025 2:20 PM CDT Office Visit [facility] Oncology Services [address] [place] [address] Lissa Zazueta December, PAC [address] [place] [address] Discharge Disposition: Discharged to home or Selfcare documented as of this encounter Visit Diagnoses Not on filedocumented in this encounter Care Teams Metal Spray Operator Relationship Specialty Start Date End Date Garrison Laboy MD [address] [place] [address] PCP - General Internal Medicine 05/30/15 03/24/25 Crystal Rodgers APRN [address] [place] [address] PCP - General Advanced Practice Nurse 03/25/25 Nguyen Shepard APRN, DISH UP PERSON [address] [place] [address] Consulting Physician Psychiatry 03/04/19 08/22/23 Fei Stevens MD [address] [place] [address] Consulting Physician Obstetrics & Gynecology 04/12/20 Kellen Mena MD [address] [place] [address] Consulting Physician Psychiatry 08/23/23 Darian Caal MD [address] [place] [address] Consulting Physician Neurology 11/15/23 Jose Swanson MD #[address] [address] Consulting Physician Colon and Rectal Surgery 04/27/24 documented as of this encounter
--- OUTSIDE RECORDS SUMMARY | 2025-06-21 15:25 | XMS_ITS | Encounter Summary ---
Author Organization [facility] Address [address] [place] [address] Phone Care Team Providers Care Senior Care Assistant Name Role Phone Garrison Laboy MD Primary Care Provider [phone] Nguyen Shepard APRN, CNP Unavailable [phone] Fei Stevens MD Unavailable [phone] Kellen Mena MD Unavailable [phone] Darian Caal MD Unavailable [phone] Jose Swanson MD Unavailable Crystal Rodgers APRN Primary Care Provider +- [phone] Reason for Visit * Reason Comments Medication Refill Encounter Details Date Type Department Care Team (Late st Contact Info) Description 08/11/2020 Refill [facility] - Primary Care - [place] [address] [place] [address] Garrison Laboy MD [address] [place] [address] Medication Refill Social History Tobacco [...] Delmy Meeks RN - 08/11/2020 2:09 PM OIL AND GAS DRAFTER Medication approved and signed per standing order protocol. AND GAS DRAFTER * Telephone Encounter - Amelia Gerber CMA - 08/11/2020 1:04 PM CST Rerouting AND GAS DRAFTER documented in this encounter Plan of Treatment Upcoming Encounters Date Type Department Care Team (Late st Contact Info) Description 10/11/2025 2:20 PM [facility] [address] [place] [address] Lissa Zazueta December, PAC [address] [place] [address] Discharge Disposition: Discharged to home or Selfcare 10/12/2025 2:30 PM CDT Office Visit [facility] #2 [place] [address] Darian Caal MD [address] [place] [address] 10/18/2025 2:20 PM CDT Office Visit [facility] Oncology Services [address] [place] [address] Lissa Zazueta December, PAC [address] [place] [address] Discharge Disposition: Discharged to home or Selfcare documented as of this encounter Visit Diagnoses Diagnosis Mixed hyperlipidemia documented in this encounter Additional Health Concerns Infection Onset Date Last Indicated Resolved Time COVID - 19 06/21/2021 06/21/2021 07/11/2021 12:1 6 AM OIL AND GAS DRAFTER COVID - 19 Confirmed 06/21/2021 06/21/2021 021 12:16 AM OIL AND GAS DRAFTER documented as of this encounter Care Teams Senior Care Assistant Relationship Specialty Start Date End Date Garrison Laboy MD [address] [place] [address] PCP - General Internal Medicine 05/30/15 03/24/25 Crystal Rodgers APRN [address] [place] [address] PCP - General Advanced Practice Nurse 03/25/25 Nguyen Shepard APRN, ARCHITECTURAL DRAFTSPERSON [address] [place] [address] Consulting Physician Psychiatry 03/04/19 08/22/23 Fei Stevens MD [address] [place] [address] Consulting Physician Obstetrics & Gynecology 04/12/20 Kellen Mena MD [address] [place] [address] Consulting Physician Psychiatry 08/23/23 Darian Caal MD [address] [place] [address] Consulting Physician Neurology 11/15/23 Jose Swanson MD #[address] [address] Consulting Physician Colon and Rectal Surgery 04/27/24 documented as of this encounter
--- OUTSIDE RECORDS SUMMARY | 2025-06-21 15:25 | XMS_ITS | Encounter Summary ---
Author Organization [facility] Address [address] [place] [address] Phone Care Team Providers Care Infection Prevention Specialist Name Role Phone Garrison Laboy MD Primary Care Provider [phone] Nguyen Shepard APRN, CNP Unavailable [phone] Fei Stevens MD Unavailable [phone] Kellen Mena MD Unavailable [phone] Darian Caal MD Unavailable [phone] Jose Swanson MD Unavailable Crystal Rodgers APRN Primary Care Provider +- [phone] Reason for Visit * Reason Comments Medication Refill Encounter Details Date Type Department Care Team (Late st Contact Info) Description 05/17/2022 Refill [facility] [address] [place] [address] Garrison Laboy MD [address] [place] [address] Medication Refill Social History Tobacco Use Types [...] approved for fill date on 05/19/22, per MEDICAL INSTRUMENT CABLE FABRICATOR. * Telephone Encounter - Misty Weir RN - 05/17/2022 3:43 PM CDT Per [place] PDMP last fill date 04/19/22. documented in this encounter Plan of Treatment Upcoming Encounters Date Type Department Care Team (Late st Contact Info) Description 10/11/2025 2:20 PM CDT Lab [facility] Oncology Services [address] [place] [address] Lissa Zazueta, PAC [address] [place] [address] Discharge Disposition: Discharged to home or Selfcare 10/12/2025 2:30 PM CDT Office Visit [facility] - Neurology [facility] #[address] [place] [address] Darian Caal MD [address] [place] [address] 10/18/2025 2:20 PM CDT [facility] [address] [place] [address] Lissa Zazueta Yue, PAC [address] [place] [address] Discharge Disposition: Discharged to home or Selfcare documented as of this encounter Visit Diagnoses Diagnosis Fibromyalgia Mylagia and myositis, unspecified documented in this encounter Care Teams Infection Prevention Specialist Relationship Specialty Start Date End Date Garrison Laboy MD [address] [place] [address] PCP - General Internal Medicine 05/30/15 03/24/25 Crystal Rodgers APRN [address] [place] [address] PCP - General Advanced Practice Nurse 03/25/25 Nguyen Shepard APRN, CHIEF SAFETY OFFICER [address] [place] [address] Consulting Physician Psychiatry 03/04/19 08/22/23 Fei Stevens MD [address] [place] [address] Consulting Physician Obstetrics & Gynecology 04/12/20 Kellen Mena MD [address] [place] [address] Consulting Physician Psychiatry 08/23/23 Darian Caal MD [address] [place] [address] Consulting Physician Neurology 11/15/23 Jose Swanson MD #[address] [address] Consulting Physician Colon and Rectal Surgery 04/27/24 documented as of this encounter
--- OUTSIDE RECORDS SUMMARY | 2025-06-21 15:25 | XMS_ITS | Encounter Summary ---
Author Organization [facility] Address [address] [place] [address] Phone Care Team Providers Care Culinary Director Name Role Phone Garrison Laboy MD Primary Care Provider [phone] Nguyen Shepard APRN, CNP Unavailable [phone] Fei Stevens MD Unavailable [phone] Kellen Mena MD Unavailable [phone] Darian Caal MD Unavailable [phone] Jose Swanson MD Unavailable Crystal Rodgers APRN Primary Care Provider +- [phone] Reason for Visit * Reason Comments Medication Refill Encounter Details Date Type Department Care Team (Late st Contact Info) Description 01/25/2022 Refill [facility] - Primary Care - [place] [address] [place] [address] Garrison Laboy MD [address] [place] [address] Medication Refill Social History Tobacco [...] Info) Description 10/11/2025 2:20 PM CDT [facility] [address] [place] [address] ZazuetaLissa December, PAC [address] [place] [address] Discharge Disposition: Discharged to home or Selfcare 10/12/2025 2:30 PM CDT Office Visit [facility] - Neurology [facility] #[address] [place] [address] Darian Caal MD [address] [place] [address] 10/18/2025 2:20 PM CDT [facility] [address] [place] [address] McleodLissa December, PAC [address] [place] [address] Discharge Disposition: Discharged to home or Selfcare documented as of this encounter Visit Diagnoses Diagnosis Essential hypertension Unspecified essential hypertension documented in this encounter Care Teams Culinary Director Relationship Specialty Start Date End Date Garrison Laboy MD [address] [place] [address] PCP - General Internal Medicine 05/30/15 03/24/25 Crystal Rodgers APRN [address] [place] [address] PCP - General Advanced Practice Nurse 03/25/25 Nguyen Shepard APRN, ELECTRICAL TRANSMISSION ENGINEER [address] [place] [address] Consulting Physician Psychiatry 03/04/19 08/22/23 Fei Stevens MD [address] [place] [address] Consulting Physician Obstetrics & Gynecology 04/12/20 Kellen Mena MD [address] [place] [address] Consulting Physician Psychiatry 08/23/23 Darian Caal MD [address] [place] [address] Consulting Physician Neurology 11/15/23 Jose Swanson MD #[address] [address] Consulting Physician Colon and Rectal Surgery 04/27/24 documented as of this encounter
--- OUTSIDE RECORDS SUMMARY | 2025-06-21 15:25 | XMS_ITS | Encounter Summary ---
Author Organization [facility] Address [address] [place] [address] Phone Care Team Providers Care Environmental Technical Officer Name Role Phone Garrison Laboy MD Primary Care Provider [phone] Nguyen Sheprad APRN, PROVIDER RELATIONS REPRESENTATIVE Unavailable [phone] Fei Stevens MD Unavailable [phone] Kellen Mena MD Unavailable [phone] Darian Caal MD Unavailable [phone] Jose Swanson MD Unavailable Crystal Rodgers APRN Primary Care Provider +- [phone] Reason for Visit * Reason Comments Medication Refill Encounter Details Date Type Department Care Team (Late st Contact Info) Description 09/25/2022 Refill [facility] [place] [place] [address] [place] [address] Debbie Marino MD [address] [place] [address] Medication Refill Social History Tobacco [...] Garrison Laboy MD - 09/25/2022 9:[address] JUSTICE Refill request approved. [facility] [facility] JUSTICE * Telephone Encounter - Snow Calvillo RN [...] Dept 03/01/22 Office Visit Garrison Laboy MD [facility] Showing recent visits within past 365 days and meeting all other requirements Future Appointments No visits were found meeting these conditions. Showing future appointments within next 90 days and meeting all other requirements [facility] JUSTICE documented in this encounter Plan of Treatment Upcoming Encounters Date Type Department Care Team (Late st Contact Info) Description 10/11/2025 2:20 PM CDT Lab [facility] Oncology Services [address] [place] [address] Lissa Zazueta Yue, PAC [address] [place] [address] Discharge Disposition: Discharged to home or Selfcare 10/12/2025 2:30 PM CDT Office Visit [facility] Neurology [facility] #[address] [place] [address] Darian Caal MD [address] [place] [address] 10/18/2025 2:20 PM CDT Office Visit [facility] Oncology Services [address] [place] [address] Lissa Zazueta Yue, PAC [address] [place] [address] Discharge Disposition: Discharged to home or Selfcare documented as of this encounter Visit Diagnoses Diagnosis Fibromyalgia Mylagia and myositis, unspecified documented in this encounter Care Teams Environmental Technical Officer Relationship Specialty Start Date End Date Garrison Laboy MD [address] [place] [address] PCP - General Internal Medicine 05/30/15 03/24/25 Crystal Rodgers APRN [address] [place] [address] PCP - General Advanced Practice Nurse 03/25/25 Nguyen Shepard APRN, PROVIDER RELATIONS REPRESENTATIVE [address] [place] [address] Consulting Physician Psychiatry 03/04/19 08/22/23 Fei Stevens MD [address] [place] [address] Consulting Physician Obstetrics & Gynecology 04/12/20 Kellen Mena MD [address] [place] [address] Consulting Physician Psychiatry 08/23/23 Darian Caal MD [address] [place] [address] Consulting Physician Neurology 11/15/23 Jose Swanson MD #[address] [address] Consulting Physician Colon and Rectal Surgery 04/27/24 documented as of this encounter
--- OUTSIDE RECORDS SUMMARY | 2025-06-21 15:25 | XMS_ITS | Encounter Summary ---
Author Organization [facility] Address [address] [place] [address] Phone Care Team Providers Care Forensic Manager Name Role Phone Garrison Laboy MD Primary Care Provider [phone] Nguyen Shepard APRN, CNP Unavailable [phone] Fei Stevens MD Unavailable [phone] Kellen Mena MD Unavailable [phone] Darian Caal MD Unavailable [phone] Jose Swanson MD Unavailable Crystal Rodgers APRN Primary Care Provider +- [phone] Reason for Visit * Reason Comments Medication Refill Encounter Details Date Type Department Care Team (Late st Contact Info) Description 05/22/2022 Refill [facility] - Primary Care - [place] [address] [place] [address] Garrison Laboy MD [address] [place] [address] Medication Refill Social History Tobacco [...] 10/11/2025 2:20 PM CDT [facility] [address] [place] [address] Lissa Zazueta December, PAC [address] [place] [address] Discharge Disposition: Discharged to home or Selfcare 10/12/2025 2:30 PM CDT [facility] #[address] [place] [address] Darian Caal MD [address] [place] [address] 10/18/2025 2:20 PM CDT Office Visit [facility] Oncology Services [address] [place] [address] Lissa Zazueta December, PAC [address] [place] [address] Discharge Disposition: Discharged to home or Selfcare documented as of this encounter Visit Diagnoses Diagnosis Thumb pain, right Hypothyroidism due to acquired atrophy of thyroid documented in this encounter Care Teams Forensic Manager Relationship Specialty Start Date End Date Garrison Laboy MD [address] [place] [address] PCP - General Internal Medicine 05/30/15 03/24/25 Crystal Rodgers APRN [address] [place] [address] PCP - General Advanced Practice Nurse 03/25/25 Nguyen Shepard APRN, MISSILE MECHANIC [address] [place] [address] Consulting Physician Psychiatry 03/04/19 08/22/23 Fei Stevens MD [address] [place] [address] Consulting Physician Obstetrics & Gynecology 04/12/20 Kellen Mena MD [address] [place] [address] Consulting Physician Psychiatry 08/23/23 Darian Caal MD [address] [place] [address] Consulting Physician Neurology 11/15/23 Jose Swanson MD #[address] [address] Consulting Physician Colon and Rectal Surgery 04/27/24 documented as of this encounter
--- OUTSIDE RECORDS SUMMARY | 2025-06-21 15:25 | XMS_ITS | Encounter Summary ---
Author Organization [facility] Address [address] [place] [address] Phone Care Team Providers Care Wallpaper Consultant Name Role Phone Garrison Laboy MD Primary Care Provider [phone] Nguyen Shepard APRN, CNP Unavailable [phone] Fei Stevens MD Unavailable [phone] Kellen Mena MD Unavailable [phone] Darian Caal MD Unavailable [phone] Jose Swanson MD Unavailable Crystal Rodgers APRN Primary Care Provider +- [phone] Reason for Visit * Reason Comments Medication Refill Encounter Details Date Type Department Care Team (Late st Contact Info) Description 04/04/2022 Refill [facility] - Primary Care - [place] [address] [place] [address] Garrison Laboy MD [address] [place] [address] Medication Refill Social History Tobacco [...] Dept 03/01/22 Office Visit Garrison Laboy MD [facility] [employer] [facility] 09/06/21 Office Visit Garrison Lab[facility] MD [facility] [employer] [facility] 07/11/21 Office Visit Garrison Laboy MD [facility] [employer] [facility] Showing recent visits within past 365 days and meeting all other requirements Future Appointments Date Type Provider Dept 05/03/22 Appointment Lab[facility] [employer] [facility] Showing future appointments within next 90 days and meeting all other requirements * Telephone Encounter - Misty Weir RN - 04/04/2022 1:53 PM CDT Per [place] last fill date 03/07/22. documented in this encounter Plan of Treatment Upcoming Encounters Date Type Department Care Team (Late st Contact Info) Description 10/11/2025 2:20 PM CD[facility] [address] [place] [address] ZazuetaAvniLissa December, PAC [address] [place] [address] Discharge Disposition: Discharged to home or Selfcare 10/12/2025 2:30 PM CDT Office Visit [facility] Neurology [facility] #2 [place] [address] Darian Caal MD [address] [place] [address] 10/18/2025 2:20 PM CDT [facility] [address] [place] [address] [facility] December, PAC [address] [place] [address] Discharge Disposition: Discharged to home or Selfcare documented as of this encounter Visit Diagnoses Diagnosis Insomnia due to medical condition Insomnia due to medical condition classified elsewhere documented in this encounter Care Teams Wallpaper Consultant Relationship Specialty Start Date End Date Garrison Laboy MD [address] [place] [address] PCP - General Internal Medicine 05/30/15 03/24/25 Crystal Rodgers APRN [address] [place] [address] PCP - General Advanced Practice Nurse 03/25/25 Nguyen Shepard APRN, SHEET METAL DUCT INSTALLER HELPER [address] [place] [place] [address] Consulting Physician Psychiatry 03/04/19 08/22/23 Fei Stevens MD [address] [place] [address] Consulting Physician Obstetrics & Gynecology 04/12/20 Kellen Mena MD [address] [place] [address] Consulting Physician Psychiatry 08/23/23 Darian Caal MD [address] [place] [address] Consulting Physician Neurology 11/15/23 Jose Swanson MD #[address] [address] Consulting Physician Colon and Rectal Surgery 04/27/24 documented as of this encounter
--- OUTSIDE RECORDS SUMMARY | 2025-06-21 15:25 | XMS_ITS | Encounter Summary ---
Author Organization [facility] Address [address] [place] [address] Phone Care Team Providers Care County Sheriff Name Role Phone Garrison Laboy MD Primary Care Provider [phone] Nguyen Shepard APRN, KATHARINE Unavailable [phone] Fei Stevens MD Unavailable [phone] Kellen Mena MD Unavailable [phone] Darian Caal MD Unavailable [phone] Jose Swanson MD Unavailable Crystal Rodgers APRN Primary Care Provider [phone] Reason for Visit * Reason Comments Medication Refill Encounter Details Date Type Department Care Team (Late st Contact Info) Description 06/21/2022 Refill [facility] #2 [place] [address] Saqib Shepard, PAC [address] [place] [address] Medication Refill Social History Tobacco [...] 06/21/2022 1:02 PM CST Rx request approved. ASSAYER * Telephone Encounter - Misty Weir RN [...] Dept 03/01/22 Office Visit Garrison Laboy MD [facility] 09/06/21 Office Visit Garrison Laboy MD [facility] 07/11/21 Office Visit Garrison Laboy MD [facility] Showing recent visits within past 365 days and meeting all other requirements Future Appointments Date Type Provider Dept 07/06/22 Appointment Lab, [facility] Showing future appointments within next 90 days and meeting all other requirements ASSAYER * Telephone Encounter - iMsty Weir RN - 06/21/2022 8:31 AM CST Per [place] PD[place] last fill date 05/20/22. ASSAYER documented in this encounter Plan of Treatment Upcoming Encounters Date Type Department Care Team (Late st Contact Info) Description 10/11/2025 2:20 PM CDT [facility] [address] [place] [address] Lissa Zazueta December, PAC [address] [place] [address] Discharge Disposition: Discharged to home or Selfcare 10/12/2025 2:30 PM CDT Office Visit [facility] - Neurology [facility] #2 [place] [address] Darian Caal MD #[address] [place] [address] 10/18/2025 2:20 PM CDT [facility] [address] [place] [address] ZazuetaLissa holloway December, PAC [address] [place] [address] Discharge Disposition: Discharged to home or Selfcare documented as of this encounter Visit Diagnoses Diagnosis Fibromyalgia Mylagia and myositis, unspecified documented in this encounter Care Teams County Sheriff Relationship Specialty Start Date End Date Garrison Laboy MD [address] [place] [address] PCP - General Internal Medicine 05/30/15 03/24/25 Crystal Rodgers APRN [address] [place] [address] PCP - General Advanced Practice Nurse 03/25/25 Nguyen Shepard APRN, DEATH CLEARANCE COORDINATOR [address] [place] [address] Consulting Physician Psychiatry 03/04/19 08/22/23 Fei Stevens MD [address] [place] [address] Consulting Physician Obstetrics & Gynecology 04/12/20 Kellen Mena MD [address] [place] [address] Consulting Physician Psychiatry 08/23/23 Darian Caal MD #[address] [place] [address] Consulting Physician Neurology 11/15/23 Jose Swanson MD #[address] [address] Consulting Physician Colon and Rectal Surgery 04/27/24 documented as of this encounter
--- OUTSIDE RECORDS SUMMARY | 2025-06-21 15:25 | XMS_ITS | Clinical Summary ---
Author Organization [facility] Address [address] [place] [address] Phone Care Team Providers Care Hand Candy Dipper Name Role Phone PRICILA MACHADO, SAEID STOKES Unavailable [phone] Reason for Visit and Chief Complaint The Chief Complaint is: follow up for depression, anxiety, insomnia, bipolar Problems Includes: Problems addressed during this encounter and other active Problems Current Visit Onset Date Resolved Date Provider Conditio n Status Attention-deficit Hyperactivity Disorder 06/17/2023 SAEID ARELLANO MD Active Last Documented On 3 6:56PM ; [facility] Bipolar I Disorder, Most Rec ent Episode, Depressed 06/17/2023 SAEID MENA MD Active Last Documented On 3 6:48PM ; [facility] Generalized Anxiety Disorder 06/17/2023 SAEID MENA MD Active Last Documented On 3 5:06PM ; [facility] Psychophysiological Insomnia 06/17/2023 SAEID MENA MD Active Last Documented On 3 5:06PM ; [facility] Panic Disorder 06/17/2023 SAEID Torres Active Last Documented On 3 6:47PM ; [facility] Past Visits Onset Date Resolved Date Provider Condition Status Tardive Dyskinesia Drug-induced 10/21/2023 SAEID MENA MD Active Last Documented On 4 2:57AM ; [facility] Bipolar I Disorder 06/17/2023 SAEID ARELLANO MD Active Last Documented On 3 5:06PM ; [facility] Plan of Treatment Bipolar disorder - Lybalvi 5 - 10 mg 1 tab at bedtime (given 7 weeks samples on 07/25/23) -- since Caplyta was discontinued due to [...] am, 1 tab at noon (increased 07/25/23) Psychophysiological Insomnia - Ambien CR 12.5 mg at hs, Trazodone 50 mg 1 - 2 tabs at hs, continue good sleep hygiene habits Panic Disorder - Klonopin 0.5 mg 1 tab a day as needed for severe panic # 10 (07/25/23), continue breathing exercises, guided meditation and other relaxation techniques - Last Documented On 07/26/2023 1:02PM ; [facility] Pending Tests Order Diagnosis Results Due Ordering P rovider Lab Comp Metabolic Panel 11/11/23 DILAN MENA MD Last Documented On 4 3:25AM ; [facility] Lab Lipid Panel 11/11/23 SAEID BAXTER MD Last Documented On 4 3:25AM ; [facility] Lab Vitamin B12/Folic Acid 11/11/23 ME HAKEEM MENA MD Last Documented On 4 3:25AM ; [facility] Lab Vitamin D 11/11/23 SAEID AMAYA MD Last Documented On 4 3:25AM ; [facility] Lab T S H 11/11/23 SAEID AMAYA MD Last Documented On 4 3:25AM ; [facility] Education and Decision Aids were provided during visit for: Patient counseling I discuss ed risk, benefits, and side effects of sleep aid Zolpidem ER - including the possibility of sleep related behaviors i.e. sleepwalking, sleeptalking, sleepdriving, etc... Pt verbalized understanding. Pt and her said that she has baseline sleeptalking even before the Zolpidem Last Documented On 4 1:01PM ; [facility] Calming techniques such as b reathing exercises/meditation and other relaxation techniques Last Documented On 10:32AM ; [facility] Assessments Includes: Assessments from this encounter Findings - Attention-deficit hyperactivity disorder - Last Documented On 07/26/2023 1:02PM ; [facility] - Bipolar I disorder, most recent episode, depressed - Last Documented On 07/26/2023 1:02PM ; [facility] - Psychophysiological insomnia - Last Documented On 07/26/2023 1:02PM ; [facility] - Generalized anxiety disorder - Last Documented On 07/26/2023 1:02PM ; [facility] - Panic disorder - Last Documented On 07/26/2023 1:02PM ; [facility] Instructions Includes: Instructions from this [...] Zolpidem Last Documented On 4 1:01PM ; [facility] Calming techniques such as b reathing exercises/meditation and other relaxation techniques Last Documented On 4 10:32AM ; [facility] Medical Equipment - Implanted Devices Includes: Current Devices No Medical Equipment Recorded Medications Includes: Medications discussed during this encounter and other current Medications Discontinued / Stopped on this date SAEID MENA MD on 07/24/2023 QUEtiapine Fumarate 25 MG Oral Tablet Provider: SAEID MENA MD Diagnosis: Bipolar disorder , current episode depressed, moderate Last Documented On 07/25/2023 6:19PM By Juana Mena MD ; [facility] Focalin 10 MG Oral Tablet Provider: SAEID MENA MD Diagnosis: Attn-defct hyper activity disorder, predom inattentive type Last Documented On 07/25/2023 6:22PM By Juana Mena MD ; [facility] busPIRone HCl 10 MG Oral Tablet Provider: SAEID MENA MD Diagnosis: Generalized anxi ety disorder Last Documented On 07/25/2023 6:19PM By Juana Mena MD ; [facility] ARIPiprazole 20 MG Oral Tablet Provider: Diagnosis: Last Documented On 07/25/2023 4:24PM By EDY SIDDIQUI ; [facility] Ambien 5MG Oral Tablet Provider: Diagnosis: Last Documented On 07/25/2023 4:24PM By EDY SIDDIQUI ; [facility] New / Renewed during this visit SAEID MENA MD on 07/25/2023 Lybalvi 5-10 MG Oral Tablet Provider: SAEID MENA MD 30 day supply: 30 tablet, 1 refills Diagnosis: Bipolar disorder, current episode depressed, moderate One tablet at bed time Last Documented On 07/25/2023 6:17PM By Juana Mena MD ; [facility] KlonoPIN 0.5 MG Oral Tablet Provider: SAEID MENA MD 30 day supply: 10 tablet, 0 refills Diagnosis: Panic disorder [episodic paroxysmal anxiety] as directed - 1 tab a day as needed for panic attacks Pharmacy: [facility] [place] - [address] , [facility], [address] - Last Documented On 07/25/2023 5:23PM By Juana Mena MD ; [facility] QUEtiapine Fumarate 25 MG Oral Tablet Provider: SAEID MENA MD 30 day supply: 90 tablet, 1 refills Diagnosis: Bipolar disord, crnt episode manic w/o psych features, mod One tablet three times a day Pharmacy: [facility] [place] - [address] , [facility], [address] - Last Documented On 12/24/2023 3:12PM By Juana Mena MD ; [facility] busPIRone HCl 15 MG Oral Tablet Provider: SAEID MENA MD 30 day supply: 90 tablet, 1 refills Diagnosis: Generalized anxiety disorder One tablet three times a day Pharmacy: [facility] [place] - [address] , [facility], [address] - Last Documented On 10/17/2023 4:00PM By Juana Mena MD ; [facility] Focalin 10 MG Oral Tablet Provider: SAEID MENA MD 30 day supply: 60 tablet, 0 refills Diagnosis: Attn-defct hyperactivity disorder, predom inattentive type as directed - 1 tab in am an d 1 tab at noon Pharmacy: [facility] [address] , [place], [address] - Last Documented On 07/25/2023 6:25PM By Juana Mena MD ; [facility] Current Medications (continue as prescribed) traZODone HCl 50 MG Oral Tablet 12/24/2023 Provider: SAEID MENA MD Diagnosis: Psychophysiologi c insomnia as directed - 2 tabs at bedt dia as needed for sleep Last Documented On 12/24/2023 3:35PM By Juana Mena MD ; [facility] Ingrezza 40 MG Oral Capsule 12/10/2023 Provider: ROMAN SHELBY MD Diagnosis: 1 daily Last Documented On 12/24/2023 3:03PM By EDY LINCOLN Zaida ; [facility] lamoTRIgine 200 MG Oral Tablet 10/31/2023 Provider: SAEID MENA MD Diagnosis: Bipolar disorder , current episode depressed, moderate Take 1 tablet by mouth twice daily Last Documented On 10/31/2023 10:09AM By Juana Mena MD ; [facility] Varenicline Tartrate (Starter) 0.5 MG X 11 & 1 MG X 42 Oral Tablet Therapy Pack 10/17/2023 Provider: SAEID MENA MD Diagnosis: Nicotine depende nce, cigarettes, uncomplicated One tablet daily Last Documented On 10/17/2023 4:06PM By Juana Mena MD ; [facility] Lybalvi 5-10 MG Oral Tablet 10/17/2023 Provider: SAEID MENA MD Diagnosis: Bipolar disorder , current episode depressed, moderate One tablet at bed time Last Documented On 10/17/2023 4:22PM By Juana Mena MD ; [facility] busPIRone HCl 15 MG Oral Tablet 10/17/2023 Provider: SAEID MENA MD Diagnosis: Generalized anxi ety disorder One tablet three times a day Last Documented On 10/17/2023 4:06PM By Juana Mena MD ; [facility] Lisinopril 40 MG Oral Tablet 08/23/2023 Provider: JANNETTE CATALAN MD Diagnosis: 1 tab daily Last Documented On 09/13/2023 10:14AM By EDY SIDDIQUI ; [facility] Buffered Vitamin C 1000 MG Oral Capsule 06/17/2023 P roarletder: Diagnosis: 1 daily Last Documented On 06/17/2023 5:10PM By EDY SIDDIQUI ; [facility] Chelated Zinc 50 MG Oral Tablet 06/17/2023 Provider: Diagnosis: 1 tab daily Last Documented On 06/17/2023 5:11PM By EDY SIDDIQUI ; [facility] ZyrTEC Allergy 10 MG Oral Tablet 06/17/2023 Provider : Diagnosis: 1 tab daily Last Documented On 06/17/2023 5:13PM By EDY SIDDIQUI ; [facility] Vitamin D3 25 MCG (1000 UT) Oral Tablet Chewable 1 08/17/2022 Provider: Diagnosis: 2 tabs daily Last Documented On 06/17/2023 5:12PM By EDY SIDDIQUI ; [facility] B Complex (Folic Acid) Oral Tablet 06/17/2023 Provid er: Diagnosis: 1 tab daily Last Documented On 06/17/2023 5:12PM By EDY SIDDIQUI ; [facility] Levothyroxine Sodium 150 MCG Oral Tablet 06/11/2023 Provider: JANNETTE CATALAN MD Diagnosis: 1 tab daily Last Documented On 06/17/2023 5:07PM By EDY SIDDIQUI ; [facility] Lipitor 20MG Oral Tablet 03/05/2017 Provider: Diagnosis: Last Documented On 7 2:05PM By MODESTA SIDDIQUI ; [facility] TraMADol HCl 50MG Oral Tablet 03/05/2017 Provider: Diagnosis: Last Documented On 7 2:05PM By MODESTA SIDDIQUI ; [facility] Suspended Medications Zolpidem Tartrate ER 12.5 MG Oral Tablet Extended Release 09/20/2023 Provider: SAEID MENA MD Diagnosis: Psychophysiologi c insomnia TAKE 1 TABLET BY MOUTH DI RECTED AT BEDTIME NEEDED FOR SLEEP Last Documented On 09/20/2023 8:09AM By Juana Mena MD ; [facility] Medications Administered Includes: Administered Medications from this encounter No Administered Medications Recorded Vital Signs Includes: Vital Signs from this encounter Vital Name 07/25/2023 04:33P Blood Pressure Sitting L 154/82 BP Cuff Size Regular Pulse Rate-Sitting (bpm) 75 Pulse Rhythm Regular Height (in) 69 Weight (lb) 228 Body Mass Index 33.7 Body Surface Area 2.2 Last Documented: On 07/25/2023 4:34PM ; [facility] Results Includes: Results discussed during this encounter No Results Recorded For Specified Dates History of Present Illness Includes: History of Present Illness from this encounter HPI OFE BALBUENA is a 52 year old female. - Allergy list reviewed - Past medical history reviewed - Medication list reviewed Ofe reported that she was doing better with the Caplyta 42 mg a day. She said that she had more energy than usual. She was able to accomplish things. She was almost always on the go. She did not exactly feel manic at that time. Her family even thought that she looked good while she was on the Caplyta 42 mg a day. It really helped level out her mood; however, the last 2 weeks of taking the Caplyta she started having jaw stiffness. She felt that her jaw muscles were jerking which may be part of the motor side effect of the Caplyta and so she was asked to discontinue it since I only gave her samples of the 42 mg a day. I did not have samples of the lower dose which was the 10.5 and 21 mg a day. I asked her if she can open the capsule and just take half but it was very difficult so she went ahead and discontinued it. However, in the process she was probably exhibiting some withdrawal symptoms to where she is still somewhat shaky and she is still having some jerky movements. However, it is getting less but it was to the point that she had to take off of work because of the jerky movements and last night she said that she had a panic attack. She used to have one but has not had any panic attacks in about a year. She had hyperventilation, palpitations and just feeling gloom and doom. She followed my recommendation of doing breathing exercises and guided meditation but at that point in time it was difficult for her to get over the panic. It eventually went away. She was still able to sleep good with the combination of Trazodone 50 mg at bedtime and Ambien CR 12.5 mg at bedtime. She and her were warned about sleep related behaviors with the Ambien CR which she took before but she denied having any sleep related behaviors; however, her said that she has been sleep talking even before the Ambien CR so she was still asked to watch out for any type of sleep related behaviors. She said that she wanted to continue the Ambien CR and Trazodone since the combination seemed to help her with her sleep. She tried the Quetiapine 25 mg at bedtime last night which seemed to have relaxed her enough to calm down to go to sleep. She was asked to go ahead and increase the Quetiapine to 25 mg three times a day at least temporarily to help reduce some of these jerking movements of motor side effects from the Caplyta. In the meantime, since she has been more anxious than usual, the Buspar will be increased to 15 mg three times a day and she will continue the Lamictal 200 mg twice a day as her mood stabilizer which she had before. She denied having any rash from Lamictal. She tried the Focalin 10 mg in the morning which she said that it has helped with her concentration. She was able to focus. She was able to pay attention more. She did not think that the Focalin gave her a crash side effect. She thought that it was the Caplyta which at the end of the day from taking Caplyta, she felt that there was a crash to where she got tired and fatigued at the end of the day since during the morning the Caplyta really kept her energy up and about but it is in the evening where she felt fatigued and tired. I recommended increasing the Focalin to 10 mg one in the morning and 10 mg at noon in case she is having a crash side effect on the Focalin but she said that it was not really coming from the Focalin so it can be optional if she needs to take a second dose of the Focalin. She is still having up and down mood swings, easily annoyed, irritable since she stopped the Caplyta. She has bouts of feeling down, not motivated, feeling tired. Appetite has also been reduced since she was put on Caplyta. She felt that she was not hungry at that time so I discussed about trying Lybalvi which consists of Olanzapine and Samidorphan to counteract the weight gain side effect of Olanzapine. She will be tried on a low dose of 5 mg at bedtime. This will also cause the same motor and metabolic side effects just like Caplyta and Quetiapine but to watch out for these side effects. She was asked to call me for any questions or any side effects that might come up. Occasionally, she gets restless and fidgety. At times, she may feel bad about herself. She denied having any delusions or hallucinations. She denied having any suicidal thoughts. MENTAL STATUS EXAM: Sensorium - alert, oriented to name, place, and time Attitude - cooperative Gait - ambulatory Sleep - good - no sleep related behaviors with Zolpidem ER Interest/Energy/Motivation - not as motivated, feeling tired and fatigued Guilt/Worthlessness - absent Concentration/Attention Span - able to focus and concentrate much better with the Focalin Memory Recall - fairly good Appetite - decreased - on 06/17/23 pt weighed 232 lbs and on 07/25/23 she weighed 228 lbs so she lost 4 lbs Suicidal Thoughts - absent Homicidal Thoughts - absent Delusions - absent Hallucinations - absent Appearance - casually groomed Motor Behavior - fidgety, restless Eye Contact - intermittent Speech - fluent Mood - feeling down, lawson, irritable since Caplyta was discontinued, had panic attack last night Affect - anxious Thought Process - coherent Insight and Judgment - intact Social History Description Last Updated Caffeine use: 64 oz of soda a day, an occasional glass of tea daily and does not drink coffeeAlcohol use: noneIllicit drug use: noneWork history: currently works at [employer] in [place] [employer] since 2018; she works from 7:30 am to 1:30 pm but just works part-time, 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 Both parents are living. She has [...] no past or pending legal history. Her confucianism background is Faith. 07/25/2023 Last Documented On 4 4:16PM ; [facility] Current smoker - 1/2 - 1 pack of cigaret pj a day 07/25/2023 Last Documented On 1:02PM ; [facility] Smoking Status Unknown Procedures and Surgical History Includes: Procedures from this encounter Procedures Code Diagnosis Performing Provider Service L ocation Service Date education and instructions Last Documented On 4:16PM ; [facility] supportive care and encourag ement--given positive reinforcement to keep patient motivated and active, supportive empathic listening and validation provided Last Documented On 1:01PM ; [facility] I discussed the risks, benef its and side effects of Quetiapine/Lybalvi to the patient including the possibility of metabolic and motor side effects such as tardive dyskinesia Last Documented On 12:42PM ; [facility] ~* Call [phone] and /or go t o the nearest emergency room or call me if suicidal/homicidal ideation or other serious concerns arise. ~ ~* I gave instructions to call me should there be any questions or concerns. ~ ~* Patient voiced understanding and agreed to treatment plan Last Documented On 4 4:29PM ; [facility] dangerousness assessment: no suicide risk 3085F Last Documented On 4 4:16PM ; [facility] use of tobacco assessment performed 1000F Last Documented On 4:30PM ; [facility] patient screened for future fall risk: documentation of any fall with injury in past year - no recent falls 1100F Last Documented On 4 4:29PM ; [facility] review of medications documented 1160F Last Documented On 4 4:29PM ; [facility] assessment of suicide risk performed - n ot suicidal Last Documented On 4:30PM ; [facility] screening for adult depressi on: impression and score - please see above for treatment and PHQ score Last Documented On 4:30PM ; [facility] standardized depression screening: posit pedro pablo for symptoms Last Documented On 4 4:30PM ; [facility] encouragement to exercise - balanced carin l plan Last Documented On 4 12:42PM ; [facility] Counseling on new medication : I discussed the risks, benefits and side effects of Lybalvi. Patient verbalized understanding and agreed to treatment Last Documented On 4 10:32AM ; [facility] Counseling for smoking cessation provided [id number] Last Documented On 4 4:38PM ; [facility] Clinical summary provided to patient Last Documented On 4 4:16PM ; [facility] PHQ-9: total score 9 Last Documented On 4 10:32AM ; [facility] Medical History Includes: Medical History addressed [...] Covid 19 if she ever gets it. 07/26/2023 Last Documented On 4 8:52AM ; [facility] Family History Includes: Family History addressed during this encounter Description Last Updated Maternal grandfather -- bipo lar and alcohol abuseMaternal aunt -- alcohol abuse 07/25/2023 Last Documented On 4 4:16PM ; [facility] Review of Systems Includes: Review of Systems from this encounter Systemic: Not feeling poorly (malaise). No fever, no chills, and no night sweats. Head: No headache. Facial pain. Neck: No neck pain. Neck stiffness. Eyes: No vision problems, no itching of the eyes, and no eye pain. Otolaryngeal: No hearing loss. Earache. No nasal discharge, no hoarseness, and no sore throat. Cardiovascular: No chest pain or discomfort, no palpitations, and the heart rate was not fast. Pulmonary: No dyspnea, no cough, and no wheezing. Gastrointestinal: No heartburn. Nausea. No vomiting, no diarrhea, and no constipation. Genitourinary: No increase in urinary frequency. No dysuria. Endocrine: Polydipsia. No excessive sweating. Musculoskeletal: No muscle aches, no localized joint pain, and no localized joint stiffness. Neurological: Dizziness. No vertigo, [...] Active Last Documented On 4 2:46PM ; [facility] Encounters Encounter Provider Location Date Check-In Time Check-Out Time Diagnosis PSYCH ADULT FOLLOW UP SAEID MENA MD [facility] 07/25/19 24 4:15PM 5:36PM Attention-defici t Hyperactivity Disorder,Bipolar I Disorder, Most Recent Episode, Depressed,Genera lized Anxiety Disorder,Psychop hysiological Insomnia,Panic Disorder Insurance Includes: Active Insurance Policies Plan Name Member ID Group # Subscriber Relationship Effect pedro pablo Dates 1 - [facility] [id number] VERONIQUE BALBUENA Clinical Notes Includes: Clinical Notes from this encounter * Progress note Date Encounter Last Documented by 07/25/2023 PSYCH ADULT FOLLOW UP Last docum ented on 07/26/2023; 1:02 PM, SAEID MENA MD; [facility] Top of Document Medication psychotherapy 50 minutes Active Problems & Conditions - Attention-deficit Hyperactivity Disorder - Bipolar I Disorder - Bipolar I Disorder, Most Recent Episode, Depressed - Generalized Anxiety Disorder - Panic Disorder - Psychophysiological Insomnia Chief Complaint The Chief Complaint is: Follow up for depression, anxiety, insomnia, bipolar. History of Present Illness OFE BALBUENA is a 52 year old female. - Allergy list reviewed - Past medical history reviewed - Medication list reviewed Ofe reported that she was doing better with the Caplyta 42 mg a day. She said that she had more energy than usual. She was able to accomplish things. She was almost always on the go. She did not exactly feel manic at that time. Her family even thought that she looked good while she was on the Caplyta 42 mg a day. It really helped level out her mood; however, the last 2 weeks of taking the Caplyta she started having jaw stiffness. She felt that her jaw muscles were jerking which may be part of the motor side effect of the Caplyta and so she was asked to discontinue it since I only gave her samples of the 42 mg a day. I did not have samples of the lower dose which was the 10.5 and 21 mg a day. I asked her if she can open the capsule and just take half but it was very difficult so she went ahead and discontinued it. However, in the process she was probably exhibiting some withdrawal symptoms to where she is still somewhat shaky and she is still having some jerky movements. However, it is getting less but it was to the point that she had to take off of work because of the jerky movements and last night she said that she had a panic attack. She used to have one but has not had any panic attacks in about a year. She had hyperventilation, palpitations and just feeling gloom and doom. She followed my recommendation of doing breathing exercises and guided meditation but at that point in time it was difficult for her to get over the panic. It eventually went away. She was still able to sleep good with the combination of Trazodone 50 mg at bedtime and Ambien CR 12.5 mg at bedtime. She and her were warned about sleep related behaviors with the Ambien CR which she took before but she denied having any sleep related behaviors; however, her said that she has been sleep talking even before the Ambien CR so she was still asked to watch out for any type of sleep related behaviors. She said that she wanted to continue the Ambien CR and Trazodone since the combination seemed to help her with her sleep. She tried the Quetiapine 25 mg at bedtime last night which seemed to have relaxed her enough to calm down to go to sleep. She was asked to go ahead and increase the Quetiapine to 25 mg three times a day at least temporarily to help reduce some of these jerking movements of motor side effects from the Caplyta. In the meantime, since she has been more anxious than usual, the Buspar will be increased to 15 mg three times a day and she will continue the Lamictal 200 mg twice a day as her mood stabilizer which she had before. She denied having any rash from Lamictal. She tried the Focalin 10 mg in the morning which she said that it has helped with her concentration. She was able to focus. She was able to pay attention more. She did not think that the Focalin gave her a crash side effect. She thought that it was the Caplyta which at the end of the day from taking Caplyta, she felt that there was a crash to where she got tired and fatigued at the end of the day since during the morning the Caplyta really kept her energy up and about but it is in the evening where she felt fatigued and tired. I recommended increasing the Focalin to 10 mg one in the morning and 10 mg at noon in case she is having a crash side effect on the Focalin but she said that it was not really coming from the Focalin so it can be optional if she needs to take a second dose of the Focalin. She is still having up and down mood swings, easily annoyed, irritable since she stopped the Caplyta. She has bouts of feeling down, not motivated, feeling tired. Appetite has also been reduced since she was put on Caplyta. She felt that she was not hungry at that time so I discussed about trying Lybalvi which consists of Olanzapine and Samidorphan to counteract the weight gain side effect of Olanzapine. She will be tried on a low dose of 5 mg at bedtime. This will also cause the same motor and metabolic side effects just like Caplyta and Quetiapine but to watch out for these side effects. She was asked to call me for any questions or any side effects that might come up. Occasionally, she gets restless and fidgety. At times, she may feel bad about herself. She denied having any delusions or hallucinations. She denied having any suicidal thoughts. MENTAL STATUS EXAM: Sensorium - alert, oriented to name, place, and time Attitude - cooperative Gait - ambulatory Sleep - good - no sleep related behaviors with Zolpidem ER Interest/Energy/Motivation - not as motivated, feeling tired and fatigued Guilt/Worthlessness - absent Concentration/Attention Span - able to focus and concentrate much better with the Focalin Memory Recall - fairly good Appetite - decreased - on 06/17/23 pt weighed 232 lbs and on 07/25/23 she weighed 228 lbs so she lost 4 lbs Suicidal Thoughts - absent Homicidal Thoughts - absent Delusions - absent Hallucinations - absent Appearance - casually groomed Motor Behavior - fidgety, restless Eye Contact - intermittent Speech - fluent Mood - feeling down, lawson, irritable since Caplyta was discontinued, had panic attack last night Affect - anxious Thought Process - coherent Insight and Judgment - intact Current Medication - B Complex (Folic Acid) Oral Tablet as directed 1 tab daily, 0 days, 0 refills - Buffered Vitamin C 1000 MG Oral Capsule as directed 1 daily, 0 days, 0 refills - Caplyta 42 MG Oral Capsule 1 capsule daily, 30 days, 0 refills - Chelated Zinc 50 MG Oral Tablet as directed 1 tab daily, 0 days, 0 refills - cloNIDine HCl 0.2 MG Oral Tablet as directed 1 tab bid, 28 days, 0 refills - [facility] Vitamin D3 25 MCG (1000 UT) Oral Tablet Chewable as directed 2 tabs daily, 0 days, 0 refills - lamoTRIgine 200 MG Oral Tablet One tablet twice a day, 30 days, 1 refills - Levothyroxine Sodium 150 MCG Oral Tablet 1 tab daily, 30 days, 0 refills - Lipitor 20MG Oral Tablet 20 MG 0 days, 0 refills - Lisinopril 20MG Oral Tablet 20 MG 0 days, 0 refills - TraMADol HCl 50MG Oral Tablet 50 MG 0 days, 0 refills - traZODone HCl 50 MG Oral Tablet as directed - 1 or 2 tabs at bedtime for sleep, 30 days, 1 refills - Zolpidem Tartrate ER 12.5 MG Oral Tablet Extended Release as directed - 1 tab at bedtime as needed for sleep, 30 days, 1 refills - ZyrTEC Allergy 10 MG Oral Tablet as directed 1 tab daily, 0 days, 0 refills Past Medical/Surgical History Primary Care Physician: Dr. 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 Both parents are living. She has [...] no past or pending legal history. Her confucianism background is [employer]. Allergies - Penicillins Family History Maternal grandfather -- bipolar and alcohol abuse Maternal aunt -- alcohol abuse Review Of Systems Systemic: Not feeling poorly (malaise). No fever, no chills, and no night sweats. Head: No headache. Facial pain. Neck: No neck pain. Neck stiffness. Eyes: No vision problems, no itching of the eyes, and no eye pain. Otolaryngeal: No hearing loss. Earache. No nasal discharge, no hoarseness, and no sore throat. Cardiovascular: No chest pain or discomfort, no palpitations, and the heart rate was not fast. Pulmonary: No dyspnea, no cough, and no wheezing. Gastrointestinal: No heartburn. Nausea. No vomiting, no diarrhea, and no constipation. Genitourinary: No increase in urinary frequency. No dysuria. Endocrine: Polydipsia. No excessive sweating. Musculoskeletal: No muscle aches, no localized joint pain, and no localized joint stiffness. Neurological: Dizziness. No vertigo, no fainting, and no motor disturbances. Skin: No pruritus. No skin lesions and no rash. Physical Findings - Vitals taken 07/25/2023 04:33 pm BP-Sitting L 154/82 mmHg BP Cuff Size Regular Pulse Rate-Sitting 75 bpm Pulse Rhythm Regular Height 69 in Weight 228 lbs Body Mass Index 33.7 kg/m2 Body Surface Area 2.2 m2 Tests Educational Testing: Questionnaires PHQ-9: Value PHQ-9: total score 9 Assessment - Attention-deficit hyperactivity disorder - Bipolar I disorder, most recent episode, depressed - Psychophysiological insomnia - Generalized anxiety disorder - Panic disorder Therapy - Dangerousness assessment: no suicide risk. - Counseling for smoking cessation provided and counseling/education on side effects Counseling on new medication: I discussed the risks, benefits and side effects of Lybalvi. Patient verbalized understanding and agreed to treatment. - Supportive care and encouragement--given positive reinforcement to keep patient motivated and active, supportive empathic listening and validation provided. - Encouragement to exercise - balanced meal plan. - Education and instructions. - Assessment of suicide risk performed - not suicidal - Clinical summary provided to patient. I discussed the risks, benefits and side effects of Quetiapine/Lybalvi to the patient including the possibility of metabolic and motor side effects such as tardive dyskinesia. * Call [phone] and /or go to the nearest emergency room or call me if suicidal/homicidal ideation or other serious concerns arise. * I gave instructions to call me should there be any questions or concerns. * Patient voiced understanding and agreed to treatment plan. Counseling/Education - Calming techniques such as breathing exercises/meditation and other relaxation techniques - Patient counseling I discussed risk, benefits, and side effects of sleep aid Zolpidem ER - including the possibility of sleep related behaviors i.e. sleepwalking, sleeptalking, sleepdriving, etc... Pt verbalized understanding. Pt and her said that she has baseline sleeptalking even before the Zolpidem Plan StartCited - Attn-defct hyperactivity disorder, predom inattentive type Focalin 10 MG tablet as directed - 1 tab in am and 1 tab at noon, 30 days, 0 refills EndCited StartCited - Bipolar disord, crnt episode manic w/o psych features, mod QUEtiapine Fumarate 25 MG tablet One tablet three times a day, 30 days, 1 refills EndCited StartCited - Bipolar disorder, current episode depressed, moderate Lybalvi 5-10 MG tablet One tablet at bed time, 30 days, 1 refills EndCited StartCited - Generalized anxiety disorder busPIRone HCl 15 MG tablet One tablet three times a day, 30 days, 1 refills EndCited StartCited - Other Follow-up 09/13/23 EndCited StartCited - Panic disorder [episodic paroxysmal anxiety] KlonoPIN 0.5 MG tablet as directed - 1 tab a day as needed for panic attacks, 30 days, 0 refills EndCited Bipolar disorder - Lybalvi 5 - 10 mg 1 tab at bedtime (given 7 weeks samples on 07/25/23) -- since Caplyta was discontinued due to jaw stiffness/jitteriness just like with Abilify when she also had muscle twitching Bipolar [...] am, 1 tab at noon (increased 07/25/23) Psychophysiological Insomnia - Ambien CR 12.5 mg [...]
[2025-06-21 19:56] LABS: Alanine Aminotransferase 57 U/L (6-35); Albumin Level 4.6 g/dL (3.5-5.1); Alkaline Phosphatase 127 U/L (38-126); Anion Gap 5 mmol/L (4-12); Aspartate Amino Transferase 69 U/L (14-36); Bilirubin,Total 3.0 mg/dL (0.2-1.3); Blood Urea Nitrogen 6 mg/dL (7-17); Calcium 9.6 mg/dL (8.4-10.2); Carbon Dioxide 31 mmol/L (22-30); Chloride 101 mmol/L (98-107); Cholesterol 176 mg/dL (0-200); Estimated Glomerular Filt Rate > 60; Glucose 132 mg/dL (65-110); HDL Direct 29 mg/dL; Potassium 3.8 mmol/L (3.4-5.0); Sodium 137 mmol/L (137-145); Total Protein 8.4 g/dL (6.3-8.2); Triglycerides 250 mg/dL (<150)
[2025-06-21 20:32] LABS: Thyroid Stimulating Hormone 1.120 uIU/mL (0.465-4.680)
[2025-06-21 20:51] LABS: Vitamin B12 895.0 pg/mL (239-931)
[2025-06-21 21:31] LABS: Hemoglobin A1C 6.2 % (<5.7)
== END 2025-06-21 14:25 | disposition home or self-care (01) ==
LOC: ANHBWCLAB 14:25
PROVIDERS: PCP Nurse Practitioner Adult Health; Visit Provider Nurse Practitioner Adult Health
DX: E07.9 Disorder of thyroid, unspecified (principal); I10 Essential (primary) hypertension; E78.5 Hyperlipidemia, unspecified; E55.9 Vitamin D deficiency, unspecified; E66.9 Obesity, unspecified; Z51.81 Encounter for therapeutic drug level monitoring
CPT/HCPCS: 36415; 80053; 80061; 82306; 82607; 83036; 84443